=== PATIENT | female | born 1940 | race Caucasian/White ===

== ENCOUNTER 2016-10-14 08:08 | Emergency (ER) | payer MEDICARE, BC ==
--- NOTE | 2016-10-14 08:43 | ED ---
General Adult HPI - General Chief complaint: Urogenital Stated complaint: Fever, poss UTI Time Seen by Provider: 10/14/16 08:23 Source: patient, RN notes reviewed Mode of arrival: EMS Limitations: no limitations - History of Present Illness Initial comments: Patient 76-year-old female who presents emergency room today with a chief complaint of cough congestion and fever 4 days. Patient does admit that over the past 4 days she's had increased cough. Does admit to sputum production unsure of the color she states she just swallows it. States she has taken Mucinex which does help the symptoms. She states she noticed fever over the last 2 days. States fever came back this morning was concerned. Also admits that she was treated for urinary tract infection approximate 2-3 weeks ago. States was not rechecked after the time. She states she was asymptomatic. States still asymptomatic at this time for any signs of urinary tract infection. Denies any other complaints or symptoms. Does admit that she took Tylenol at home prior to arrival. Patient denies any recent shortness of breath , chest pain, back pain, abdominal pain, nausea or vomiting, numbness or tingling, dysuria or hematuria, constipation or diarrhea, headaches or visual changes, or any other complaints. - Related Data Home Medications Medication Instructions Recorded Confirmed Allopurinol [Zyloprim] 100 mg PO DAILY 01/11/15 10/14/16 Aspirin 81 mg PO DAILY 01/11/15 10/14/16 Cholecalciferol [Vitamin D3] 1,000 unit PO DAILY 01/11/15 10/14/16 Cyanocobalamin [Vitamin B-12] 500 mcg PO DAILY@0900 01/11/15 10/14/16 Insulin Detemir [Levemir Flextouch] 80 units SQ HS 01/11/15 10/14/16 Levothyroxine Sodium [Levoxyl] 150 mcg PO DAILY 01/11/15 10/14/16 Lovastatin [Mevacor] 10 mg PO HS 01/11/15 10/14/16 Metoprolol Tartrate [Lopressor] 12.5 mg PO BID 01/11/15 10/14/16 Multivitamins, Thera [Multivitamin 1 tab PO DAILY 01/11/15 10/14/16 (formulary)] Repaglinide [Prandin] 1 mg PO TID-W/MEALS 01/11/15 10/14/16 Venlafaxine HCl [Effexor XR] 75 mg PO DAILY 01/11/15 10/14/16 Insulin Aspart [NovoLOG] See Protocol SQ ACHS 01/12/15 10/14/16 Liraglutide [Victoza 2-Parker] 1.8 mg SQ DAILY 01/12/15 10/14/16 Insulin Degludec [Tresiba 85 unit SQ HS 10/14/16 10/14/16 Flextouch U-100] Lisinopril [Prinivil] 5 mg PO DAILY 10/14/16 10/14/16 Pregabalin [Lyrica] 150 mg PO BID 10/14/16 10/14/16 hydrALAZINE HCL [Apresoline] 75 mg PO DAILY 10/14/16 10/14/16 oxyCODONE-APAP 7.5-325MG [Percocet 1 tab PO DAILY PRN 10/14/16 10/14/16 7.5-325 mg] Previous Rx's Medication Instructions Recorded traMADol HCl [Ultram] 50 mg PO TID #90 tab 01/17/15 Allergies Allergy/AdvReac Type Severity Reaction Status Date / Time erythromycin base Allergy Unknown Verified 10/14/16 09:16 meropenem [From Merrem] Allergy Rash/Hives Verified 10/14/16 09:16 Penicillins Allergy Unknown Verified 10/14/16 09:16 Review of Systems ROS Statement: Those systems with pertinent positive or pertinent negative responses have been documented in the HPI. ROS Other: All systems not noted in ROS Statement are negative. Past Medical History Past Medical History: Coronary Artery Disease (CAD), COPD, Diabetes Mellitus, Hypertension, Neurologic Disorder, Pneumonia, Renal Disease, Sleep Apnea/CPAP/ BIPAP, Thyroid Disorder Additional Past Medical History / Comment(s): septic pneumonia, uti, diabetic neuropathy, diabetic retinopathy, osteoporosis, chronic pain, gout, septic uti, kidney disease, diverticulosis History of Any Multi-Drug Resistant Organisms: MRSA Date of last positivie culture/infection: 2014 MDRO Source:: unknown Past Surgical History: Adenoidectomy, Section, Heart Catheterization With Stent, Orthopedic Surgery, Tonsillectomy Additional Past Surgical History / Comment(s): panniculectomy, ORIF right ankle with cellulitis and septic arthropathy requiring PICC line treatments over 5 years ago. Lumbar puncture [facility] November 2014 bilateral cataracts tonsillectomy and adenoidectomy pilonidal cyst DNC colonoscopy. 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 Fortunately with hyperbaric oxygen therapy and antibiotics the limb was salvaged. LapBand was placed many years ago. Past Anesthesia/Blood Transfusion Reactions: No Reported Reaction Date of Last Stent Placement:: 2000 Past Psychological History: Anxiety Additional Psychological History / Comment(s): . Lives in the family home with her without pets at this time. No tobacco or alcohol use. No experience. No recent travels. Daughter is a transplant surgeon and [place] Smoking Status: Former smoker Past Alcohol Use History: None Reported Past Drug Use History: None Reported - Past Family History Father Additional Family Medical History / Comment(s): per patient's , patient' s father had "growth in throat that was non-malignant. from malnutrition" Mother Family Medical History: Cancer Additional Family Medical History / Comment(s): from bladdar cancer General Exam - General Exam Comments Initial Comments: General: The patient is awake and alert, in no distress, and does not appear acutely ill. Eye: Pupils are equal, round and reactive to light, extra-ocular movements are intact. No nystagmus. There is normal conjunctiva bilaterally. No signs of icterus. Ears, nose, mouth and throat: There are moist mucous membranes and no oral lesions. Neck: The neck is supple, there is no tenderness or JVD. Cardiovascular: There is a regular rate and rhythm. No murmur, rub or gallop is appreciated. Respiratory: Lungs are clear to auscultation, respirations are non-labored, breath sounds are equal. No wheezes, stridor, rales, or rhonchi. Gastrointestinal: Soft, non-distended, non-tender abdomen without masses or organomegaly noted. There is no rebound or guarding present. No CVA tenderness. Bowel sounds are unremarkable. Musculoskeletal: Normal ROM, no tenderness. Strength 5/5. Sensation intact. Pulses equal bilaterally 2+. Neurological: A&O x 3. CN II-XII intact, There are no obvious motor or sensory deficits. Coordination appears grossly intact. Speech is normal. Skin: Skin is warm and dry and no rashes or lesions are noted. Psychiatric: Cooperative, appropriate mood & affect, normal judgment. Limitations: no limitations Course Vital Signs 10/14/16 08:10 Temperature 100.7 F H Pulse Rate 76 Respiratory 18 Rate Blood Pressure 153/70 O2 Sat by Pulse 95 Oximetry Medical Decision Making - Medical Decision Making Patient reexamined at this time shows no signs of distress. Chest x-ray is negative. She does not she's had cough congestion for the last 4 days. Patient 's been taking Mucinex at home with some relief. Will be continued on Mucinex. Urinalysis reviewed shows no obvious infection culture pending. At this time patient resting comfortably and feels comfortable being discharged. Patient does have an appointment with her family doctor in 3 days. Advised to continue with this appointment. Advised to return to emergency room if any symptoms increase or worsen or for any other concerns. She states understanding and is in agreement. - Lab Data Lab Results 10/14/16 Range/Units 09:00 Urine Color Yellow Urine Appearance Clear (Clear) Urine pH 6.0 (5.0-8.0) Ur Specific [place] 1.027 (1.001-1.035) Urine Protein 4+ H (Negative) Urine Glucose (UA) Negative (Negative) Urine Ketones 1+ H (Negative) Urine Blood Trace H (Negative) Urine Nitrite Negative (Negative) Urine Bilirubin Negative (Negative) Urine Urobilinogen <2.0 (<2.0) mg/dL Ur Leukocyte Esterase Negative (Negative) Urine RBC 2 (0-5) /hpf Urine WBC 2 (0-5) /hpf Ur Squamous Epith Cells <1 (0-4) /hpf Urine Bacteria Rare H (None) /hpf Hyaline Casts 5 H (0-2) /lpf Urine Mucus Rare H (None) /hpf Disposition Clinical Impression: Upper respiratory infection Disposition: HOME SELF-CARE Condition: Good Instructions: Upper Respiratory Infection (ED) Additional Instructions: Please use medication as discussed. Please follow-up with family doctor in the next 2 days of symptoms have not improved. Please return to emergency room if the symptoms increase or worsen or for any other concerns. Referrals: Kira Tenorio MD [Primary Care Provider] - 1-2 days Time of Disposition: 09:50
--- NOTE | 2016-10-14 09:00 | XR ---
EXAMINATION TYPE: XR chest 2V DATE OF EXAM: 10/14/2016 8:53 AM COMPARISON: 01/13/2015 INDICATION: Cough fever TECHNIQUE: Single frontal view of the chest is obtained. FINDINGS: The heart size is normal. The pulmonary vasculature is normal. The lungs are clear. IMPRESSION: 1. No acute pulmonary process.
[2016-10-14 09:43] LABS: Appearance,Urine Clear (Clear); Bacteria,Urine Rare /hpf; Bilirubin,Urine Negative (Negative); Glucose,Urine (UA) Negative (Negative); Ketones,Urine 1+ (Negative); Leukocyte Esterase,Urine Negative (Negative); Mucus,Urine Rare /hpf; Nitrite,Urine Negative (Negative); Particle Count 17499; Protein,Urine 4+ (Negative); RBC,Urine 2 /hpf (0-5); Specific Gravity,Urine 1.027 (1.001-1.035); Squamous Epithelial Cell,Urine <1 /hpf (0-4); UA Billing (MACRO vs. MICRO) MICRO; Urobilinogen,Urine <2.0 mg/dL (<2.0); WBC,Urine 2 /hpf (0-5)
[2016-10-14 10:13] VITALS: BP 142/70; PULSE 78; RESP 16; TEMP 99.8
== END 2016-10-14 10:12 | disposition home or self-care (01) ==
LOC: EC 08:08
DX: J06.9 Acute upper respiratory infection, unspecified (principal); R05 Cough; E07.9 Disorder of thyroid, unspecified; E11.9 Type 2 diabetes mellitus without complications; I10 Essential (primary) hypertension; F41.9 Anxiety disorder, unspecified; M10.9 Gout, unspecified; Z86.14 Personal history of Methicillin resistant Staphylococcus aureus infection; Z87.891 Personal history of nicotine dependence; I25.10 Atherosclerotic heart disease of native coronary artery without angina pectoris; Z79.4 Long term (current) use of insulin; Z79.82 Long term (current) use of aspirin; Z79.899 Other long term (current) drug therapy; Z88.0 Allergy status to penicillin; Z88.1 Allergy status to other antibiotic agents
CPT/HCPCS: 71020; 81001; 87086; 99284

== ENCOUNTER 2016-12-10 23:12 | Emergency (ER) | payer MEDICARE, BC ==
[2016-12-10] MEDS ORDERED: SODIUM CHLORIDE 0.9% 1,000 ML IV ONE (23:51)
--- NOTE | 2016-12-10 23:58 | ED ---
General Adult HPI <Justin Hernandez - Last Filed: 12/11/16 00:43> - General Source: patient, family, RN notes reviewed, old records reviewed Mode of arrival: wheelchair Limitations: no limitations <Mukund Ceron - Last Filed: 12/11/16 00:44> <David Morales - Last Filed: 12/11/16 03:02> - General Chief complaint: Urogenital Stated complaint: Urethra bleeding Time Seen by Provider: 12/10/16 23:23 - History of Present Illness Initial comments: Chief complaint history of present illness 76-year-old female here with her . The patient reports today that she has been noticing slight pink color to her pads but today it was fresh blood with several small clots. Patient has not noticed any blood in the toilet after urinating. Patient has had frequent urinary tract infections it which she does she does not have dysuria. She also describes having had mild discomfort to the mid right abdomen today but not like what she had had in the past with a kidney stone. Otherwise no chills sweats no nausea no vomiting. No change in appetite. (Mukund Ceron) - Related Data Home Medications Medication Instructions Recorded Confirmed Allopurinol [Zyloprim] 100 mg PO DAILY 01/11/15 12/10/16 Aspirin 81 mg PO DAILY 01/11/15 12/10/16 Cholecalciferol [Vitamin D3] 1,000 unit PO DAILY 01/11/15 12/10/16 Cyanocobalamin [Vitamin B-12] 500 mcg PO DAILY@0900 01/11/15 12/10/16 Levothyroxine Sodium [Levoxyl] 150 mcg PO DAILY 01/11/15 12/10/16 Lovastatin [Mevacor] 10 mg PO HS 01/11/15 12/10/16 Metoprolol Tartrate [Lopressor] 12.5 mg PO BID 01/11/15 12/10/16 Multivitamins, Thera [Multivitamin 1 tab PO DAILY 01/11/15 12/10/16 (formulary)] Repaglinide [Prandin] 1 mg PO TID-W/MEALS 01/11/15 12/10/16 Venlafaxine HCl [Effexor XR] 75 mg PO DAILY 01/11/15 12/10/16 Insulin Aspart [NovoLOG] See Protocol SQ ACHS 08/14/15 07/12/17 Liraglutide [Victoza 2-Parker] 1.8 mg SQ DAILY 01/12/15 12/10/16 Lisinopril [Prinivil] 5 mg PO DAILY 10/14/16 12/10/16 Pregabalin [Lyrica] 75 mg PO BID 10/14/16 12/10/16 hydrALAZINE HCL [Apresoline] 25 mg PO TID 10/14/16 12/10/16 Insulin Degludec [Tresiba 78 unit SQ HS 12/10/16 12/10/16 Flextouch U-100] Liraglutide [Victoza 3-Parker] 1.8 mg SQ [id number] 12/10/16 12/10/16 Previous Rx's Medication Instructions Recorded traMADol HCl [Ultram] 50 mg PO TID #90 tab 01/17/15 Ciprofloxacin HCl [Cipro] 500 mg PO Q12HR #14 tablet 12/11/16 Allergies Allergy/AdvReac Type Severity Reaction Status Date / Time erythromycin base Allergy Unknown Verified 12/10/16 23:20 meropenem [From Merrem] Allergy Rash/Hives Verified 12/10/16 23:20 Penicillins Allergy Unknown Verified 12/10/16 23:20 Review of Systems ROS Other: All systems not noted in ROS Statement are negative. <Justin Hernandez - Last Filed: 12/11/16 00:43> ROS Other: All systems not noted in ROS Statement are negative. <Mukund Ceron - Last Filed: 12/11/16 00:44> ROS Other: All systems not noted in ROS Statement are negative. <David Morales - Last Filed: 12/11/16 03:02> ROS Statement: Those systems with pertinent positive or pertinent negative responses have been documented in the HPI. review of systems no headache or visual acuity changes no chest pain or shortness of breath she had mild discomfort to the right mid abdomen not significantly painful with no radiation. No chills no nausea no vomiting. All systems are reviewedPast medical problems coronary artery disease, COPD, insulin-dependent diabetes mellitus, hypertension, peripheral neuropathy, pneumonia, renal insufficiency, sleep apnea, hypothyroidism septic pneumonia. Surgeries include tonsils, adenoids, 2 C-sections, heart catheterization with 2 stents placed. Total left ankle replacement. Tonsillectomy and panniculectomy. She is also had a lap band surgery and panniculectomy. Several laser surgeries became secondarily infected. No infections at this time (Mukund Ceron) Past Medical History Past Medical History: Coronary Artery Disease (CAD), COPD, Diabetes Mellitus, Hypertension, Neurologic Disorder, Pneumonia, Renal Disease, Sleep Apnea/CPAP/ BIPAP, Thyroid Disorder Additional Past Medical History / Comment(s): septic pneumonia, uti, diabetic neuropathy, diabetic retinopathy, osteoporosis, chronic pain, gout, septic uti, kidney disease, diverticulosis History of Any Multi-Drug Resistant Organisms: MRSA Date of last positivie culture/infection: 2014 MDRO Source:: unknown Past Surgical History: Adenoidectomy, Section, Heart Catheterization With Stent, Orthopedic Surgery, Tonsillectomy Additional Past Surgical History / Comment(s): panniculectomy, ORIF right ankle with cellulitis and septic arthropathy requiring PICC line treatments over 5 years ago. Lumbar puncture [facility] November 2014 bilateral cataracts tonsillectomy and adenoidectomy pilonidal cyst DNC colonoscopy. 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 Fortunately with hyperbaric oxygen therapy and antibiotics the limb was salvaged. LapBand was placed many years ago. Past Anesthesia/Blood Transfusion Reactions: No Reported Reaction Date of Last Stent Placement:: 2000 Past Psychological History: Anxiety Smoking Status: Former smoker Past Alcohol Use History: None Reported Past Drug Use History: None Reported - Past Family History Father Additional Family Medical History / Comment(s): per patient's , patient' s father had "growth in throat that was non-malignant. from malnutrition" Mother Family Medical History: Cancer Additional Family Medical History / Comment(s): from bladdar cancer <Mukund Ceron - Last Filed: 12/11/16 00:44> General Exam External exam: Present: normal external exam Speculum exam: Present: normal speculum exam, cervical discharge (tissue consistence), vaginal bleeding By manual exam: Present: normal by manual exam <Justin Hernandez - Last Filed: 12/11/16 00:43> Limitations: no limitations <Mukund Ceron - Last Filed: 12/11/16 00:44> <David Morales - Last Filed: 12/11/16 03:02> - General Exam Comments Initial Comments: General: The patient is awake and alert, here because she noticed blood on her feminine pad. No frequency urgency or dysuria. She does not know if it came from the vagina or from the urine, bladder. Vital signs temperature 98.0 pulse 82 respiratory rate 18 pulse ox 98% room air blood pressure 177/110. The patient did not take her medications today.. Eye: Pupils are equal, round and reactive to light, extra-ocular movements are intact ; there is normal conjunctiva bilaterally. No signs of icterus. Ears, nose, mouth and throat: There are moist mucous membranes and no oral lesions. false teeth Neck: The neck is supple, there is no tenderness . Cardiovascular: There is a regular rate and rhythm. No murmur, rub or gallop is appreciated. Respiratory: Lungs are clear to auscultation, respirations are non-labored, breath sounds are equal. No wheezes, stridor, rales, or rhonchi. Gastrointestinal: Mild firmness with examination of the abdomen. No hernias appreciated. Patient has had a panniculectomy with scar tissue. Active bowel sounds. Vaginal examination be performed by the physician's billing and accounting staff assistant, JUSTIN Back: There is no tenderness to palpation in the midline. There is no obvious deformity. No rashes noted. Musculoskeletal: Normal ROM, no tenderness, There is no pedal edema. There is no calf tenderness or swelling. Sensation intact. Neurological: CURRENTLY NO FOCAL OR LATERALIZING FINDINGS. bUT SHE DOES HAVE PERIPHERAL NEUROPATHY, CHRONIC IN NATURE. Skin: Skin is warm and dry and no rashes or lesions are noted. (Mukund Ceron) Medical Decision Making - Lab Data Result diagrams: 12/11/16 00:15 <Justin Hernandez - Last Filed: 12/11/16 00:43> - Lab Data Result diagrams: 12/11/16 00:15 <Mukudn eCron - Last Filed: 12/11/16 00:44> - Lab Data Result diagrams: 12/11/16 00:15 12/11/16 00:15 <David Morales - Last Filed: 12/11/16 03:02> - Medical Decision Making Patient forgot to take any of her medications today. Her blood pressure is elevated upon arrival to emergency room 167/110. She will be given her evening dose of hydralazine 25 and Lopressor 12.5 by mouth. Vaginal examination was done by physician's billing and accounting staff assistant Justin. See her note. It was noted that the bleeding is from the vagina. There appeared to be some loose material in the cervical opening. The patient will have an ultrasound. labs show white count 11.5 hemoglobin 13.8 hematocrit of 40.1. Glucose per lab for 02. The patient received 6 units of regular insulin per scale. The patient had forgotten to take any further blood pressure pills for diabetic medication today. potassium 4.5, BUN 29 creatinine 1.4 GFR 37. Patient is waiting to have an ultrasound done. Depending upon the results patient will either be admitted or discharged to follow up with her family physician and double end sewer for vaginal bleeding. Patient states she has not had a Pap smear for many years. Final disposition will be determined by Dr. Hong ([facility]) - Lab Data Lab Results 12/11/16 12/11/16 12/11/16 Range/Units 00:15 00:15 00:24 WBC 11.5 H (3.8-10.6) k/uL RBC 4.54 (3.80-5.40) m/uL Hgb 13.8 (11.4-16.0) gm/dL Hct 40.1 (34.0-46.0) % MCV 88.4 (80.0-100.0) fL MCH 30.4 (25.0-35.0) pg MCHC 34.4 (31.0-37.0) g/dL RDW 14.1 (11.5-15.5) % Plt Count 257 (150-450) k/uL Neutrophils % 74 % Lymphocytes % 18 % Monocytes % 4 % Eosinophils % 1 % Basophils % 0 % Neutrophils # 8.5 H (1.3-7.7) k/uL Lymphocytes # 2.1 (1.0-4.8) k/uL Monocytes # 0.5 (0-1.0) k/uL Eosinophils # 0.2 (0-0.7) k/uL Basophils # 0.1 (0-0.2) k/uL PT (9.0-12.0) sec INR (<1.1) Sodium 140 (137-145) mmol/L Potassium 4.5 (3.5-5.1) mmol/L Chloride 101 (98-107) mmol/L Carbon Dioxide 24 (22-30) mmol/L Anion Gap 15 mmol/L BUN 29 H (7-17) mg/dL Creatinine 1.40 H (0.52-1.04) mg/dL Est GFR (MDRD) Af Amer 44 (>60 ml/min/1.73 sqM) Est GFR (MDRD) Non-Af 37 (>60 ml/min/1.73 sqM) Glucose 402 H (74-99) mg/dL POC Glucose (mg/dL) 363 H (75-99) mg/dL POC Glu Claims Adjuster ID Shayy Nick Calcium 9.5 (8.4-10.2) mg/dL Total Bilirubin 0.3 (0.2-1.3) mg/dL AST 37 H (14-36) U/L ALT 43 (9-52) U/L Alkaline Phosphatase 164 H (38-126) U/L Total Protein 7.2 (6.3-8.2) g/dL Albumin 4.4 (3.5-5.0) g/dL Urine Color Urine Appearance (Clear) Urine pH (5.0-8.0) Ur Specific [place] (1.001-1.035) Urine Protein (Negative) Urine Glucose (UA) (Negative) Urine Ketones (Negative) Urine Blood (Negative) Urine Nitrite (Negative) Urine Bilirubin (Negative) Urine Urobilinogen (<2.0) mg/dL Ur Leukocyte Esterase (Negative) Urine RBC (0-5) /hpf Urine WBC (0-5) /hpf Ur Squamous Epith Cells (0-4) /hpf 12/11/16 12/11/16 12/11/16 Range/Units 00:33 02:02 02:06 WBC (3.8-10.6) k/uL RBC (3.80-5.40) m/uL Hgb (11.4-16.0) gm/dL Hct (34.0-46.0) % MCV (80.0-100.0) fL MCH (25.0-35.0) pg MCHC (31.0-37.0) g/dL RDW (11.5-15.5) % Plt Count (150-450) k/uL Neutrophils % % Lymphocytes % % Monocytes % % Eosinophils % % Basophils % % Neutrophils # (1.3-7.7) k/uL Lymphocytes # (1.0-4.8) k/uL Monocytes # (0-1.0) k/uL Eosinophils # (0-0.7) k/uL Basophils # (0-0.2) k/uL PT 9.9 (9.0-12.0) sec INR 1.0 (<1.1) Sodium (137-145) mmol/L Potassium (3.5-5.1) mmol/L Chloride (98-107) mmol/L Carbon Dioxide (22-30) mmol/L Anion Gap mmol/L BUN (7-17) mg/dL Creatinine (0.52-1.04) mg/dL Est GFR (MDRD) Af Amer (>60 ml/min/1.73 sqM) Est GFR (MDRD) Non-Af (>60 ml/min/1.73 sqM) Glucose (74-99) mg/dL POC Glucose (mg/dL) 369 H (75-99) mg/dL POC Glu Claims Adjuster ID Shayla Zhu Calcium (8.4-10.2) mg/dL Total Bilirubin (0.2-1.3) mg/dL AST (14-36) U/L ALT (9-52) U/L Alkaline Phosphatase (38-126) U/L Total Protein (6.3-8.2) g/dL Albumin (3.5-5.0) g/dL Urine Color Yellow Urine Appearance Clear (Clear) Urine pH 7.5 (5.0-8.0) Ur Specific [place] 1.010 (1.001-1.035) Urine Protein 2+ H (Negative) Urine Glucose (UA) 4+ H (Negative) Urine Ketones Negative (Negative) Urine Blood Moderate H (Negative) Urine Nitrite Negative (Negative) Urine Bilirubin Negative (Negative) Urine Urobilinogen <2.0 (<2.0) mg/dL Ur Leukocyte Esterase Small H (Negative) Urine RBC >182 H (0-5) /hpf Urine WBC 66 H (0-5) /hpf Ur Squamous Epith Cells <1 (0-4) /hpf Disposition <Justin Hernandez - Last Filed: 12/11/16 00:43> <Mukund Ceron - Last Filed: 12/11/16 00:44> <David Morales - Last Filed: 12/11/16 03:02> Clinical Impression: Postmenopausal vaginal bleeding, Urinary tract infection, Hypertension, Hyperglycemia Disposition: HOME SELF-CARE Condition: Fair Instructions: Urinary Tract Infection in Women (ED) Prescriptions: Ciprofloxacin HCl [Cipro] 500 mg PO Q12HR #14 tablet Referrals: Kira Tenorio MD [Primary Care Provider] - 1-2 days Sherin Hackett MD [STAFF PHYSICIAN] - 1-2 days
[2016-12-11 00:25] LABS: Glucose,Whole Blood 363 mg/dL (75-99)
[2016-12-11] MEDS ORDERED: METOPROLOL TARTRATE 12.5 MG TAB PO STA (00:25)
[2016-12-11] MEDS ORDERED: hydrALAZINE HCL 25 MG TAB PO STA (00:25)
[2016-12-11 00:32] LABS: Basophils # (A) 0.1 k/uL (0-0.2); Basophils % (A) 0 %; CH 29.4; CHCM 33.3; Eosinophils # (A) 0.2 k/uL (0-0.7); Eosinophils % (A) 1 %; HCT 40.1 % (34.0-46.0); HDW 2.96; HGB 13.8 gm/dL (11.4-16.0); Luc # (Auto) 0.18; Luc % (Auto) 2; Lymphocytes # (A) 2.1 k/uL (1.0-4.8); Lymphocytes % (A) 18 %; MCH 30.4 pg (25.0-35.0); MCHC 34.4 g/dL (31.0-37.0); MCV 88.4 fL (80.0-100.0); Mean Platelet Volume 6.8; Monocytes # (A) 0.5 k/uL (0-1.0); Monocytes % (A) 4 %; Neutrophils # (A) 8.5 k/uL (1.3-7.7); Neutrophils % (A) 74 %; RBC 4.54 m/uL (3.80-5.40); RDW 14.1 % (11.5-15.5); WBC 11.5 k/uL (3.8-10.6); WBC (Perox) 11.11
[2016-12-11] MEDS ORDERED: INSULIN LISPRO (humaLOG) 300 UNIT/3 ML VIAL SQ ONE ×2 (00:33→02:22)
[2016-12-11 00:44] LABS: Calcium 9.5 mg/dL (8.4-10.2); Potassium 4.5 mmol/L (3.5-5.1); Total Bilirubin 0.3 mg/dL (0.2-1.3); Total Protein 7.2 g/dL (6.3-8.2)
[2016-12-11 00:47] VITALS: RESP 16
[2016-12-11 00:51] LABS: Prothrombin Time 9.9 sec (9.0-12.0)
[2016-12-11 02:07] LABS: Glucose,Whole Blood 369 mg/dL (75-99)
[2016-12-11] MEDS ORDERED: cloNIDine HCL 0.2 MG TAB PO STA (02:15)
--- NOTE | 2016-12-11 02:22 | US ---
EXAM: US Pelvis Complete, Transabdominal CLINICAL HISTORY: Reason: vaginal bleeding TECHNIQUE: Real-time transabdominal pelvic ultrasound (complete) with image documentation. COMPARISON: None. FINDINGS: Uterus/cervix: The uterus is anteverted and measures 7.4 x 3.3 x 3.3 cm. Endometrial stripe thickness measures approximately 1 cm, which is abnormal in a postmenopausal female. Patient was unable to successfully empty her bladder making transvaginal imaging limited. Right ovary: Measures 2.5 x 1 x 1.8 cm. No mass. Normal blood flow. Left ovary: Measures 1.9 x 1.4 x 1.6 cm. No mass. Normal blood flow. Free fluid: No free fluid. Bladder: Unremarkable as visualized. Post void residual volume 182 cc IMPRESSION: 1. Thickened endometrial stripe, measuring up to 1 cm, which is abnormal in a postmenopausal female. Given the patient's history, this concerning for neoplasm. Tissue sampling is recommended. 2. Postvoid residual volume of 182 cc, which is abnormal.
[2016-12-11 02:24] LABS: Appearance,Urine Clear (Clear); Bilirubin,Urine Negative (Negative); Glucose,Urine (UA) 4+ (Negative); Ketones,Urine Negative (Negative); Leukocyte Esterase,Urine Small (Negative); Nitrite,Urine Negative (Negative); PH, Urine 7.5 (5.0-8.0); Particle Count 1327; Protein,Urine 2+ (Negative); RBC,Urine >182 /hpf (0-5); Squamous Epithelial Cell,Urine <1 /hpf (0-4); UA Billing (MACRO vs. MICRO) MICRO; Urobilinogen,Urine <2.0 mg/dL (<2.0); WBC,Urine 66 /hpf (0-5)
[2016-12-11 03:34] VITALS: BP 188/79; PULSE 59; TEMP 98.6
== END 2016-12-11 03:53 | disposition home or self-care (01) ==
LOC: EC 23:12
DX: N95.0 Postmenopausal bleeding (principal); N39.0 Urinary tract infection, site not specified; E11.65 Type 2 diabetes mellitus with hyperglycemia; I10 Essential (primary) hypertension; I25.10 Atherosclerotic heart disease of native coronary artery without angina pectoris; E07.9 Disorder of thyroid, unspecified; M10.9 Gout, unspecified; F41.9 Anxiety disorder, unspecified; Z87.891 Personal history of nicotine dependence; Z88.0 Allergy status to penicillin; Z88.1 Allergy status to other antibiotic agents; Z88.8 Allergy status to other drugs, medicaments and biological substances; Z79.82 Long term (current) use of aspirin; Z79.4 Long term (current) use of insulin; Z79.84 Long term (current) use of oral hypoglycemic drugs; Z79.899 Other long term (current) drug therapy
CPT/HCPCS: 36415; 76856; 80053; 81001; 85025; 85610; 87086; 96360; 96361; 99284

== ENCOUNTER → 2017-01-22 | Outpatient (CLI) | payer MEDICARE, BC ==
[2017-01-22 17:43] LABS: CH 30.2; CHCM 33.1; HDW 2.68; HGB 12.9 gm/dL (11.4-16.0); MCH 29.6 pg (25.0-35.0); MCHC 32.2 g/dL (31.0-37.0); MCV 91.8 fL (80.0-100.0); Mean Platelet Volume 7.3; RBC 4.35 m/uL (3.80-5.40); RDW 15.1 % (11.5-15.5); WBC 9.6 k/uL (3.8-10.6)
[2017-01-22 17:50] LABS: Potassium 5.1 mmol/L (3.5-5.1)
== END | disposition home or self-care (01) ==
LOC: LABWHC1 17:19
PROVIDERS: ATTEND Internal Medicine Cardiovascular Disease
DX: Z01.812 Encounter for preprocedural laboratory examination (principal); I25.10 Atherosclerotic heart disease of native coronary artery without angina pectoris
CPT/HCPCS: 36415; 80051; 82565; 84520; 85027

== ENCOUNTER 2017-01-28 09:38 | Day surgery (SDC) | payer MEDICARE, BC ==
[2017-01-26 09:52] VITALS: BMI 33.3
[~2017-01-28 09:38] MED LIST: ALPRAZolam 0.25 MG TAB PO PRN; ALPRAZolam 0.5 MG TAB PO PRN; ASPIRIN 325 MG TAB PO STA; ATORVASTATIN 80 MG TAB PO STA; NITROGLYCERIN SL TABS 0.4 MG TAB SUBLINGUAL PRN; SODIUM CHLORIDE 0.9% 1,000 ML in EMPTY BAG 1 BAG IV ONE
[2017-01-28] MEDS: INSULIN LISPRO (humaLOG) 300 UNIT/3 ML VIAL SQ SCH ×3 (10:04→21:01)
[2017-01-28] MEDS ORDERED: fentaNYL (PF) 50 MCG/ML 2 ML AMP ONE (11:29)
[2017-01-28] MEDS ORDERED: fentaNYL (PF) 50 MCG/ML 2 ML AMP IVP ONE (11:30)
[2017-01-28] MEDS ORDERED: LIDOCAINE 2% INJ 20 MG/ML SQ ONE ×2 (11:33→11:46)
[2017-01-28] MEDS ORDERED: VERAPAMIL 2.5 MG/ML 2 ML AMP ONE (11:42)
[2017-01-28] MEDS ORDERED: VERAPAMIL SYRINGE (5 MG/10 ML) INTRAARTER ONE (11:52)
[2017-01-28] MEDS ORDERED: HEPARIN SODIUM 1,000 UN/ML (10ML VL) IV ONE (11:53)
[2017-01-28] MEDS ORDERED: RX INFO: IV CONTRAST WAS GIVEN 1 EACH MISC MISCELLANE PRN (12:39)
[2017-01-28] MEDS ORDERED: IODIXANOL 320 MG/ML 100 ML INTRAARTER ONE (12:40)
[2017-01-28] MEDS ORDERED: ACETAMINOPHEN TAB 325 MG TAB PO PRN (13:00)
[2017-01-28] MEDS: SODIUM CHLORIDE 0.9% 1,000 ML IV SCH (13:32)
[2017-01-28 14:06] LABS: Glucose,Whole Blood 238 mg/dL (75-99)
[2017-01-28 14:08] LABS: Glucose,Whole Blood 173 mg/dL (75-99)
[2017-01-28] MEDS ORDERED: hydrALAZINE HCL 20 MG/ML 1 ML VIAL IVP PRN (14:54)
--- NOTE | 2017-01-28 15:11 | P.CONS ---
History of Present Illness - Reason for Consult Consult date: 01/28/17 Diabetes management - Chief Complaint Chest tightness - History of Present Illness This is a 76-year-old female patient of Dr. Tenorio and Dr. Adkins. She has a past medical history significant for coronary artery disease status post stent 2, hypertension, COPD, diabetes mellitus type 2, diabetic neuropathy, diabetic retinopathy, osteoporosis, chronic kidney disease stage III, sleep apnea unable to tolerate CPAP, hypothyroidism, chronic pain, gout, frequent urinary tract infections, diverticulosis, septic arthropathy of the right ankle in the past. Patient states that she saw Dr. Tenorio yesterday and is currently in the donut hole and unable to afford her current diabetic medications. They are currently in the process of changing over to less expensive medications. Her last hemoglobin A1c was 7.8 which is an improvement from the previous. She also saw Dr. Adkins on a regular scheduled appointment and due to tightness in her chest which is intermittent and she was scheduled for heart catheterization that did show blockages that requires stent placement. Due to her chronic kidney disease, PCI was postponed until next week. Patient has been hydrated overnight and plan for discharge home tomorrow. On January 22, BUN was 28 and creatinine 1.4. Blood pressure is also quite elevated and IV hydralazine added. Patient also states that she has been tired on a regular basis every day. She is sleeping 13-14 hours per day.. Review of Systems All systems: negative Constitutional: Reports chronic pain, Reports daytime sleepiness, Reports fatigue, Reports lethargy, Denies anorexia, Denies chills, Denies fever, Denies night sweats, Denies poor appetite, Denies weakness Eyes: denies blurred vision, denies pain Ears, nose, mouth and throat: Denies dental pain, Denies dysphagia, Denies headache, Denies mouth pain, Denies nasal congestion, Denies nasal discharge, Denies sore throat, Denies vertigo Cardiovascular: Reports chest pain, Denies edema, Denies irregular heart beat, Denies leg edema, Denies lightheadedness, Denies orthopnea, Denies palpitations , Denies paroxysmal nocturnal dyspnea, Denies shortness of breath Respiratory: Denies cough, Denies cough with sputum, Denies dyspnea, Denies excessive sputum, Denies hemoptysis, Denies home oxygen, Denies wheezing Gastrointestinal: Denies abdominal pain, Denies belching, Denies bloating, Denies coffee ground emesis, Denies diarrhea, Denies hematemesis, Denies hematochezia, Denies loss of appetite, Denies melena, Denies nausea, Denies vomiting Genitourinary: Denies dysuria, Denies hematuria, Denies urgency, Denies urinary frequency Musculoskeletal: Denies myalgias Integumentary: Denies pruritus, Denies rash Neurological: Denies numbness, Denies weakness Psychiatric: Denies anxiety, Denies depression Endocrine: Denies fatigue, Denies weight change Past Medical History Past Medical History: Coronary Artery Disease (CAD), COPD, Diabetes Mellitus, Hypertension, Renal Disease, Sleep Apnea/CPAP/BIPAP, Thyroid Disorder Additional Past Medical History / Comment(s): see Dr Adkins H&P, unable to tolerate CPAP, frequent urinary tract infections, diabetic neuropathy, diabetic retinopathy, "nervous bladder", chronic kidney disease stage III, hypothyroidism , osteoporosis, chronic pain, gout, diverticulosis History of Any Multi-Drug Resistant Organisms: None Reported Year Discovered:: None MDRO Source:: None Past Surgical History: Adenoidectomy, Section, Heart Catheterization With Stent, Orthopedic Surgery, Tonsillectomy Additional Past Surgical History / Comment(s): panniculectomy(post op infection) , ORIF right ankle with cellulitis and septic arthropathy requiring IV antibiotics in the care of Dr. Celestin, right ankle arthroplasty, polyp removed from uterus, 2 cardiac stents, bilateral cataract extraction and intraocular lens implants, pilonidal cyst, D&C, colonoscopy, lumbar puncture done at [facility] November 2014 Past Anesthesia/Blood Transfusion Reactions: No Reported Reaction Date of Last Stent Placement:: 2012 Past Psychological History: No Psychological Hx Reported Additional Psychological History / Comment(s): . Smoking Status: Former smoker Past Alcohol Use History: Rare Additional Past Alcohol Use History / Comment(s): quit smoking 25 yrs ago, smoked for 20 yrs 1 ppd Past Drug Use History: None Reported - Past Family History Father Additional Family Medical History / Comment(s): Father at age 65 with history of nasal cancer and throat masses that led to malnutrition and his . On autopsy throat masses were benign. Mother Family Medical History: Cancer Additional Family Medical History / Comment(s): Mother at age 67 from bladder cancer. Daughter(s) Additional Family Medical History / Comment(s): Patient has 2 daughters with no major medical problems. Patient does not have any siblings. Medications and Allergies Home Medications Medication Instructions Recorded Confirmed Type Allopurinol [Zyloprim] 100 mg PO DAILY 01/11/15 01/28/17 History Aspirin 81 mg PO DAILY 01/11/15 01/28/17 History Cholecalciferol [Vitamin D3] 1,000 unit PO DAILY 01/11/15 01/28/17 History Cyanocobalamin [Vitamin B-12] 500 mcg PO DAILY 01/11/15 01/28/17 History Levothyroxine Sodium [Levoxyl] 150 mcg PO DAILY 01/11/15 01/28/17 History Lovastatin [Mevacor] 10 mg PO HS 01/11/15 01/28/17 History Metoprolol Tartrate [Lopressor] 12.5 mg PO BID 01/11/15 01/28/17 History Multivitamins, Thera [Multivitamin 1 tab PO DAILY 01/11/15 01/28/17 History (formulary)] Repaglinide [Prandin] 1 mg PO TID-W/MEALS 01/11/15 01/28/17 History Venlafaxine HCl [Effexor XR] 75 mg PO DAILY 01/11/15 01/28/17 History Insulin Aspart [NovoLOG] See Protocol SQ ACHS 01/12/15 01/28/17 History Lisinopril [Prinivil] 5 mg PO DAILY 10/14/16 01/28/17 History Pregabalin [Lyrica] 75 mg PO BID 10/14/16 01/28/17 History hydrALAZINE HCL [Apresoline] 25 mg PO TID 10/14/16 01/28/17 History Insulin Degludec [Tresiba 78 unit SQ HS 12/10/16 01/28/17 History Flextouch U-100] Liraglutide [Victoza 3-Parker] 1.8 mg SQ AC-BRKFST 12/10/16 01/28/17 History Acetaminophen [Tylenol Arthritis] 650 mg PO QID 01/26/17 01/28/17 History Progesterone, Micronized 200 mg PO DAILY 01/26/17 01/28/17 History [Progesterone] Allergies Allergy/AdvReac Type Severity Reaction Status Date / Time erythromycin base Allergy Unknown Verified 01/28/17 09:59 meropenem [From Merrem] Allergy Rash/Hives Verified 01/28/17 09:59 Penicillins Allergy Unknown Verified 01/28/17 09:59 Physical Exam Vitals: Vital Signs Temp Pulse Pulse Resp BP BP Pulse Ox 01/28/17 13:19 97.9 F 53 L 18 154/66 94 L 01/28/17 10:21 97.6 F 56 L 18 167/74 170/74 95 Intake and Output 01/27/17 01/28/17 01/28/17 22:59 06:59 14:59 Intake Total 75 Balance 75 Intake: IV 75 Gen: This is a obese 76-year-old female. She is resting in bed appears to be comfortable and in no acute distress. HEENT: Head is atraumatic, normocephalic. Pupils equal, round. Sclerae is anicteric. Conjunctiva pink. Mucous membranes of the mouth are dry. NECK: Supple. No JVD. No lymphadenopathy. No thyromegaly. LUNGS: Clear to auscultation. No wheezes or rhonchi. No intercostal retractions. HEART: Regular rate and rhythm. No murmur. ABDOMEN: Soft. Bowel sounds are present. No masses. No tenderness. EXTREMITIES: No pedal edema. No calf tenderness. Dorsalis pedis +2 bilaterally. TR-band to right wrist. NEUROLOGICAL: Patient is awake, alert and oriented x3. Cranial nerves 2 through 12 are grossly intact. Results Labs: Abnormal Lab Results - Last 24 Hours (Table) 01/28/17 01/28/17 Range/Units 09:57 13:12 POC Glucose (mg/dL) 238 H 173 H (75-99) mg/dL Assessment and Plan Plan: 1. Coronary artery disease status post heart catheterization will plan to return next week for stent placement. Continue aspirin 81 mg daily, Lipitor 10 mg at bedtime for lovastatin, metoprolol 12.5 mg twice daily. 2. Diabetes mellitus type 2 with hemoglobin A1c of 7.8. The patient will be continued on Tarceva 78 units at bedtime, Prandin 1 mg 3 times daily, Victoza 1.8 mg before breakfast. Patient shouldn't is making arrangements with Dr. quintal to use less expensive medications for blood sugar control. 3. Hypertension with urgent hypertension continue lisinopril 5 mg daily, metoprolol 12.5 mg twice daily, hydralazine 25 mg 3 times daily, hydralazine 20 mg IV push every 6 hours for systolic blood pressure greater than 160. 4. Chronic kidney disease stage III. Repeat blood work in the morning. Continue IV fluids. 5. Generalized anxiety disorder and recurrent depression. Continue Effexor XR 75 mg daily and Xanax as needed has been added. 6. Hypothyroidism. Continue levothyroxine 150 g daily. 7. Diabetic neuropathy. Continue Lyrica 75 mg twice daily. Patient may switch to gabapentin 300 mg at bedtime due to cost issue. 8. Chronic pain. Continue Ultram 50 mg 3 times daily as needed. 9. Gout, stable. Continue allopurinol. Patient on the observation unit. Discharge plan: Home tomorrow Impression and plan of care have been directed as dictated by the signing physician. Myesha Wynne nurse practitioner acting as scribe for signing physician.
[2017-01-28] MEDS: hydrALAZINE HCL 25 MG TAB PO SCH ×2 (16:30→19:43)
[2017-01-28] MEDS: REPAGLINIDE 1 MG TAB PO SCH (16:32)
[2017-01-28] MEDS: traMADol 50 MG TAB PO SCH ×2 (16:32→19:43)
[2017-01-28 17:28] LABS: Glucose,Whole Blood 158 mg/dL (75-99)
[2017-01-28] MEDS: PREGABALIN 75 MG CAP PO SCH (19:43)
[2017-01-28] MEDS: METOPROLOL TARTRATE 12.5 MG TAB PO SCH (19:43)
[2017-01-28 20:55] LABS: Glucose,Whole Blood 261 mg/dL (75-99)
[2017-01-28] MEDS ORDERED: INSULIN DETEMIR 100 UNIT/ML 10 ML VIAL SQ SCH (21:00)
[2017-01-28] MEDS ORDERED: ATORVASTATIN 10 MG TAB PO SCH (21:00)
[2017-01-29 04:13] VITALS: RESP 18
[2017-01-29] MEDS: SODIUM CHLORIDE 0.9% 1,000 ML IV SCH ×2 (04:43→09:16)
[2017-01-29 05:41] LABS: Calcium 9.1 mg/dL (8.4-10.2); Potassium 4.2 mmol/L (3.5-5.1)
[2017-01-29] MEDS ORDERED: LEVOTHYROXINE 75 MCG TAB PO SCH (06:30)
[2017-01-29 07:07] LABS: Glucose,Whole Blood 79 mg/dL (75-99)
[2017-01-29 07:23] VITALS: BP 136/56; TEMP 98.3
[2017-01-29] MEDS ORDERED: NON-FORMULARY DRUG (Liraglutide [Victoza 3-Pak] 1.8 MG) SQ SCH (07:30)
[2017-01-29] MEDS: INSULIN LISPRO (humaLOG) 300 UNIT/3 ML VIAL SQ SCH (08:55)
[2017-01-29] MEDS ORDERED: ASPIRIN 81 MG CHEW PO SCH (09:00)
[2017-01-29] MEDS ORDERED: PROGESTERONE MICRONIZED 200 MG PO SCH (09:00)
[2017-01-29] MEDS ORDERED: ALLOPURINOL 100 MG TAB PO SCH (09:00)
[2017-01-29] MEDS ORDERED: LISINOPRIL 5 MG TAB PO SCH (09:00)
[2017-01-29] MEDS ORDERED: VENLAFAXINE HCL ER 37.5 MG CAP PO SCH (09:00)
[2017-01-29] MEDS: PREGABALIN 75 MG CAP PO SCH (09:16)
[2017-01-29] MEDS: REPAGLINIDE 1 MG TAB PO SCH (09:16)
[2017-01-29] MEDS: METOPROLOL TARTRATE 12.5 MG TAB PO SCH (09:16)
[2017-01-29] MEDS: hydrALAZINE HCL 25 MG TAB PO SCH (09:16)
[2017-01-29] MEDS: traMADol 50 MG TAB PO SCH (09:38)
[2017-01-29 09:47] VITALS: PULSE 65
--- NOTE | 2017-01-29 11:12 | P.DS ---
Providers Date of admission: 01/28/2017 Expected date of discharge: 01/29/17 Attending physician: Capri Adkins Consults: 01/28/17 12:44 Consult Physician Routine Consulting Provider: Kira Tenorio Consult Reason/Comments: diabetic management Do you want consulting provider notified?: Yes Primary care physician: Kira Tenorio [facility] Hospital Course: This is a 76-year-old female who presented on 01/28/2017 for an elective cardiac catheterization. She underwent a left heart via the right radial artery. The procedure showed triple vessel disease. She tolerated the procedure well without incident. She stayed overnight in observation. She is scheduled to follow up with Dr. Adkins in the office 02/03/2017 for follow up and scheduling of interventional procedure. Her incision site shows no sign of hematoma, pain, swelling or redness. Discharge instructions were given to patient with verbalized understanding. Procedures: Left heart catheterization Plan - Discharge Summary New Discharge Prescriptions: Continue Repaglinide [Prandin] 1 mg PO TID-W/MEALS Metoprolol Tartrate [Lopressor] 12.5 mg PO BID Cyanocobalamin [Vitamin B-12] 500 mcg PO DAILY Cholecalciferol [Vitamin D3] 1,000 unit PO DAILY Venlafaxine HCl [Effexor XR] 75 mg PO DAILY Multivitamins, Thera [Multivitamin (formulary)] 1 tab PO DAILY Lovastatin [Mevacor] 10 mg PO HS Levothyroxine Sodium [Levoxyl] 150 mcg PO DAILY Aspirin 81 mg PO DAILY Allopurinol [Zyloprim] 100 mg PO DAILY Insulin Aspart [NovoLOG] See Protocol SQ ACHS traMADol HCl [Ultram] 50 mg PO TID #90 tab hydrALAZINE HCL [Apresoline] 25 mg PO TID Lisinopril [Prinivil] 5 mg PO DAILY Pregabalin [Lyrica] 75 mg PO BID Insulin Degludec [Tresiba Flextouch U-100] 78 unit SQ HS Liraglutide [Victoza 3-Parker] 1.8 mg SQ AC-BRKFST Progesterone, Micronized [Progesterone] 200 mg PO DAILY Acetaminophen [Tylenol Arthritis] 650 mg PO QID Discharge Medication List Allopurinol [Zyloprim] 100 mg PO DAILY 01/11/15 [History] Aspirin 81 mg PO DAILY 01/11/15 [History] Cholecalciferol [Vitamin D3] 1,000 unit PO DAILY 01/11/15 [History] Cyanocobalamin [Vitamin B-12] 500 mcg PO DAILY 01/11/15 [History] Levothyroxine Sodium [Levoxyl] 150 mcg PO DAILY 01/11/15 [History] Lovastatin [Mevacor] 10 mg PO HS 01/11/15 [History] Metoprolol Tartrate [Lopressor] 12.5 mg PO BID 01/11/15 [History] Multivitamins, Thera [Multivitamin (formulary)] 1 tab PO DAILY 01/11/15 [History ] Repaglinide [Prandin] 1 mg PO TID-W/MEALS 01/11/15 [History] Venlafaxine HCl [Effexor XR] 75 mg PO DAILY 01/11/15 [History] Insulin Aspart [NovoLOG] See Protocol SQ ACHS 01/12/15 [History] traMADol HCl [Ultram] 50 mg PO TID #90 tab 01/17/15 [Rx] Lisinopril [Prinivil] 5 mg PO DAILY 10/14/16 [History] Pregabalin [Lyrica] 75 mg PO BID 10/14/16 [History] hydrALAZINE HCL [Apresoline] 25 mg PO TID 10/14/16 [History] Insulin Degludec [Tresiba Flextouch U-100] 78 unit SQ HS 12/10/16 [History] Liraglutide [Victoza 3-Parker] 1.8 mg SQ AC-BRKFST 12/10/16 [History] Acetaminophen [Tylenol Arthritis] 650 mg PO QID 01/26/17 [History] Progesterone, Micronized [Progesterone] 200 mg PO DAILY 01/26/17 [History] Follow up Appointment(s)/Referral(s): Capri Adkins MD [STAFF PHYSICIAN] - 02/03/17 (Appt at 1:00 pm February 03 ) Patient Instructions/Handouts: After Radial Heart Catheterization (GEN) Activity/Diet/Wound Care/Special Instructions: low fat, low sat diet. activity as tolerated. follow up appt with Dr. Adkins. No lifting more then 5 lbs and no excessive bending of the right wrist. if bleeding occurs, hold firm pressure on the site for 10 minutes. if you cannot get the bleeding to stop come to ER. Discharge Disposition: HOME SELF-CARE
--- NOTE | 2017-01-29 11:28 | P.PCN ---
Date of Procedure: 01/29/17 Preoperative Diagnosis: Chest pain and positive stress test Postoperative Diagnosis: Triple-vessel disease Procedure(s) Performed: Implants: Indications for Procedure: Operative Findings: Description of Procedure: HISTORY: This is a 76-year-old female with history of hypertension, hypercholesterolemia and also insulin-dependent diabetes mellitus with history of previous myocardial infarctions and stent placement of the LAD and also distal RCA. Patient has been having some chest pains and a stress test showed evidence of possible ischemia in the anterior wall. Patient is advised to have cardiac catheterization for definitive diagnosis. CONSENT:I have discussed the risks, benefits and alternative therapies for the above-mentioned procedure and for both sedation/analgesia as well as necessary blood product administration, if indicated, as they pertain to this patient. The patient has indicated understanding and acceptance of the risks and procedures discussed. PROCEDURE: Patient was brought to the lab in a fasting state. Patient was given conscious IV sedation. The right wrist area is infiltrated with lidocaine and right radial artery was entered using Seldinger technique. A 6- Azeri catheter was left in place and selective coronary arteriography was performed. Patient tolerated the procedure well. She is found to have triple- vessel disease . Patient was considered for stent placement of the RCA followed by circumflex and also LAD. However because of of her kidney function with creatinine of 1.4, it was felt that patient is a high risk for dye overload further intervention at this time. Patient is going be brought back further intervention. No immediate complications were noted and patient was transferred to [facility] in a stable condition Conscious Sedation: Versed : 1 mg Fentanyl : 50 g Duration 25 minutes minutes HEMODYNAMICS: . The aortic pressure was 140/80. Left ankle end-diastolic pressure was about 12. There was no gradient across the aortic valve SELECTIVE CORONARY ARTERIOGRAPHY: LEFT MAIN: Short and patent. THE LEFT ANTERIOR DESCENDING CORONARY ARTERY: This is a good caliber vessel with patent stented area in the proximal to mid area. There is about 70-80% stenosis of the distal LAD. The lesion appears to be eccentric THE LEFT CIRCUMFLEX AND IS CORONARY ARTERY: This is a fairly caliber vessel giving rise to good-sized OM branch. There is diffuse plaque throughout the left coronary system and also circumflex and there is about 80% stenosis of the OM branch. There is also about 50-60% stenosis of distal circumflex THE RIGHT CORONARY ARTERY: This is a total occluded distally beyond the stented area previously. There is diffuse plaque throughout the right coronary artery. There are collaterals from the left to the distal right LEFT VENTRICULOGRAPHY: Not performed FINAL IMPRESSION: triple-vessel disease involving the distal LAD OM branch and also distal right. The proximal and mid stented area in the LAD is patent. PLAN: Maximum medical therapy. Staged stenting of the RCA, OM and distal LAD to be considered PROGNOSIS: Fair
[2017-01-29] MEDS ORDERED: MULTIVITAMINS, THERA 1 EACH TAB PO SCH (12:00)
[2017-01-29] MEDS ORDERED: CHOLECALCIFEROL 1,000 UNIT TAB PO SCH (12:00)
[2017-01-29] MEDS ORDERED: CYANOCOBALAMIN 500 MCG TAB PO SCH (12:00)
== END 2017-01-29 10:50 | disposition home or self-care (01) ==
LOC: CATHCVL 09:38 → 3OBS 12:30 → CATHCVL 01-29 10:50
PROVIDERS: ATTEND Internal Medicine Cardiovascular Disease
DX: I25.10 Atherosclerotic heart disease of native coronary artery without angina pectoris (principal); I25.82 Chronic total occlusion of coronary artery; E78.5 Hyperlipidemia, unspecified; Z95.5 Presence of coronary angioplasty implant and graft; I12.9 Hypertensive chronic kidney disease with stage 1 through stage 4 chronic kidney disease, or unspecified chronic kidney disease; N18.3 Chronic kidney disease, stage 3 (moderate); F32.9 Major depressive disorder, single episode, unspecified; E03.9 Hypothyroidism, unspecified; F41.1 Generalized anxiety disorder; E11.40 Type 2 diabetes mellitus with diabetic neuropathy, unspecified; M10.9 Gout, unspecified; E66.9 Obesity, unspecified; Z68.33 Body mass index [BMI] 33.0-33.9, adult; K57.90 Diverticulosis of intestine, part unspecified, without perforation or abscess without bleeding; G89.29 Other chronic pain; M81.0 Age-related osteoporosis without current pathological fracture; E11.319 Type 2 diabetes mellitus with unspecified diabetic retinopathy without macular edema; G47.30 Sleep apnea, unspecified; Z87.440 Personal history of urinary (tract) infections; I25.2 Old myocardial infarction; Z79.899 Other long term (current) drug therapy; Z79.82 Long term (current) use of aspirin; Z79.4 Long term (current) use of insulin; Z88.1 Allergy status to other antibiotic agents; Z88.0 Allergy status to penicillin; Z87.891 Personal history of nicotine dependence
CPT/HCPCS: 93458; 80048; C1894 ×2; C1887; C1769; J2001; J0360; Q9967; J3010; J1644

== ENCOUNTER 2017-02-11 07:38 | Day surgery (SDC) | payer MEDICARE, BC ==
[2017-02-05 14:58] VITALS: BMI 33.3
[2017-02-11 08:10] LABS: Glucose,Whole Blood 79 mg/dL (75-99)
[2017-02-11 09:32] LABS: Calcium 9.3 mg/dL (8.4-10.2)
[2017-02-11] MEDS ORDERED: IV FLUID CONTINUATION 1,000 ML IV ONE (12:35)
[2017-02-11] MEDS ORDERED: VERAPAMIL 2.5 MG/ML 2 ML AMP ONE (12:37)
[2017-02-11] MEDS ORDERED: LIDOCAINE 2% INJ 20 MG/ML (20 ML MDV) ONE (12:37)
[2017-02-11] MEDS ORDERED: fentaNYL (PF) 50 MCG/ML 2 ML AMP ONE (12:37)
[2017-02-11] MEDS ORDERED: fentaNYL (PF) 50 MCG/ML 2 ML AMP IV ONE (12:50)
[2017-02-11] MEDS ORDERED: LIDOCAINE 2% INJ 20 MG/ML SQ ONE (12:54)
[2017-02-11] MEDS ORDERED: VERAPAMIL SYRINGE (5 MG/10 ML) INTRAARTER ONE (12:55)
[2017-02-11] MEDS ORDERED: BIVALIRUDIN BOLUS 250 MG/50 ML IV ONE (12:56)
[2017-02-11] MEDS ORDERED: BIVALIRUDIN 250 MG in SODIUM CHLORIDE 0.9% 50 ML IV ONE (12:57)
[2017-02-11] MEDS ORDERED: CLOPIDOGREL 75 MG TAB ONE (12:59)
[2017-02-11] MEDS ORDERED: CLOPIDOGREL 75 MG TAB PO ONE (13:05)
[2017-02-11] MEDS ORDERED: NITROGLYCERIN 1000MCG/10ML SYRINGE INTRACORON ONE (13:09)
[2017-02-11] MEDS ORDERED: IODIXANOL 320 MG/ML 100 ML INTRAARTER ONE (13:45)
[2017-02-11] MEDS ORDERED: ZOLPIDEM 5 MG TAB PO PRN (14:01)
[2017-02-11] MEDS ORDERED: MAG HYDROX/AL HYDROX/SIMETH 30 ML CUP PO PRN (14:01)
[2017-02-11] MEDS ORDERED: ATROPINE SULFATE 0.1 MG/ML 10ML SYRINGE IV PRN (14:01)
[2017-02-11] MEDS ORDERED: RX INFO: IV CONTRAST WAS GIVEN 1 EACH MISC MISCELLANE PRN (14:01)
[2017-02-11] MEDS ORDERED: NITROGLYCERIN SL TABS 0.4 MG TAB SUBLINGUAL PRN (14:01)
[2017-02-11] MEDS ORDERED: PROGESTERONE MICRONIZED 200 MG PO SCH (14:15)
[2017-02-11] MEDS ORDERED: SODIUM CHLORIDE 0.9% 1,000 ML IV SCH (14:15)
[2017-02-11] MEDS: hydrALAZINE HCL 25 MG TAB PO SCH ×2 (15:50→21:50)
[2017-02-11] MEDS: traMADol 50 MG TAB PO SCH ×2 (15:50→21:48)
[2017-02-11] MEDS: REPAGLINIDE 1 MG TAB PO SCH (17:29)
[2017-02-11] MEDS: PREGABALIN 75 MG CAP PO SCH (20:18)
[2017-02-11] MEDS: ACETAMINOPHEN TAB 325 MG TAB PO SCH ×2 (20:19→21:45)
[2017-02-11] MEDS: METOPROLOL TARTRATE 12.5 MG TAB PO SCH (20:19)
--- NOTE | 2017-02-11 20:25 | PTCA ---
PERCUTANEOUSTRANS CORORONARY ANGIOGRAPHY Mrs. Allen is a 76-year-old female with known history of coronary artery disease, hypertension, hyperlipidemia and diabetes mellitus who underwent percutaneous revascularization in 2009. She presented with symptoms of dyspnea and progressive fatigue and underwent cardiac catheterization by Dr. Adkins and was found to have a totally occluded distal right coronary artery. The patient has baseline renal insufficiency. Recommendation for a staged procedure was discussed with the patient as well as risks and complications. She was in full understanding and agreement. PROCEDURE: The patient was brought to the forestry farm laborer in a fasting, semi-sedated state after receiving fentanyl and Benadryl and achieving moderate conscious sedation. Using Xylocaine anesthesia and Seldinger technique, a 6 Kyrgyz sheath was introduced in the right radial artery. Coronary angiography of the right coronary artery was performed using an FR4 guiding catheter. After obtaining images of the right coronary artery, using a Corsair catheter, a .014 BMW wire was used to cross the total occlusion and positioned distally. Following that, a 2.25 x 12 mm Trek balloon was advanced and multiple inflations were done to a maximum of 10 atmospheres. Following that, the balloon was removed and a 2.25 x 18 mm Xience Alpine stent was deployed distally and post dilated at 16 atmospheres. Following that, the balloon was removed and a 2.5 x 28 mm Xience Alpine stent was deployed proximal to the first one and post dilated to 16 atmospheres. Following that, the balloon was removed and another 2.5 x 15 mm Xience Alpine stent was deployed proximal to the second stent and post dilated at 16 atmosphere. Following that, a 2.75 x 15 mm NC Trek balloon was advanced and inflation in the second and third stents was done at a maximum of 14 atmospheres. After the last inflation, after appropriate wait, the balloon and the guidewire were withdrawn back into the guiding catheter. Images were obtained and repeated. Those images revealed stable successful stenting. At that point, the guiding catheter, the balloon and the guidewire were removed. The sheath was removed. Hemostasis was obtained with deployment of a TR band. There was no immediate complication. Patient was returned to her room in stable condition. Of note, patient had no chest discomfort or EKG changes with the inflations. She received Angiomax per protocol as was oral loading dose of clopidogrel. RESULTS: Successful stenting of the distal right coronary artery with reduction of stenosis from 100% to less than 5%. RECOMMENDATIONS: Patient will be continued on aspirin, Plavix, beta sylvia and statin. The importance of dual antiplatelet treatment were discussed with the patient and her family, and she is in full understanding and agreement. Duration of the procedure was 49 minutes. CARLOS / DOMINGO: [id number] / MTDD
--- NOTE | 2017-02-11 20:31 | LTR ---
Date: Dear Dr. Tenorio, I had the pleasure of performing coronary angioplasty and stenting on Mrs. Allen at [facility] on February 11. A full copy of the procedure note will be forwarded to you. In brief, she underwent successful stenting of a long segment of her distal right coronary artery using a drug-eluting stent. I am hopeful that this procedure will stabilize her status. Thank you again for allowing me to participate in her care. Please feel free to call with any questions. Sincerely yours, Lisseth Garcia M.D. CARLOS / DOMINGO: [id number] /
[2017-02-11] MEDS ORDERED: INSULIN DETEMIR 100 UNIT/ML 10 ML VIAL SQ SCH (21:00)
[2017-02-11 22:07] LABS: Glucose,Whole Blood 73 mg/dL (75-99)
[2017-02-11 22:07] LABS: Glucose,Whole Blood 176 mg/dL (75-99)
[2017-02-12 06:18] LABS: Calcium 9.3 mg/dL (8.4-10.2); Potassium 4.9 mmol/L (3.5-5.1)
[2017-02-12 06:21] LABS: Glucose,Whole Blood 81 mg/dL (75-99)
[2017-02-12] MEDS ORDERED: LEVOTHYROXINE 75 MCG TAB PO SCH (06:30)
[2017-02-12] MEDS: REPAGLINIDE 1 MG TAB PO SCH (06:51)
[2017-02-12] MEDS ORDERED: NON-FORMULARY DRUG (Liraglutide [Victoza 3-Pak] 1.8 MG) SQ SCH (07:30)
--- NOTE | 2017-02-12 07:53 | PN ---
PROGRESS NOTE Ms. Allen is a 76-year-old female who presented with symptoms of progressive fatigue and dyspnea, underwent cardiac catheterization by Dr. Adkins, was found to have totally occluded distal right coronary artery. Recommendation made regarding angioplasty and stenting. She underwent stenting yesterday with revascularization of right coronary artery. She is doing well this morning. Ambulating without difficulty, denying any chest pain. No dizziness. No palpitations. She continues to be on aspirin once a day, Lipitor 40 mg daily, Plavix 75 mg daily, hydralazine 25 mg 3 times a day, insulin, levothyroxine, Victoza, metoprolol tartrate 12.5 mg twice a day, Lyrica, Prandin, tramadol 50 mg 3 times a day, Venlafaxine 75 mg daily, and zolpidem. PHYSICAL EXAMINATION: Blood pressure 140/60 with a heart rate in the 60s. LUNGS: Clear. HEART: Regular rate and rhythm, S1, S2. No rub. ABDOMEN: Soft, nontender. EXTREMITIES: No edema. Right radial pulse intact. LAB DATA: Revealed BUN and creatinine 29 and 1.54, improved compared with yesterday. Potassium 4.9. IMPRESSION: 1. Status post stenting of the right coronary artery. 2. History of multivessel disease. 3. History of hypertension. 4. Hyperlipidemia. 5. Diabetes mellitus. RECOMMENDATION: Patient will be discharged home today. She will continue to be off her DANIELLE inhibitor until her renal function stabilizes. She will be followed by Dr. Adkins in a week and depending on her progress, further recommendation will be made. MMODL / IJN: [id number] /
[2017-02-12] MEDS: METOPROLOL TARTRATE 12.5 MG TAB PO SCH (08:51)
[2017-02-12] MEDS: ACETAMINOPHEN TAB 325 MG TAB PO SCH (08:52)
[2017-02-12] MEDS: hydrALAZINE HCL 25 MG TAB PO SCH (08:52)
[2017-02-12] MEDS: traMADol 50 MG TAB PO SCH (08:56)
[2017-02-12] MEDS: PREGABALIN 75 MG CAP PO SCH (08:56)
[2017-02-12] MEDS ORDERED: ATORVASTATIN 40 MG TAB PO SCH (09:00)
[2017-02-12] MEDS ORDERED: ASPIRIN 81 MG PO SCH (09:00)
[2017-02-12] MEDS ORDERED: ALLOPURINOL 100 MG TAB PO SCH (09:00)
[2017-02-12] MEDS ORDERED: CHOLECALCIFEROL 1,000 UNIT TAB PO SCH (09:00)
[2017-02-12] MEDS ORDERED: CYANOCOBALAMIN 500 MCG TAB PO SCH (09:00)
[2017-02-12] MEDS ORDERED: CLOPIDOGREL 75 MG TAB PO SCH (09:00)
[2017-02-12] MEDS ORDERED: VENLAFAXINE HCL ER 75 MG CAP PO SCH (09:00)
[2017-02-12 09:11] VITALS: BP 203/81; PULSE 77; RESP 20; TEMP 98.5
[2017-02-12 12:12] LABS: Glucose,Whole Blood 131 mg/dL (75-99)
== END 2017-02-12 13:23 | disposition home or self-care (01) ==
LOC: CATHCVL 07:38 → 6SEL 13:43 → CATHCVL 02-12 13:23
PROVIDERS: ATTEND Internal Medicine Interventional Cardiology
DX: I25.10 Atherosclerotic heart disease of native coronary artery without angina pectoris (principal); I25.82 Chronic total occlusion of coronary artery; I10 Essential (primary) hypertension; E11.9 Type 2 diabetes mellitus without complications; E78.2 Mixed hyperlipidemia; I25.2 Old myocardial infarction; Z95.5 Presence of coronary angioplasty implant and graft; E66.9 Obesity, unspecified; Z68.33 Body mass index [BMI] 33.0-33.9, adult; E78.00 Pure hypercholesterolemia, unspecified; Z79.84 Long term (current) use of oral hypoglycemic drugs; Z79.82 Long term (current) use of aspirin; Z79.4 Long term (current) use of insulin; Z79.891 Long term (current) use of opiate analgesic; Z79.899 Other long term (current) drug therapy; Z88.1 Allergy status to other antibiotic agents; Z88.0 Allergy status to penicillin; Z87.891 Personal history of nicotine dependence
CPT/HCPCS: 85347; 80048 ×2; 99152; 99153; C9600; C1769 ×2; C1887 ×2; C1894; C1725 ×2; C1874; J2001; Q9967; J3010; J0583

== ENCOUNTER → 2017-02-19 | Outpatient (CLI) | payer MEDICARE, BC ==
[2017-02-19 14:49] LABS: Calcium 9.2 mg/dL (8.4-10.2); Potassium 4.9 mmol/L (3.5-5.1)
== END | disposition home or self-care (01) ==
LOC: LABWHC1 14:05
PROVIDERS: ATTEND Internal Medicine Interventional Cardiology
DX: I25.10 Atherosclerotic heart disease of native coronary artery without angina pectoris (principal)
CPT/HCPCS: 36415; 80048

== ENCOUNTER → 2017-02-27 | Outpatient (CLI) | payer MEDICARE, BC ==
--- NOTE | 2017-02-27 17:11 | US ---
EXAMINATION TYPE: US kidneys/renal and bladder DATE OF EXAM: 02/27/2017 COMPARISON: NONE CLINICAL HISTORY: Chronic Kidney Disease Stage 3 N18.3. EXAM MEASUREMENTS: Right Kidney: 10.5 X 4.5 X 5.7 cm Left Kidney: 11.5 X 4.9 X 4.7 cm Right Kidney: No hydronephrosis or masses seen Left Kidney: No hydronephrosis or masses seen Bladder: not well distended There is no evidence for hydronephrosis at this point in time. No nephrolithiasis is seen. No gilmer s are identified. The urinary bladder is anechoic. Bilateral ureteral jets are seen. IMPRESSION: No evidence of renal mass or obstruction.
== END | disposition home or self-care (01) ==
LOC: RADUSWWP 16:21
PROVIDERS: ATTEND Family Medicine
DX: N18.3 Chronic kidney disease, stage 3 (moderate) (principal)
CPT/HCPCS: 76770

== ENCOUNTER 2017-03-18 07:18 | Day surgery (SDC) | payer MEDICARE, BC ==
[2017-03-13 14:17] VITALS: BMI 32.3
[~2017-03-18 07:18] MED LIST changes: -ALPRAZolam 0.25 MG TAB PO PRN
[2017-03-18 07:58] LABS: Glucose,Whole Blood 272 mg/dL (75-99)
[2017-03-18] MEDS: SODIUM CHLORIDE 0.9% 1,000 ML IV SCH ×3 (08:06→23:20)
[2017-03-18] MEDS: ALPRAZolam 0.25 MG TAB PO PRN (08:06)
[2017-03-18 08:18] LABS: Calcium 9.2 mg/dL (8.4-10.2)
[2017-03-18 08:22] LABS: Potassium 4.9 mmol/L (3.5-5.1)
[2017-03-18 08:32] LABS: Basophils % (A) 1 %; CH 29.7; CHCM 33.1; Eosinophils # (A) 0.3 k/uL (0-0.7); Eosinophils % (A) 3 %; HCT 38.5 % (34.0-46.0); HDW 2.88; HGB 12.3 gm/dL (11.4-16.0); Luc # (Auto) 0.25; Luc % (Auto) 3; Lymphocytes # (A) 2.1 k/uL (1.0-4.8); Lymphocytes % (A) 23 %; MCH 28.9 pg (25.0-35.0); MCV 90.3 fL (80.0-100.0); Mean Platelet Volume 6.5; Monocytes # (A) 0.5 k/uL (0-1.0); Monocytes % (A) 6 %; Neutrophils # (A) 5.9 k/uL (1.3-7.7); Neutrophils % (A) 65 %; RBC 4.26 m/uL (3.80-5.40); RDW 14.5 % (11.5-15.5); WBC (Perox) 8.59
[2017-03-18] MEDS ORDERED: hydrALAZINE HCL 25 MG TAB PO STA (10:12)
[2017-03-18] MEDS ORDERED: INSULIN LISPRO (humaLOG) 300 UNIT/3 ML VIAL SQ SCH (12:30)
[2017-03-18] MEDS ORDERED: VERAPAMIL 2.5 MG/ML 2 ML AMP ONE (12:37)
[2017-03-18] MEDS ORDERED: fentaNYL (PF) 50 MCG/ML 2 ML AMP ONE (12:37)
[2017-03-18] MEDS ORDERED: LIDOCAINE 2% INJ 20 MG/ML (20 ML MDV) ONE (12:37)
[2017-03-18] MEDS ORDERED: HEPARIN SODIUM 1,000 UN/ML (10ML VL) ONE (12:37)
[2017-03-18] MEDS ORDERED: fentaNYL (PF) 50 MCG/ML 2 ML AMP IV ONE (12:58)
[2017-03-18] MEDS ORDERED: LIDOCAINE 2% INJ 20 MG/ML SQ ONE (13:00)
[2017-03-18] MEDS ORDERED: VERAPAMIL SYRINGE (5 MG/10 ML) INTRAARTER ONE ×2 (13:04→13:36)
[2017-03-18] MEDS ORDERED: BIVALIRUDIN BOLUS 250 MG/50 ML IV ONE (13:08)
[2017-03-18] MEDS ORDERED: BIVALIRUDIN 250 MG in SODIUM CHLORIDE 0.9% 50 ML IV ONE (13:09)
[2017-03-18] MEDS ORDERED: NITROGLYCERIN 1000MCG/10ML SYRINGE INTRACORON ONE (13:13)
[2017-03-18] MEDS ORDERED: CLOPIDOGREL 75 MG TAB ONE (13:34)
[2017-03-18] MEDS ORDERED: IODIXANOL 320 MG/ML 100 ML INTRAARTER ONE (13:37)
[2017-03-18] MEDS ORDERED: CLOPIDOGREL 75 MG TAB PO ONE (13:37)
[2017-03-18] MEDS ORDERED: RX INFO: IV CONTRAST WAS GIVEN 1 EACH MISC MISCELLANE PRN (13:48)
[2017-03-18] MEDS ORDERED: ZOLPIDEM 5 MG TAB PO PRN (13:48)
[2017-03-18] MEDS ORDERED: ATROPINE SULFATE 0.1 MG/ML 10ML SYRINGE IV PRN (13:48)
[2017-03-18] MEDS ORDERED: NITROGLYCERIN SL TABS 0.4 MG TAB SUBLINGUAL PRN ×2 (13:48→13:50)
[2017-03-18] MEDS ORDERED: MAG HYDROX/AL HYDROX/SIMETH 30 ML CUP PO PRN (13:48)
[2017-03-18] MEDS ORDERED: SODIUM CHLORIDE 0.9% 1,000 ML IV SCH (14:00)
[2017-03-18 14:24] LABS: Glucose,Whole Blood 168 mg/dL (75-99)
[2017-03-18] MEDS: INSULIN LISPRO (humaLOG) 300 UNIT/3 ML VIAL SQ SCH ×3 (15:09→21:15)
[2017-03-18] MEDS: traMADol 50 MG TAB PO SCH ×2 (15:27→21:13)
[2017-03-18] MEDS: hydrALAZINE HCL 50 MG TAB PO SCH ×2 (15:27→21:14)
[2017-03-18 16:54] LABS: Glucose,Whole Blood 186 mg/dL (75-99)
[2017-03-18] MEDS: ACETAMINOPHEN TAB 325 MG TAB PO SCH ×2 (17:20→21:13)
[2017-03-18] MEDS: REPAGLINIDE 1 MG TAB PO SCH (17:25)
[2017-03-18] MEDS ORDERED: GABAPENTIN 300 MG CAP PO SCH (21:00)
[2017-03-18] MEDS ORDERED: INSULIN GLARGINE 100 UNIT/ML 10 ML VIAL SQ SCH (21:00)
[2017-03-18] MEDS ORDERED: PROGESTERONE MICRONIZED 200 MG PO SCH (21:00)
[2017-03-18] MEDS: METOPROLOL TARTRATE 12.5 MG TAB PO SCH (21:14)
[2017-03-18 21:21] LABS: Glucose,Whole Blood 239 mg/dL (75-99)
[2017-03-19] MEDS: ALPRAZolam 0.25 MG TAB PO PRN (04:56)
[2017-03-19 06:19] LABS: Glucose,Whole Blood 126 mg/dL (75-99)
[2017-03-19] MEDS: INSULIN LISPRO (humaLOG) 300 UNIT/3 ML VIAL SQ SCH (06:29)
[2017-03-19] MEDS ORDERED: LEVOTHYROXINE 75 MCG TAB PO SCH (06:30)
[2017-03-19] MEDS: REPAGLINIDE 1 MG TAB PO SCH (06:30)
[2017-03-19 06:53] LABS: Calcium 9.5 mg/dL (8.4-10.2); Potassium 4.3 mmol/L (3.5-5.1)
[2017-03-19] MEDS ORDERED: NON-FORMULARY DRUG (Liraglutide [Victoza 3-Pak] 1.8 MG) SQ SCH (07:30)
[2017-03-19 08:10] VITALS: BP 129/60; PULSE 73; RESP 16; TEMP 97.7
[2017-03-19] MEDS: hydrALAZINE HCL 50 MG TAB PO SCH (08:11)
[2017-03-19] MEDS: METOPROLOL TARTRATE 12.5 MG TAB PO SCH (08:11)
[2017-03-19] MEDS: traMADol 50 MG TAB PO SCH (08:12)
[2017-03-19] MEDS: ACETAMINOPHEN TAB 325 MG TAB PO SCH (08:12)
[2017-03-19] MEDS ORDERED: CLOPIDOGREL 75 MG TAB PO SCH (09:00)
[2017-03-19] MEDS ORDERED: VENLAFAXINE HCL ER 75 MG CAP PO SCH (09:00)
[2017-03-19] MEDS ORDERED: GABAPENTIN 300 MG CAP PO SCH (09:00)
[2017-03-19] MEDS ORDERED: ASPIRIN 81 MG PO SCH (09:00)
[2017-03-19] MEDS ORDERED: ALLOPURINOL 100 MG TAB PO SCH (09:00)
--- NOTE | 2017-03-19 09:29 | PN ---
PROGRESS NOTE Mrs. Allen is a 76-year-old female who was admitted to undergo angioplasty and stenting of the LAD that was done yesterday. She is doing well this morning. Her breathing is stable. She is denying any dizziness. No palpitation. She denies any nausea. She continues to be on aspirin once a day, Plavix 75 mg daily, Lipitor 40 mg daily, gabapentin 900 mg daily, hydralazine 50 mg 3 times a day, insulin, levothyroxine, Victoza, metoprolol tartrate 12.5 mg twice a day, Prandin 1 mg 3 times and venlafaxine. PHYSICAL EXAMINATION: Blood pressure 129/60 with the heart rate in the 70s. LUNGS: Clear. HEART: Regular rate and rhythm. S1, S2. No S3. No rub. ABDOMEN: Soft, nontender. EXTREMITIES: No edema. Right radial pulse is intact. LAB DATA: Lab data revealed BUN and creatinine 24 and 1.2. Potassium 4.3. EKG shows no acute changes. IMPRESSION: 1. Status post stenting of the left anterior descending artery. 2. History of hypertension. 3. Chronic kidney disease, stable. 4. Hyperlipidemia. 5. Diabetes mellitus. RECOMMENDATION: Patient will be discharged home today and followed as an outpatient in 1 week. MMODL / IJN: [id number] /
[2017-03-19] MEDS ORDERED: CHOLECALCIFEROL 1,000 UNIT TAB PO SCH (12:00)
[2017-03-19] MEDS ORDERED: CYANOCOBALAMIN 500 MCG TAB PO SCH (12:00)
[2017-03-19] MEDS ORDERED: MULTIVITAMINS, THERA 1 EACH TAB PO SCH (12:00)
[2017-03-19] MEDS ORDERED: ATORVASTATIN 40 MG TAB PO SCH (21:00)
--- NOTE | 2017-03-24 16:07 | PTCA ---
PERCUTANEOUSTRANS CORORONARY ANGIOGRAPHY PROCEDURE PERFORMED: Coronary angioplasty. HISTORY: Mrs. Allen is a 76-year-old female with a known history of coronary artery disease, history of diabetes, hypertension, hyperlipidemia, as well as percutaneous revascularization of her LAD and her right coronary artery. She has underwent cardiac catheterization, and was found to have significant disease in the mid LAD. The patient has a history of chronic kidney disease. She was admitted electively to undergo stenting of the LAD. The procedure as well as risks and complications were discussed with the patient who is in full understanding and agreement. PROCEDURE: Patient was brought to tutorial laboratory supervisor in a fasting semi-sedated state, after receiving fentanyl and Benadryl and achieving moderate conscious sedated state using Xylocaine anesthesia and Seldinger technique, a 6-Nigerian sheath was introduced in the right radial artery. Left heart catheterization performed using a 6-Nigerian 3 and half FL4 guiding catheter and after cannulating the left main. A 0.014 balanced medium weight J- wire was advanced across the lesion and positioned distally and subsequently a 0.014 Whisper J-wire was advanced in a gabriela fashion. Following that, a 2.5 x 12 mm Xience Alpine stent was advanced and deployed and was dilated at 16 atmospheres. Following that, a 2.75 x 8 mm NC Trek balloon was advanced and one inflation at 16 atmospheres was done. After the last inflation, after appropriate wait, the balloon and the guidewire were withdrawn back in the guiding catheter. Images were obtained and repeated. Those images revealed stable successful stenting. At that point, the guiding catheter, the balloon and the guidewire were removed. The sheath was removed. Hemostasis was obtained with deployment of a TR band. There was no immediate complication. Patient was returned to her room in stable condition. Of note, the patient received Angiomax per protocol. She has no chest discomfort or EKG changes with the inflations. RESULTS: Successful stenting of the mid LAD with reduction of stenosis from 70% to less than 5%. RECOMMENDATION: Patient will be continued on aspirin, Plavix, beta sylvia, and statin. The importance of dual antiplatelet treatment were discussed with the patient her family and they are in full understanding and agreement. Duration of Procedure: 33 minutes. MMODL / IJN: [id number] /
== END 2017-03-19 13:26 | disposition home or self-care (01) ==
LOC: CATHCVL 07:18 → 6SEL 13:28 → CATHCVL 03-19 13:26
PROVIDERS: ATTEND Internal Medicine Interventional Cardiology
DX: I25.10 Atherosclerotic heart disease of native coronary artery without angina pectoris (principal); I13.10 Hypertensive heart and chronic kidney disease without heart failure, with stage 1 through stage 4 chronic kidney disease, or unspecified chronic kidney disease; N18.9 Chronic kidney disease, unspecified; E11.22 Type 2 diabetes mellitus with diabetic chronic kidney disease; E78.00 Pure hypercholesterolemia, unspecified; Z95.5 Presence of coronary angioplasty implant and graft; Z68.32 Body mass index [BMI] 32.0-32.9, adult; E66.9 Obesity, unspecified; I25.2 Old myocardial infarction; Z79.899 Other long term (current) drug therapy; Z79.4 Long term (current) use of insulin; Z79.82 Long term (current) use of aspirin; Z79.02 Long term (current) use of antithrombotics/antiplatelets; Z79.84 Long term (current) use of oral hypoglycemic drugs; Z88.1 Allergy status to other antibiotic agents; Z88.0 Allergy status to penicillin; Z87.891 Personal history of nicotine dependence
CPT/HCPCS: 94760; 85347; 80048 ×2; 85025; 99152; 99153; C9600; C1769 ×3; C1887; C1894; C1725; C1874; J2001; Q9967; J3010; J0583

== ENCOUNTER → 2017-06-19 | Outpatient (CLI) | payer MEDICARE, BC ==
[2017-06-19 15:06] LABS: Basophils % (A) 0 %; Eosinophils # (A) 0.1 k/uL (0-0.7); Eosinophils % (A) 1 %; HCT 36.5 % (34.0-46.0); HGB 11.4 gm/dL (11.4-16.0); Lymphocytes # (A) 2.1 k/uL (1.0-4.8); Lymphocytes % (A) 23 %; MCH 28.7 pg (25.0-35.0); MCHC 31.3 g/dL (31.0-37.0); MCV 91.6 fL (80.0-100.0); Mean Platelet Volume 6.9; Monocytes # (A) 0.4 k/uL (0-1.0); Monocytes % (A) 4 %; Neutrophils # (A) 6.3 k/uL (1.3-7.7); Neutrophils % (A) 69 %; Platelet Count 263 k/uL (150-450); RBC 3.99 m/uL (3.80-5.40); RDW 14.5 % (11.5-15.5); WBC 9.1 k/uL (3.8-10.6)
[2017-06-19 15:12] LABS: Albumin 3.5 g/dL (3.5-5.0); Calcium 9.6 mg/dL (8.4-10.2); Magnesium 1.8 mg/dL (1.6-2.3); Phosphorous 4.4 mg/dL (2.5-4.5); Potassium 4.6 mmol/L (3.5-5.1); Total Bilirubin 0.1 mg/dL (0.2-1.3); Total Protein 6.2 g/dL (6.3-8.2); Uric Acid 4.9 mg/dL (3.7-7.4)
[2017-06-19 19:00] LABS: Iron Saturation 11.95 (12.00-45.00)
[2017-06-19 19:01] LABS: Protein, Total 6.1 g/dL (6.2-8.2)
[2017-06-19 19:29] LABS: Hepatitis A Antibody IgM Non-Reactive (Non-Reactive); Hepatitis B Core IgM Non-Reactive (Non-Reactive)
[2017-06-19 20:31] LABS: Parathyroid Hormone Intact 30.3 pg/mL (14.0-72.0)
[2017-06-19 20:40] LABS: DNA Double-Stranded POSITIVE (NEGATIVE)
[2017-06-20 11:46] LABS: ANA Pattern Speckled
[2017-06-22 10:34] LABS: Albumin 3.45 g/dL (3.80-4.90); Gamma Globulin 0.68 g/dL (0.70-1.50)
[2017-06-22 14:41] LABS: C-ANCA <1:20 Titer (<1:20); P-ANCA <1:20 Titer (<1:20)
== END | disposition home or self-care (01) ==
LOC: LABWHC1 14:24
PROVIDERS: ATTEND Internal Medicine
DX: N39.0 Urinary tract infection, site not specified (principal); N18.3 Chronic kidney disease, stage 3 (moderate); D63.1 Anemia in chronic kidney disease; R80.9 Proteinuria, unspecified; E21.3 Hyperparathyroidism, unspecified; E55.9 Vitamin D deficiency, unspecified; M10.9 Gout, unspecified; R53.83 Other fatigue
CPT/HCPCS: 36415; 80053; 80074; 82306; 82728; 83516; 83540; 83550; 83735; 83883; 83970; 84100; 84165; 84550; 85025; 85027; 86038; 86039; 86160; 86162; 86225; 86255

== ENCOUNTER → 2017-06-20 | Outpatient (CLI) | payer MEDICARE, BC ==
[2017-06-20 11:46] LABS: Collection Time,Urine 24 hrs; Total Volume 24 Hour,Urine 1400 mls (250-2400)
[2017-06-20 12:09] LABS: Appearance,Urine Clear (Clear); Bilirubin,Urine Negative (Negative); Blood,Urine Negative (Negative); Color,Urine Light Yellow; Glucose,Urine (UA) Negative (Negative); Ketones,Urine Negative (Negative); Leukocyte Esterase,Urine Negative (Negative); Mucus,Urine Rare /hpf; Nitrite,Urine Negative (Negative); Protein,Urine 1+ (Negative); Specific Gravity,Urine 1.006 (1.001-1.035); Squamous Epithelial Cell,Urine <1 /hpf (0-4); Urobilinogen,Urine <2.0 mg/dL (<2.0); WBC,Urine 6 /hpf (0-5)
[2017-06-20 12:20] LABS: Total Protein 24 Hour,Urine 1610 mg/24hr (42.0-225.0)
== END | disposition home or self-care (01) ==
LOC: LABWHC1 11:16
PROVIDERS: ATTEND Internal Medicine
DX: E55.9 Vitamin D deficiency, unspecified (principal); M10.9 Gout, unspecified; R80.9 Proteinuria, unspecified; E21.3 Hyperparathyroidism, unspecified; N39.0 Urinary tract infection, site not specified; N18.3 Chronic kidney disease, stage 3 (moderate); D63.1 Anemia in chronic kidney disease
CPT/HCPCS: 81001; 81050; 82043; 82570; 84156

== ENCOUNTER → 2017-07-24 | Outpatient (CLI) | payer MEDICARE, BC ==
--- NOTE | 2017-07-24 14:21 | CT ---
EXAMINATION TYPE: CT abdomen pelvis wo con DATE OF EXAM: 07/24/2017 COMPARISON: NONE HISTORY: constipation CT DLP: 986 mGycm Automated exposure control for dose reduction was used. TECHNIQUE: Helical acquisition of images from the lung bases through the pelvis. FINDINGS: Lack of contrast may compromise sensitivity of the exam LUNG BASES: Subpleural soft tissue density and axial image 4 in the right lower lobe anterolaterally is thought likely to BE postinflammatory, follow-up to assess for stability, there is some minimal de pendent atelectatic change or scarring at the left lung base. Coronary artery calcifications are pres ent. Thickening of the distal esophagus may be secondary to the patient's lap band. AORTA: Atheromatous changes are present, there is no evident aneurysm. LIVER/GB: There is a wedge-shaped area peripherally in the inferior aspect of the right lobe of the l iver measuring approximately 6.8 x 3.5 x 4.1 cm which extends to the peripheral margin. Gallbladder i s unremarkable. PANCREAS: No significant abnormality is seen. SPLEEN: No significant abnormality is seen. ADRENALS: No significant abnormality is seen. KIDNEYS: Extensive vascular calcifications extending to the renal hilum bilaterally, no evident hydro nephrosis or ureteral calculus REPRODUCTIVE ORGANS: No significant abnormality is seen. URINARY BLADDER: No significant abnormality is seen. BOWEL: Retained fecal debris present throughout the distribution of the colon. No evident bowel obst ruction. The appendix fills with contrast and is normal. FREE AIR: No Free Air is visible. ASCITES: None visible. PELVIC ADENOPATHY: None visualized. RETROPERITONEAL ADENOPATHY: No Retroperitoneal Adenopathy visible. OSSEOUS STRUCTURES: Degenerative disc changes in the visualized spine. Mild anterior wedging of L1, T11 may be due to osteoporotic compression fractures of indeterminate age. IMPRESSION: NONCONTRAST EXAM. EXTENSIVE VASCULAR CALCIFICATIONS PRESENT WITHIN THE AORTA, MESENTERIC AND RENAL VA SCULATURE. WEDGE-SHAPED LOW-ATTENUATION FOCUS IN THE INFERIOR RIGHT LOBE OF THE LIVER DOES NOT SHOW T YPICAL APPEARANCE OF THE MASS AND MAY REPRESENT PRIOR INFARCT OR TRAUMA. POSTOP CHANGES. FINDINGS COM PATIBLE WITH PATIENT'S HISTORY OF CONSTIPATION.
== END | disposition home or self-care (01) ==
LOC: RADCTMAIN 13:23
PROVIDERS: ATTEND Family Medicine
DX: I70.0 Atherosclerosis of aorta (principal); Z98.890 Other specified postprocedural states
CPT/HCPCS: 74176

== ENCOUNTER → 2017-09-14 | Outpatient (CLI) | payer MEDICARE, BC ==
[2017-09-14 13:51] LABS: HCT 39.1 % (34.0-46.0); HGB 12.7 gm/dL (11.4-16.0); MCH 29.2 pg (25.0-35.0); MCHC 32.5 g/dL (31.0-37.0); MCV 89.7 fL (80.0-100.0); Mean Platelet Volume 6.8; Platelet Count 305 k/uL (150-450); RBC 4.36 m/uL (3.80-5.40); RDW 14.3 % (11.5-15.5); WBC 9.7 k/uL (3.8-10.6)
[2017-09-14 14:05] LABS: Albumin 3.7 g/dL (3.5-5.0); Calcium 9.6 mg/dL (8.4-10.2); Magnesium 1.9 mg/dL (1.6-2.3); Phosphorus 4.9 mg/dL (2.5-4.5); Total Bilirubin 0.2 mg/dL (0.2-1.3); Total Protein 6.4 g/dL (6.3-8.2); Uric Acid 4.9 mg/dL (3.7-7.4)
[2017-09-14 18:32] LABS: Iron Saturation 16.28 (12.00-45.00)
[2017-09-14 18:40] LABS: Vitamin D 25 Hydroxy 33.7 ng/mL (30.0-100.0)
[2017-09-14 19:31] LABS: Parathyroid Hormone Intact 55.6 pg/mL (14.0-72.0)
[2017-09-14 20:44] LABS: DNA Double-Stranded POSITIVE (NEGATIVE)
[2017-09-15 11:36] LABS: ANA Pattern Homogeneous
== END | disposition home or self-care (01) ==
LOC: LABWHC1 12:59
PROVIDERS: ATTEND Internal Medicine
DX: N18.3 Chronic kidney disease, stage 3 (moderate) (principal); D50.9 Iron deficiency anemia, unspecified; N39.0 Urinary tract infection, site not specified; N25.81 Secondary hyperparathyroidism of renal origin; E55.9 Vitamin D deficiency, unspecified; M10.9 Gout, unspecified
CPT/HCPCS: 36415; 80053; 82306; 82728; 83540; 83550; 83735; 83970; 84100; 84550; 85027; 86038; 86039; 86225

== ENCOUNTER 2017-10-12 13:34 | Emergency (ER) | payer MEDICARE, BC ==
[2017-10-12 13:46] VITALS: RESP 18
[2017-10-12] MEDS ORDERED: ACETAMINOPHEN TAB 500 MG TAB PO STA (14:02)
--- NOTE | 2017-10-12 14:14 | ED ---
Fall HPI - General Chief Complaint: Fall Stated Complaint: fall rt wrist, side and shoulder injury Time Seen by Provider: 10/12/17 13:49 Source: patient Mode of arrival: wheelchair - History of Present Illness Initial Comments: This is a 77-year-old female currently on aspirin and Plavix who presents emergency Department after a fall. She states that this morning around 4 AM she missed the light switch and then fell. She fell into the cabinet with her right shoulder and arm. She then fell to the ground. She states that she did hit her head however did not lose consciousness. Her assisted her and getting her up. She was supposed to babyt this morning so she went down to [place] to [facility]. She then went back to [place] and had increasing amount of pain in her right shoulder and wrist so she decided come emergency department. She also complains of little bit of left chest wall discomfort however states it is not worse with deep breathing. It just seems to be worse with twisting and moving. Eyes any shortness of breath or chest pain. No headaches, nausea, or vomiting. No neck pain. No lower back pain. No difficult with ambulation. No other acute complaints. - Related Data Home Medications Medication Instructions Recorded Confirmed Allopurinol [Zyloprim] 100 mg PO DAILY 01/11/15 10/12/17 Aspirin 81 mg PO HS 01/11/15 10/12/17 Cholecalciferol [Vitamin D3] 1,000 unit PO DAILY 01/11/15 10/12/17 Cyanocobalamin [Vitamin B-12] 500 mcg PO DAILY 01/11/15 10/12/17 Levothyroxine Sodium [Levoxyl] 150 mcg PO DAILY 01/11/15 10/12/17 Metoprolol Tartrate [Lopressor] 12.5 mg PO BID 01/11/15 10/12/17 Multivitamins, Thera [Multivitamin 1 tab PO DAILY 01/11/15 10/12/17 (formulary)] Venlafaxine HCl [Effexor XR] 75 mg PO HS 01/11/15 10/12/17 Insulin Aspart [NovoLOG] See Protocol SQ ACHS 01/12/15 10/12/17 Liraglutide [Victoza 3-Parker] 1.8 mg SQ AC-[id number] 12/10/16 10/12/17 Acetaminophen [Tylenol Arthritis] 1,300 mg PO BID 01/26/17 10/12/17 Insulin Glargine [Lantus] 65 unit SQ HS 03/13/17 10/12/17 Atorvastatin [Lipitor] 40 mg PO DAILY 03/18/17 10/12/17 Gabapentin [Neurontin] 600 mg PO BID 03/18/17 10/12/17 Ferrous Gluconate 324 mg PO BID 10/12/17 10/12/17 Lisinopril [Zestril] 10 mg PO DAILY 10/12/17 10/12/17 Magnesium Oxide 400 mg PO HS 10/12/17 10/12/17 Megestrol Acetate 20 mg PO HS 10/12/17 10/12/17 Repaglinide [Prandin] 2 mg PO TID-W/MEALS 10/12/17 10/12/17 Previous Rx's Medication Instructions Recorded traMADol HCl [Ultram] 50 mg PO TID #90 tab 01/17/15 Clopidogrel [Plavix] 75 mg PO DAILY #90 tab 02/12/17 Allergies Allergy/AdvReac Type Severity Reaction Status Date / Time erythromycin base Allergy thrush Verified 10/12/17 14:32 meropenem [From Merrem] Allergy Rash/Hives Verified 10/12/17 14:32 Penicillins Allergy Unknown Verified 10/12/17 14:32 Review of Systems ROS Statement: Those systems with pertinent positive or pertinent negative responses have been documented in the HPI. ROS Other: All systems not noted in ROS Statement are negative. Past Medical History Past Medical History: Coronary Artery Disease (CAD), Diabetes Mellitus, Hypertension, Renal Disease, Sleep Apnea/CPAP/BIPAP, Thyroid Disorder Additional Past Medical History / Comment(s): unable to tolerate CPAP, frequent urinary tract infections, diabetic neuropathy, diabetic retinopathy, "nervous bladder", chronic kidney disease stage III, hypothyroidism, osteoporosis, chronic pain, gout, History of Any Multi-Drug Resistant Organisms: None Reported Date of last positivie culture/infection: None MDRO Source:: None Past Surgical History: Adenoidectomy, Section, Heart Catheterization With Stent, Orthopedic Surgery, Tonsillectomy Additional Past Surgical History / Comment(s): panniculectomy, ORIF right ankle , right ankle arthroplasty, polyp removed from uterus, 2 cardiac stents, bilateral cataract extraction and intraocular lens implants, pilonidal cyst, D& C. STENT TO LAD 03/18/17 Past Anesthesia/Blood Transfusion Reactions: No Reported Reaction Date of Last Stent Placement:: 2016 Past Psychological History: Depression Smoking Status: Former smoker Past Alcohol Use History: Rare Past Drug Use History: None Reported - Past Family History Daughter(s) Additional Family Medical History / Comment(s): Patient has 2 daughters with no major medical problems. Patient does not have any siblings. Father Additional Family Medical History / Comment(s): Father at age 65 with history of nasal cancer and throat masses that led to malnutrition and his . On autopsy throat masses were benign. Mother Family Medical History: Cancer Additional Family Medical History / Comment(s): Mother at age 67 from bladder cancer. General Exam - General Exam Comments Initial Comments: Constitutional: Awake alert Appears comfortable Head: Normocephalic atraumatic Eyes: no conjunctival injection No scleral icterus EOMI, pupils are 4 mm reactive bilaterally Neck: No JVD Supple, no midline tenderness, full range of motion without pain, no radicular symptoms Heart: Regular rate rhythm normal S1-S2 no murmurs Lungs: Clear to auscultation bilaterally No wheezing No rales, mild tenderness palpation along the entire left chest wall. No contusion Abdomen: Soft nondistended nontender Extremities: Non edematous DP pulses intact Radial pulses intact, there is tenderness to palpation along the dorsum of the right wrist both over the radius and ulna, no tenderness in the right elbow, there is tenderness over the right proximal humerus and shoulder joint, there is full range of motion in the wrist and elbow, decreased range of motion due to pain in the right shoulder, neurovascularly intact distally Neuro: A&Ox3 No focal neurologic deficits Psych: Appropriate mood and affect Limitations: no limitations Course Vital Signs 10/12/17 13:41 Temperature 99.2 F Pulse Rate 71 Respiratory 18 Rate Blood Pressure 138/112 O2 Sat by Pulse 96 Oximetry Procedures - Orthopedic Splinting/Casting Injury #1 Side: right Upper Extremity Injury Location: wrist Upper Extremity Immobilizer: sugar tong splint Medical Decision Making - Medical Decision Making This is a 77-year-old female who came in for right arm pain and head trauma. Computed tomography scan showed a 2.3 cm mass in the left parietal lobe with surrounding vasogenic edema. There is also a right-sided vasogenic edema suspicious for another mass on the right however this was not visualized. The patient has no focal neurologic deficits at this time. No headache. She was also found to have a right distal radius fracture was placed in a sugar tong splint. Due to the findings on computed tomography scan she is going to require a neurosurgeon. She is going to be transferred to [facility] in [place]. except see admission. The patient was updated and agrees. She will be given 1 dose of Decadron before transfer. All questions answered. Disposition Clinical Impression: Brain mass, Distal radius fracture, right Disposition: OTHER INSTITUTION NOT DEFINED Condition: Serious - Out of Hospital Transfer - Req. Specs Out of Hospital Transfer - Requested Specifics: Other Emergency Center ([facility])
--- NOTE | 2017-10-12 14:54 | CT ---
EXAMINATION TYPE: CT brain wo con DATE OF EXAM: 10/12/2017 COMPARISON: NONE HISTORY: fall today and trauma and pain CT DLP: 1121 mGycm Automated exposure control for dose reduction was used. Helical acquisition through the brain. FINDINGS: Abnormal low attenuation present in the left parietal lobe accompanies a spherical mass measuring 2.3 cm towards the convexity, there is some mass effect on the posterior horn of the left lateral ventri sd.. Abnormal low attenuation also present along the right temporal lobe, suggestion of mass also pr esent at the vanessa-white junction bilaterally. No evident hemorrhage. Underlying periventricular white matter low-attenuation is noted. IMPRESSION: FINDINGS SUGGEST METASTATIC DISEASE. MRI OR CT WITH AND WITHOUT CONTRAST SUGGESTED FOR INCREASED SENS ITIVITY, SPECIFICITY.
--- NOTE | 2017-10-12 15:06 | XR ---
EXAMINATION TYPE: XR shoulder complete RT DATE OF EXAM: 10/12/2017 COMPARISON: NONE HISTORY: Pain TECHNIQUE: Three views are submitted. FINDINGS: The osseous structures are intact. There is no acute fracture or dislocation. The AC joint is narro wed with a large spur extending off the acromium. IMPRESSION: 1. AC joint arthropathy correlate for rotator cuff disease.
--- NOTE | 2017-10-12 15:15 | XR ---
Right wrist HISTORY: Trauma and pain 4 views of the right wrist There is a small nondisplaced ulnar styloid fracture present. Linear lucency present along the distal metaphyseal right radius extends into the radiocarpal joint. No evident dislocation. There is soft t issue swelling. Vascular calcifications are noted. IMPRESSION: Intra-articular distal right radius fracture, small ulnar styloid fracture.
--- NOTE | 2017-10-12 15:16 | XR ---
EXAMINATION TYPE: XR chest 2V DATE OF EXAM: 10/12/2017 COMPARISON: 10/14/2016 TECHNIQUE: PA and lateral views submitted. HISTORY: Pain FINDINGS: There is a nodule along the peripheral margin the right lower lobe not clearly seen on the previous e xam measuring 5 mm. Arthropathy of the shoulders. Atherosclerotic change aorta. Heart size stable. No focal pneumonia or pleural effusion. Degenerative change of the spine. There is a compression deform ity of the lower thoracic spine of indeterminate age. IMPRESSION: 1. 5 mm right lower lobe pulmonary nodule recommend short-term follow-up CT chest. 2. Age-indeterminate compression deformity thoracolumbar junction appears chronic in noted on CT scan of 07/24/2017.
[2017-10-12] MEDS ORDERED: DEXAMETHASONE SOD PHOSPHATE 4 MG/ML 1 ML VIAL IV STA (15:43)
[2017-10-12 15:52] VITALS: BP 172/79; PULSE 73; TEMP 98.6
[2017-10-12 16:29] LABS: Albumin 3.9 g/dL (3.5-5.0); Potassium 4.9 mmol/L (3.5-5.1); Total Bilirubin 0.2 mg/dL (0.2-1.3); Total Protein 6.4 g/dL (6.3-8.2)
[2017-10-12 16:31] LABS: Partial Thromboplastin Time 22.1 sec (22.0-30.0); Prothrombin Time 9.7 sec (9.0-12.0)
[2017-10-12 16:39] LABS: Basophils % (A) 0 %; Eosinophils # (A) 0.2 k/uL (0-0.7); Eosinophils % (A) 2 %; HCT 36.6 % (34.0-46.0); HGB 12.4 gm/dL (11.4-16.0); Lymphocytes # (A) 2.3 k/uL (1.0-4.8); Lymphocytes % (A) 20 %; MCH 29.7 pg (25.0-35.0); MCHC 33.8 g/dL (31.0-37.0); MCV 87.9 fL (80.0-100.0); Mean Platelet Volume 7.1; Monocytes # (A) 0.5 k/uL (0-1.0); Monocytes % (A) 4 %; Neutrophils # (A) 8.1 k/uL (1.3-7.7); Neutrophils % (A) 72 %; Platelet Count 278 k/uL (150-450); RBC 4.16 m/uL (3.80-5.40); RDW 14.8 % (11.5-15.5); WBC 11.2 k/uL (3.8-10.6)
[2017-10-12] MEDS ORDERED: HYDROcodone/APAP 5-325MG 1 EACH TAB PO STA (16:50)
== END 2017-10-12 17:10 | disposition short-term general hospital (02) ==
LOC: EC 13:34
DX: S52.501A Unspecified fracture of the lower end of right radius, initial encounter for closed fracture (principal); G93.89 Other specified disorders of brain; M25.511 Pain in right shoulder; R07.89 Other chest pain; N18.3 Chronic kidney disease, stage 3 (moderate); E11.22 Type 2 diabetes mellitus with diabetic chronic kidney disease; I12.9 Hypertensive chronic kidney disease with stage 1 through stage 4 chronic kidney disease, or unspecified chronic kidney disease; E11.40 Type 2 diabetes mellitus with diabetic neuropathy, unspecified; E11.319 Type 2 diabetes mellitus with unspecified diabetic retinopathy without macular edema; I25.10 Atherosclerotic heart disease of native coronary artery without angina pectoris; E03.9 Hypothyroidism, unspecified; M10.9 Gout, unspecified; G47.30 Sleep apnea, unspecified; F32.9 Major depressive disorder, single episode, unspecified; Z87.891 Personal history of nicotine dependence; Z79.4 Long term (current) use of insulin; Z79.82 Long term (current) use of aspirin; Z79.899 Other long term (current) drug therapy; Z88.0 Allergy status to penicillin; Z88.1 Allergy status to other antibiotic agents; Z95.5 Presence of coronary angioplasty implant and graft; Z98.890 Other specified postprocedural states; Z99.89 Dependence on other enabling machines and devices; W17.89XA Other fall from one level to another, initial encounter; Y92.002 Bathroom of unspecified non-institutional (private) residence as the place of occurrence of the external cause
CPT/HCPCS: 36415; 80053; 85025; 85610; 85730; 73030; 73110; 71046; 70450; 99285; 29125; 96374; J1100

== ENCOUNTER 2017-11-10 12:11 | Inpatient (IN) | payer MEDICARE, BC ==
[2017-11-10] MEDS ORDERED: SODIUM CHLORIDE 0.9% 1,000 ML IV STA (12:33)
[2017-11-10] MEDS ORDERED: RX INFO: IV CONTRAST WAS GIVEN 1 EACH MISC MISCELLANE PRN (12:51)
--- NOTE | 2017-11-10 12:54 | ED ---
General Adult HPI - General Chief complaint: Altered Mental Status Stated complaint: Confusion/low blood pressure Time Seen by Provider: 11/10/17 12:33 Source: patient, RN notes reviewed, old records reviewed Mode of arrival: wheelchair Limitations: no limitations - History of Present Illness Initial comments: This is a 77-year-old female the ER for evaluation of dizziness and altered mental state. Known recent diagnosis of brain tumor, brain cancer with surgery. Patient coming in for altered mental state, blood sugars been elevated on outpatient basis. Patient per is not acting appropriately, no fever no cough no congestion. No abdominal pain no nausea vomiting or diarrhea otherwise noted. No other changes in medication - Related Data Home Medications Medication Instructions Recorded Confirmed Allopurinol [Zyloprim] 100 mg PO DAILY 01/11/15 11/10/17 Cholecalciferol [Vitamin D3] 1,000 unit PO DAILY 01/11/15 11/10/17 Cyanocobalamin [Vitamin B-12] 500 mcg PO DAILY 01/11/15 11/10/17 Acetaminophen [Tylenol Arthritis] 650 mg PO QID PRN 01/26/17 11/10/17 Insulin Glargine [Lantus] 45 unit SQ BID 03/13/17 11/10/17 Gabapentin [Neurontin] 600 mg PO BID 03/18/17 11/10/17 Magnesium Oxide 400 mg PO HS 10/12/17 11/10/17 Albuterol Nebulized [Ventolin 2.5 mg INHALATION RT-Q6H PRN 11/10/17 11/10/17 Nebulized] Bisacodyl 5 mg PO DAILY 11/10/17 11/10/17 Bisacodyl [Dulcolax] 10 mg RECTAL DAILY PRN 11/10/17 11/10/17 Chlorthalidone [Hygroton] 12.5 mg PO DAILY 11/10/17 11/10/17 Clopidogrel [Plavix] 75 mg PO DAILY 11/10/17 11/10/17 Dexamethasone [Decadron] 2 mg PO BID 11/10/17 11/10/17 Dexamethasone [Decadron] 4 mg PO DIRECTED 11/10/17 11/10/17 Famotidine [Pepcid] 20 mg PO DAILY 11/10/17 11/10/17 Ferrous Sulfate [Feosol] 325 mg PO BID 11/10/17 11/10/17 HYDROcodone/APAP 10-325MG [Wells 1 tab PO Q4HR PRN 11/10/17 11/10/17 10-325] INSULIN LISPRO (humaLOG) [humaLOG] 1 - 7 units SQ QID 11/10/17 11/10/17 Levothyroxine Sodium [Synthroid] 137 mcg PO DAILY 11/10/17 11/10/17 Lisinopril [Zestril] 20 mg PO BID 11/10/17 11/10/17 Sennosides [Senna] 8.6 mg PO BID PRN 11/10/17 11/10/17 Sulfamethox-Tmp 400-80Mg [Bactrim 1 tab PO Q12HR 11/10/17 11/10/17 SS 400-80 mg] Venlafaxine HCl ER [Effexor Xr] 75 mg PO DAILY 11/10/17 11/10/17 amLODIPine BESYLATE [Norvasc] 10 mg PO DAILY 11/10/17 11/10/17 hydrALAZINE HCL [Apresoline] 100 mg PO TID 11/10/17 11/10/17 levETIRAcetam [Keppra] 500 mg PO BID 11/10/17 11/10/17 Allergies Allergy/AdvReac Type Severity Reaction Status Date / Time erythromycin base Allergy thrush Verified 11/10/17 13:09 meropenem [From Merrem] Allergy Rash/Hives Verified 11/10/17 13:09 Penicillins Allergy Unknown Verified 11/10/17 13:09 Review of Systems ROS Statement: Those systems with pertinent positive or pertinent negative responses have been documented in the HPI. ROS Other: All systems not noted in ROS Statement are negative. Past Medical History Past Medical History: Coronary Artery Disease (CAD), Diabetes Mellitus, Hypertension, Renal Disease, Sleep Apnea/CPAP/BIPAP, Thyroid Disorder Additional Past Medical History / Comment(s): unable to tolerate CPAP, frequent urinary tract infections, diabetic neuropathy, diabetic retinopathy, "nervous bladder", chronic kidney disease stage III, hypothyroidism, osteoporosis, chronic pain, gout, History of Any Multi-Drug Resistant Organisms: None Reported Date of last positivie culture/infection: None MDRO Source:: None Past Surgical History: Adenoidectomy, Section, Heart Catheterization With Stent, Orthopedic Surgery, Tonsillectomy Additional Past Surgical History / Comment(s): panniculectomy, ORIF right ankle , right ankle arthroplasty, polyp removed from uterus, 2 cardiac stents, bilateral cataract extraction and intraocular lens implants, pilonidal cyst, D& C. STENT TO LAD 03/18/17 Past Anesthesia/Blood Transfusion Reactions: No Reported Reaction Date of Last Stent Placement:: 2016 Past Psychological History: Depression Smoking Status: Former smoker Past Alcohol Use History: Rare Past Drug Use History: None Reported - Past Family History Daughter(s) Additional Family Medical History / Comment(s): Patient has 2 daughters with no major medical problems. Patient does not have any siblings. Father Additional Family Medical History / Comment(s): Father at age 65 with history of nasal cancer and throat masses that led to malnutrition and his . On autopsy throat masses were benign. Mother Family Medical History: Cancer Additional Family Medical History / Comment(s): Mother at age 67 from bladder cancer. General Exam Limitations: no limitations General appearance: alert, in no apparent distress Head exam: Present: atraumatic, normocephalic, normal inspection Eye exam: Present: normal appearance, PERRL, EOMI. Absent: scleral icterus, conjunctival injection, periorbital swelling ENT exam: Present: normal exam, mucous membranes moist Neck exam: Present: normal inspection. Absent: tenderness, meningismus, lymphadenopathy Respiratory exam: Present: normal lung sounds bilaterally. Absent: respiratory distress, wheezes, rales, rhonchi, stridor Cardiovascular Exam: Present: regular rate, normal rhythm, normal heart sounds. Absent: systolic murmur, diastolic murmur, rubs, gallop, clicks GI/Abdominal exam: Present: soft, normal bowel sounds. Absent: distended, tenderness, guarding, rebound, rigid Extremities exam: Present: normal inspection, full ROM, normal capillary refill. Absent: tenderness, pedal edema, joint swelling, calf tenderness Back exam: Present: normal inspection Neurological exam: Present: alert, oriented X3, CN II-XII intact Psychiatric exam: Present: normal affect, normal mood Skin exam: Present: warm, dry, intact, normal color. Absent: rash Course Vital Signs 11/10/17 11/10/17 11/10/17 12:23 12:57 15:18 Temperature 98.3 F Pulse Rate 66 63 72 Respiratory 18 18 18 Rate Blood Pressure 129/78 137/62 196/84 O2 Sat by Pulse 95 97 98 Oximetry - Reevaluation(s) Reevaluation #1: 11/10/17 15:40 Patient has no significant improvement in symptoms here in the ER Reevaluation #2: 11/10/17 15:40 Spoke with patient and family, aware of findings need for transfer EKG Findings - EKG Comments: EKG Findings:: EKG shows normal sinus rhythm rate of 63, WI 152, QRS 86, QTc 413 Medical Decision Making - Medical Decision Making 77 female the ER for altered mental status, return of patient's arm edema secondary to brain mass. Patient is to be transferred to [facility] and patient's primary oncologist - Lab Data Result diagrams: 11/10/17 12:43 11/10/17 12:43 Lab Results 11/10/17 11/10/17 11/10/17 Range/Units 12:43 12:43 12:43 WBC 7.2 (3.8-10.6) k/uL RBC 3.70 L (3.80-5.40) m/uL Hgb 10.9 L (11.4-16.0) gm/dL Hct 34.7 (34.0-46.0) % MCV 93.8 D (80.0-100.0) fL MCH 29.6 (25.0-35.0) pg MCHC 31.6 (31.0-37.0) g/dL RDW 14.4 (11.5-15.5) % Plt Count 256 (150-450) k/uL Neutrophils % 86 % Lymphocytes % 9 % Monocytes % 4 % Eosinophils % 0 % Basophils % 0 % Neutrophils # 6.2 (1.3-7.7) k/uL Lymphocytes # 0.7 L (1.0-4.8) k/uL Monocytes # 0.3 (0-1.0) k/uL Eosinophils # 0.0 (0-0.7) k/uL Basophils # 0.0 (0-0.2) k/uL PT (9.0-12.0) sec INR (<1.2) APTT (22.0-30.0) sec Sodium (137-145) mmol/L Potassium (3.5-5.1) mmol/L Chloride (98-107) mmol/L Carbon Dioxide (22-30) mmol/L Anion Gap mmol/L BUN (7-17) mg/dL Creatinine (0.52-1.04) mg/dL Est GFR (CKD-EPI)AfAm (>60 ml/min/1.73 sqM) Est GFR (CKD-EPI)NonAf (>60 ml/min/1.73 sqM) Glucose (74-99) mg/dL POC Glucose (mg/dL) (75-99) mg/dL POC Glu Loin Trimmer ID Plasma Lactic Acid Mao 1.2 (0.7-2.0) mmol/L Calcium (8.4-10.2) mg/dL Phosphorus (2.5-4.5) mg/dL Magnesium (1.6-2.3) mg/dL Total Bilirubin (0.2-1.3) mg/dL AST (14-36) U/L ALT (9-52) U/L Alkaline Phosphatase (38-126) U/L Ammonia <9 (<30) umol/L Total Creatine Kinase 38 (30-135) U/L CK-MB (CK-2) 0.7 (0.0-2.4) ng/mL CK-MB (CK-2) Rel Index 1.8 Troponin I 0.012 (0.000-0.034) ng/mL Total Protein (6.3-8.2) g/dL Albumin (3.5-5.0) g/dL TSH (0.465-4.680) mIU/L 11/10/17 11/10/17 11/10/17 Range/Units 12:43 12:43 12:47 WBC (3.8-10.6) k/uL RBC (3.80-5.40) m/uL Hgb (11.4-16.0) gm/dL Hct (34.0-46.0) % MCV (80.0-100.0) fL MCH (25.0-35.0) pg MCHC (31.0-37.0) g/dL RDW (11.5-15.5) % Plt Count (150-450) k/uL Neutrophils % % Lymphocytes % % Monocytes % % Eosinophils % % Basophils % % Neutrophils # (1.3-7.7) k/uL Lymphocytes # (1.0-4.8) k/uL Monocytes # (0-1.0) k/uL Eosinophils # (0-0.7) k/uL Basophils # (0-0.2) k/uL PT 9.4 (9.0-12.0) sec INR 0.9 (<1.2) APTT 19.0 L (22.0-30.0) sec Sodium 136 L (137-145) mmol/L Potassium 5.3 H (3.5-5.1) mmol/L Chloride 104 (98-107) mmol/L Carbon Dioxide 21 L (22-30) mmol/L Anion Gap 11 mmol/L BUN 53 H (7-17) mg/dL Creatinine 1.47 H (0.52-1.04) mg/dL Est GFR (CKD-EPI)AfAm 40 (>60 ml/min/1.73 sqM) Est GFR (CKD-EPI)NonAf 34 (>60 ml/min/1.73 sqM) Glucose 270 H (74-99) mg/dL POC Glucose (mg/dL) 270 H (75-99) mg/dL POC Glu Loin Trimmer ID Aye Grijalva Plasma Lactic Acid Mao (0.7-2.0) mmol/L Calcium 8.6 (8.4-10.2) mg/dL Phosphorus 3.8 (2.5-4.5) mg/dL Magnesium 2.9 H (1.6-2.3) mg/dL Total Bilirubin 0.2 (0.2-1.3) mg/dL AST 22 (14-36) U/L ALT 52 (9-52) U/L Alkaline Phosphatase 124 (38-126) U/L Ammonia (<30) umol/L Total Creatine Kinase (30-135) U/L CK-MB (CK-2) (0.0-2.4) ng/mL CK-MB (CK-2) Rel Index Troponin I (0.000-0.034) ng/mL Total Protein 5.5 L (6.3-8.2) g/dL Albumin 3.3 L (3.5-5.0) g/dL TSH <0.015 L (0.465-4.680) mIU/L Disposition Clinical Impression: Brain mass, Altered mental status Disposition: OTHER INSTITUTION NOT DEFINED Condition: Fair Is patient prescribed a controlled substance at d/c from ED?: No Referrals: Kira Tenorio MD [Primary Care Provider] - 1-2 days - Out of Hospital Transfer - Req. Specs Out of Hospital Transfer - Requested Specifics: Other Emergency Center ([facility])
[2017-11-10 12:58] LABS: Basophils % (A) 0 %; Eosinophils % (A) 0 %; HCT 34.7 % (34.0-46.0); HGB 10.9 gm/dL (11.4-16.0); Lymphocytes # (A) 0.7 k/uL (1.0-4.8); Lymphocytes % (A) 9 %; MCH 29.6 pg (25.0-35.0); MCHC 31.6 g/dL (31.0-37.0); Mean Platelet Volume 6.6; Monocytes # (A) 0.3 k/uL (0-1.0); Monocytes % (A) 4 %; Neutrophils # (A) 6.2 k/uL (1.3-7.7); Neutrophils % (A) 86 %; Platelet Count 256 k/uL (150-450); RDW 14.4 % (11.5-15.5); WBC 7.2 k/uL (3.8-10.6)
[2017-11-10 13:05] LABS: MCV 93.8 fL (80.0-100.0)
[2017-11-10 13:07] LABS: ALT 52 U/L (9-52); AST 22 U/L (14-36); Albumin 3.3 g/dL (3.5-5.0); Alkaline Phosphatase 124 U/L (38-126); Anion Gap 11 mmol/L; Blood Urea Nitrogen 53 mg/dL (7-17); Calcium 8.6 mg/dL (8.4-10.2); Carbon Dioxide 21 mmol/L (22-30); Chloride 104 mmol/L (98-107); Glucose 270 mg/dL (74-99); Magnesium 2.9 mg/dL (1.6-2.3); Phosphorus 3.8 mg/dL (2.5-4.5); Potassium 5.3 mmol/L (3.5-5.1); Sodium 136 mmol/L (137-145); Total Bilirubin 0.2 mg/dL (0.2-1.3); Total Protein 5.5 g/dL (6.3-8.2)
[2017-11-10 13:07] LABS: Glucose,Whole Blood 270 mg/dL (75-99)
[2017-11-10 13:17] LABS: INR 0.9 (<1.2); Prothrombin Time 9.4 sec (9.0-12.0)
[2017-11-10 13:24] LABS: Ammonia <9 umol/L (<30); Lactic Acid, Venous 1.2 mmol/L (0.7-2.0)
[2017-11-10 13:31] LABS: Creatine Kinase MB 0.7 ng/mL (0.0-2.4); Troponin I 0.012 ng/mL (0.000-0.034)
--- NOTE | 2017-11-10 14:36 | CT ---
EXAMINATION TYPE: CT brain wo con DATE OF EXAM: 11/10/2017 COMPARISON: 10/12/2017 HISTORY: Confusion, recent craniotomy for cancerous brain tumor CT DLP: 1165 mGycm Automated exposure control for dose reduction was used. FINDINGS: There is been interval surgical excision of the previously noted left posterior parietal lobe 2.3 cm mass with surrounding vasogenic edema. Craniotomy defect is seen of the left parietal bone with inter nal focus of pneumocephalus. Subdural fluid towards the apex such as on series 3 image 40 is likely r epresentative of a small seroma measuring 6 mm in greatest thickness on image 39. There is also likel y represents a dural flap. Within the temporal lobe there is additional vasogenic edema without well- defined mass although given the known intracranial neoplasm MRI is recommended to exclude right tempo ral mass. Confluent hypoattenuation is seen within the periventricular and subcortical white matter a dditionally post commonly related to sequela microangiopathy. Small lacunar injuries seen within the right inferior lentiform nucleus, old. No hydrocephalus is seen. Age-related cerebral volume loss is noted. There is no midline shift seen. Paranasal sinuses are well aerated. IMPRESSION: 1. POSTSURGICAL CHANGES OF A LEFT PARIETAL CRANIOTOMY REGARDING REMOVAL OF AN INTRACRANIAL NEOPLASM W ITHIN THE LEFT PARIETAL LOBE WITH 6 MM VERTEX DURAL FLAP IN POSTOPERATIVE SEROMA CONTAINING PUNCTATE FOCI OF AIR. PUNCTATE FOCUS OF PNEUMOCEPHALUS IS ALSO SEEN WITHIN THE PARIETAL LOBE IN THE RESECTION CAVITY. NO MIDLINE SHIFT. 2. SUSPICION FOR SECOND RIGHT TEMPORAL LESION IS THERE IS VASOGENIC EDEMA WITHOUT WELL-DEFINED MASS. ENHANCED MRI IS RECOMMENDED TO EVALUATE FOR UNDERLYING MASS.
[2017-11-10] MEDS ORDERED: DEXAMETHASONE SOD PHOSPHATE 10 MG/ML 1 ML VIAL IV STA (15:29)
[2017-11-10] MEDS ORDERED: SODIUM CHLORIDE 0.9% 1,000 ML IV SCH (15:30)
--- NOTE | 2017-11-10 16:02 | ED ---
Medical Decision Making - Medical Decision Making 77 female the ER for evaluation, did speak with Dr. Smith patient's oncologist to states patient will be admitted at this patient at this hospital at this time. Patient family happy results - Lab Data Result diagrams: 11/10/17 12:43 11/10/17 12:43 Lab Results 11/10/17 11/10/17 11/10/17 Range/Units 12:43 12:43 12:43 WBC 7.2 (3.8-10.6) k/uL RBC 3.70 L (3.80-5.40) m/uL Hgb 10.9 L (11.4-16.0) gm/dL Hct 34.7 (34.0-46.0) % MCV 93.8 D (80.0-100.0) fL MCH 29.6 (25.0-35.0) pg MCHC 31.6 (31.0-37.0) g/dL RDW 14.4 (11.5-15.5) % Plt Count 256 (150-450) k/uL Neutrophils % 86 % Lymphocytes % 9 % Monocytes % 4 % Eosinophils % 0 % Basophils % 0 % Neutrophils # 6.2 (1.3-7.7) k/uL Lymphocytes # 0.7 L (1.0-4.8) k/uL Monocytes # 0.3 (0-1.0) k/uL Eosinophils # 0.0 (0-0.7) k/uL Basophils # 0.0 (0-0.2) k/uL PT (9.0-12.0) sec INR (<1.2) APTT (22.0-30.0) sec Sodium (137-145) mmol/L Potassium (3.5-5.1) mmol/L Chloride (98-107) mmol/L Carbon Dioxide (22-30) mmol/L Anion Gap mmol/L BUN (7-17) mg/dL Creatinine (0.52-1.04) mg/dL Est GFR (CKD-EPI)AfAm (>60 ml/min/1.73 sqM) Est GFR (CKD-EPI)NonAf (>60 ml/min/1.73 sqM) Glucose (74-99) mg/dL POC Glucose (mg/dL) (75-99) mg/dL POC Glu Furniture Upholsterer ID Plasma Lactic Acid Mao 1.2 (0.7-2.0) mmol/L Calcium (8.4-10.2) mg/dL Phosphorus (2.5-4.5) mg/dL Magnesium (1.6-2.3) mg/dL Total Bilirubin (0.2-1.3) mg/dL AST (14-36) U/L ALT (9-52) U/L Alkaline Phosphatase (38-126) U/L Ammonia <9 (<30) umol/L Total Creatine Kinase 38 (30-135) U/L CK-MB (CK-2) 0.7 (0.0-2.4) ng/mL CK-MB (CK-2) Rel Index 1.8 Troponin I 0.012 (0.000-0.034) ng/mL Total Protein (6.3-8.2) g/dL Albumin (3.5-5.0) g/dL TSH (0.465-4.680) mIU/L 11/10/17 11/10/17 11/10/17 Range/Units 12:43 12:43 12:47 WBC (3.8-10.6) k/uL RBC (3.80-5.40) m/uL Hgb (11.4-16.0) gm/dL Hct (34.0-46.0) % MCV (80.0-100.0) fL MCH (25.0-35.0) pg MCHC (31.0-37.0) g/dL RDW (11.5-15.5) % Plt Count (150-450) k/uL Neutrophils % % Lymphocytes % % Monocytes % % Eosinophils % % Basophils % % Neutrophils # (1.3-7.7) k/uL Lymphocytes # (1.0-4.8) k/uL Monocytes # (0-1.0) k/uL Eosinophils # (0-0.7) k/uL Basophils # (0-0.2) k/uL PT 9.4 (9.0-12.0) sec INR 0.9 (<1.2) APTT 19.0 L (22.0-30.0) sec Sodium 136 L (137-145) mmol/L Potassium 5.3 H (3.5-5.1) mmol/L Chloride 104 (98-107) mmol/L Carbon Dioxide 21 L (22-30) mmol/L Anion Gap 11 mmol/L BUN 53 H (7-17) mg/dL Creatinine 1.47 H (0.52-1.04) mg/dL Est GFR (CKD-EPI)AfAm 40 (>60 ml/min/1.73 sqM) Est GFR (CKD-EPI)NonAf 34 (>60 ml/min/1.73 sqM) Glucose 270 H (74-99) mg/dL POC Glucose (mg/dL) 270 H (75-99) mg/dL POC Glu Furniture Upholsterer ID Aye Grijalva Plasma Lactic Acid Mao (0.7-2.0) mmol/L Calcium 8.6 (8.4-10.2) mg/dL Phosphorus 3.8 (2.5-4.5) mg/dL Magnesium 2.9 H (1.6-2.3) mg/dL Total Bilirubin 0.2 (0.2-1.3) mg/dL AST 22 (14-36) U/L ALT 52 (9-52) U/L Alkaline Phosphatase 124 (38-126) U/L Ammonia (<30) umol/L Total Creatine Kinase (30-135) U/L CK-MB (CK-2) (0.0-2.4) ng/mL CK-MB (CK-2) Rel Index Troponin I (0.000-0.034) ng/mL Total Protein 5.5 L (6.3-8.2) g/dL Albumin 3.3 L (3.5-5.0) g/dL TSH <0.015 L (0.465-4.680) mIU/L Disposition Clinical Impression: Brain mass, Altered mental status Disposition: ADMITTED IP TO THIS HOSP Condition: Fair Is patient prescribed a controlled substance at d/c from ED?: No Referrals: Kira Tenorio MD [Primary Care Provider] - 1-2 days
[2017-11-10] MEDS ORDERED: SODIUM CHLORIDE 0.9% 1,000 ML IV ONE (16:03)
[2017-11-10] MEDS ORDERED: SENNOSIDES 8.6 MG TAB PO PRN (17:40)
[2017-11-10] MEDS ORDERED: BISACODYL 10 MG SUPP RECTAL PRN (17:40)
[2017-11-10] MEDS ORDERED: ALBUTEROL NEBULIZED 2.5 MG/3 ML INHALATION PRN (17:40)
[2017-11-10] MEDS ORDERED: ACETAMINOPHEN TAB 325 MG TAB PO PRN (17:40)
[2017-11-10] MEDS: INSULIN ASPART 100 UNIT/ML 1 ML 10 ML VIAL SQ SCH (18:17)
[2017-11-10] MEDS ORDERED: INSULIN DETEMIR 100 UNIT/ML 10 ML VIAL SQ SCH (21:00)
[2017-11-10] MEDS ORDERED: NON-FORMULARY DRUG (Ferrous Gluconate [Ferrous Gluconate] 324 MG) PO SCH (21:00)
[2017-11-10] MEDS ORDERED: LISINOPRIL 20 MG TAB PO SCH (21:00)
[2017-11-10] MEDS: CHOLECALCIFEROL 1,000 UNIT TAB PO SCH (21:36)
[2017-11-10] MEDS: VENLAFAXINE HCL 75 MG TAB PO SCH (21:36)
[2017-11-10] MEDS: ASPIRIN 81 MG PO SCH (21:36)
[2017-11-10] MEDS: MEGESTROL 40 MG TAB PO SCH (21:37)
[2017-11-10] MEDS: METOPROLOL TARTRATE 12.5 MG TAB PO SCH (21:37)
[2017-11-10] MEDS: GABAPENTIN 300 MG CAP PO SCH (21:38)
[2017-11-10] MEDS: FERROUS SULFATE 325 MG TAB PO SCH (21:39)
[2017-11-10] MEDS: DEXAMETHASONE 2 MG TAB PO SCH (21:39)
[2017-11-10] MEDS: SULFAMETHOX-TMP 400-80MG 1 EACH TAB PO SCH (21:39)
[2017-11-10] MEDS: levETIRAcetam 500 MG TAB PO SCH (21:39)
[2017-11-10] MEDS: hydrALAZINE HCL 50 MG TAB PO SCH (21:40)
[2017-11-10] MEDS: MAGNESIUM OXIDE 400 MG TAB PO SCH (21:40)
[2017-11-10 22:54] LABS: Glucose,Whole Blood 409 mg/dL (75-99)
[2017-11-10] MEDS ORDERED: INSULIN ASPART 100 UNIT/ML 1 ML 10 ML VIAL SQ ONE (23:05)
[2017-11-11] MEDS ORDERED: LEVOTHYROXINE 137 MCG TAB PO SCH (06:30)
[2017-11-11] MEDS ORDERED: LEVOTHYROXINE 75 MCG TAB PO SCH (06:30)
[2017-11-11 06:59] LABS: Glucose,Whole Blood 298 mg/dL (75-99)
[2017-11-11] MEDS: INSULIN ASPART 100 UNIT/ML 1 ML 10 ML VIAL SQ SCH ×6 (08:39→22:06)
[2017-11-11] MEDS: REPAGLINIDE 1 MG TAB PO SCH ×3 (08:40→17:03)
[2017-11-11] MEDS: CHLORTHALIDONE 25 MG TAB PO SCH (08:40)
[2017-11-11] MEDS: MULTIVITAMINS, THERA 1 EACH TAB PO SCH (08:41)
[2017-11-11] MEDS: CYANOCOBALAMIN 500 MCG TAB PO SCH (08:41)
[2017-11-11] MEDS: GABAPENTIN 300 MG CAP PO SCH ×2 (08:41→22:04)
[2017-11-11] MEDS: METOPROLOL TARTRATE 12.5 MG TAB PO SCH ×2 (08:41→22:05)
[2017-11-11] MEDS: hydrALAZINE HCL 50 MG TAB PO SCH ×3 (08:41→22:04)
[2017-11-11] MEDS: SULFAMETHOX-TMP 400-80MG 1 EACH TAB PO SCH ×2 (08:42→22:04)
[2017-11-11] MEDS: FERROUS SULFATE 325 MG TAB PO SCH ×2 (08:42→22:06)
[2017-11-11] MEDS: ATORVASTATIN 40 MG TAB PO SCH (08:42)
[2017-11-11] MEDS: FAMOTIDINE 20 MG TAB PO SCH (08:42)
[2017-11-11] MEDS: LISINOPRIL 10 MG TAB PO SCH (08:42)
[2017-11-11] MEDS: amLODIPine 10 MG TAB PO SCH (08:43)
[2017-11-11] MEDS: DEXAMETHASONE 2 MG TAB PO SCH ×3 (08:43→22:05)
[2017-11-11] MEDS: levETIRAcetam 500 MG TAB PO SCH ×2 (08:43→22:05)
[2017-11-11] MEDS: CLOPIDOGREL 75 MG TAB PO SCH (08:43)
[2017-11-11] MEDS: ALLOPURINOL 100 MG TAB PO SCH (08:44)
[2017-11-11] MEDS: BISACODYL 5 MG TABLET.DR PO SCH (08:56)
[2017-11-11] MEDS: ENOXAPARIN 40 MG/0.4 ML SYRINGE SQ SCH (08:57)
[2017-11-11] MEDS ORDERED: CHOLECALCIFEROL 1,000 UNIT TAB PO SCH (09:00)
[2017-11-11] MEDS ORDERED: NON-FORMULARY DRUG (Liraglutide [Victoza 2-Pak] 1.2 MG) SQ SCH (09:00)
[2017-11-11] MEDS ORDERED: VENLAFAXINE HCL ER 75 MG CAP PO SCH (09:00)
[2017-11-11] MEDS: INSULIN DETEMIR 100 UNIT/ML 10 ML VIAL SQ SCH ×2 (10:03→22:06)
[2017-11-11 11:15] LABS: Glucose,Whole Blood 324 mg/dL (75-99)
--- NOTE | 2017-11-11 15:06 | P.HPIM ---
History of Present Illness H&P Date: 11/11/17 Chief Complaint: Mental status changes This is a 77-year-old female patient of Dr. Tenorio with past medical history of coronary artery disease status post stent placement, diabetes mellitus type 2 with diabetic retinopathy and diabetic neuropathy, gastroesophageal reflux disease, hypertension, chronic kidney disease stage III , obstructive sleep apnea unable to tolerate CPAP, osteoporosis, hypothyroidism , recent diagnosis of probable lung cancer with metastatic disease to the brain. Patient recently had a fall for which she sustained a fracture to the right wrist and she was treated at [facility]. The ER physician ordered a CAT scan of the brain that didn't find to tumors. Patient was transferred to the [facility] where she had the largest mass resected. Patient was also worked up and found to have a nodule in her lungs but she has no symptoms according to her . She denies any cough. There is also a liver mass as well. Once patient completed treatment at the [facility], she was transferred to [facility] for rehab. She was discharged from there last Thursday, November 04. Her states that the day before she was discharged she was feeling sluggish. By the next day she had no energy and she was sleeping 21 hours a day. She had home care come in on or Thursday and also physical therapy started on Thursday. She was only able to walk a few steps for physical therapy which she is normally able to do much more. Patient started radiation therapy on Thursday under the care of Dr. Smith. She was scheduled for 5 treatments that would occur daily. Patient's blood pressure was low at the time and Dr. Smith apparently took her off one of her blood pressure medicines possibly hydrochlorothiazide. He also increased her steroid dosing. She started the higher dose and Thursday evening. By Thursday of 4 AM she was getting up to the bathroom and was significantly confused and her checked her blood sugar which was greater than 400. He gave her 14 units of NovoLog. She does not usually require NovoLog. When she woke up around 9:30 or 10 her blood sugar was then 300 and he gave her another 10 units of NovoLog as well as Victoza. She had her normal breakfast and had her morning medications. She then went in for her second radiation treatment but was seen by Dr. Smith he recommended doing a CAT scan of the brain and lab work in the emergency center. CAT scan of the brain without contrast revealed postsurgical changes of left parietal craniotomy regarding removal of an intracranial neoplasm within the left parietal lobe with 6 mm vertex dural flap in postoperative seroma containing punctate foci of air punctate focus of pneumocephalus is also seen within the parietal lobe in the resection cavity. No midline shift. Suspicious for second right temporal lesion has vasogenic edema without well-defined mass. Enhanced MRI is recommended. Her white count was normal, hemoglobin 10.9, potassium 5.3, creatinine 53 and creatinine 1.47. Initial blood sugar 270. TSH was less than 0.015. Patient's also relates that she was recently treated for urinary tract infection. Repeat urine culture will be ordered Review of Systems All systems: negative Constitutional: Reports fatigue, Reports lethargy, Reports malaise, Reports poor appetite, Reports weakness, Denies chills, Denies fever Eyes: denies blurred vision, denies pain Ears, nose, mouth and throat: Denies dental pain, Denies headache, Denies mouth pain, Denies sore throat Cardiovascular: Denies chest pain, Denies decreased exercise tolerance, Denies dyspnea on exertion, Denies edema, Denies leg edema, Denies lightheadedness, Denies shortness of breath, Denies syncope Respiratory: Denies cough, Denies cough with sputum, Denies dyspnea, Denies excessive sputum, Denies hemoptysis, Denies home oxygen, Denies wheezing Gastrointestinal: Denies abdominal pain, Denies diarrhea, Denies nausea, Denies vomiting Genitourinary: Denies dysuria, Denies hematuria, Denies urgency, Denies urinary frequency Musculoskeletal: Reports gait dysfunction, Denies frequent falls, Denies myalgias Integumentary: Denies pruritus, Denies rash, Denies wounds Neurological: Reports change in mentation, Reports confusion, Denies aphasia, Denies head injury, Denies numbness, Denies weakness Psychiatric: Denies anxiety, Denies depression Endocrine: Denies fatigue, Denies weight change Past Medical History Past Medical History: Coronary Artery Disease (CAD), Diabetes Mellitus, GERD/ Reflux, Hypertension, Pneumonia, Renal Disease, Sleep Apnea/CPAP/BIPAP, Thyroid Disorder Additional Past Medical History / Comment(s): unable to tolerate CPAP, frequent urinary tract infections, diabetic neuropathy, diabetic retinopathy, "nervous bladder", chronic kidney disease stage III, hypothyroidism, osteoporosis, chronic pain, gout, BROKEN RT ARM-CURRENTLY CASTED. RECENT CANCEROUS BRAIN TUMOR REMOVED AT [facility] HAS RECIEVED FIRST RADIATION TX 11-09-17(NO CHEMO ),PT HAD PNE VACCINE FEW YEARS AGO /NOT SURE OF DATE.BRAZER FURNACE UNABLE TO VERIFY AT TIME OF THIS AMDIT. History of Any Multi-Drug Resistant Organisms: None Reported Date of last positivie culture/infection: None MDRO Source:: None Past Surgical History: Adenoidectomy, Section, Heart Catheterization With Stent, Orthopedic Surgery, Tonsillectomy Additional Past Surgical History / Comment(s): panniculectomy, ORIF right ankle , right ankle arthroplasty, polyp removed from uterus, 2 cardiac stents, bilateral cataract extraction and intraocular lens implants, pilonidal cyst, D& C. STENT TO LAD 03/18/17, CANCEROUS BRAIN TUMOR REMOVED Past Anesthesia/Blood Transfusion Reactions: No Reported Reaction Date of Last Stent Placement:: 2016 Smoking Status: Former smoker Additional Past Alcohol Use History / Comment(s): Patient was a smoker of 2 packs per day for 20 years and quit 30 years ago - Past Family History Daughter(s) Additional Family Medical History / Comment(s): Patient has 2 daughters with no major medical problems. Patient does not have any siblings. Father Additional Family Medical History / Comment(s): Father at age 65 with history of nasal cancer and throat masses that led to malnutrition and his . On autopsy throat masses were benign. Mother Family Medical History: Cancer Additional Family Medical History / Comment(s): Mother at age 67 from bladder cancer. Medications and Allergies Home Medications Medication Instructions Recorded Confirmed Type Allopurinol [Zyloprim] 100 mg PO DAILY 01/11/15 11/10/17 History Cyanocobalamin [Vitamin B-12] 500 mcg PO DAILY 01/11/15 11/10/17 History Acetaminophen [Tylenol Arthritis] 1,300 mg PO BID 01/26/17 11/10/17 History Insulin Glargine [Lantus] 65 unit SQ HS 03/13/17 11/10/17 History Gabapentin [Neurontin] 600 mg PO BID 03/18/17 11/10/17 History Magnesium Oxide 400 mg PO HS 10/12/17 11/10/17 History Albuterol Nebulized [Ventolin 2.5 mg INHALATION RT-Q6H PRN 11/10/17 11/10/17 History Nebulized] Aspirin EC [Ecotrin Low Dose] 81 mg PO HS 11/10/17 11/10/17 History Atorvastatin [Lipitor] 40 mg PO DAILY 11/10/17 11/10/17 History Bisacodyl 5 mg PO DAILY 11/10/17 11/10/17 History Bisacodyl [Dulcolax] 10 mg RECTAL DAILY PRN 11/10/17 11/10/17 History Cholecalciferol [Vitamin D3] 1,000 unit PO HS 11/10/17 11/10/17 History Clopidogrel [Plavix] 75 mg PO DAILY 11/10/17 11/10/17 History Dexamethasone [Decadron] See Taper PO DIRECTED 11/10/17 11/10/17 History Famotidine [Pepcid] 20 mg PO BID 11/10/17 11/10/17 History Ferrous Gluconate 324 mg PO BID 11/10/17 11/10/17 History INSULIN LISPRO (humaLOG) [humaLOG] See Protocol SQ ACHS 11/10/17 11/10/17 History Levothyroxine Sodium [Synthroid] 150 mcg PO DAILY 11/10/17 11/10/17 History Liraglutide [Victoza 2-Parker] 1.2 mg SQ DAILY 11/10/17 11/10/17 History Lisinopril [Zestril] 10 mg PO DAILY 11/10/17 11/10/17 History Megestrol Acetate 20 mg PO HS 11/10/17 11/10/17 History Metoprolol Tartrate [Lopressor] 12.5 mg PO BID 11/10/17 11/10/17 History Multivitamins, Thera [Multivitamin 1 tab PO DAILY 11/10/17 11/10/17 History (formulary)] Repaglinide [Prandin] 2 mg PO AC-TID 11/10/17 11/10/17 History Sennosides [Senna] 8.6 mg PO BID PRN 11/10/17 11/10/17 History Venlafaxine HCl 75 mg PO HS 11/10/17 11/10/17 History hydrALAZINE HCL [Apresoline] 100 mg PO TID 11/10/17 11/10/17 History levETIRAcetam [Keppra] 500 mg PO BID 11/10/17 11/10/17 History traMADol HCL [Ultram] 50 mg PO TID 11/10/17 11/10/17 History Allergies Allergy/AdvReac Type Severity Reaction Status Date / Time erythromycin base Allergy thrush Verified 11/10/17 13:09 meropenem [From Merrem] Allergy Rash/Hives Verified 11/10/17 13:09 Penicillins Allergy Unknown Verified 11/10/17 13:09 Physical Exam Vitals: Vital Signs Temp Pulse Pulse Resp BP BP Pulse Ox 11/11/17 06:11 99.1 F 71 13 166/71 96 11/11/17 06:10 99.1 F 166 H 13 166/71 96 11/10/17 21:43 98.3 F 76 16 163/75 98 11/10/17 17:25 73 18 183/84 98 11/10/17 15:18 72 18 196/84 98 11/10/17 12:57 63 18 137/62 97 11/10/17 12:23 98.3 F 66 18 129/78 95 Intake and Output 11/10/17 11/11/17 11/11/17 22:59 06:59 14:59 Intake Total 350 Balance 350 Intake: Intake, IV Titration 350 Amount Sodium Chloride 0.9% 1, 350 000 ml @ 100 mls/hr IV . Q10H ONE Rx#:[id number] Other: Voiding Method Bedside Commode Bedpan # Voids 1 Weight 80.739 kg Gen: This is a 77-year-old female. She is sitting up in a chair at the bedside and eating breakfast. She appears to be in no acute distress. HEENT: Head is atraumatic, normocephalic. Pupils equal, round. Sclerae is anicteric. Oral mucous membranes are moist. NECK: Supple. No JVD. No lymphadenopathy. No thyromegaly. LUNGS: Clear to auscultation. No wheezes or rhonchi. No intercostal retractions. HEART: Regular rate and rhythm. No murmur. ABDOMEN: Soft. Bowel sounds are present. No masses. No tenderness. EXTREMITIES: No pedal edema. No calf tenderness. NEUROLOGICAL: Patient is awake, alert and oriented x3. Cranial nerves 2 through 12 are grossly intact. Results CBC & Chem 7: 11/10/17 12:43 11/10/17 12:43 Labs: Abnormal Lab Results - Last 24 Hours (Table) 11/10/17 11/10/17 11/10/17 Range/Units 12:43 12:43 12:43 RBC 3.70 L (3.80-5.40) m/uL Hgb 10.9 L (11.4-16.0) gm/dL Lymphocytes # 0.7 L (1.0-4.8) k/uL APTT 19.0 L (22.0-30.0) sec Sodium 136 L (137-145) mmol/L Potassium 5.3 H (3.5-5.1) mmol/L Carbon Dioxide 21 L (22-30) mmol/L BUN 53 H (7-17) mg/dL Creatinine 1.47 H (0.52-1.04) mg/dL Glucose 270 H (74-99) mg/dL POC Glucose (mg/dL) (75-99) mg/dL Magnesium 2.9 H (1.6-2.3) mg/dL Total Protein 5.5 L (6.3-8.2) g/dL Albumin 3.3 L (3.5-5.0) g/dL TSH <0.015 L (0.465-4.680) mIU/L 11/10/17 11/10/17 11/11/17 Range/Units 12:47 22:52 06:57 RBC (3.80-5.40) m/uL Hgb (11.4-16.0) gm/dL Lymphocytes # (1.0-4.8) k/uL APTT (22.0-30.0) sec Sodium (137-145) mmol/L Potassium (3.5-5.1) mmol/L Carbon Dioxide (22-30) mmol/L BUN (7-17) mg/dL Creatinine (0.52-1.04) mg/dL Glucose (74-99) mg/dL POC Glucose (mg/dL) 270 H 409 H 298 H (75-99) mg/dL Magnesium (1.6-2.3) mg/dL Total Protein (6.3-8.2) g/dL Albumin (3.5-5.0) g/dL TSH (0.465-4.680) mIU/L Thrombosis Risk Factor Assmnt - DVT/VTE Prophylaxis DVT/VTE Prophylaxis: Pharmacologic Prophylaxis ordered - Choose All That Apply Any of the Below Risk Factors Present?: Yes Each Factor Represents 1 point: Obesity (BMI >25) Other Risk Factors: Yes Each Risk Factor Represents 2 Points: Age 61-74 years, Malignancy Other congenital or acquired thrombophilia - If yes, enter type in comment: No Thrombosis Risk Factor Assessment Total Risk Factor Score: 5 Thrombosis Risk Factor Assessment Level: High Risk Assessment and Plan Plan: 1. Metabolic encephalopathy possibly related to increased dose of steroids and hyperglycemia. Patient is almost back to baseline. Dexamethasone currently at 2 mg 3 times daily. Oncology consult appreciated. 2. Recent treatment for UTI, recheck urinalysis and urine culture. Patient is currently on Bactrim. 3. Brain metastases with possible primary as lung status post recent tumor resection. Patient started radiation therapy on Thursday. She is scheduled for repeat radiation today. She is followed by Dr. Smith and Dr. Pratt. Her primary oncologist is Dr. Sánchez. Continue dexamethasone, Keppra. 4. Diabetes mellitus type 2, uncontrolled most likely secondary to steroids. Patient will be continued on Levemir which dose was increased to 45 units twice daily NovoLog 5 units 3 times daily with meals and NovoLog scale, Prandin 2 mg 3 times daily. Patient is normally on Victoza at home which is not available here. 5. History of CAD with prior PCI. Continue aspirin 81 mg daily, Lipitor 40 mg daily, Lopressor 12.5 mg twice daily, Plavix 75 mg daily. 6. Hypertension. Continue amlodipine 10 mg daily, chlorthalidone 12.5 mg daily , hydralazine 100 mg 3 times daily, lisinopril 10 mg daily, metoprolol tartrate 12.5 mg twice daily. 7. Hypothyroidism on levothyroxine with low TSH. Patient is normally on levothyroxine 150 g daily which will be decreased to 137 g daily. 8. Encephalopathy with significant change mental status: Secondary to her acute infection and sepsis, with try to treat underlying disease and reevaluate patient in mental status. 9. Acute kidney injury with chronic kidney disease stage III. Baseline creatinine is about 1.2. 10. Gastrointestinal prophylaxis. Pepcid. 11. DVT prophylaxis. Lovenox daily. 12. Recurrent depression. Continue Effexor 75 mg at bedtime. Patient will be admitted to the hospital for a minimum of 2 night stay. Discharge plan: Return home Impression and plan of care have been directed as dictated by the signing physician. Myesha Wynne nurse practitioner acting as scribe for signing physician.
[2017-11-11 17:11] LABS: Glucose,Whole Blood 350 mg/dL (75-99)
[2017-11-11 17:27] LABS: Hemoglobin A1C 9.4 % (4.0-6.0)
--- NOTE | 2017-11-11 18:53 | EEG ---
ELECTROENCEPHALOGRAM REPORT DATE OF SERVICE: 11/11/2017 REASON FOR TESTING: Altered mental status. DESCRIPTION OF THE PROCEDURE: This EEG was performed using a 21-channel digital electroencephalograph, following international 10-20 system. DESCRIPTION OF THE RECORDING: From the beginning of the tracing, and with the patient's eyes closed, the background rhythm was mostly consisting of 7 Hz theta frequency in the posterior occipital leads. No obvious asymmetry is seen. Photic stimulation was performed with a minimal driving response seen. No pathological waves were elicited. Hyperventilation was not performed. The patient does become drowsy, but does not reach stage II of sleep during the tracing. No epileptiform discharges were seen. Her EKG lead showed a regular rate and rhythm. INTERPRETATION: This awake EEG is abnormal due to the presence of generalized slowing of the background rhythm, mostly in the theta range. This is consistent with mild encephalopathy. No epileptiform discharges were seen. The absence of epileptiform discharges does not rule out the diagnosis of epilepsy; therefore clinical correlation is recommended. MMJORDY / COBYN: [id number] /
[2017-11-11 19:42] LABS: Amorphous Sediment,Urine Occasional /hpf; Appearance,Urine Cloudy (Clear); Bacteria,Urine Many /hpf; Bilirubin,Urine Negative (Negative); Blood,Urine Negative (Negative); Color,Urine Yellow; Glucose,Urine (UA) 4+ (Negative); Hyaline Casts,Urine 3 /lpf (0-2); Ketones,Urine Negative (Negative); Leukocyte Esterase,Urine Large (Negative); Nitrite,Urine Negative (Negative); PH, Urine 5.5 (5.0-8.0); Protein,Urine 1+ (Negative); RBC,Urine 11 /hpf (0-5); Specific Gravity,Urine 1.013 (1.001-1.035); Urobilinogen,Urine <2.0 mg/dL (<2.0); WBC,Urine >182 /hpf (0-5)
[2017-11-11 20:16] LABS: Glucose,Whole Blood 330 mg/dL (75-99)
--- NOTE | 2017-11-11 21:22 | P.CONS ---
History of Present Illness - Reason for Consult Consult date: 11/11/17 Lung Cancer with Brain Mets Requesting physician: Heather Pedersen - Chief Complaint Mental Status Changes - History of Present Illness Mrs. Allen is a 77 year old female who originally presented to the hospital on October 12 after falling at home and hitting her head. DUring her work-up for a fall she was found to have a 2.3cm left parietal mass with surrounding edema. During further work-up she was also found to have left upper lobe 2cm spiculated lung mass. The picture was consistent with a metastatic lung cancer with mets to the brain. Therefore, she was transferred to [facility] and referred to Dr. Desai for neurosurgery options. On October 15, 2017 she underwent a left craniotomy for resection of the newly found intercerebral metastatic lesion. Pathology revealed consistent with adenocarcinoma, primary lesion lung. She has been recovering from surgery and steroids have been started to weaned down. She presented to Radiation Oncology to begin Stereotactic radiation to craniotomy site. She is occapanied by her supportive who stated she has been having increasing confusion and her blood sugars have been very labile, low and high. She was advised by Dr. Smith to seek further evaluation at [facility]. She was admitted and her glucose levels have been stabiled. During this mornings evaluation she appears to be better, at bedside. No acute complaints Review of Systems A 14 point review of systems assessed and completed and all negative except HPI Past Medical History Past Medical History: Coronary Artery Disease (CAD), Diabetes Mellitus, GERD/ Reflux, Hypertension, Pneumonia, Renal Disease, Sleep Apnea/CPAP/BIPAP, Thyroid Disorder Additional Past Medical History / Comment(s): unable to tolerate CPAP, frequent urinary tract infections, diabetic neuropathy, diabetic retinopathy, "nervous bladder", chronic kidney disease stage III, hypothyroidism, osteoporosis, chronic pain, gout, BROKEN RT ARM-CURRENTLY CASTED. RECENT CANCEROUS BRAIN TUMOR REMOVED AT [facility] HAS RECIEVED FIRST RADIATION TX 11-09-17(NO CHEMO ),PT HAD PNE VACCINE FEW YEARS AGO /NOT SURE OF DATE.HUMAN SERVICES PROGRAM SPECIALIST UNABLE TO VERIFY AT TIME OF THIS AMDIT. History of Any Multi-Drug Resistant Organisms: None Reported Year Discovered:: None MDRO Source:: None Past Surgical History: Adenoidectomy, Section, Heart Catheterization With Stent, Orthopedic Surgery, Tonsillectomy Additional Past Surgical History / Comment(s): panniculectomy, ORIF right ankle , right ankle arthroplasty, polyp removed from uterus, 2 cardiac stents, bilateral cataract extraction and intraocular lens implants, pilonidal cyst, D& C. STENT TO LAD 03/18/17, CANCEROUS BRAIN TUMOR REMOVED Past Anesthesia/Blood Transfusion Reactions: No Reported Reaction Date of Last Stent Placement:: 2016 Smoking Status: Former smoker Additional Past Alcohol Use History / Comment(s): Patient was a smoker of 2 packs per day for 20 years and quit 30 years ago - Past Family History Daughter(s) Additional Family Medical History / Comment(s): Patient has 2 daughters with no major medical problems. Patient does not have any siblings. Father Additional Family Medical History / Comment(s): Father at age 65 with history of nasal cancer and throat masses that led to malnutrition and his . On autopsy throat masses were benign. Mother Family Medical History: Cancer Additional Family Medical History / Comment(s): Mother at age 67 from bladder cancer. Medications and Allergies Home Medications Medication Instructions Recorded Confirmed Type Allopurinol [Zyloprim] 100 mg PO DAILY 01/11/15 11/10/17 History Cyanocobalamin [Vitamin B-12] 500 mcg PO DAILY 01/11/15 11/10/17 History Acetaminophen [Tylenol Arthritis] 1,300 mg PO BID 01/26/17 11/10/17 History Insulin Glargine [Lantus] 65 unit SQ HS 03/13/17 11/10/17 History Gabapentin [Neurontin] 600 mg PO BID 03/18/17 11/10/17 History Magnesium Oxide 400 mg PO HS 10/12/17 11/10/17 History Albuterol Nebulized [Ventolin 2.5 mg INHALATION RT-Q6H PRN 11/10/17 11/10/17 History Nebulized] Aspirin EC [Ecotrin Low Dose] 81 mg PO HS 11/10/17 11/10/17 History Atorvastatin [Lipitor] 40 mg PO DAILY 11/10/17 11/10/17 History Bisacodyl 5 mg PO DAILY 11/10/17 11/10/17 History Bisacodyl [Dulcolax] 10 mg RECTAL DAILY PRN 11/10/17 11/10/17 History Cholecalciferol [Vitamin D3] 1,000 unit PO HS 11/10/17 11/10/17 History Clopidogrel [Plavix] 75 mg PO DAILY 11/10/17 11/10/17 History Dexamethasone [Decadron] See Taper PO DIRECTED 11/10/17 11/10/17 History Famotidine [Pepcid] 20 mg PO BID 11/10/17 11/10/17 History Ferrous Gluconate 324 mg PO BID 11/10/17 11/10/17 History INSULIN LISPRO (humaLOG) [humaLOG] See Protocol SQ ACHS 11/10/17 11/10/17 History Levothyroxine Sodium [Synthroid] 150 mcg PO DAILY 11/10/17 11/10/17 History Liraglutide [Victoza 2-Parker] 1.2 mg SQ DAILY 11/10/17 11/10/17 History Lisinopril [Zestril] 10 mg PO DAILY 11/10/17 11/10/17 History Megestrol Acetate 20 mg PO HS 11/10/17 11/10/17 History Metoprolol Tartrate [Lopressor] 12.5 mg PO BID 11/10/17 11/10/17 History Multivitamins, Thera [Multivitamin 1 tab PO DAILY 11/10/17 11/10/17 History (formulary)] Repaglinide [Prandin] 2 mg PO AC-TID 11/10/17 11/10/17 History Sennosides [Senna] 8.6 mg PO BID PRN 11/10/17 11/10/17 History Venlafaxine HCl 75 mg PO HS 11/10/17 11/10/17 History hydrALAZINE HCL [Apresoline] 100 mg PO TID 11/10/17 11/10/17 History levETIRAcetam [Keppra] 500 mg PO BID 11/10/17 11/10/17 History traMADol HCL [Ultram] 50 mg PO TID 11/10/17 11/10/17 History Allergies Allergy/AdvReac Type Severity Reaction Status Date / Time erythromycin base Allergy thrush Verified 11/10/17 13:09 meropenem [From Merrem] Allergy Rash/Hives Verified 11/10/17 13:09 Penicillins Allergy Unknown Verified 11/10/17 13:09 Physical Exam Vitals: Vital Signs Temp Pulse Pulse Resp BP BP Pulse Ox 11/11/17 14:35 98.1 F 91 14 125/70 99 11/11/17 06:11 99.1 F 71 13 166/71 96 11/11/17 06:10 99.1 F 166 H 13 166/71 96 11/10/17 21:43 98.3 F 76 16 163/75 98 11/10/17 17:25 73 18 183/84 98 Intake and Output 11/11/17 11/11/17 11/11/17 06:59 14:59 22:59 Intake Total 400 Output Total 1600 Balance -1200 Intake: Intake, IV Titration 400 Amount Sodium Chloride 0.9% 1, 400 000 ml @ 100 mls/hr IV . Q10H ONE Rx#:[id number] Output: Urine 1600 Other: Voiding Method Bedside Commode Bedside Commode Bedpan Bedpan # Voids 1 1 Weight 80.739 kg - Constitutional General appearance: cooperative, no acute distress, obese - EENT Eyes: EOMI, PERRLA, dentition normal ENT: NA/AT, normal oropharynx - Neck supple, trachea midline Neck: normal ROM - Respiratory Respiratory: left: diminished (left upper and bibasilar) - Cardiovascular Rhythm: regular Heart sounds: normal: S1, S2 - Gastrointestinal General gastrointestinal: normal bowel sounds, soft - Integumentary Integumentary: normal - Neurologic Neurologic: CNII-XII intact - Musculoskeletal Musculoskeletal: gait normal, generalized weakness, strength equal bilaterally - Psychiatric Psychiatric: A&O x's 3, appropriate affect, intact judgment & insight Results CBC & Chem 7: 11/10/17 12:43 11/10/17 12:43 Labs: Abnormal Lab Results - Last 24 Hours (Table) 11/10/17 11/11/17 11/11/17 Range/Units 22:52 06:57 11:13 POC Glucose (mg/dL) 409 H 298 H 324 H (75-99) mg/dL Assessment and Plan Plan: Assessment and Recommendations: 1. 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 Desai at [facility] on October 15, 2017 - Status POst Stereotactic Radiation x1 to tumor bed - Appointment with Dr. Sánchez in Office tomorrow, we will reschedule this for after discharge from hospital - COntinue on steroids and PPI per Dr. Neeru [facility]hes [facility] - I will ensure tumor pathology has been sent for EGFR, BRAF, ALK, ROS1, PDL1, and RET - Treatment options will be determined when these mutation tests result and per Dr. Sánchez as outpatient, after radiation completed - Patient and understand extent of disease and treatment goals are of incurable and palliative intent 2. Hyperkalemia - Per Medical Management - Recheck in am 3. Acute Renal Insufficiency - Recheck CMP in AM 4. Acute Mental Status Changes - Improved 5. Normocytic Anemia - Recheck CBC in am Physician Attestation: I have completed a full history and physical of this patient and agree with above dictation by Margarita Zee NP. Dictated as a scribe
[2017-11-11] MEDS: CHOLECALCIFEROL 1,000 UNIT TAB PO SCH (22:04)
[2017-11-11] MEDS: VENLAFAXINE HCL 75 MG TAB PO SCH (22:04)
[2017-11-11] MEDS: MEGESTROL 40 MG TAB PO SCH (22:05)
[2017-11-11] MEDS: ASPIRIN 81 MG PO SCH (22:05)
[2017-11-11] MEDS: MAGNESIUM OXIDE 400 MG TAB PO SCH (22:05)
[2017-11-12 00:48] VITALS: RESP 16
[2017-11-12] MEDS ORDERED: LEVOTHYROXINE 137 MCG TAB PO SCH (06:30)
[2017-11-12 07:08] LABS: Glucose,Whole Blood 135 mg/dL (75-99)
[2017-11-12 07:22] LABS: Basophils % (A) 0 %; Eosinophils % (A) 0 %; HCT 34.8 % (34.0-46.0); Lymphocytes # (A) 1.3 k/uL (1.0-4.8); Lymphocytes % (A) 13 %; MCH 29.7 pg (25.0-35.0); MCHC 31.6 g/dL (31.0-37.0); MCV 93.8 fL (80.0-100.0); Mean Platelet Volume 6.2; Monocytes # (A) 0.4 k/uL (0-1.0); Monocytes % (A) 4 %; Neutrophils # (A) 8.1 k/uL (1.3-7.7); Neutrophils % (A) 82 %; Platelet Count 258 k/uL (150-450); RBC 3.71 m/uL (3.80-5.40); RDW 14.8 % (11.5-15.5); WBC 9.9 k/uL (3.8-10.6)
[2017-11-12] MEDS: INSULIN ASPART 100 UNIT/ML 1 ML 10 ML VIAL SQ SCH ×4 (07:35→13:05)
[2017-11-12] MEDS: REPAGLINIDE 1 MG TAB PO SCH ×2 (07:35→13:05)
[2017-11-12 07:36] LABS: Albumin 3.4 g/dL (3.5-5.0); Calcium 8.9 mg/dL (8.4-10.2); Potassium 5.7 mmol/L (3.5-5.1); Total Bilirubin 0.3 mg/dL (0.2-1.3); Total Protein 5.6 g/dL (6.3-8.2)
[2017-11-12 07:45] VITALS: TEMP 98.2
[2017-11-12] MEDS: CYANOCOBALAMIN 500 MCG TAB PO SCH (09:56)
[2017-11-12] MEDS: ATORVASTATIN 40 MG TAB PO SCH (09:56)
[2017-11-12] MEDS: METOPROLOL TARTRATE 12.5 MG TAB PO SCH (09:56)
[2017-11-12] MEDS: CHLORTHALIDONE 25 MG TAB PO SCH (09:56)
[2017-11-12] MEDS: CLOPIDOGREL 75 MG TAB PO SCH (09:56)
[2017-11-12] MEDS: FERROUS SULFATE 325 MG TAB PO SCH (09:56)
[2017-11-12] MEDS: amLODIPine 10 MG TAB PO SCH (09:56)
[2017-11-12] MEDS: LISINOPRIL 10 MG TAB PO SCH (09:56)
[2017-11-12] MEDS: ALLOPURINOL 100 MG TAB PO SCH (09:56)
[2017-11-12] MEDS: DEXAMETHASONE 2 MG TAB PO SCH (09:56)
[2017-11-12] MEDS: SULFAMETHOX-TMP 400-80MG 1 EACH TAB PO SCH (09:56)
[2017-11-12] MEDS: FAMOTIDINE 20 MG TAB PO SCH (09:57)
[2017-11-12] MEDS: ENOXAPARIN 40 MG/0.4 ML SYRINGE SQ SCH (09:57)
[2017-11-12] MEDS: hydrALAZINE HCL 50 MG TAB PO SCH (09:57)
[2017-11-12] MEDS: INSULIN DETEMIR 100 UNIT/ML 10 ML VIAL SQ SCH (09:57)
[2017-11-12] MEDS: levETIRAcetam 500 MG TAB PO SCH (09:57)
[2017-11-12] MEDS: GABAPENTIN 300 MG CAP PO SCH (09:57)
[2017-11-12] MEDS: BISACODYL 5 MG TABLET.DR PO SCH (10:14)
[2017-11-12 10:17] VITALS: BP 151/67; PULSE 71
[2017-11-12 10:26] VITALS: BMI 28.7
--- NOTE | 2017-11-12 10:33 | CONS ---
CONSULTATION DATE OF CONSULTATION: 11/11/2017. CHIEF COMPLAINT: Altered mental status. HISTORY OF PRESENT ILLNESS: Mrs. Allen is a pleasant 77-year-old female, who is being evaluated by the neurology service today on 11/11/2017 per the request of Dr. Tenorio for altered mental status. The patient was recently diagnosed with intracranial tumors. The patient had fallen at home and suffered a right wrist fracture and due to the fall, a CT scan of the brain was done, which identified the tumors. She was transferred to [facility] and underwent a craniotomy with tumor resection for the largest mass and the other tumors were being treated with whole-brain radiation. The patient had been receiving Decadron throughout this time. Yesterday, she started having visual hallucinations and confusion regarding orientation. A neurology consultation was obtained. Her tumor resection was on 10/15/2017. A CT scan of the brain was done today which did show changes consistent with a craniotomy and encephalomalacia at the surgical site. There was also vasogenic edema involving the right temporal lobe. Her comprehensive metabolic profile showed mild hyponatremia at 136, hyperkalemia at 5.3, renal insufficiency with a BUN of 53 and creatinine of 1.47, hyperglycemia at 273, and decreased protein and albumin at 5.5 and 3.3 respectively. Her CBC was normal except for anemia with a hemoglobin of 10.9. At the time of my evaluation, the patient is sitting in her bedside chair and appears to be in no acute distress. Her Decadron has been held since yesterday. According to the , the patient is significantly improved today and appears to be back to her baseline. I did review her EEG which showed evidence of mild encephalopathy with no epileptiform discharges. The patient is on Keppra 500 mg b.i.d. and has been on this since her craniotomy. She has not had any actual seizures. PAST MEDICAL HISTORY: Intracranial masses, probable lung cancer as primary, coronary artery disease, diabetes, gastroesophageal reflux disease, hypertension, chronic renal disease, obstructive sleep apnea, hypothyroidism, diabetic polyneuropathy, diabetic retinopathy, osteoporosis, chronic pain syndrome, gout, history of , coronary artery stent placement, adenoidectomy, tonsillectomy, orthopedic surgeries, cataract surgery. SOCIAL HISTORY: The patient is a former smoker and quit 30 years ago. She denies any alcohol or drug use. FAMILY HISTORY: Positive for cancer. HOME MEDICATIONS: Reviewed in the chart. ALLERGIES: ERYTHROMYCIN, MEROPENEM. REVIEW OF SYSTEMS: CONSTITUTIONAL: Positive for fatigue. EYES: Positive for chronic diminished vision. ENT: Negative. CARDIOVASCULAR: Negative. RESPIRATORY: Negative. NEUROLOGICAL: As mentioned above. GASTROINTESTINAL: Positive for occasional heartburn. GENITOURINARY: Positive for urinary urgency. PSYCHIATRIC: Negative. DERMATOLOGICAL: Negative. ENDOCRINE: Positive for diabetes and hypothyroidism. MUSCULOSKELETAL: As mentioned above. PHYSICAL EXAM: Vital signs show a temperature 98.1, pulse 91, respiration 14, blood pressure 125/70. GENERAL APPEARANCE: The patient is a well-developed obese female, who appears to be in no acute distress. HEENT: Normocephalic, atraumatic. No facial asymmetry is seen. Alopecia is noticed. NECK: Supple with no masses felt. CARDIOVASCULAR: Regular rate and rhythm. ABDOMEN: Obese, nontender, nondistended. Extremities showed edema with no clubbing seen. Cast is present on right forearm. NEUROLOGICAL EXAM: The patient is awake and oriented x3. Speech and language are normal. Strength 4+ out of 5 in bilateral lower extremities and 5 minus out of 5 in bilateral upper extremities. No pronator drift is seen. Sensory exam showed diminished light touch sensation of bilateral distal lower extremities. No tremors or seizure-like activity is seen. No facial asymmetry is noticed on cranial nerve testing. IMPRESSION: 1. Altered mental status. 2. Mild encephalopathy, toxic type. 3. Steroid induced psychosis. 4. Brain tumors, likely metastasis. 5. Chronic renal insufficiency. RECOMMENDATION: The patient's altered mental status and visual hallucinations were likely due to steroid induced psychosis. She had been on high doses of Decadron. Her Decadron has been held at this time. I did review her EEG which showed no epileptiform discharges but it did show evidence of mild encephalopathy. This is likely multifactorial as well given her renal status and current radiation treatments. At the time of my evaluation, she is oriented x3 and she appears to be at her baseline. Oncology is following the patient. From a neurology standpoint, the patient is cleared to resume radiation therapy. Continue neuro checks. I will continue to follow with you. Further recommendations to follow. Thank you for allowing me to participate in the care of your patient. If you have any questions, please feel free to contact me. MMODL / IJN: [id number] / LUAN
[2017-11-12 11:26] LABS: Glucose,Whole Blood 177 mg/dL (75-99)
[2017-11-12] MEDS ORDERED: SODIUM POLYSTYRENE SULFONATE 15 GM/60 ML BOTTLE PO STA (12:18)
[2017-11-12] MEDS: MULTIVITAMINS, THERA 1 EACH TAB PO SCH (13:05)
--- NOTE | 2017-11-12 13:40 | P.DS ---
Providers Date of admission: 11/10/17 15:26 Expected date of discharge: 11/12/17 Attending physician: Kira Tenorio Consults: 11/10/17 16:03 Consult Physician Routine Consulting Provider: Janes Smith Consult Reason/Comments: known Do you want consulting provider notified?: Yes 11/10/17 17:45 Consult Physician Routine Consulting Provider: Herbie Pratt Consult Reason/Comments: brain metastasiss with AMS Do you want consulting provider notified?: Yes 11/11/17 08:58 Consult Physician Routine Consulting Provider: Singh Drake Consult Reason/Comments: altered mental status Do you want consulting provider notified?: Yes Primary care physician: Kira Tenorio Hospital Course: This is a 77-year-old female patient of Dr. Tenorio with past medical history of coronary artery disease status post stent placement, diabetes mellitus type 2 with diabetic retinopathy and diabetic neuropathy, gastroesophageal reflux disease, hypertension, chronic kidney disease stage III , obstructive sleep apnea unable to tolerate CPAP, osteoporosis, hypothyroidism , recent diagnosis of probable lung cancer with metastatic disease to the brain. Patient recently had a fall for which she sustained a fracture to the right wrist and she was treated at [facility]. The ER physician ordered a CAT scan of the brain that didn't find to tumors. Patient was transferred to the [facility] where she had the largest mass resected. Patient was also worked up and found to have a nodule in her lungs but she has no symptoms according to her . She denies any cough. There is also a liver mass as well. Once patient completed treatment at the [facility], she was transferred to [facility] for rehab. She was discharged from there last November 04. Her states that the day before she was discharged she was feeling sluggish. By the next day she had no energy and she was sleeping 21 hours a day. She had home care come in on or Thursday and also physical therapy started on Thursday. She was only able to walk a few steps for physical therapy which she is normally able to do much more. Patient started radiation therapy on Thursday under the care of Dr. Smith. She was scheduled for 5 treatments that would occur daily. Patient's blood pressure was low at the time and Dr. Smith apparently took her off one of her blood pressure medicines possibly hydrochlorothiazide. He also increased her steroid dosing. She started the higher dose and Thursday evening. By Thursday of 4 AM she was getting up to the bathroom and was significantly confused and her checked her blood sugar which was greater than 400. He gave her 14 units of NovoLog. She does not usually require NovoLog. When she woke up around 9:30 or 10 her blood sugar was then 300 and he gave her another 10 units of NovoLog as well as Victoza. She had her normal breakfast and had her morning medications. She then went in for her second radiation treatment but was seen by Dr. Smith he recommended doing a CAT scan of the brain and lab work in the emergency center. CAT scan of the brain without contrast revealed postsurgical changes of left parietal craniotomy regarding removal of an intracranial neoplasm within the left parietal lobe with 6 mm vertex dural flap in postoperative seroma containing punctate foci of air punctate focus of pneumocephalus is also seen within the parietal lobe in the resection cavity. No midline shift. Suspicious for second right temporal lesion has vasogenic edema without well-defined mass. Enhanced MRI is recommended. Her white count was normal, hemoglobin 10.9, potassium 5.3, creatinine 53 and creatinine 1.47. Initial blood sugar 270. TSH was less than 0.015. Patient's also relates that she was recently treated for urinary tract infection. Repeat urine culture will be ordered 11/12: EEG is abnormal due to presence of generalized slowing of the background rhythm mostly in the theta range consistent with mild encephalopathy. No epileptiform discharges seen. Oncology is following the patient. Temperature maximum 100.0. Vital signs otherwise stable. Pulse ox 98% on room air. Urine culture is in progress. Patient's urine culture is positive for UTI and she'll be discharged on Cipro which her states has worked for her in the past. Patient does have a follow-up appointment with Dr. Riddle on Thursday which they will keep. Potassium was elevated at 5.71 dose of Kayexalate will be given prior to discharge. Patient will be discharged home today in stable condition. Discharge diagnoses: 1. Metabolic encephalopathy possibly related to increased dose of steroids and hyperglycemia. 2. UTI. 3. 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 4. Diabetes mellitus type 2, uncontrolled secondary to steroids. 5. History of CAD with prior PCI. 6. Hypertension. 7. Hypothyroidism 8. Acute kidney injury with chronic kidney disease stage III. 10. Recurrent depression. Discharge plan: Return home with [facility] Impression and plan of care have been directed as dictated by the signing physician. Myesha Wynne nurse practitioner acting as scribe for signing physician. Patient Condition at Discharge: Good Plan - Discharge Summary Discharge Rx Participant: No New Discharge Prescriptions: New Chlorthalidone [Hygroton] 12.5 mg PO DAILY tab Dexamethasone [Hexadrol] 2 mg PO BID tab Levothyroxine Sodium 100 mcg PO DAILY #30 tablet Ciprofloxacin HCl [Cipro] 500 mg PO Q12HR #14 tablet amLODIPine [Norvasc] 10 mg PO DAILY #30 tablet Continue Cyanocobalamin [Vitamin B-12] 500 mcg PO DAILY Allopurinol [Zyloprim] 100 mg PO DAILY Acetaminophen [Tylenol Arthritis] 1,300 mg PO BID Gabapentin [Neurontin] 600 mg PO BID Magnesium Oxide 400 mg PO HS Albuterol Nebulized [Ventolin Nebulized] 2.5 mg INHALATION RT-Q6H PRN PRN Reason: Shortness Of Breath Bisacodyl 5 mg PO DAILY Bisacodyl [Dulcolax] 10 mg RECTAL DAILY PRN PRN Reason: Constipation Clopidogrel [Plavix] 75 mg PO DAILY Famotidine [Pepcid] 20 mg PO BID hydrALAZINE HCL [Apresoline] 100 mg PO TID INSULIN LISPRO (humaLOG) [humaLOG] See Protocol SQ ACHS levETIRAcetam [Keppra] 500 mg PO BID Sennosides [Senna] 8.6 mg PO BID PRN PRN Reason: Constipation Liraglutide [Victoza 2-Parker] 1.2 mg SQ DAILY traMADol HCL [Ultram] 50 mg PO TID Ferrous Gluconate 324 mg PO BID Venlafaxine HCl 75 mg PO HS Repaglinide [Prandin] 2 mg PO AC-TID Multivitamins, Thera [Multivitamin (formulary)] 1 tab PO DAILY Metoprolol Tartrate [Lopressor] 12.5 mg PO BID Atorvastatin [Lipitor] 40 mg PO DAILY Cholecalciferol [Vitamin D3] 1,000 unit PO HS Aspirin EC [Ecotrin Low Dose] 81 mg PO HS Lisinopril [Zestril] 10 mg PO DAILY Megestrol Acetate 20 mg PO HS Changed Insulin Glargine [Lantus] 50 unit SQ HS #0 Discontinued Levothyroxine Sodium [Synthroid] 150 mcg PO DAILY Discharge Medication List Allopurinol [Zyloprim] 100 mg PO DAILY 01/11/15 [History] Cyanocobalamin [Vitamin B-12] 500 mcg PO DAILY 01/11/15 [History] Acetaminophen [Tylenol Arthritis] 1,300 mg PO BID 01/26/17 [History] Gabapentin [Neurontin] 600 mg PO BID 03/18/17 [History] Magnesium Oxide 400 mg PO HS 10/12/17 [History] Albuterol Nebulized [Ventolin Nebulized] 2.5 mg INHALATION RT-Q6H PRN 11/10/17 [ History] Aspirin EC [Ecotrin Low Dose] 81 mg PO HS 11/10/17 [History] Atorvastatin [Lipitor] 40 mg PO DAILY 11/10/17 [History] Bisacodyl 5 mg PO DAILY 11/10/17 [History] Bisacodyl [Dulcolax] 10 mg RECTAL DAILY PRN 11/10/17 [History] Cholecalciferol [Vitamin D3] 1,000 unit PO HS 11/10/17 [History] Clopidogrel [Plavix] 75 mg PO DAILY 11/10/17 [History] Famotidine [Pepcid] 20 mg PO BID 11/10/17 [History] Ferrous Gluconate 324 mg PO BID 11/10/17 [History] INSULIN LISPRO (humaLOG) [humaLOG] See Protocol SQ ACHS 11/10/17 [History] Liraglutide [Victoza 2-Parker] 1.2 mg SQ DAILY 11/10/17 [History] Lisinopril [Zestril] 10 mg PO DAILY 11/10/17 [History] Megestrol Acetate 20 mg PO HS 11/10/17 [History] Metoprolol Tartrate [Lopressor] 12.5 mg PO BID 11/10/17 [History] Multivitamins, Thera [Multivitamin (formulary)] 1 tab PO DAILY 11/10/17 [History ] Repaglinide [Prandin] 2 mg PO AC-TID 11/10/17 [History] Sennosides [Senna] 8.6 mg PO BID PRN 11/10/17 [History] Venlafaxine HCl 75 mg PO HS 11/10/17 [History] hydrALAZINE HCL [Apresoline] 100 mg PO TID 11/10/17 [History] levETIRAcetam [Keppra] 500 mg PO BID 11/10/17 [History] traMADol HCL [Ultram] 50 mg PO TID 11/10/17 [History] Chlorthalidone [Hygroton] 12.5 mg PO DAILY tab 11/12/17 [Rx] Ciprofloxacin HCl [Cipro] 500 mg PO Q12HR #14 tablet 11/12/17 [Rx] Dexamethasone [Hexadrol] 2 mg PO BID tab 11/12/17 [Rx] Insulin Glargine [Lantus] 50 unit SQ HS #0 11/12/17 [Rx] Levothyroxine Sodium 100 mcg PO DAILY #30 tablet 11/12/17 [Rx] amLODIPine [Norvasc] 10 mg PO DAILY #30 tablet 11/12/17 [Rx] Follow up Appointment(s)/Referral(s): Kira Tenorio MD [Primary Care Provider] - 1 Week (Has scheduled appointment on Thursday) Singh Drake MD [STAFF PHYSICIAN] - 2 Weeks [facility] Visiting Nurse, [NON-STAFF] - 1 Week Mehran Sánchez MD [STAFF PHYSICIAN] - 1 Week Discharge Disposition: HOME WITH HOME HEALTH SERVICES
--- NOTE | 2017-11-12 17:01 | P.PN ---
Subjective Progress Note Date: 11/12/17 Principal diagnosis: Metastatic Lung cancer Mrs. Allen is a 77 year old female who originally presented to the hospital on October 12 after falling at home and hitting her head. DUring her work-up for a fall she was found to have a 2.3cm left parietal mass with surrounding edema. During further work-up she was also found to have left upper lobe 2cm spiculated lung mass. The picture was consistent with a metastatic lung cancer with mets to the brain. Therefore, she was transferred to [facility] and referred to Dr. Desai for neurosurgery options. On October 15, 2017 she underwent a left craniotomy for resection of the newly found intercerebral metastatic lesion. Pathology revealed consistent with adenocarcinoma, primary lesion lung. She has been recovering from surgery and steroids have been started to weaned down. She presented to Radiation Oncology to begin Stereotactic radiation to craniotomy site. She is occapanied by her supportive who stated she has been having increasing confusion and her blood sugars have been very labile, low and high. She was advised by Dr. Smith to seek further evaluation at [facility]. She was admitted and her glucose levels have been stabiled. During this mornings evaluation she appears to be better, at bedside. No acute complaints 11/12/17 - Patient was seen in follow-up today, she did have a fever this am. She is however feeling better. She was started on antibiotics for UTI. Objective - Vital Signs Vital signs: Vital Signs Temp 98.2 F 11/12/17 07:45 Pulse 71 11/12/17 10:17 Resp 16 11/12/17 05:00 BP 151/67 11/12/17 10:17 Pulse Ox 98 11/12/17 05:00 Intake & Output 11/11/17 11/12/17 11/12/17 18:59 06:59 18:59 Intake Total 400 700 Output Total 1600 Balance -1200 700 Weight 80.739 kg Intake: Intake, IV Titration 400 700 Amount Sodium Chloride 0.9% 1, 400 700 000 ml @ 100 mls/hr IV . Q10H ONE Rx#:[id number] Output: Urine 1600 Other: Voiding Method Bedside Commode Bedside Commode Bedside Commode Bedpan Bedpan # Voids 1 2 1 # Bowel Movements 1 - Constitutional General appearance: Present: cooperative, no acute distress - EENT Eyes: Present: EOMI, PERRLA, dentition normal ENT: Present: hard of hearing, NA/AT, normal oropharynx - Neck Details: supple, trachea midline Neck: Present: normal ROM - Respiratory Respiratory: bilateral: CTA (no increased effort) - Cardiovascular Rhythm: regular Heart sounds: normal: S1, S2 - Gastrointestinal General gastrointestinal: Present: normal bowel sounds, soft, tenderness - Integumentary Integumentary: Present: pale - Neurologic Neurologic: Present: CNII-XII intact - Musculoskeletal Musculoskeletal: Present: gait normal, generalized weakness, strength equal bilaterally - Psychiatric Psychiatric: Present: A&O x's 3, appropriate affect, intact judgment & insight - Labs CBC & Chem 7: 11/12/17 07:06 11/12/17 07:06 Labs: Abnormal Lab Results - Last 24 Hours (Table) 11/10/17 11/11/17 11/11/17 Range/Units 12:43 17:09 19:15 RBC (3.80-5.40) m/uL Hgb (11.4-16.0) gm/dL Neutrophils # (1.3-7.7) k/uL Potassium (3.5-5.1) mmol/L Chloride (98-107) mmol/L Carbon Dioxide (22-30) mmol/L BUN (7-17) mg/dL Creatinine (0.52-1.04) mg/dL Glucose (74-99) mg/dL POC Glucose (mg/dL) 350 H (75-99) mg/dL Hemoglobin A1c 9.4 H (4.0-6.0) % Total Protein (6.3-8.2) g/dL Albumin (3.5-5.0) g/dL Urine Appearance Cloudy H (Clear) Urine Protein 1+ H (Negative) Urine Glucose (UA) 4+ H (Negative) Ur Leukocyte Esterase Large H (Negative) Urine RBC 11 H (0-5) /hpf Urine WBC >182 H (0-5) /hpf Urine WBC Clumps Moderate H (None) /hpf Amorphous Sediment Occasional H (None) /hpf Urine Bacteria Many H (None) /hpf Hyaline Casts 3 H (0-2) /lpf 11/11/17 11/12/17 11/12/17 Range/Units 20:15 07:05 07:06 RBC 3.71 L (3.80-5.40) m/uL Hgb 11.0 L (11.4-16.0) gm/dL Neutrophils # 8.1 H (1.3-7.7) k/uL Potassium (3.5-5.1) mmol/L Chloride (98-107) mmol/L Carbon Dioxide (22-30) mmol/L BUN (7-17) mg/dL Creatinine (0.52-1.04) mg/dL Glucose (74-99) mg/dL POC Glucose (mg/dL) 330 H 135 H (75-99) mg/dL Hemoglobin A1c (4.0-6.0) % Total Protein (6.3-8.2) g/dL Albumin (3.5-5.0) g/dL Urine Appearance (Clear) Urine Protein (Negative) Urine Glucose (UA) (Negative) Ur Leukocyte Esterase (Negative) Urine RBC (0-5) /hpf Urine WBC (0-5) /hpf Urine WBC Clumps (None) /hpf Amorphous Sediment (None) /hpf Urine Bacteria (None) /hpf Hyaline Casts (0-2) /lpf 18 11/12/17 Range/Units 07:06 11:24 RBC (3.80-5.40) m/uL Hgb (11.4-16.0) gm/dL Neutrophils # (1.3-7.7) k/uL Potassium 5.7 H (3.5-5.1) mmol/L Chloride 109 H (98-107) mmol/L Carbon Dioxide 18 L (22-30) mmol/L BUN 44 H (7-17) mg/dL Creatinine 1.24 H (0.52-1.04) mg/dL Glucose 134 H (74-99) mg/dL POC Glucose (mg/dL) 177 H (75-99) mg/dL Hemoglobin A1c (4.0-6.0) % Total Protein 5.6 L (6.3-8.2) g/dL Albumin 3.4 L (3.5-5.0) g/dL Urine Appearance (Clear) Urine Protein (Negative) Urine Glucose (UA) (Negative) Ur Leukocyte Esterase (Negative) Urine RBC (0-5) /hpf Urine WBC (0-5) /hpf Urine WBC Clumps (None) /hpf Amorphous Sediment (None) /hpf Urine Bacteria (None) /hpf Hyaline Casts (0-2) /lpf Microbiology - Last 24 Hours (Table) 11/11/17 19:15 Urine Culture - Preliminary Urine,Voided Assessment and Plan Plan: Assessment and Recommendations: 1. 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 Desai at [facility] on October 15, 2017 - Status POst Stereotactic Radiation x1 to tumor bed - Appointment with Dr. Sánchez in Office tomorrow, we will reschedule this for after discharge from hospital - COntinue on steroids and PPI per Dr. [facility]idd[facility] - I will ensure tumor pathology has been sent for EGFR, BRAF, ALK, ROS1, PDL1, and RET - Treatment options will be determined when these mutation tests result and per Dr. Sánchez as outpatient, after radiation completed - Patient and understand extent of disease and treatment goals are of incurable and palliative intent 2. Hyperkalemia - Per Medical Management - Recheck in am 3. Acute Renal Insufficiency - Recheck CMP in AM 4. Acute Mental Status Changes - Improved 5. Normocytic Anemia - Recheck CBC in am 6. fever - likely secondary to UTI 7. UTI - Active treatment started per MM for UTI Physician Attestation: I have completed a full history and physical of this patient and agree with above dictation by Margarita Zee NP. Dictated as a scribe
[2017-11-12] MEDS ORDERED: DEXAMETHASONE 2 MG TAB PO SCH (21:00)
== END 2017-11-12 15:42 | disposition home health service (06) | DRG 91 ==
LOC: EC 12:11 → 5ONC 15:26 → UNDOADMIN 15:26 → 5ONC 17:23
PROVIDERS: ADMIT Family Medicine; ATTEND Family Medicine
DX: G92 Toxic encephalopathy (principal); A41.9 Sepsis, unspecified organism; G93.6 Cerebral edema; C34.90 Malignant neoplasm of unspecified part of unspecified bronchus or lung; C79.31 Secondary malignant neoplasm of brain; E87.1 Hypo-osmolality and hyponatremia; F33.9 Major depressive disorder, recurrent, unspecified; G97.63 Postprocedural seroma of a nervous system organ or structure following a nervous system procedure; N17.9 Acute kidney failure, unspecified; N39.0 Urinary tract infection, site not specified; T38.0X5A Adverse effect of glucocorticoids and synthetic analogues, initial encounter; D64.9 Anemia, unspecified; E03.9 Hypothyroidism, unspecified; E11.22 Type 2 diabetes mellitus with diabetic chronic kidney disease; E11.319 Type 2 diabetes mellitus with unspecified diabetic retinopathy without macular edema; E11.42 Type 2 diabetes mellitus with diabetic polyneuropathy; E11.65 Type 2 diabetes mellitus with hyperglycemia; E87.5 Hyperkalemia; F29 Unspecified psychosis not due to a substance or known physiological condition; G47.33 Obstructive sleep apnea (adult) (pediatric); G89.4 Chronic pain syndrome; I12.9 Hypertensive chronic kidney disease with stage 1 through stage 4 chronic kidney disease, or unspecified chronic kidney disease; I25.10 Atherosclerotic heart disease of native coronary artery without angina pectoris; K21.9 Gastro-esophageal reflux disease without esophagitis; M81.0 Age-related osteoporosis without current pathological fracture; N18.3 Chronic kidney disease, stage 3 (moderate); Z91.81 History of falling; Z79.02 Long term (current) use of antithrombotics/antiplatelets; Z79.4 Long term (current) use of insulin; Z79.82 Long term (current) use of aspirin; Z79.899 Other long term (current) drug therapy; Z80.52 Family history of malignant neoplasm of bladder; Z87.440 Personal history of urinary (tract) infections; Z87.891 Personal history of nicotine dependence; Z95.5 Presence of coronary angioplasty implant and graft; Z96.1 Presence of intraocular lens; Z98.41 Cataract extraction status, right eye; Z98.42 Cataract extraction status, left eye; Z87.01 Personal history of pneumonia (recurrent); Z88.1 Allergy status to other antibiotic agents; Z88.0 Allergy status to penicillin; Z79.890 Hormone replacement therapy; R44.1 Visual hallucinations; Z80.8 Family history of malignant neoplasm of other organs or systems; M10.9 Gout, unspecified
CPT/HCPCS: 36415; 70450; 77373; 80053; 81001; 82140; 82550; 82553; 83036; 83605; 83735; 84100; 84443; 84484; 85025; 85610; 85730; 87077; 87086; 87186; 93005; 95816; 96361; 96374; 99285

== ENCOUNTER → 2017-11-28 | Outpatient (CLI) | payer MEDICARE, BC ==
--- NOTE | 2017-12-01 11:11 | PE ---
Nuclear medicine PET/CT HISTORY: Lung carcinoma, subsequent Patient received 11.7 mCi F-18 FDG intravenously in delayed scanning was performed from the skull bas e to the mid thighs. Localization and attenuation correction CT scan was performed. Exam correlated t o CT brain 11/10/2017 and to chest x-ray 10/12/2017 Neck: There is no evident cervical adenopathy. No hypermetabolic uptake within the neck. CHEST: There is a left upper lobe lung mass present measuring approximately 2 cm in size extending to the pleural surface in the left upper lobe, there is associated hypermetabolic uptake, SUV is 3.4. T here is no evident mediastinal, axillary, or hilar adenopathy. Coronary artery calcifications are not ed incidentally. There is a hiatal hernia suspected or possibly changes due to patient's lap band Abdomen pelvis: There is no evident adrenal mass. No retroperitoneal adenopathy or liver mass. Focus of hypermetabolic uptake is associated with the right colon which is indeterminate and could be physi ologic. No other suspicious hypermetabolic uptake. Osseous structures are remarkable. Lumbar spine degenerative disc disease. No suspicious hypermetabol ic uptake. IMPRESSION: Findings compatible with patient's history of lung carcinoma. Abnormal uptake right: Is i ndeterminate, bowel surveillance has not been performed then it should be considered. Additional find ings above.
== END | disposition home or self-care (01) ==
LOC: RADPETMAIN 09:52
PROVIDERS: ATTEND Internal Medicine Hematology & Oncology
DX: C34.12 Malignant neoplasm of upper lobe, left bronchus or lung (principal)
CPT/HCPCS: 78815; A9552

== ENCOUNTER 2017-12-09 11:49 | Inpatient (IN) | payer BC, MEDICARE ==
[2017-12-09] MEDS ORDERED: SODIUM CHLORIDE 0.9% 1,000 ML IV ONE (12:40)
--- NOTE | 2017-12-09 12:43 | ED ---
General Adult HPI - General Chief complaint: Altered Mental Status Stated complaint: Confused Time Seen by Provider: 12/09/17 12:25 Source: patient, family, RN notes reviewed Mode of arrival: ambulatory Limitations: no limitations - History of Present Illness Initial comments: Patient is a pleasant 77-year-old female presenting to the emergency Department with for confusion and weakness. provides majority of history. Patient did have a fall a couple months ago and diagnosed with brain tumor. Patient was transferred and had resection. Following this patient did have radiation of the brain that finished around 3 weeks ago. Patient was noticed to have lung tumor on recent PET scan. Patient has been extremely fatigued and drowsy for the past several weeks. Patient has been more generally weak today and confused. Patient does admit to feeling somewhat confused. - Related Data Home Medications Medication Instructions Recorded Confirmed Allopurinol [Zyloprim] 100 mg PO DAILY 01/11/15 12/09/17 Cyanocobalamin [Vitamin B-12] 500 mcg PO DAILY 01/11/15 12/09/17 Gabapentin [Neurontin] 600 mg PO BID 03/18/17 12/09/17 Magnesium Oxide 400 mg PO HS 10/12/17 12/09/17 Albuterol Nebulized [Ventolin 2.5 mg INHALATION RT-Q6H PRN 11/10/17 12/09/17 Nebulized] Bisacodyl 5 mg PO DAILY 11/10/17 12/09/17 Cholecalciferol [Vitamin D3] 1,000 unit PO DAILY 11/10/17 12/09/17 Clopidogrel [Plavix] 75 mg PO HS 11/10/17 12/09/17 Famotidine [Pepcid] 20 mg PO BID 11/10/17 12/09/17 Ferrous Gluconate 324 mg PO BID 11/10/17 12/09/17 INSULIN LISPRO (humaLOG) [humaLOG] See Protocol SQ ACHS 11/10/17 12/09/17 Liraglutide [Victoza 2-Parker] 1.2 mg SQ DAILY 11/10/17 12/09/17 Lisinopril [Zestril] 10 mg PO DAILY 11/10/17 12/09/17 Sennosides [Senna] 8.6 mg PO BID PRN 11/10/17 12/09/17 Venlafaxine HCl 75 mg PO DAILY 11/10/17 12/09/17 levETIRAcetam [Keppra] 500 mg PO BID 11/10/17 12/09/17 Dexamethasone [Hexadrol] 6 mg PO BID 12/09/17 12/09/17 Previous Rx's Medication Instructions Recorded Insulin Glargine [Lantus] 50 unit SQ HS #0 11/12/17 Levothyroxine Sodium 100 mcg PO DAILY #30 tablet 11/12/17 Allergies Allergy/AdvReac Type Severity Reaction Status Date / Time erythromycin base Allergy thrush Verified 12/09/17 12:32 meropenem [From Merrem] Allergy Rash/Hives Verified 12/09/17 12:32 Penicillins Allergy Unknown Verified 12/09/17 12:32 Review of Systems ROS Statement: Those systems with pertinent positive or pertinent negative responses have been documented in the HPI. ROS Other: All systems not noted in ROS Statement are negative. Constitutional: Denies: fever Eyes: Denies: eye pain ENT: Denies: ear pain Respiratory: Denies: dyspnea Cardiovascular: Denies: chest pain Endocrine: Reports: fatigue Gastrointestinal: Denies: abdominal pain Genitourinary: Denies: dysuria Musculoskeletal: Denies: back pain Skin: Denies: rash Neurological: Reports: weakness, confusion. Denies: headache Past Medical History Past Medical History: Coronary Artery Disease (CAD), Diabetes Mellitus, GERD/ Reflux, Hypertension, Pneumonia, Renal Disease, Sleep Apnea/CPAP/BIPAP, Thyroid Disorder Additional Past Medical History / Comment(s): unable to tolerate CPAP, frequent urinary tract infections, diabetic neuropathy, diabetic retinopathy, "nervous bladder", chronic kidney disease stage III, hypothyroidism, osteoporosis, chronic pain, gout, BROKEN RT ARM-CURRENTLY CASTED. RECENT CANCEROUS BRAIN TUMOR REMOVED AT [facility] HAS RECIEVED FIRST RADIATION [place] 11-09-17(NO CHEMO ),PT HAD PNE VACCINE FEW YEARS AGO /NOT SURE OF DATE.LOG GETTER UNABLE TO VERIFY AT TIME OF THIS AMDIT. History of Any Multi-Drug Resistant Organisms: VRE Date of last positivie culture/infection: 11/11/17 MDRO Source:: VRE URINE Past Surgical History: Adenoidectomy, Section, Heart Catheterization With Stent, Orthopedic Surgery, Tonsillectomy Additional Past Surgical History / Comment(s): panniculectomy, ORIF right ankle , right ankle arthroplasty, polyp removed from uterus, 2 cardiac stents, bilateral cataract extraction and intraocular lens implants, pilonidal cyst, D& C. STENT TO LAD 03/18/17, CANCEROUS BRAIN TUMOR REMOVED Past Anesthesia/Blood Transfusion Reactions: No Reported Reaction Date of Last Stent Placement:: 2016 Past Psychological History: Depression Smoking Status: Former smoker - Past Family History Daughter(s) Additional Family Medical History / Comment(s): Patient has 2 daughters with no major medical problems. Patient does not have any siblings. Father Additional Family Medical History / Comment(s): Father at age 65 with history of nasal cancer and throat masses that led to malnutrition and his . On autopsy throat masses were benign. Mother Family Medical History: Cancer Additional Family Medical History / Comment(s): Mother at age 67 from bladder cancer. General Exam Limitations: no limitations General appearance: in no apparent distress, other (Patient is drowsy and drifts off during questioning) Head exam: Present: atraumatic Eye exam: Present: normal appearance, PERRL, EOMI ENT exam: Present: normal oropharynx Neck exam: Present: normal inspection Respiratory exam: Present: normal lung sounds bilaterally Cardiovascular Exam: Present: regular rate, normal rhythm GI/Abdominal exam: Present: soft. Absent: tenderness Extremities exam: Present: normal inspection Neurological exam: Present: altered, CN II-XII intact. Absent: motor sensory deficit Expanded Neurological exam: Present: protecting the airway Patient oriented to: Absent: time Speech: Present: fluid speech Cranial nerves: EOM's Intact: Normal Cerebellar function: Finger to Nose: Normal Motor strength exam: RUE: 5, LUE: 5, RLE: 5, LLE: 5 Eye Response: (3) open to voice Motor Response: (6) obeys commands Verbal Response: (4) confused conversation Psychiatric exam: Present: normal affect, normal mood Skin exam: Present: normal color Course Vital Signs 12/09/17 12/09/17 12/09/17 12:14 13:58 14:50 Temperature 98.0 F Pulse Rate 57 L 54 L 62 Respiratory 18 16 16 Rate Blood Pressure 114/77 108/58 166/74 O2 Sat by Pulse 100 96 96 Oximetry - Reevaluation(s) Reevaluation #1: 12/09/17 16:59 Patient does not meet sepsis criteria at this time EKG Findings - EKG Comments: EKG Findings:: Sinus bradycardia 55. HI 126. QRS 78. QT 458. QTC 438. Left axis. LVH criteria. Inferior Q waves. No acute ST change. Medical Decision Making - Medical Decision Making Patient reevaluated. Patient and family updated. Case discussed in detail with Dr. Lopes, who will admit for Dr. Tenorio. Patient will be provided fluids for dehydration and IV antibiotics for urinary tract infection. - Lab Data Result diagrams: 12/09/17 12:50 12/09/17 12:50 Lab Results 12/09/17 12/09/17 12/09/17 Range/Units 12:50 12:50 12:50 WBC 14.6 H (3.8-10.6) k/uL RBC 4.08 (3.80-5.40) m/uL Hgb 13.3 (11.4-16.0) gm/dL Hct 39.3 (34.0-46.0) % MCV 96.4 (80.0-100.0) fL MCH 32.5 (25.0-35.0) pg MCHC 33.7 (31.0-37.0) g/dL RDW 17.5 H (11.5-15.5) % Plt Count 264 (150-450) k/uL Neutrophils % 85 % Lymphocytes % 9 % Monocytes % 5 % Eosinophils % 1 % Basophils % 0 % Neutrophils # 12.3 H (1.3-7.7) k/uL Lymphocytes # 1.3 (1.0-4.8) k/uL Monocytes # 0.7 (0-1.0) k/uL Eosinophils # 0.1 (0-0.7) k/uL Basophils # 0.0 (0-0.2) k/uL Anisocytosis Slight Macrocytosis Slight PT 9.7 (9.0-12.0) sec INR 1.0 (<1.2) APTT 18.8 L (22.0-30.0) sec Sodium 137 (137-145) mmol/L Potassium 5.0 (3.5-5.1) mmol/L Chloride 103 (98-107) mmol/L Carbon Dioxide 25 (22-30) mmol/L Anion Gap 9 mmol/L BUN 42 H (7-17) mg/dL Creatinine 1.00 (0.52-1.04) mg/dL Est GFR (CKD-EPI)AfAm 64 (>60 ml/min/1.73 sqM) Est GFR (CKD-EPI)NonAf 55 (>60 ml/min/1.73 sqM) Glucose 197 H (74-99) mg/dL Calcium 8.7 (8.4-10.2) mg/dL Total Bilirubin 0.4 (0.2-1.3) mg/dL AST 109 H (14-36) U/L ALT 320 H (9-52) U/L Alkaline Phosphatase 88 (38-126) U/L Total Protein 5.4 L (6.3-8.2) g/dL Albumin 3.1 L (3.5-5.0) g/dL Urine Color Urine Appearance (Clear) Urine pH (5.0-8.0) Ur Specific [place] (1.001-1.035) Urine Protein (Negative) Urine Glucose (UA) (Negative) Urine Ketones (Negative) Urine Blood (Negative) Urine Nitrite (Negative) Urine Bilirubin (Negative) Urine Urobilinogen (<2.0) mg/dL Ur Leukocyte Esterase (Negative) Urine WBC (0-5) /hpf Urine WBC Clumps (None) /hpf Urine Bacteria (None) /hpf Urine Mucus (None) /hpf 12/09/17 Range/Units 14:45 WBC (3.8-10.6) k/uL RBC (3.80-5.40) m/uL Hgb (11.4-16.0) gm/dL Hct (34.0-46.0) % MCV (80.0-100.0) fL MCH (25.0-35.0) pg MCHC (31.0-37.0) g/dL RDW (11.5-15.5) % Plt Count (150-450) k/uL Neutrophils % % Lymphocytes % % Monocytes % % Eosinophils % % Basophils % % Neutrophils # (1.3-7.7) k/uL Lymphocytes # (1.0-4.8) k/uL Monocytes # (0-1.0) k/uL Eosinophils # (0-0.7) k/uL Basophils # (0-0.2) k/uL Anisocytosis Macrocytosis PT (9.0-12.0) sec INR (<1.2) APTT (22.0-30.0) sec Sodium (137-145) mmol/L Potassium (3.5-5.1) mmol/L Chloride (98-107) mmol/L Carbon Dioxide (22-30) mmol/L Anion Gap mmol/L BUN (7-17) mg/dL Creatinine (0.52-1.04) mg/dL Est GFR (CKD-EPI)AfAm (>60 ml/min/1.73 sqM) Est GFR (CKD-EPI)NonAf (>60 ml/min/1.73 sqM) Glucose (74-99) mg/dL Calcium (8.4-10.2) mg/dL Total Bilirubin (0.2-1.3) mg/dL AST (14-36) U/L ALT (9-52) U/L Alkaline Phosphatase (38-126) U/L Total Protein (6.3-8.2) g/dL Albumin (3.5-5.0) g/dL Urine Color Yellow Urine Appearance Cloudy H (Clear) Urine pH 5.5 (5.0-8.0) Ur Specific [place] 1.033 (1.001-1.035) Urine Protein 2+ H (Negative) Urine Glucose (UA) 3+ H (Negative) Urine Ketones Negative (Negative) Urine Blood Trace H (Negative) Urine Nitrite Negative (Negative) Urine Bilirubin Negative (Negative) Urine Urobilinogen <2.0 (<2.0) mg/dL Ur Leukocyte Esterase Large H (Negative) Urine WBC >182 H (0-5) /hpf Urine WBC Clumps Many H (None) /hpf Urine Bacteria Occasional H (None) /hpf Urine Mucus Rare H (None) /hpf - Radiology Data Radiology results: report reviewed (Computed tomography scan of the brain shows postsurgical changes redemonstrated. Atrophy. Right lateral temporal metastatic mass or neoplasm noted.), image reviewed (Chest x-ray shows patchy density. Findings compatible with patient's history of lung carcinoma.) Disposition Clinical Impression: Dehydration, Urinary tract infection Disposition: ADMITTED IP TO THIS HOSP Is patient prescribed a controlled substance at d/c from ED?: No Referrals: Kira Tenorio MD [Primary Care Provider] - 1-2 days Decision Time: 17:00
[2017-12-09 13:07] LABS: Anisocytosis Slight; Basophils % (A) 0 %; Eosinophils # (A) 0.1 k/uL (0-0.7); Eosinophils % (A) 1 %; HCT 39.3 % (34.0-46.0); HGB 13.3 gm/dL (11.4-16.0); Lymphocytes # (A) 1.3 k/uL (1.0-4.8); Lymphocytes % (A) 9 %; MCH 32.5 pg (25.0-35.0); MCHC 33.7 g/dL (31.0-37.0); MCV 96.4 fL (80.0-100.0); Macrocytosis Slight; Mean Platelet Volume 6.4; Monocytes # (A) 0.7 k/uL (0-1.0); Monocytes % (A) 5 %; Neutrophils # (A) 12.3 k/uL (1.3-7.7); Neutrophils % (A) 85 %; Platelet Count 264 k/uL (150-450); RBC 4.08 m/uL (3.80-5.40); RDW 17.5 % (11.5-15.5); WBC 14.6 k/uL (3.8-10.6)
[2017-12-09 13:21] LABS: Prothrombin Time 9.7 sec (9.0-12.0)
[2017-12-09 13:29] LABS: Partial Thromboplastin Time 18.8 sec (22.0-30.0)
[2017-12-09 13:38] LABS: Albumin 3.1 g/dL (3.5-5.0); Calcium 8.7 mg/dL (8.4-10.2); Total Bilirubin 0.4 mg/dL (0.2-1.3); Total Protein 5.4 g/dL (6.3-8.2)
[2017-12-09] MEDS ORDERED: SODIUM CHLORIDE 0.9% 500 ML IV STA (13:58)
--- NOTE | 2017-12-09 14:44 | CT ---
EXAMINATION TYPE: CT brain wo/w con DATE OF EXAM: 12/09/2017 COMPARISON: CT brain November 10, 2017 HISTORY: Altered mental status per order. History of brain cancer with surgery. CT DLP: 1886.1 mGycm Automated exposure control for dose reduction was used. CONTRAST: CT scan of the head is performed without and with IV Contrast, patient injected with 100 mL of Isovue 300. FINDINGS: Noncontrast images show no acute intracranial hemorrhage or midline shift. There is ventricular and s ulcal prominence consistent with diffuse cerebral atrophy. There is low-attenuation periventricular a nd deep white matter redemonstrated. There is persistent high left parietal craniotomy with hypodense area axial image 39 likely reflectin g resection cavity postcontrast images show no suspicious residual enhancement at this level. Interva l resolution of intracranial air is noted. There is better visualization or confirmation of rim-enhancing irregular peripheral right temporal 1. 4 x 1.0 cm lesion axial image 14 with surrounding vasogenic edema seen better on current study due to contrast. IMPRESSION: Postsurgical change redemonstrated. Background moderate diffuse cerebral atrophy and banquet captain garry small vessel ischemic change redemonstrated. Confirmation of right lateral temporal metastatic ma ss or neoplasm noted.
--- NOTE | 2017-12-09 14:45 | XR ---
EXAMINATION TYPE: XR chest 2V DATE OF EXAM: 12/09/2017 COMPARISON: Nuclear medicine PET/CT 11/28/2017 HISTORY: Altered mental status, lung carcinoma TECHNIQUE: Frontal and lateral views of the chest are obtained. FINDINGS: Exam is expiratory and rotated. Patient's left upper lobe lung mass not well seen on the f rontal exam. No pneumothorax or pleural effusion. Patchy basilar density is present. IMPRESSION: Findings compatible with patient's history of lung carcinoma. Expiratory rotated exam.
[2017-12-09 15:03] LABS: Appearance,Urine Cloudy (Clear); Bacteria,Urine Occasional /hpf; Bilirubin,Urine Negative (Negative); Blood,Urine Trace (Negative); Color,Urine Yellow; Glucose,Urine (UA) 3+ (Negative); Ketones,Urine Negative (Negative); Leukocyte Esterase,Urine Large (Negative); Mucus,Urine Rare /hpf; Nitrite,Urine Negative (Negative); PH, Urine 5.5 (5.0-8.0); Protein,Urine 2+ (Negative); Specific Gravity,Urine 1.033 (1.001-1.035); Urobilinogen,Urine <2.0 mg/dL (<2.0); WBC,Urine >182 /hpf (0-5)
[2017-12-09] MEDS ORDERED: cefTRIAXone IN SWFI 1,000 MG/10 ML SYRINGE IVP STA (17:01)
[2017-12-09] MEDS ORDERED: NALOXONE 0.4 MG/ML 1 ML VIAL IV PRN (17:01)
[2017-12-09] MEDS ORDERED: amLODIPine 5 MG TAB PO STA (17:56)
[2017-12-09] MEDS: SODIUM CHLORIDE 0.9% 1,000 ML IV SCH (21:02)
[2017-12-09] MEDS ORDERED: ALBUTEROL NEBULIZED 2.5 MG/3 ML INHALATION PRN (21:28)
[2017-12-09] MEDS ORDERED: SENNOSIDES 8.6 MG TAB PO PRN (21:28)
[2017-12-09 22:39] LABS: Glucose,Whole Blood 146 mg/dL (75-99)
[2017-12-09] MEDS: INSULIN DETEMIR 100 UNIT/ML 10 ML VIAL SQ SCH (23:40)
[2017-12-09] MEDS: GABAPENTIN 300 MG CAP PO SCH (23:40)
[2017-12-09] MEDS: DEXAMETHASONE 2 MG TAB PO SCH (23:40)
[2017-12-09] MEDS: levETIRAcetam 500 MG TAB PO SCH (23:40)
[2017-12-10] MEDS: cefTRIAXone IN SWFI 1,000 MG/10 ML SYRINGE IVP SCH ×2 (05:52→16:40)
[2017-12-10] MEDS: SODIUM CHLORIDE 0.9% 1,000 ML IV SCH ×2 (06:01→14:26)
[2017-12-10] MEDS: hydrALAZINE HCL 20 MG/ML 1 ML VIAL IVP PRN (06:03)
[2017-12-10] MEDS: LEVOTHYROXINE 100 MCG TAB PO SCH (06:03)
[2017-12-10 07:14] LABS: Glucose,Whole Blood 74 mg/dL (75-99)
[2017-12-10] MEDS: INSULIN ASPART 100 UNIT/ML 1 ML 10 ML VIAL SQ SCH ×4 (07:22→22:03)
[2017-12-10] MEDS ORDERED: FAMOTIDINE 20 MG TAB PO SCH (09:00)
[2017-12-10] MEDS: FERROUS SULFATE 325 MG TAB PO SCH ×2 (10:29→20:22)
[2017-12-10] MEDS: CHOLECALCIFEROL 1,000 UNIT TAB PO SCH (10:29)
[2017-12-10] MEDS: DEXAMETHASONE 2 MG TAB PO SCH (10:29)
[2017-12-10] MEDS: METOPROLOL TARTRATE 12.5 MG TAB PO SCH ×2 (10:29→20:22)
[2017-12-10] MEDS: levETIRAcetam 500 MG TAB PO SCH ×2 (10:30→20:22)
[2017-12-10] MEDS: GABAPENTIN 300 MG CAP PO SCH ×2 (10:30→20:22)
[2017-12-10] MEDS: CYANOCOBALAMIN 500 MCG TAB PO SCH (10:30)
[2017-12-10] MEDS: ALLOPURINOL 100 MG TAB PO SCH (10:31)
[2017-12-10] MEDS: VENLAFAXINE HCL 75 MG TAB PO SCH (10:31)
[2017-12-10] MEDS: Liraglutide [Victoza 2-Pak] SQ SCH (10:31)
[2017-12-10] MEDS: BISACODYL 5 MG TABLET.DR PO SCH (10:36)
[2017-12-10 11:00] LABS: Glucose,Whole Blood 121 mg/dL (75-99)
[2017-12-10] MEDS: LISINOPRIL 10 MG TAB PO SCH (14:26)
--- NOTE | 2017-12-10 14:43 | P.HPIM ---
History of Present Illness H&P Date: 12/10/17 Chief Complaint: Lethargy This is a 77-year-old female patient of Dr. Tenorio with past medical history of coronary artery disease status post stent placement, diabetes mellitus type 2 with diabetic retinopathy and diabetic neuropathy, gastroesophageal reflux disease, hypertension, chronic kidney disease stage III , obstructive sleep apnea unable to tolerate CPAP, osteoporosis, hypothyroidism , recent diagnosis of probable lung cancer with metastatic disease to the brain. Patient recently had a fall for which she sustained a fracture to the right wrist and she was treated at [facility]. The ER physician ordered a CAT scan of the brain that didn't find to tumors. Patient was transferred to the [facility] where she had the largest mass resected. Patient was also worked up and found to have a nodule in her lungs but she has no symptoms according to her . She denies any cough. There is also a liver mass as well. Once patient completed treatment at the [facility], she was transferred to [facility] for rehab. She was discharged from there last Thursday, November 04. Patient was then hospitalized November 10 through November 12 [facility] which time she was treated for metabolic encephalopathy thought to be due to steroids and hyperglycemia. She was also treated for urinary tract infection. Patient was discharged home with VNA. Per patient's , she completed her last radiation treatment on her brain on November 16 which was a total of 5. She has followed up with Dr. Sánchez and underwent a PET scan that he states was clean except for the lung mass which is 2 cm and no change. She is due to start radiation on her lung and this will last for 4-5 treatments. She was recently decreased from dexamethasone of 4 mg twice daily to 6 mg once daily. He states that her mental status has been gradually worsening. She has tired and sleeps all the time. He does state that she has had some hallucinations and symptoms have been more so last few days. She has only been drinking about 30 ounces per day but her appetite has been good and eating well. At home she is only able to transfer from bed to wheelchair and a chair. Prior to that she was ambulating with walker and home physical therapy. Patient has a follow-up appointment with Dr. Smith tomorrow. Patient presented to [facility] emergency center for evaluation. White count was 14.6, BUN 42 and creatinine 1.00, blood sugar 197. Urinalysis was positive for urinary tract infection. Chest x-ray is compatible for history of lung cancer. CAT scan of the brain with and without contrast showed postsurgical changes redemonstrated. Background moderate diffuse cerebral atrophy and chronic small vessel ischemic changes redemonstrated. Confirmation of right lateral temporal metastatic mass or neoplasm was noted. Patient was started on IV ceftriaxone, IV fluids and admitted to the [facility] floor consult requested with Dr. Pratt. Patient's has been in contact with [facility] and updated them about her admission. relates that he will not be able to take care of her at home in her current condition. PT and OT are on consult. He is requesting inpatient rehab for which she has been there in the past. Consult placed with Dr. Mayen. Second choice would be [facility]. Review of Systems All systems: negative Constitutional: Reports fatigue, Reports lethargy, Reports malaise, Reports weakness, Reports weight loss, Denies poor appetite Eyes: denies blurred vision, denies pain Ears, nose, mouth and throat: Denies dysphagia, Denies headache, Denies sore throat, Denies vertigo Cardiovascular: Denies chest pain, Denies shortness of breath, Denies syncope Respiratory: Denies cough, Denies cough with sputum, Denies dyspnea, Denies excessive sputum, Denies hemoptysis, Denies home oxygen, Denies wheezing Gastrointestinal: Denies abdominal pain, Denies diarrhea, Denies nausea, Denies vomiting Genitourinary: Denies dysuria, Denies hematuria Musculoskeletal: Reports gait dysfunction, Reports muscle weakness, Denies myalgias Integumentary: Denies pruritus, Denies rash Neurological: Reports balance difficulties, Reports change in mentation, Reports confusion, Reports gait dysfunction, Reports memory loss, Denies head injury, Denies numbness, Denies seizures, Denies weakness Psychiatric: Denies anxiety, Denies depression Endocrine: Denies fatigue, Denies weight change Past Medical History Past Medical History: Coronary Artery Disease (CAD), Cancer, Diabetes Mellitus, GERD/Reflux, Hypertension, Pneumonia, Renal Disease, Sleep Apnea/CPAP/BIPAP, Thyroid Disorder Additional Past Medical History / Comment(s): unable to tolerate CPAP, frequent urinary tract infections, diabetic neuropathy, diabetic retinopathy, "nervous bladder", chronic kidney disease stage III, hypothyroidism, osteoporosis, chronic pain, gout, BROKEN RT ARM-CURRENTLY CASTED. 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 History of Any Multi-Drug Resistant Organisms: VRE Date of last positivie culture/infection: 11/11/17 MDRO Source:: VRE URINE Past Surgical History: Adenoidectomy, Section, Heart Catheterization With Stent, Orthopedic Surgery, Tonsillectomy Additional Past Surgical History / Comment(s): panniculectomy, ORIF right ankle , right ankle arthroplasty, polyp removed from uterus, 2 cardiac stents, bilateral cataract extraction and intraocular lens implants, pilonidal cyst, D& C. STENT TO LAD 03/18/17, CANCEROUS BRAIN TUMOR REMOVED Past Anesthesia/Blood Transfusion Reactions: No Reported Reaction Date of Last Stent Placement:: 2016 Smoking Status: Former smoker Additional Past Alcohol Use History / Comment(s): Patient was over 2 packs per day for 20 years and quit 30 years ago. She currently resides at home with her with VNA in place. - Past Family History Daughter(s) Additional Family Medical History / Comment(s): Patient has 2 daughters with no major medical problems. Patient does not have any siblings. Father Additional Family Medical History / Comment(s): Father at age 65 with history of nasal cancer and throat masses that led to malnutrition and his . On autopsy throat masses were benign. Mother Family Medical History: Cancer Additional Family Medical History / Comment(s): Mother at age 67 from bladder cancer. Medications and Allergies Home Medications Medication Instructions Recorded Confirmed Type Allopurinol [Zyloprim] 100 mg PO DAILY 01/11/15 12/09/17 History Cyanocobalamin [Vitamin B-12] 500 mcg PO DAILY 01/11/15 12/09/17 History Gabapentin [Neurontin] 600 mg PO BID 03/18/17 12/09/17 History Magnesium Oxide 400 mg PO HS 10/12/17 12/09/17 History Albuterol Nebulized [Ventolin 2.5 mg INHALATION RT-Q6H PRN 11/10/17 12/09/17 History Nebulized] Bisacodyl 5 mg PO DAILY 11/10/17 12/09/17 History Cholecalciferol [Vitamin D3] 1,000 unit PO DAILY 11/10/17 12/09/17 History Clopidogrel [Plavix] 75 mg PO HS 11/10/17 12/09/17 History Famotidine [Pepcid] 20 mg PO BID 11/10/17 12/09/17 History Ferrous Gluconate 324 mg PO BID 11/10/17 12/09/17 History INSULIN LISPRO (humaLOG) [humaLOG] See Protocol SQ ACHS 11/10/17 12/09/17 History Liraglutide [Victoza 2-Parker] 1.2 mg SQ DAILY 11/10/17 12/09/17 History Lisinopril [Zestril] 10 mg PO DAILY 11/10/17 12/09/17 History Sennosides [Senna] 8.6 mg PO BID PRN 11/10/17 12/09/17 History Venlafaxine HCl 75 mg PO DAILY 11/10/17 12/09/17 History levETIRAcetam [Keppra] 500 mg PO BID 11/10/17 12/09/17 History Insulin Glargine [Lantus] 50 unit SQ HS #0 11/12/17 12/09/17 Rx Levothyroxine Sodium 100 mcg PO DAILY #30 tablet 11/12/17 12/09/17 Rx Dexamethasone [Hexadrol] 6 mg PO DAILY 12/09/17 12/10/17 History Allergies Allergy/AdvReac Type Severity Reaction Status Date / Time erythromycin base Allergy thrush Verified 12/09/17 12:32 meropenem [From Merrem] Allergy Rash/Hives Verified 12/09/17 12:32 Penicillins Allergy Unknown Verified 12/09/17 12:32 Physical Exam Vitals: Vital Signs Temp Pulse Pulse Resp BP BP BP 12/10/17 08:37 94 184/88 12/10/17 05:00 98.0 F 81 16 221/102 12/10/17 03:21 72 16 12/09/17 23:00 97.1 F L 72 16 160/72 12/09/17 18:59 195/92 12/09/17 17:55 74 16 196/105 12/09/17 17:32 98.4 F 73 16 214/90 12/09/17 14:50 62 16 166/74 12/09/17 13:58 54 L 16 108/58 Pulse Ox 12/10/17 08:37 12/10/17 05:00 97 12/10/17 03:21 12/09/17 23:00 99 12/09/17 18:59 12/09/17 17:55 96 12/09/17 17:32 100 12/09/17 14:50 96 12/09/17 13:58 96 Intake and Output 12/09/17 12/10/17 12/10/17 22:59 06:59 14:59 Intake Total 600 590 Balance 600 590 Intake: Amount of Fluid Infused ( 600 ml) Oral 590 Other: Voiding Method Bedside Commode Bedside Commode # Voids 1 Gen: This is a 77-year-old female. She is in bed and appears to be in no acute distress. HEENT: Head is atraumatic, normocephalic. Pupils equal, round. Sclerae is anicteric. NECK: Supple. No JVD. No lymphadenopathy. No thyromegaly. LUNGS: Clear to auscultation. No wheezes or rhonchi. No intercostal retractions. HEART: Regular rate and rhythm. No murmur. ABDOMEN: Soft. Bowel sounds are present. No masses. No tenderness. EXTREMITIES: No pedal edema. No calf tenderness. NEUROLOGICAL: Patient is awake, alert and oriented x3. Cranial nerves 2 through 12 are grossly intact. Generalized weakness and poor short-term memory. Results CBC & Chem 7: 12/09/17 12:50 12/09/17 12:50 Labs: Abnormal Lab Results - Last 24 Hours (Table) 12/09/17 12/09/17 12/09/17 Range/Units 12:50 12:50 12:50 WBC 14.6 H (3.8-10.6) k/uL RDW 17.5 H (11.5-15.5) % Neutrophils # 12.3 H (1.3-7.7) k/uL APTT 18.8 L (22.0-30.0) sec BUN 42 H (7-17) mg/dL Glucose 197 H (74-99) mg/dL POC Glucose (mg/dL) (75-99) mg/dL AST 109 H (14-36) U/L ALT 320 H (9-52) U/L Total Protein 5.4 L (6.3-8.2) g/dL Albumin 3.1 L (3.5-5.0) g/dL Urine Appearance (Clear) Urine Protein (Negative) Urine Glucose (UA) (Negative) Urine Blood (Negative) Ur Leukocyte Esterase (Negative) Urine WBC (0-5) /hpf Urine WBC Clumps (None) /hpf Urine Bacteria (None) /hpf Urine Mucus (None) /hpf 12/09/17 12/09/17 12/10/17 Range/Units 14:45 22:37 07:08 WBC (3.8-10.6) k/uL RDW (11.5-15.5) % Neutrophils # (1.3-7.7) k/uL APTT (22.0-30.0) sec BUN (7-17) mg/dL Glucose (74-99) mg/dL POC Glucose (mg/dL) 146 H 74 L (75-99) mg/dL AST (14-36) U/L ALT (9-52) U/L Total Protein (6.3-8.2) g/dL Albumin (3.5-5.0) g/dL Urine Appearance Cloudy H (Clear) Urine Protein 2+ H (Negative) Urine Glucose (UA) 3+ H (Negative) Urine Blood Trace H (Negative) Ur Leukocyte Esterase Large H (Negative) Urine WBC >182 H (0-5) /hpf Urine WBC Clumps Many H (None) /hpf Urine Bacteria Occasional H (None) /hpf Urine Mucus Rare H (None) /hpf 12/10/17 Range/Units 10:58 WBC (3.8-10.6) k/uL RDW (11.5-15.5) % Neutrophils # (1.3-7.7) k/uL APTT (22.0-30.0) sec BUN (7-17) mg/dL Glucose (74-99) mg/dL POC Glucose (mg/dL) 121 H (75-99) mg/dL AST (14-36) U/L ALT (9-52) U/L Total Protein (6.3-8.2) g/dL Albumin (3.5-5.0) g/dL Urine Appearance (Clear) Urine Protein (Negative) Urine Glucose (UA) (Negative) Urine Blood (Negative) Ur Leukocyte Esterase (Negative) Urine WBC (0-5) /hpf Urine WBC Clumps (None) /hpf Urine Bacteria (None) /hpf Urine Mucus (None) /hpf Thrombosis Risk Factor Assmnt - DVT/VTE Prophylaxis DVT/VTE Prophylaxis: Mechanical Prophylaxis ordered - Choose All That Apply Any of the Below Risk Factors Present?: Yes Each Factor Represents 1 point: Abnormal pulmonary function (COPD), Medical pt on bed rest, Obesity (BMI >25), Serious lung disease incl. pneumonia (< 1month) Other Risk Factors: Yes Each Risk Factor Represents 2 Points: Malignancy Each Risk Factor Represents 3 Points: Age 75 years or older Thrombosis Risk Factor Assessment Total Risk Factor Score: 9 Thrombosis Risk Factor Assessment Level: High Risk Assessment and Plan Plan: 1. Metabolic encephalopathy secondary to urinary tract infection. Urine culture is in process. Patient started on ceftriaxone IV piggyback daily. 2. Brain metastases with primary lung status post tumor resection. Patient completed radiation therapy on her brain. She is to start radiation on her lung sound. She has an appointment scheduled for Dr. Smith tomorrow. Consult with Dr. Pratt. Her primary oncologist is Dr. Sánchez. Continue dexamethasone at the reduced dose of 6 mg daily, continue Keppra. 4. Diabetes mellitus type 2. Patient will be continued on Levemir 35 units at bedtime, NovoLog scale, Victoza which is not available here. 5. History of CAD with prior PCI. Continue Lopressor 12.5 mg twice daily, Plavix 75 mg daily. 6. Hypertension. Continue lisinopril 10 mg daily, metoprolol tartrate 12.5 mg twice daily. 7. Hypothyroidism. Continue levothyroxine 100 g daily. 8. Chronic kidney disease stage III. Baseline creatinine is about 1.2. 10. Gastrointestinal prophylaxis. Pepcid. 11. DVT prophylaxis. Lovenox daily. 12. Recurrent depression. Continue Effexor 75 mg at bedtime. 13. Anemia of chronic disease. Continue ferrous sulfate 325 mg twice daily. Patient will be admitted to the hospital for a minimum of 2 night stay. Discharge plan: Return home Impression and plan of care have been directed as dictated by the signing physician. Myesha Wynne nurse practitioner acting as scribe for signing physician.
--- NOTE | 2017-12-10 16:28 | P.CONS ---
History of Present Illness - Chief Complaint Gait disturbance - History of Present Illness I had the opportunity to see patient for inpatient rehab consultation with regard to gait disturbance. She was admitted to [facility] earlier today acute onset confusion. Chest x-ray consistent with history of pulmonary cancer. Head CT demonstrates moderate atrophy, chronic small vessel change and right lateral temporal metastatic change. PT reports moderate assistance to person functional mobility. OT reports minimal assistance for upper dressing and maximal assistance to person for lower dressing. Maximal assistance for bathing. Total assistance for toileting and moderate assist to person for functional ability, transfers and toilet transfers. Previous functional history: Patient known to me from recent inpatient rehab stay. Discharge summary indicates minimal assistance with transfers and gait 100 feet with roller walker and right arm platform. Minimal assistance with toileting and toileting transfers. Required moderate prompting for problem solving and memory. Review of Systems Review of systems: ENT: Denies sneezes or discharge. Eyes: Denies discharge or photophobia. Cardiac: Denies chest pain or palpitation. Pulmonary: Denies cough or shortness of breath. Breast: Denies discharge or lumps. Gastrointestinal: Denies nausea, emesis, constipation, diarrhea. Genitourinary: Denies discharge or frequency. Musculoskeletal: Denies muscle or bone aches. Neurologic: Confusion. Endocrine: Denies shakes or sweats. Oncology: Denies cancers. Dermatologic: Denies rash, itching, pruritus. ALLERGY/immunology: Denies sneezes, rashes. Past Medical History Past Medical History: Coronary Artery Disease (CAD), Cancer, Diabetes Mellitus, GERD/Reflux, Hypertension, Pneumonia, Renal Disease, Sleep Apnea/CPAP/BIPAP, Thyroid Disorder Additional Past Medical History / Comment(s): unable to tolerate CPAP, frequent urinary tract infections, diabetic neuropathy, diabetic retinopathy, "nervous bladder", chronic kidney disease stage III, hypothyroidism, osteoporosis, chronic pain, gout, BROKEN RT ARM-CURRENTLY CASTED. RECENT hx lung cancer/mets to brain.CANCEROUS BRAIN TUMOR REMOVED AT [facility] started RADIATION TX on 11-09-17,completed(NO CHEMO),PT HAD PNE VACCINE FEW YEARS AGO /NOT SURE OF DATE.WOODS RIDER UNABLE TO VERIFY AT TIME OF THIS Admit. History of Any Multi-Drug Resistant Organisms: VRE Year Discovered:: 11/11/17 MDRO Source:: VRE URINE Past Surgical History: Adenoidectomy, Section, Heart Catheterization With Stent, Orthopedic Surgery, Tonsillectomy Additional Past Surgical History / Comment(s): panniculectomy, ORIF right ankle , right ankle arthroplasty, polyp removed from uterus, 2 cardiac stents, bilateral cataract extraction and intraocular lens implants, pilonidal cyst, D& C. STENT TO LAD 03/18/17, CANCEROUS BRAIN TUMOR REMOVED Past Anesthesia/Blood Transfusion Reactions: No Reported Reaction Date of Last Stent Placement:: 2016 Smoking Status: Former smoker Additional Past Alcohol Use History / Comment(s): Patient was over 2 packs per day for 20 years and quit 30 years ago. She currently resides at home with her with VNA in place. - Past Family History Daughter(s) Additional Family Medical History / Comment(s): Patient has 2 daughters with no major medical problems. Patient does not have any siblings. Father Additional Family Medical History / Comment(s): Father at age 65 with history of nasal cancer and throat masses that led to malnutrition and his . On autopsy throat masses were benign. Mother Family Medical History: Cancer Additional Family Medical History / Comment(s): Mother at age 67 from bladder cancer. Medications and Allergies Home Medications Medication Instructions Recorded Confirmed Type Allopurinol [Zyloprim] 100 mg PO DAILY 01/11/15 12/09/17 History Cyanocobalamin [Vitamin B-12] 500 mcg PO DAILY 01/11/15 12/09/17 History Gabapentin [Neurontin] 600 mg PO BID 03/18/17 12/09/17 History Magnesium Oxide 400 mg PO HS 10/12/17 12/09/17 History Albuterol Nebulized [Ventolin 2.5 mg INHALATION RT-Q6H PRN 11/10/17 12/09/17 History Nebulized] Bisacodyl 5 mg PO DAILY 11/10/17 12/09/17 History Cholecalciferol [Vitamin D3] 1,000 unit PO DAILY 11/10/17 12/09/17 History Clopidogrel [Plavix] 75 mg PO HS 11/10/17 12/09/17 History Famotidine [Pepcid] 20 mg PO BID 11/10/17 12/09/17 History Ferrous Gluconate 324 mg PO BID 11/10/17 12/09/17 History INSULIN LISPRO (humaLOG) [humaLOG] See Protocol SQ ACHS 11/10/17 12/09/17 History Liraglutide [Victoza 2-Parker] 1.2 mg SQ DAILY 11/10/17 12/09/17 History Lisinopril [Zestril] 10 mg PO DAILY 11/10/17 12/09/17 History Sennosides [Senna] 8.6 mg PO BID PRN 11/10/17 12/09/17 History Venlafaxine HCl 75 mg PO DAILY 11/10/17 12/09/17 History levETIRAcetam [Keppra] 500 mg PO BID 11/10/17 12/09/17 History Insulin Glargine [Lantus] 50 unit SQ HS #0 11/12/17 12/09/17 Rx Levothyroxine Sodium 100 mcg PO DAILY #30 tablet 11/12/17 12/09/17 Rx Dexamethasone [Hexadrol] 6 mg PO DAILY 12/09/17 12/10/17 History Allergies Allergy/AdvReac Type Severity Reaction Status Date / Time erythromycin base Allergy thrush Verified 12/09/17 12:32 meropenem [From Merrem] Allergy Rash/Hives Verified 12/09/17 12:32 Penicillins Allergy Unknown Verified 12/09/17 12:32 Physical Exam Vitals: Vital Signs Temp Pulse Pulse Resp BP BP BP 12/10/17 14:35 98.3 F 70 18 115/68 12/10/17 08:37 94 184/88 12/10/17 05:00 98.0 F 81 16 221/102 12/10/17 03:21 72 16 12/09/17 23:00 97.1 F L 72 16 160/72 12/09/17 18:59 195/92 12/09/17 17:55 74 16 196/105 12/09/17 17:32 98.4 F 73 16 214/90 Pulse Ox 12/10/17 14:35 97 12/10/17 08:37 12/10/17 05:00 97 12/10/17 03:21 12/09/17 23:00 99 12/09/17 18:59 12/09/17 17:55 96 12/09/17 17:32 100 Intake and Output 12/10/17 12/10/17 12/10/17 06:59 14:59 22:59 Intake Total 590 70 Balance 590 70 Intake: Intake, IV Titration 70 Amount Sodium Chloride 0.9% 1, 70 000 ml @ 75 mls/hr IV . [id number] [facility] Rx#:[id number] Oral 590 Other: Voiding Method Bedside Commode Bedside Commode Bedside Commode # Voids 1 3 Skin: Good color, texture, turgor. General: Obese build and comfortable appearance. Head: Normocephalic, atraumatic. Eyes: Symmetric. Pupils equal round. Ears: Symmetric. Hearing within normal limits. Mouth: Clear. Neck: Supple. Carotid without bruit. Cardiac: Regular rate and rhythm. Lungs: Clear anteriorly and posteriorly. Abdomen: Soft active nontender. Extremities: Normal tone. Neurological: Mental status: Confused, cooperative, pleasant. Cranial nerves: Symmetric facial tone and trapezius. Motor: Can actively elevate at hold limbs off of bed. Sensation: Intact throughout. DTRs: Symmetric and equal throughout. Mobility: Requires two-person assistance for bed mobility. Results CBC & Chem 7: 12/09/17 12:50 12/09/17 12:50 Labs: Abnormal Lab Results - Last 24 Hours (Table) 12/09/17 12/10/17 12/10/17 Range/Units 22:37 07:08 10:58 POC Glucose (mg/dL) 146 H 74 L 121 H (75-99) mg/dL Assessment and Plan (1) Altered mental status Current Visit: No Status: Acute Code(s): R41.82 - ALTERED MENTAL STATUS, UNSPECIFIED SNOMED Code(s): 815214607 (2) Brain mass Current Visit: No Status: Acute Code(s): G93.9 - DISORDER OF BRAIN, UNSPECIFIED SNOMED Code(s): 963944327 Plan: Impression: 1. Gait disturbance. 2. UTI with sepsis and possible encephalopathy. 3. Brain metastases, pulmonary cancer. Comments and plan: PT and OT prescribed of added speech therapy for communication cognition. At this time, rehab prognosis guarded if patient seems quite confused. We will follow closely with yourself for possible benefit for readmission to the rehab unit.
[2017-12-10 16:45] LABS: Glucose,Whole Blood 108 mg/dL (75-99)
[2017-12-10] MEDS: ACETAMINOPHEN TAB 325 MG TAB PO PRN (19:43)
[2017-12-10] MEDS: ONDANSETRON 4 MG/2 ML VIAL IVP PRN (20:00)
--- NOTE | 2017-12-10 20:07 | P.CONS ---
History of Present Illness - Reason for Consult Consult date: 12/10/17 Oncologic Care Requesting physician: Obey Trujillo - Chief Complaint Increased Mental Status Changes, UTI - History of Present Illness Mrs. Allen is a 77 year old female who originally presented to the hospital on October 12 after falling at home and hitting her head. DUring her work-up for a fall she was found to have a 2.3cm left parietal mass with surrounding edema. During further work-up she was also found to have left upper lobe 2cm spiculated lung mass. The picture was consistent with a metastatic lung cancer with mets to the brain. Therefore, she was transferred to [facility] and referred to Dr. Desai for neurosurgery options. On October 15, 2017 she underwent a left craniotomy for resection of the newly found intercerebral metastatic lesion. Pathology revealed consistent with adenocarcinoma, primary lesion lung. She has been recovering from surgery and steroids have been started to weaned down. She presented to Radiation Oncology to begin Stereotactic radiation to craniotomy site. On November 11 she was admitted to [facility] for increasing confusion and her blood sugars have been very labile, low and high. She was treated for a UTI at that time and supportively and her symptoms improved, she was discharged and follow-up with Dr. Sánchez and Dr. Smith as outpatient. Dr. Sánchez discussed treatment options with patient and family and deemed she was not a candidate for chemotherapy and he recommeded definitive Radiation therapy to chest mass after completion of radiation to brain. 12/10/17 - Ms Allen seen today. Supportive at bedside. She was set up to begin radiation this week with Dr. Smith although her has brought her back to [facility] on 12/09/17, with concerns of increasing confusion at home. On admission she was found to have another UTI, she has started abx treatment and appears more alert and less confused today, agreed. Review of Systems A 14 point review of systems assessed and completed and all negative except HPI Past Medical History Past Medical History: Coronary Artery Disease (CAD), Cancer, Diabetes Mellitus, GERD/Reflux, Hypertension, Pneumonia, Renal Disease, Sleep Apnea/CPAP/BIPAP, Thyroid Disorder Additional Past Medical History / Comment(s): unable to tolerate CPAP, frequent urinary tract infections, diabetic neuropathy, diabetic retinopathy, "nervous bladder", chronic kidney disease stage III, hypothyroidism, osteoporosis, chronic pain, gout, BROKEN RT ARM-CURRENTLY CASTED. 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 History of Any Multi-Drug Resistant Organisms: VRE Year Discovered:: 11/11/17 MDRO Source:: VRE URINE Past Surgical History: Adenoidectomy, Section, Heart Catheterization With Stent, Orthopedic Surgery, Tonsillectomy Additional Past Surgical History / Comment(s): panniculectomy, ORIF right ankle , right ankle arthroplasty, polyp removed from uterus, 2 cardiac stents, bilateral cataract extraction and intraocular lens implants, pilonidal cyst, D& C. STENT TO LAD 03/18/17, CANCEROUS BRAIN TUMOR REMOVED Past Anesthesia/Blood Transfusion Reactions: No Reported Reaction Date of Last Stent Placement:: 2016 Smoking Status: Former smoker Additional Past Alcohol Use History / Comment(s): Patient was over 2 packs per day for 20 years and quit 30 years ago. She currently resides at home with her with VNA in place. - Past Family History Daughter(s) Additional Family Medical History / Comment(s): Patient has 2 daughters with no major medical problems. Patient does not have any siblings. Father Additional Family Medical History / Comment(s): Father at age 65 with history of nasal cancer and throat masses that led to malnutrition and his . On autopsy throat masses were benign. Mother Family Medical History: Cancer Additional Family Medical History / Comment(s): Mother at age 67 from bladder cancer. Medications and Allergies Home Medications Medication Instructions Recorded Confirmed Type Allopurinol [Zyloprim] 100 mg PO DAILY 01/11/15 12/09/17 History Cyanocobalamin [Vitamin B-12] 500 mcg PO DAILY 01/11/15 12/09/17 History Gabapentin [Neurontin] 600 mg PO BID 03/18/17 12/09/17 History Magnesium Oxide 400 mg PO HS 10/12/17 12/09/17 History Albuterol Nebulized [Ventolin 2.5 mg INHALATION RT-Q6H PRN 11/10/17 12/09/17 History Nebulized] Bisacodyl 5 mg PO DAILY 11/10/17 12/09/17 History Cholecalciferol [Vitamin D3] 1,000 unit PO DAILY 11/10/17 12/09/17 History Clopidogrel [Plavix] 75 mg PO HS 11/10/17 12/09/17 History Famotidine [Pepcid] 20 mg PO BID 11/10/17 12/09/17 History Ferrous Gluconate 324 mg PO BID 11/10/17 12/09/17 History INSULIN LISPRO (humaLOG) [humaLOG] See Protocol SQ ACHS 11/10/17 12/09/17 History Liraglutide [Victoza 2-Parker] 1.2 mg SQ DAILY 11/10/17 12/09/17 History Lisinopril [Zestril] 10 mg PO DAILY 11/10/17 12/09/17 History Sennosides [Senna] 8.6 mg PO BID PRN 11/10/17 12/09/17 History Venlafaxine HCl 75 mg PO DAILY 11/10/17 12/09/17 History levETIRAcetam [Keppra] 500 mg PO BID 11/10/17 12/09/17 History Insulin Glargine [Lantus] 50 unit SQ HS #0 11/12/17 12/09/17 Rx Levothyroxine Sodium 100 mcg PO DAILY #30 tablet 11/12/17 12/09/17 Rx Dexamethasone [Hexadrol] 6 mg PO DAILY 12/09/17 12/10/17 History Allergies Allergy/AdvReac Type Severity Reaction Status Date / Time erythromycin base Allergy thrush Verified 12/09/17 12:32 meropenem [From Merrem] Allergy Rash/Hives Verified 12/09/17 12:32 Penicillins Allergy Unknown Verified 12/09/17 12:32 Physical Exam Vitals: Vital Signs Temp Pulse Resp BP BP Pulse Ox 12/10/17 14:35 98.3 F 70 18 115/68 97 12/10/17 08:37 94 184/88 12/10/17 05:00 98.0 F 81 16 221/102 97 12/10/17 03:21 72 16 12/09/17 23:00 97.1 F L 72 16 160/72 99 Intake and Output 12/10/17 12/10/17 12/10/17 06:59 14:59 22:59 Intake Total 590 70 Balance 590 70 Intake: Intake, IV Titration 70 Amount Sodium Chloride 0.9% 1, 70 000 ml @ 75 mls/hr IV . [id number] [facility] Rx#:[id number] Oral 590 Other: Voiding Method Bedside Commode Bedside Commode Bedside Commode # Voids 1 3 - Constitutional General appearance: cooperative, no acute distress - EENT Eyes: EOMI, dentition normal ENT: NA/AT, normal oropharynx - Neck Supple, Trachea Midline - Respiratory Respiratory: bilateral: CTA (No increased respiratory effort) - Cardiovascular Rhythm: regular Heart sounds: normal: S1, S2 - Gastrointestinal General gastrointestinal: normal bowel sounds, soft - Integumentary Integumentary: pale - Neurologic No focal defects - Musculoskeletal Musculoskeletal: generalized weakness - Psychiatric lethargic awakes and answering questions appropriately Psychiatric: A&O x's 3, appropriate affect Results CBC & Chem 7: 12/09/17 12:50 12/09/17 12:50 Labs: Abnormal Lab Results - Last 24 Hours (Table) 12/09/17 12/10/17 12/10/17 Range/Units 22:37 07:08 10:58 POC Glucose (mg/dL) 146 H 74 L 121 H (75-99) mg/dL 12/10/17 Range/Units 16:43 POC Glucose (mg/dL) 108 H (75-99) mg/dL CT Scan - head: report reviewed Assessment and Plan Plan: 1. 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 Desai at [facility] on October 15, 2017 - Status POst Stereotactic Radiation x1 to tumor bed - Appointment with Dr. Sánchez on 12/03/17, patient not candidate for chemotherapy at this time, recommended definitive radiation to lung mass - Radiation per Dr. Smith at [facility], tentavely to begin tomorrow 2. Acute Increase in LFTs - - Possibly secondary to medications (steroids) or other - Recheck LFTs in am and consider ultrasound of liver if not improved - Monitor and avoid hepatotoxic medications - No known liver mets on recent PET on 11/28/17 3. Urinary Tract Infection: Per Primary Team - IV Antibiotics 4. Metabolic Encephalopathy - Likely secondary to UTI for the acute increased mental status change 5. Leukocytosis - Steroids and UTI - Reactive 6. Dehydration: Improving IV Hydration 7. Chronic Illness Myopathy - Encourage increase activity - PT/OT - Per primary team Margarita Zee NP
[2017-12-10] MEDS: CLOPIDOGREL 75 MG TAB PO SCH (20:22)
[2017-12-10] MEDS: MAGNESIUM OXIDE 400 MG TAB PO SCH (20:22)
[2017-12-10 20:25] LABS: Glucose,Whole Blood 141 mg/dL (75-99)
[2017-12-10] MEDS: INSULIN DETEMIR 100 UNIT/ML 10 ML VIAL SQ SCH (22:02)
[2017-12-11] MEDS: SODIUM CHLORIDE 0.9% 1,000 ML IV SCH ×2 (05:33→17:04)
[2017-12-11] MEDS: cefTRIAXone IN SWFI 1,000 MG/10 ML SYRINGE IVP SCH ×2 (05:34→17:07)
[2017-12-11] MEDS: LEVOTHYROXINE 100 MCG TAB PO SCH (06:07)
[2017-12-11] MEDS ORDERED: INSULIN DETEMIR 100 UNIT/ML 10 ML VIAL SQ SCH (06:09)
[2017-12-11 07:08] LABS: Glucose,Whole Blood 92 mg/dL (75-99)
[2017-12-11 08:16] LABS: Albumin 3.1 g/dL (3.5-5.0); Calcium 8.6 mg/dL (8.4-10.2); Potassium 4.7 mmol/L (3.5-5.1); Total Bilirubin 0.5 mg/dL (0.2-1.3); Total Protein 5.3 g/dL (6.3-8.2)
[2017-12-11] MEDS: INSULIN ASPART 100 UNIT/ML 1 ML 10 ML VIAL SQ SCH ×4 (08:47→20:49)
[2017-12-11] MEDS: ALLOPURINOL 100 MG TAB PO SCH (08:50)
[2017-12-11] MEDS: CYANOCOBALAMIN 500 MCG TAB PO SCH (08:51)
[2017-12-11] MEDS: CHOLECALCIFEROL 1,000 UNIT TAB PO SCH (08:51)
[2017-12-11] MEDS: GABAPENTIN 300 MG CAP PO SCH ×2 (08:51→20:48)
[2017-12-11] MEDS: FAMOTIDINE 20 MG TAB PO SCH (08:51)
[2017-12-11] MEDS: METOPROLOL TARTRATE 12.5 MG TAB PO SCH ×2 (08:52→20:48)
[2017-12-11] MEDS: VENLAFAXINE HCL 75 MG TAB PO SCH (08:52)
[2017-12-11] MEDS: LISINOPRIL 10 MG TAB PO SCH (08:52)
[2017-12-11] MEDS: DEXAMETHASONE 2 MG TAB PO SCH (08:52)
[2017-12-11] MEDS: FERROUS SULFATE 325 MG TAB PO SCH ×2 (08:54→20:48)
[2017-12-11] MEDS: levETIRAcetam 500 MG TAB PO SCH ×2 (08:55→20:48)
[2017-12-11] MEDS: Liraglutide [Victoza 2-Pak] SQ SCH (09:01)
[2017-12-11] MEDS: BISACODYL 5 MG TABLET.DR PO SCH (09:01)
--- NOTE | 2017-12-11 09:05 | US ---
EXAMINATION TYPE: US liver DATE OF EXAM: 12/11/2017 COMPARISON: CT dated 07/24/2017 CLINICAL HISTORY: Increased LFTs, . EXAM MEASUREMENTS: Liver Length: 11.4 cm Gallbladder Wall: 0.2 cm CBD: 0.4 cm Right Kidney: 9.7 x 3.9 x 5.2 cm Patient of very large body habitus with severe overlying bowel gas. Pancreas: wnl Liver: very limited visualization, one acoustic window intercostal to see right lobe of liver Gallbladder: limited views, appears wnl Evidence for sonographic Pearce's sign: no CBD: wnl Right Kidney: Small volume ff in Morrisons pouch IMPRESSION: Although there is suboptimal visualization of the hepatic parenchyma secondary to patient body habitus overall the hepatic parenchyma appears homogeneous without sonographic evidence of hepa tocellular disease. However small volume free fluid is seen within the hepatorenal fossa and therefor e if there is further concern for hepatocellular disease and ascites CT could be performed. No hepati c steatosis noted on the recent exam of 07/24/2017.
[2017-12-11] MEDS: ONDANSETRON 4 MG/2 ML VIAL IVP PRN (09:23)
[2017-12-11 10:55] VITALS: BMI 29.0
[2017-12-11 11:35] LABS: Glucose,Whole Blood 67 mg/dL (75-99)
[2017-12-11 11:37] LABS: Glucose,Whole Blood 69 mg/dL (75-99)
[2017-12-11 12:03] LABS: Glucose,Whole Blood 86 mg/dL (75-99)
--- NOTE | 2017-12-11 13:13 | P.PN ---
Subjective Progress Note Date: 12/11/17 This is a 77-year-old female patient of Dr. Tenorio with past medical history of coronary artery disease status post stent placement, diabetes mellitus type 2 with diabetic retinopathy and diabetic neuropathy, gastroesophageal reflux disease, hypertension, chronic kidney disease stage III , obstructive sleep apnea unable to tolerate CPAP, osteoporosis, hypothyroidism , recent diagnosis of probable lung cancer with metastatic disease to the brain. Patient recently had a fall for which she sustained a fracture to the right wrist and she was treated at [facility]. The ER physician ordered a CAT scan of the brain that didn't find to tumors. Patient was transferred to the [facility] where she had the largest mass resected. Patient was also worked up and found to have a nodule in her lungs but she has no symptoms according to her . She denies any cough. There is also a liver mass as well. Once patient completed treatment at the [facility], she was transferred to [facility] for rehab. She was discharged from there last Thursday, November 04. Patient was then hospitalized November 10 through November 12 [facility] which time she was treated for metabolic encephalopathy thought to be due to steroids and hyperglycemia. She was also treated for urinary tract infection. Patient was discharged home with VNA. Per patient's , she completed her last radiation treatment on her brain on November 16 which was a total of 5. She has followed up with Dr. Sánchez and underwent a PET scan that he states was clean except for the lung mass which is 2 cm and no change. She is due to start radiation on her lung and this will last for 4-5 treatments. She was recently decreased from dexamethasone of 4 mg twice daily to 6 mg once daily. He states that her mental status has been gradually worsening. She has tired and sleeps all the time. He does state that she has had some hallucinations and symptoms have been more so last few days. She has only been drinking about 30 ounces per day but her appetite has been good and eating well. At home she is only able to transfer from bed to wheelchair and a chair. Prior to that she was ambulating with walker and home physical therapy. Patient has a follow-up appointment with Dr. Smith tomorrow. Patient presented to [facility] emergency center for evaluation. White count was 14.6, BUN 42 and creatinine 1.00, blood sugar 197. Urinalysis was positive for urinary tract infection. Chest x-ray is compatible for history of lung cancer. CAT scan of the brain with and without contrast showed postsurgical changes redemonstrated. Background moderate diffuse cerebral atrophy and chronic small vessel ischemic changes redemonstrated. Confirmation of right lateral temporal metastatic mass or neoplasm was noted. Patient was started on IV ceftriaxone, IV fluids and [facility] consult requested with Dr. Pratt. Patient's has been in contact with [facility] and updated them about her admission. relates that he will not be able to take care of her at home in her current condition. PT and OT are on consult. He is requesting inpatient rehab for which she has been there in the past. Consult placed with Dr. Mayen. Second choice would be [facility]. 12/11 patient is awake and alert and feels better than yesterday. Confusion is improved as per the . Dr. Mayen evaluate the patient will be following along for possible rehab. PT OT recommended subacute rehab. Patient had some nausea this morning but denies any chest pain or breathing difficulty as per patient's metastatic adenocarcinoma of the lung with brain metastases patient is due for radiation to the lung mass possibly next week with no plan of chemotherapy. Liver enzyme continues to be elevated. Ultrasound liver ordered. Abdominal ultrasound ordered Objective - Vital Signs Vital signs: Vital Signs Temp 98.3 F 12/11/17 08:40 Pulse 86 12/11/17 08:40 Resp 16 12/11/17 08:40 BP 128/76 12/11/17 08:40 Pulse Ox 97 12/11/17 08:40 Intake & Output 12/10/17 12/11/17 12/11/17 18:59 06:59 18:59 Intake Total 70 825 Balance 70 825 Weight 79.2 kg 79.2 kg Intake: Intake, IV Titration 70 825 Amount Sodium Chloride 0.9% 1, 70 825 000 ml @ 75 mls/hr IV . [id number] [facility] Rx#:[id number] Other: Voiding Method Bedside Commode Bedside Commode Bedside Commode # Voids 3 - Exam - Constitutional General appearance: cooperative, no acute distress - EENT Eyes: EOMI, dentition normal ENT: NA/AT, normal oropharynx - Neck Supple, Trachea Midline - Respiratory Respiratory: bilateral: CTA (No increased respiratory effort) - Cardiovascular Rhythm: regular Heart sounds: normal: S1, S2 - Gastrointestinal General gastrointestinal: normal bowel sounds, soft - Integumentary Integumentary: pale - Neurologic No focal defects - Musculoskeletal Musculoskeletal: generalized weakness - Psychiatric Psychiatric: A&O x's 3, appropriate affect - Labs CBC & Chem 7: 12/09/17 12:50 12/11/17 07:39 Labs: Abnormal Lab Results - Last 24 Hours (Table) 12/09/17 12/10/17 12/10/17 Range/Units 12:50 16:43 20:24 Chloride (98-107) mmol/L BUN (7-17) mg/dL Creatinine (0.52-1.04) mg/dL Glucose (74-99) mg/dL POC Glucose (mg/dL) 108 H 141 H (75-99) mg/dL Hemoglobin A1c 9.0 H (4.0-6.0) % AST (14-36) U/L ALT (9-52) U/L Total Protein (6.3-8.2) g/dL Albumin (3.5-5.0) g/dL 12/11/17 12/11/17 12/11/17 Range/Units 07:39 11:20 11:35 Chloride 109 H (98-107) mmol/L BUN 35 H (7-17) mg/dL Creatinine 1.16 H (0.52-1.04) mg/dL Glucose 63 L (74-99) mg/dL POC Glucose (mg/dL) 67 L 69 L (75-99) mg/dL Hemoglobin A1c (4.0-6.0) % AST 247 H (14-36) U/L ALT 547 H (9-52) U/L Total Protein 5.3 L (6.3-8.2) g/dL Albumin 3.1 L (3.5-5.0) g/dL Assessment and Plan Plan: 1. Metabolic encephalopathy secondary to urinary tract infection. Urine culture is in process. Patient started on ceftriaxone IV piggyback daily. Patient may need chronic antibiotics for recurrent UTIs 2. Brain metastases with primary adenocarcinoma of lung status post tumor resection. Patient completed radiation therapy on her brain with stereotactic radiation for tumor bed. . She is to start radiation on her lung mass. She has an appointment scheduled for Dr. Smith tomorrow. Consult with Dr. Pratt. Her primary oncologist is Dr. Sánchez. Continue dexamethasone at the reduced dose of 6 mg daily, continue Keppra. 4. Diabetes mellitus type 2. Patient will be continued on Levemir 35 units at bedtime, NovoLog scale, Victoza which is not available here. 5. History of CAD with prior PCI. Continue Lopressor 12.5 mg twice daily, Plavix 75 mg daily. 6. Hypertension. Continue lisinopril 10 mg daily, metoprolol tartrate 12.5 mg twice daily. 7. Hypothyroidism. Continue levothyroxine 100 g daily. 8. Chronic kidney disease stage III. Baseline creatinine is about 1.2. 10. Gastrointestinal prophylaxis. Pepcid. 11. DVT prophylaxis. Lovenox daily. 12. Recurrent depression. Continue Effexor 75 mg at bedtime. 13. Anemia of chronic disease. Continue ferrous sulfate 325 mg twice daily. 14. Increased LFT- hepatis panel ordered, abd US ordered. alecia sec to steroids Patient will be admitted to the hospital for a minimum of 2 night stay. Discharge plan: Return home
[2017-12-11 17:09] LABS: Glucose,Whole Blood 153 mg/dL (75-99)
[2017-12-11 20:02] LABS: Hepatitis A Antibody IgM Non-Reactive (Non-Reactive); Hepatitis B Core IgM Non-Reactive (Non-Reactive)
[2017-12-11] MEDS: MAGNESIUM OXIDE 400 MG TAB PO SCH (20:48)
[2017-12-11] MEDS: CLOPIDOGREL 75 MG TAB PO SCH (20:48)
[2017-12-11 21:16] LABS: Glucose,Whole Blood 247 mg/dL (75-99)
[2017-12-12] MEDS: cefTRIAXone IN SWFI 1,000 MG/10 ML SYRINGE IVP SCH ×2 (06:18→17:29)
[2017-12-12] MEDS: LEVOTHYROXINE 100 MCG TAB PO SCH (06:18)
[2017-12-12] MEDS: SODIUM CHLORIDE 0.9% 1,000 ML IV SCH ×2 (06:20→17:29)
[2017-12-12 07:30] LABS: Glucose,Whole Blood 55 mg/dL (75-99)
[2017-12-12 08:04] LABS: Glucose,Whole Blood 61 mg/dL (75-99)
[2017-12-12 08:25] LABS: Glucose,Whole Blood 79 mg/dL (75-99)
[2017-12-12] MEDS: Liraglutide [Victoza 2-Pak] SQ SCH (08:26)
[2017-12-12] MEDS: DEXAMETHASONE 2 MG TAB PO SCH (08:27)
[2017-12-12] MEDS: METOPROLOL TARTRATE 12.5 MG TAB PO SCH ×2 (08:27→20:50)
[2017-12-12] MEDS: ALLOPURINOL 100 MG TAB PO SCH (08:27)
[2017-12-12] MEDS: FAMOTIDINE 20 MG TAB PO SCH (08:27)
[2017-12-12] MEDS: CYANOCOBALAMIN 500 MCG TAB PO SCH (08:27)
[2017-12-12] MEDS: CHOLECALCIFEROL 1,000 UNIT TAB PO SCH (08:27)
[2017-12-12] MEDS: LISINOPRIL 10 MG TAB PO SCH (08:27)
[2017-12-12] MEDS: levETIRAcetam 500 MG TAB PO SCH ×2 (08:27→20:51)
[2017-12-12] MEDS: GABAPENTIN 300 MG CAP PO SCH ×2 (08:27→20:50)
[2017-12-12] MEDS: INSULIN ASPART 100 UNIT/ML 1 ML 10 ML VIAL SQ SCH ×4 (08:28→20:51)
[2017-12-12] MEDS: VENLAFAXINE HCL 75 MG TAB PO SCH (08:28)
[2017-12-12] MEDS: FERROUS SULFATE 325 MG TAB PO SCH ×2 (08:29→20:51)
[2017-12-12] MEDS: BISACODYL 5 MG TABLET.DR PO SCH (08:29)
--- NOTE | 2017-12-12 09:47 | P.PN ---
Subjective Progress Note Date: 12/12/17 Principal diagnosis: Urinary tract infection Patient continued to be hemodynamically stable overnight but her glucose was found to be 60 this morning and later 79 patient was slightly symptomatic and currently back at her baseline patient is denying chest pain, shortness breath nausea vomiting or abdominal pain. Nursing staff at the bedside Objective - Vital Signs Vital signs: Vital Signs Temp 99.2 F 12/11/17 23:00 Pulse 79 12/11/17 23:00 Resp 18 12/11/17 23:00 BP 148/73 12/11/17 23:00 Pulse Ox 96 12/11/17 23:00 Intake & Output 12/11/17 12/12/17 12/12/17 18:59 06:59 18:59 Intake Total 1050 900 Balance 1050 900 Weight 79.2 kg Intake: IV 900 Sodium Chloride 0.9% 1, 900 000 ml @ 75 mls/hr IV . [id number] [facility] Rx#:[id number] Intake, IV Titration 600 Amount Sodium Chloride 0.9% 1, 600 000 ml @ 75 mls/hr IV . [id number] [facility] Rx#:[id number] Oral 450 Other: Voiding Method Bedside Commode Bedside Commode Incontinent # Voids 2 1 - Exam Gen.: in stated age, no acute distress Heart: Normal S1-S2 Lungs: Clear to auscultation bilaterally Abdomen: Soft, no tenderness, positive bowel sounds in all 4 quadrant no guarding or rebound Skin: No new rash Psych: Alert and oriented 3 Neuro: No focal deficit - Labs CBC & Chem 7: 12/09/17 12:50 12/11/17 07:39 Labs: Abnormal Lab Results - Last 24 Hours (Table) 12/11/17 12/11/17 12/11/17 Range/Units 11:20 11:35 17:06 POC Glucose (mg/dL) 67 L 69 L 153 H (75-99) mg/dL 12/11/17 12/12/17 12/12/17 Range/Units 20:43 07:28 07:46 POC Glucose (mg/dL) 247 H 55 L 61 L (75-99) mg/dL Assessment and Plan Assessment: 1. Acute metabolic encephalopathy likely related to urinary tract infection. 2. Adenocarcinoma of the lung with brain metastasis status post radiation. 3. Severe debility and deconditioning. 4. Moderate protein calorie malnutrition. 5. Dehydration was seems to be improving. 6. Diabetes mellitus with hypoglycemia likely related to decreased oral intake. 7. Coronary artery disease seems to be compensated. 8. Anemia. Plan discussed with patient and nursing staff at the bedside where I would like to discontinue IV fluid, decrease Lantus dose to 25 units daily, encourage oral intake, repeat blood work in the morning, follow up with physical and acute patient will therapy recommendation and have patient's follow-up outpatient with her oncologist regarding treatment.
[2017-12-12 11:50] LABS: Glucose,Whole Blood 252 mg/dL (75-99)
[2017-12-12 17:20] LABS: Glucose,Whole Blood 430 mg/dL (75-99)
[2017-12-12 20:40] LABS: Glucose,Whole Blood 364 mg/dL (75-99)
[2017-12-12] MEDS: CLOPIDOGREL 75 MG TAB PO SCH (20:50)
[2017-12-12] MEDS: MAGNESIUM OXIDE 400 MG TAB PO SCH (20:50)
[2017-12-12] MEDS: INSULIN DETEMIR 100 UNIT/ML 10 ML VIAL SQ SCH (20:51)
[2017-12-12] MEDS ORDERED: INSULIN DETEMIR 100 UNIT/ML 10 ML VIAL SQ SCH (21:00)
[2017-12-13] MEDS: cefTRIAXone IN SWFI 1,000 MG/10 ML SYRINGE IVP SCH ×2 (05:21→16:40)
[2017-12-13] MEDS: LEVOTHYROXINE 100 MCG TAB PO SCH (06:18)
[2017-12-13 07:26] LABS: Glucose,Whole Blood 96 mg/dL (75-99)
[2017-12-13] MEDS: CYANOCOBALAMIN 500 MCG TAB PO SCH (08:01)
[2017-12-13] MEDS: Liraglutide [Victoza 2-Pak] SQ SCH (08:01)
[2017-12-13] MEDS: LISINOPRIL 10 MG TAB PO SCH (08:01)
[2017-12-13] MEDS: DEXAMETHASONE 2 MG TAB PO SCH (08:01)
[2017-12-13] MEDS: CHOLECALCIFEROL 1,000 UNIT TAB PO SCH (08:01)
[2017-12-13] MEDS: FERROUS SULFATE 325 MG TAB PO SCH ×2 (08:01→22:49)
[2017-12-13] MEDS: ALLOPURINOL 100 MG TAB PO SCH (08:01)
[2017-12-13] MEDS: FAMOTIDINE 20 MG TAB PO SCH (08:01)
[2017-12-13] MEDS: GABAPENTIN 300 MG CAP PO SCH ×2 (08:01→22:49)
[2017-12-13] MEDS: VENLAFAXINE HCL 75 MG TAB PO SCH (08:01)
[2017-12-13] MEDS: METOPROLOL TARTRATE 12.5 MG TAB PO SCH ×2 (08:01→22:50)
[2017-12-13] MEDS: levETIRAcetam 500 MG TAB PO SCH ×2 (08:01→22:50)
[2017-12-13] MEDS: SODIUM CHLORIDE 0.9% 1,000 ML IV SCH (08:02)
[2017-12-13] MEDS: INSULIN ASPART 100 UNIT/ML 1 ML 10 ML VIAL SQ SCH ×4 (08:02→22:49)
[2017-12-13] MEDS: hydrALAZINE HCL 20 MG/ML 1 ML VIAL IVP PRN (08:03)
[2017-12-13] MEDS: BISACODYL 5 MG TABLET.DR PO SCH (08:03)
--- NOTE | 2017-12-13 08:30 | P.PN ---
Subjective Progress Note Date: 12/13/17 Principal diagnosis: Urinary tract infection Patient was eating her normal food at home yesterday and glucose 1 up to 435 Lantus was adjusted again to 35 units. Patient had elevated blood pressure at 210 systolic and medication was given this morning including hydralazine IV push and have home medication regimen. Patient is denying chest pain, shortness breath, nausea, vomiting, abdominal pain, dizziness, lightheadedness, blurry vision or dysuria Objective - Vital Signs Vital signs: Vital Signs Temp 98.7 F 12/13/17 07:00 Pulse 68 12/13/17 07:00 Resp 16 12/13/17 07:00 BP 179/75 12/13/17 07:00 Pulse Ox 96 12/13/17 07:00 Intake & Output 12/12/17 12/13/17 12/13/17 18:59 06:59 18:59 Intake Total 1200 160 Balance 1200 160 Intake: IV 600 160 Sodium Chloride 0.9% 1, 600 160 000 ml @ 75 mls/hr IV . [id number] [facility] Rx#:[id number] Oral 600 Other: Voiding Method Bedside Commode Bedside Commode Bedside Commode Incontinent Incontinent Incontinent # Voids 2 1 - Exam Gen.: in stated age, no acute distress Heart: Normal S1-S2 Lungs: Clear to auscultation bilaterally Abdomen: Soft, no tenderness, positive bowel sounds in all 4 quadrant no guarding or rebound Skin: No new rash Psych: Alert and oriented 3 Neuro: No focal deficit - Labs CBC & Chem 7: 12/09/17 12:50 12/11/17 07:39 Labs: Abnormal Lab Results - Last 24 Hours (Table) 12/12/17 12/12/17 12/12/17 Range/Units 11:37 17:18 20:39 POC Glucose (mg/dL) 252 H 430 H 364 H (75-99) mg/dL Assessment and Plan Assessment: 1. Acute metabolic encephalopathy likely related to urinary tract infection. 2. Adenocarcinoma of the lung with brain metastasis status post radiation. 3. Severe debility and deconditioning. 4. Moderate protein calorie malnutrition. 5. Dehydration was seems to be improving. 6. Diabetes mellitus with hypoglycemia likely related to decreased oral intake. 7. Coronary artery disease seems to be compensated. 8. Anemia. We'll introduce her home medication for blood pressure and monitor her vital signs closely continue with hydralazine IV push for systolic greater than 170 plan discussed with the nursing staff at the bedside. Patient seems to be improving overall and her diabetes is fluctuating during this hospital stay would optimize her medical therapy consider discharging to the group home tomorrow based on physical and acute patient will therapy recommendation and we will discuss with family discharge planning
[2017-12-13] MEDS: ONDANSETRON 4 MG/2 ML VIAL IVP PRN (08:52)
[2017-12-13 10:47] LABS: Glucose,Whole Blood 104 mg/dL (75-99)
[2017-12-13 17:04] LABS: Glucose,Whole Blood 289 mg/dL (75-99)
[2017-12-13 20:57] LABS: Glucose,Whole Blood 228 mg/dL (75-99)
[2017-12-13] MEDS: CLOPIDOGREL 75 MG TAB PO SCH (22:49)
[2017-12-13] MEDS: INSULIN DETEMIR 100 UNIT/ML 10 ML VIAL SQ SCH (22:50)
[2017-12-13] MEDS: MAGNESIUM OXIDE 400 MG TAB PO SCH (22:50)
[2017-12-14] MEDS: hydrALAZINE HCL 20 MG/ML 1 ML VIAL IVP PRN (06:24)
[2017-12-14] MEDS: cefTRIAXone IN SWFI 1,000 MG/10 ML SYRINGE IVP SCH (06:24)
[2017-12-14] MEDS: ACETAMINOPHEN TAB 325 MG TAB PO PRN (06:24)
[2017-12-14] MEDS: LEVOTHYROXINE 100 MCG TAB PO SCH (06:24)
[2017-12-14 06:36] VITALS: RESP 16
[2017-12-14 07:17] LABS: Glucose,Whole Blood 144 mg/dL (75-99)
[2017-12-14 07:30] LABS: Glucose,Whole Blood 137 mg/dL (75-99)
[2017-12-14 07:43] VITALS: BP 126/74; PULSE 69
[2017-12-14] MEDS: Liraglutide [Victoza 2-Pak] SQ SCH (07:46)
[2017-12-14] MEDS: METOPROLOL TARTRATE 12.5 MG TAB PO SCH (07:48)
[2017-12-14] MEDS: LISINOPRIL 10 MG TAB PO SCH (07:48)
[2017-12-14] MEDS: INSULIN ASPART 100 UNIT/ML 1 ML 10 ML VIAL SQ SCH ×2 (07:48→12:57)
[2017-12-14] MEDS: VENLAFAXINE HCL 75 MG TAB PO SCH (07:48)
[2017-12-14] MEDS: DEXAMETHASONE 2 MG TAB PO SCH (07:49)
[2017-12-14] MEDS: CHOLECALCIFEROL 1,000 UNIT TAB PO SCH (07:49)
[2017-12-14] MEDS: FERROUS SULFATE 325 MG TAB PO SCH (07:49)
[2017-12-14] MEDS: GABAPENTIN 300 MG CAP PO SCH (07:49)
[2017-12-14] MEDS: CYANOCOBALAMIN 500 MCG TAB PO SCH (07:49)
[2017-12-14] MEDS: ALLOPURINOL 100 MG TAB PO SCH (07:49)
[2017-12-14] MEDS: FAMOTIDINE 20 MG TAB PO SCH (07:49)
[2017-12-14] MEDS: levETIRAcetam 500 MG TAB PO SCH (07:49)
[2017-12-14] MEDS: BISACODYL 5 MG TABLET.DR PO SCH (08:00)
[2017-12-14] MEDS ORDERED: DOXYCYCLINE MONOHYDRATE 100 MG CAPSULE PO SCH (10:30)
--- NOTE | 2017-12-14 10:33 | P.DS ---
Providers Date of admission: 12/09/17 17:02 Expected date of discharge: 12/14/17 Attending physician: Heather Pedersen MD Consults: 12/09/17 17:02 Consult Physician Urgent Consulting Provider: Herbie Pratt Consult Reason/Comments: Oncological care Do you want consulting provider notified?: Yes 12/10/17 12:30 Consult Physician Routine Consulting Provider: Jose D Mayen Consult Reason/Comments: INpt rehab Do you want consulting provider notified?: Yes Primary care physician: Kira Tenorio [facility] Course: This is a 77-year-old female patient of Dr. Tenorio with past medical history of coronary artery disease status post stent placement, diabetes mellitus type 2 with diabetic retinopathy and diabetic neuropathy, gastroesophageal reflux disease, hypertension, chronic kidney disease stage III , obstructive sleep apnea unable to tolerate CPAP, osteoporosis, hypothyroidism , recent diagnosis of probable lung cancer with metastatic disease to the brain. Patient recently had a fall for which she sustained a fracture to the right wrist and she was treated at [facility]. The ER physician ordered a CAT scan of the brain that didn't find to tumors. Patient was transferred to the [facility] where she had the largest mass resected. Patient was also worked up and found to have a nodule in her lungs but she has no symptoms according to her . She denies any cough. There is also a liver mass as well. Once patient completed treatment at the [facility], she was transferred to [facility] for rehab. She was discharged from there last Thursday, November 04. Patient was then hospitalized November 10 through November 12 [facility] which time she was treated for metabolic encephalopathy thought to be due to steroids and hyperglycemia. She was also treated for urinary tract infection. Patient was discharged home with VNA. Per patient's , she completed her last radiation treatment on her brain on November 16 which was a total of 5. She has followed up with Dr. Sánchez and underwent a PET scan that he states was clean except for the lung mass which is 2 cm and no change. She is due to start radiation on her lung and this will last for 4-5 treatments. She was recently decreased from dexamethasone of 4 mg twice daily to 6 mg once daily. He states that her mental status has been gradually worsening. She has tired and sleeps all the time. He does state that she has had some hallucinations and symptoms have been more so last few days. She has only been drinking about 30 ounces per day but her appetite has been good and eating well. At home she is only able to transfer from bed to wheelchair and a chair. Prior to that she was ambulating with walker and home physical therapy. Patient has a follow-up appointment with Dr. Smith tomorrow. Patient presented to [facility] emergency center for evaluation. White count was 14.6, BUN 42 and creatinine 1.00, blood sugar 197. Urinalysis was positive for urinary tract infection. Chest x-ray is compatible for history of lung cancer. CAT scan of the brain with and without contrast showed postsurgical changes redemonstrated. Background moderate diffuse cerebral atrophy and chronic small vessel ischemic changes redemonstrated. Confirmation of right lateral temporal metastatic mass or neoplasm was noted. Patient was started on IV ceftriaxone, IV fluids and admitted to the [facility] floor consult requested with Dr. Pratt. Patient's has been in contact with [facility] and updated them about her admission. relates that he will not be able to take care of her at home in her current condition. PT and OT are on consult. He is requesting inpatient rehab for which she has been there in the past. Consult placed with Dr. Mayen. Second choice would be [facility]. 12/11 patient is awake and alert and feels better than yesterday. Confusion is improved as per the . Dr. Mayen evaluate the patient will be following along for possible rehab. PT OT recommended subacute rehab. Patient had some nausea this morning but denies any chest pain or breathing difficulty as per patient's metastatic adenocarcinoma of the lung with brain metastases patient is due for radiation to the lung mass possibly next week with no plan of chemotherapy. Liver enzyme continues to be elevated. Ultrasound liver ordered. Abdominal ultrasound ordered 12/12: Patient continued to be hemodynamically stable overnight but her glucose was found to be 60 this morning and later 79 patient was slightly symptomatic and currently back at her baseline patient is denying chest pain, shortness breath nausea vomiting or abdominal pain. Nursing staff at the bedside 12/13: Patient was eating her normal food at home yesterday and glucose 1 up to 435 Lantus was adjusted again to 35 units. Patient had elevated blood pressure at 210 systolic and medication was given this morning including hydralazine IV push and have home medication regimen. Patient is denying chest pain, shortness breath, nausea, vomiting, abdominal pain, dizziness, lightheadedness, blurry vision or dysuria 12/14: Patient's mental status is back to her baseline. She denies any nausea or vomiting. No chest pain or shortness of breath. She is hoping to go to [facility] today. Liver ultrasound that was done on December 11 was suboptimal secondary to body habitus. Overall hepatic parenchyma appears much and is without evidence of hepatocellular disease. Small volume of free fluid within the hepatorenal fossa and there is concern for hepatocellular disease and ascites. Now hepatic steatosis noted on exam done July 2017. Urine culture came back VRE and we will switch her from Rocephin to doxycycline. Patient is waiting for Dr. Smith to see her today. Anticipate discharge to [facility] today once all arrangements are completed. Discharge diagnoses: 1. Acute metabolic encephalopathy ldue to urinary tract infection. 2. Adenocarcinoma of the lung with brain metastasis status post radiation. 3. Severe debility and deconditioning. 4. Moderate protein calorie malnutrition. 5. Dehydration 6. Diabetes mellitus type 2 with hypoglycemia likely related to decreased oral intake. 7. Coronary artery disease with prior pci. 8. Anemia of chronic disease. 9. Hypertension. 10. Hypothyroidism. 11. Chronic kidney disease stage III. 12. Recurrent depression. 13. Elevated liver function test unclear etiology. Discharge plan: [facility] Impression and plan of care have been directed as dictated by the signing physician. Myesha Wynne nurse practitioner acting as scribe for signing physician. Patient Condition at Discharge: Good Plan - Discharge Summary Discharge Rx Participant: Yes New Discharge Prescriptions: New Doxycycline Hyclate 100 mg PO BID #14 tab Insulin Detemir [Levemir] 35 unit SQ HS syr Metoprolol Tartrate [Lopressor] 12.5 mg PO BID tab Continue Cyanocobalamin [Vitamin B-12] 500 mcg PO DAILY Allopurinol [Zyloprim] 100 mg PO DAILY Gabapentin [Neurontin] 600 mg PO BID Magnesium Oxide 400 mg PO HS Albuterol Nebulized [Ventolin Nebulized] 2.5 mg INHALATION RT-Q6H PRN PRN Reason: Shortness Of Breath Bisacodyl 5 mg PO DAILY Clopidogrel [Plavix] 75 mg PO HS Famotidine [Pepcid] 20 mg PO BID INSULIN LISPRO (humaLOG) [humaLOG] See Protocol SQ ACHS levETIRAcetam [Keppra] 500 mg PO BID Sennosides [Senna] 8.6 mg PO BID PRN PRN Reason: Constipation Liraglutide [Victoza 2-Parker] 1.2 mg SQ DAILY Ferrous Gluconate 324 mg PO BID Venlafaxine HCl 75 mg PO DAILY Cholecalciferol [Vitamin D3] 1,000 unit PO DAILY Lisinopril [Zestril] 10 mg PO DAILY Levothyroxine Sodium 100 mcg PO DAILY #30 tablet Dexamethasone [Hexadrol] 6 mg PO DAILY Discontinued Insulin Glargine [Lantus] 50 unit SQ HS #0 Discharge Medication List Allopurinol [Zyloprim] 100 mg PO DAILY 01/11/15 [History] Cyanocobalamin [Vitamin B-12] 500 mcg PO DAILY 01/11/15 [History] Gabapentin [Neurontin] 600 mg PO BID 03/18/17 [History] Magnesium Oxide 400 mg PO HS 10/12/17 [History] Albuterol Nebulized [Ventolin Nebulized] 2.5 mg INHALATION RT-Q6H PRN 11/10/17 [ History] Bisacodyl 5 mg PO DAILY 11/10/17 [History] Cholecalciferol [Vitamin D3] 1,000 unit PO DAILY 11/10/17 [History] Clopidogrel [Plavix] 75 mg PO HS 11/10/17 [History] Famotidine [Pepcid] 20 mg PO BID 11/10/17 [History] Ferrous Gluconate 324 mg PO BID 11/10/17 [History] INSULIN LISPRO (humaLOG) [humaLOG] See Protocol SQ ACHS 11/10/17 [History] Liraglutide [Victoza 2-Parker] 1.2 mg SQ DAILY 11/10/17 [History] Lisinopril [Zestril] 10 mg PO DAILY 11/10/17 [History] Sennosides [Senna] 8.6 mg PO BID PRN 11/10/17 [History] Venlafaxine HCl 75 mg PO DAILY 11/10/17 [History] levETIRAcetam [Keppra] 500 mg PO BID 11/10/17 [History] Levothyroxine Sodium 100 mcg PO DAILY #30 tablet 11/12/17 [Rx] Dexamethasone [Hexadrol] 6 mg PO DAILY 12/09/17 [History] Doxycycline Hyclate 100 mg PO BID #14 tab 12/14/17 [Rx] Insulin Detemir [Levemir] 35 unit SQ HS syr 12/14/17 [Rx] Metoprolol Tartrate [Lopressor] 12.5 mg PO BID tab 12/14/17 [Rx] Follow up Appointment(s)/Referral(s): Kira Tenorio MD [Primary Care Provider] - 1-2 days Janes Smith MD [STAFF PHYSICIAN] - 12/22/17 11:00 am (to see for follow up visit is Friday December 22, 2017 at [facility] at [facility]) Discharge Disposition: TRANSFER TO SNF/ECF
[2017-12-14 10:59] LABS: Albumin 2.7 g/dL (3.5-5.0); Calcium 8.4 mg/dL (8.4-10.2); Potassium 4.8 mmol/L (3.5-5.1); Total Bilirubin 0.2 mg/dL (0.2-1.3); Total Protein 4.7 g/dL (6.3-8.2)
[2017-12-14 11:34] LABS: Glucose,Whole Blood 210 mg/dL (75-99)
--- NOTE | 2017-12-14 15:03 | P.PN ---
Subjective Progress Note Date: 12/14/17 Principal diagnosis: UTI, AMS Pt seen in f/u, states pt is "1000% better", pt states feeling much better, more alert and oriented, denies fever, nausea, appetite is better, no SOB, abd pain, diarrhea, dysuria or new pain. Objective - Vital Signs Vital signs: Vital Signs Temp 99.4 F 12/14/17 07:42 Pulse 69 12/14/17 07:42 Resp 16 12/14/17 06:35 BP 126/74 12/14/17 07:42 Pulse Ox 94 L 12/14/17 06:35 Intake & Output 12/13/17 12/14/17 12/14/17 18:59 06:59 18:59 Intake Total 280 1000 Balance 280 1000 Intake: IV 160 Sodium Chloride 0.9% 1, 160 000 ml @ 75 mls/hr IV . [id number] [facility] Rx#:[id number] Oral 120 1000 Other: Voiding Method Bedside Commode Bedside Commode Bedside Commode Incontinent Incontinent Incontinent # Voids 3 3 2 - Constitutional General appearance: Present: average body habitus, cooperative, no acute distress - Respiratory Respiratory: bilateral: CTA - Cardiovascular Heart sounds: normal: S1, S2 - Gastrointestinal General gastrointestinal: Present: normal bowel sounds, soft - Integumentary Integumentary: Present: pale - Musculoskeletal Musculoskeletal: Present: generalized weakness, strength equal bilaterally - Psychiatric Psychiatric: Present: A&O x's 3, appropriate affect, intact judgment & insight - Labs CBC & Chem 7: 12/09/17 12:50 12/14/17 10:09 Labs: Abnormal Lab Results - Last 24 Hours (Table) 12/13/17 12/13/17 12/14/17 Range/Units 17:02 20:55 07:16 Chloride (98-107) mmol/L Carbon Dioxide (22-30) mmol/L BUN (7-17) mg/dL Glucose (74-99) mg/dL POC Glucose (mg/dL) 289 H 228 H 144 H (75-99) mg/dL AST (14-36) U/L ALT (9-52) U/L Total Protein (6.3-8.2) g/dL Albumin (3.5-5.0) g/dL 12/14/17 12/14/17 12/14/17 Range/Units 07:23 10:09 11:32 Chloride 108 H (98-107) mmol/L Carbon Dioxide 20 L (22-30) mmol/L BUN 29 H (7-17) mg/dL Glucose 236 H (74-99) mg/dL POC Glucose (mg/dL) 137 H 210 H (75-99) mg/dL AST 129 H (14-36) U/L ALT 487 H (9-52) U/L Total Protein 4.7 L (6.3-8.2) g/dL Albumin 2.7 L (3.5-5.0) g/dL Assessment and Plan (1) Adenocarcinoma of lung, stage 4 Narrative/Plan: Pt has had resection of brain met with radiation, plan is to move forward with radiation to the lung mass as pt is not a candidate for chemotherapy due to poor PS. Pt and understand this, they have f/u with Rad Onc scheduled. They will f/u with Dr. Sánchez on completion of radiation for ongoing monitoring. Continue on low dose steroid and PPI No other questions or concerns Current Visit: Yes Status: Acute Priority: High Code(s): C34.90 - MALIGNANT NEOPLASM OF UNSP PART OF UNSP BRONCHUS OR LUNG SNOMED Code(s): 954693849 (2) Altered mental status Narrative/Plan: Multifactorial including malignancy, setroids, brain surgery and radiation. Symptoms are greatly improved with treatment of UTI. Current Visit: Yes Status: Acute Priority: High Code(s): R41.82 - ALTERED MENTAL STATUS, UNSPECIFIED SNOMED Code(s): 793670854
[2017-12-14 15:23] VITALS: TEMP 98.9
--- NOTE | 2017-12-16 06:10 | CDI ---
Last Revision, May 2017 Documentation Clarification Form Date: 12/16/2017 12:00:00 AM From: Myesha Chu Phone: If you have a question about this query, please contact Joyce Chaudhari Change Release Manager at [phone] between 8am and 5pm. Admit Date: 12/09/2017 5:02:00 PM Patient Name: Cindy Allen Visit Number: [id number] Discharge Date: 12/14/17 ATTENTION: The Clinical Documentation Specialists (CDI) and [facility] Coding Staff appreciate your assistance in clarifying documentation. Please respond to the clarification below the line at the bottom and electronically sign. The CDI & [facility] Coding staff will review the response and follow-up if needed. Please note: Queries are made part of the Legal Health Record. If you have any questions, please contact the author of this message via ITS. Dr. Heather Pedersen: Documentation from golf tournament consultant states UTI sepsis. Please clarify if patient had sepsis. History/Risk Factors: UTI, lung CA brain mets, moderate malnutrition WBC/Left Shift 14.6 Treatment: IV Cefttriaxone In your professional opinion, please clarify if these findings signify one of the following conditions, whether the condition is POA, and cause, if known: Sepsis ruled out Sepsis Unable to determine Present on Admission: Yes No MTDD
== END 2017-12-14 16:55 | DRG 689 ==
LOC: EC 11:49 → 5MS5E 17:02
PROVIDERS: ADMIT Internal Medicine; ATTEND Internal Medicine
DX: N39.0 Urinary tract infection, site not specified (principal); G93.41 Metabolic encephalopathy; C34.90 Malignant neoplasm of unspecified part of unspecified bronchus or lung; C79.31 Secondary malignant neoplasm of brain; E44.0 Moderate protein-calorie malnutrition; F33.9 Major depressive disorder, recurrent, unspecified; S62.101D Fracture of unspecified carpal bone, right wrist, subsequent encounter for fracture with routine healing; W20.1 Struck by object due to collapse of building; D63.8 Anemia in other chronic diseases classified elsewhere; E03.9 Hypothyroidism, unspecified; E11.22 Type 2 diabetes mellitus with diabetic chronic kidney disease; E11.319 Type 2 diabetes mellitus with unspecified diabetic retinopathy without macular edema; E11.40 Type 2 diabetes mellitus with diabetic neuropathy, unspecified; E11.649 Type 2 diabetes mellitus with hypoglycemia without coma; E86.0 Dehydration; G47.33 Obstructive sleep apnea (adult) (pediatric); I12.9 Hypertensive chronic kidney disease with stage 1 through stage 4 chronic kidney disease, or unspecified chronic kidney disease; I25.10 Atherosclerotic heart disease of native coronary artery without angina pectoris; K21.9 Gastro-esophageal reflux disease without esophagitis; K76.0 Fatty (change of) liver, not elsewhere classified; N18.3 Chronic kidney disease, stage 3 (moderate); Z79.02 Long term (current) use of antithrombotics/antiplatelets; Z79.4 Long term (current) use of insulin; Z79.899 Other long term (current) drug therapy; Z79.890 Hormone replacement therapy; Z80.52 Family history of malignant neoplasm of bladder; Z87.891 Personal history of nicotine dependence; Z92.3 Personal history of irradiation; Z95.5 Presence of coronary angioplasty implant and graft; Z96.1 Presence of intraocular lens; Z98.41 Cataract extraction status, right eye; Z98.42 Cataract extraction status, left eye; Z87.440 Personal history of urinary (tract) infections; Z80.8 Family history of malignant neoplasm of other organs or systems; G72.89 Other specified myopathies; R53.81 Other malaise; Z88.1 Allergy status to other antibiotic agents; Z88.0 Allergy status to penicillin; R26.9 Unspecified abnormalities of gait and mobility; Z87.01 Personal history of pneumonia (recurrent); D72.829 Elevated white blood cell count, unspecified; T38.0X5A Adverse effect of glucocorticoids and synthetic analogues, initial encounter; G89.29 Other chronic pain; R53.1 Weakness
CPT/HCPCS: 36415; 70470; 71046; 76705; 80053; 80074; 81001; 83036; 85025; 85610; 85730; 93005; 96361; 96374; 99285

== ENCOUNTER 2018-01-16 14:02 | Inpatient (IN) | payer MEDICARE, BC ==
--- NOTE | 2018-01-16 14:12 | ED ---
General Adult HPI - General Stated complaint: Altered Mental Status Time Seen by Provider: 01/16/18 14:12 Source: RN notes reviewed, old records reviewed - History of Present Illness Initial comments: This is a 77-year-old female the ER for evaluation. Patient was sent to the ER for evaluation regarding altered mental status. Patient is unable to give history no unable to provide history secondary to clinical condition and current medical issue. Patient's history is obtained from both EMS and patient' s chart that came in transfer - Related Data Home Medications Medication Instructions Recorded Confirmed Cyanocobalamin [Vitamin B-12] 500 mcg PO DAILY 01/11/15 01/16/18 Magnesium Oxide 400 mg PO BID 10/12/17 01/16/18 Bisacodyl 5 mg PO DAILY 11/10/17 01/16/18 Cholecalciferol [Vitamin D3] 1,000 unit PO DAILY 11/10/17 01/16/18 Clopidogrel [Plavix] 75 mg PO HS 11/10/17 01/16/18 Famotidine [Pepcid] 20 mg PO BID 11/10/17 01/16/18 Ferrous Gluconate 324 mg PO BID 11/10/17 01/16/18 INSULIN LISPRO (humaLOG) [humaLOG] 6 units SQ QAM 11/10/17 01/16/18 Liraglutide [Victoza 2-Parker] 1.2 mg SQ DAILY 11/10/17 01/16/18 Lisinopril [Zestril] 10 mg PO DAILY 11/10/17 01/16/18 Sennosides [Senna] 8.6 mg PO BID PRN 11/10/17 01/16/18 Venlafaxine HCl 75 mg PO DAILY 11/10/17 01/16/18 levETIRAcetam [Keppra] 500 mg PO BID 11/10/17 01/16/18 Acetaminophen Tab [Tylenol Tab] 650 mg PO Q4H PRN 01/16/18 01/16/18 Collagenase [Santyl] 1 applic TOPICAL HS 01/16/18 01/16/18 INSULIN LISPRO (HumaLOG) [HumaLOG] 10 unit SQ BID@1100,1700 01/16/18 01/16/18 INSULIN LISPRO (HumaLOG) [HumaLOG] See Protocol SQ ACHS 01/16/18 01/16/18 Megestrol Acetate 20 mg PO HS 01/16/18 01/16/18 Melatonin 10 mg PO HS 01/16/18 01/16/18 valACYclovir [Valtrex] 500 mg PO TID 01/16/18 01/16/18 Previous Rx's Medication Instructions Recorded Levothyroxine Sodium 100 mcg PO DAILY #30 tablet 11/12/17 Metoprolol Tartrate [Lopressor] 12.5 mg PO BID tab 12/14/17 Allergies Allergy/AdvReac Type Severity Reaction Status Date / Time erythromycin base Allergy thrush Verified 01/16/18 14:35 meropenem [From Merrem] Allergy Rash/Hives Verified 01/16/18 14:35 Penicillins Allergy Unknown Verified 01/16/18 14:35 Review of Systems ROS Statement: Those systems with pertinent positive or pertinent negative responses have been documented in the HPI. ROS Other: All systems not noted in ROS Statement are negative. Past Medical History Past Medical History: Coronary Artery Disease (CAD), Cancer, Diabetes Mellitus, GERD/Reflux, Hypertension, Pneumonia, Renal Disease, Sleep Apnea/CPAP/BIPAP, Thyroid Disorder Additional Past Medical History / Comment(s): unable to tolerate CPAP, frequent urinary tract infections, diabetic neuropathy, diabetic retinopathy, "nervous bladder", chronic kidney disease stage III, hypothyroidism, osteoporosis, chronic pain, gout, BROKEN RT ARM-CURRENTLY CASTED. 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 History of Any Multi-Drug Resistant Organisms: VRE Date of last positivie culture/infection: 11/11/17 MDRO Source:: VRE URINE Past Surgical History: Adenoidectomy, Section, Heart Catheterization With Stent, Orthopedic Surgery, Tonsillectomy Additional Past Surgical History / Comment(s): panniculectomy, ORIF right ankle , right ankle arthroplasty, polyp removed from uterus, 2 cardiac stents, bilateral cataract extraction and intraocular lens implants, pilonidal cyst, D& C. STENT TO LAD 03/18/17, CANCEROUS BRAIN TUMOR REMOVED Past Anesthesia/Blood Transfusion Reactions: No Reported Reaction Date of Last Stent Placement:: 2016 Smoking Status: Former smoker Additional Past Alcohol Use History / Comment(s): Patient was over 2 packs per day for 20 years and quit 30 years ago. She currently resides at home with her with VNA in place. - Past Family History Daughter(s) Additional Family Medical History / Comment(s): Patient has 2 daughters with no major medical problems. Patient does not have any siblings. Father Additional Family Medical History / Comment(s): Father at age 65 with history of nasal cancer and throat masses that led to malnutrition and his . On autopsy throat masses were benign. Mother Family Medical History: Cancer Additional Family Medical History / Comment(s): Mother at age 67 from bladder cancer. Course Vital Signs 01/16/18 01/16/18 14:07 15:24 Temperature 98.3 F Pulse Rate 87 85 Respiratory 22 18 Rate Blood Pressure 162/79 167/79 O2 Sat by Pulse 96 Oximetry - Reevaluation(s) Reevaluation #1: 01/16/18 16:04 Medical record transfer paperwork is thoroughly reviewed including prior hospitalization EKG Findings - EKG Comments: EKG Findings:: EKG shows sinus rhythm rate of 88, [place] 142, QRS 84, QTc 4:15 Medical Decision Making - Medical Decision Making 77 female the ER with increased altered mental status failure of outpatient treatment, UTI. Patient be admitted for IV antibiotics - Lab Data Result diagrams: 01/16/18 14:22 01/16/18 14:22 Lab Results 01/16/18 01/16/18 01/16/18 Range/Units 14:22 14:22 14:22 WBC 8.9 (3.8-10.6) k/uL RBC 3.72 L (3.80-5.40) m/uL Hgb 11.7 (11.4-16.0) gm/dL Hct 36.1 (34.0-46.0) % MCV 97.1 (80.0-100.0) fL MCH 31.5 (25.0-35.0) pg MCHC 32.5 (31.0-37.0) g/dL RDW 15.4 (11.5-15.5) % Plt Count 375 (150-450) k/uL Neutrophils % 77 % Lymphocytes % 14 % Monocytes % 5 % Eosinophils % 2 % Basophils % 0 % Neutrophils # 6.9 (1.3-7.7) k/uL Lymphocytes # 1.2 (1.0-4.8) k/uL Monocytes # 0.4 (0-1.0) k/uL Eosinophils # 0.2 (0-0.7) k/uL Basophils # 0.0 (0-0.2) k/uL PT (9.0-12.0) sec INR (<1.2) APTT (22.0-30.0) sec Sodium 135 L (137-145) mmol/L Potassium 4.4 (3.5-5.1) mmol/L Chloride 103 (98-107) mmol/L Carbon Dioxide 23 (22-30) mmol/L Anion Gap 9 mmol/L BUN 15 (7-17) mg/dL Creatinine 0.96 (0.52-1.04) mg/dL Est GFR (CKD-EPI)AfAm 67 (>60 ml/min/1.73 sqM) Est GFR (CKD-EPI)NonAf 58 (>60 ml/min/1.73 sqM) Glucose 145 H (74-99) mg/dL Plasma Lactic Acid Mao (0.7-2.0) mmol/L Calcium 8.8 (8.4-10.2) mg/dL Phosphorus 3.9 (2.5-4.5) mg/dL Magnesium 2.2 (1.6-2.3) mg/dL Total Bilirubin 0.4 (0.2-1.3) mg/dL AST 43 H (14-36) U/L ALT 50 (9-52) U/L Alkaline Phosphatase 93 (38-126) U/L Total Creatine Kinase <20 L (30-135) U/L CK-MB (CK-2) 0.7 (0.0-2.4) ng/mL CK-MB (CK-2) Rel Index Troponin I 0.023 (0.000-0.034) ng/mL NT-Pro-B Natriuret Pep pg/mL Total Protein 5.8 L (6.3-8.2) g/dL Albumin 2.7 L (3.5-5.0) g/dL TSH 8.500 H (0.465-4.680) mIU/L Urine Color Urine Appearance (Clear) Urine pH (5.0-8.0) Ur Specific [place] (1.001-1.035) Urine Protein (Negative) Urine Glucose (UA) (Negative) Urine Ketones (Negative) Urine Blood (Negative) Urine Nitrite (Negative) Urine Bilirubin (Negative) Urine Urobilinogen (<2.0) mg/dL Ur Leukocyte Esterase (Negative) Urine RBC (0-5) /hpf Urine WBC (0-5) /hpf Urine WBC Clumps (None) /hpf Urine Bacteria (None) /hpf 01/16/18 01/16/18 01/16/18 Range/Units 14:22 14:22 14:22 WBC (3.8-10.6) k/uL RBC (3.80-5.40) m/uL Hgb (11.4-16.0) gm/dL Hct (34.0-46.0) % MCV (80.0-100.0) fL MCH (25.0-35.0) pg MCHC (31.0-37.0) g/dL RDW (11.5-15.5) % Plt Count (150-450) k/uL Neutrophils % % Lymphocytes % % Monocytes % % Eosinophils % % Basophils % % Neutrophils # (1.3-7.7) k/uL Lymphocytes # (1.0-4.8) k/uL Monocytes # (0-1.0) k/uL Eosinophils # (0-0.7) k/uL Basophils # (0-0.2) k/uL PT 10.2 (9.0-12.0) sec INR 1.0 (<1.2) APTT 23.6 (22.0-30.0) sec Sodium (137-145) mmol/L Potassium (3.5-5.1) mmol/L Chloride (98-107) mmol/L Carbon Dioxide (22-30) mmol/L Anion Gap mmol/L BUN (7-17) mg/dL Creatinine (0.52-1.04) mg/dL Est GFR (CKD-EPI)AfAm (>60 ml/min/1.73 sqM) Est GFR (CKD-EPI)NonAf (>60 ml/min/1.73 sqM) Glucose (74-99) mg/dL Plasma Lactic Acid Mao 1.6 (0.7-2.0) mmol/L Calcium (8.4-10.2) mg/dL Phosphorus (2.5-4.5) mg/dL Magnesium (1.6-2.3) mg/dL Total Bilirubin (0.2-1.3) mg/dL AST (14-36) U/L ALT (9-52) U/L Alkaline Phosphatase (38-126) U/L Total Creatine Kinase (30-135) U/L CK-MB (CK-2) (0.0-2.4) ng/mL CK-MB (CK-2) Rel Index Troponin I (0.000-0.034) ng/mL NT-Pro-B Natriuret Pep 536 pg/mL Total Protein (6.3-8.2) g/dL Albumin (3.5-5.0) g/dL TSH (0.465-4.680) mIU/L Urine Color Urine Appearance (Clear) Urine pH (5.0-8.0) Ur Specific [place] (1.001-1.035) Urine Protein (Negative) Urine Glucose (UA) (Negative) Urine Ketones (Negative) Urine Blood (Negative) Urine Nitrite (Negative) Urine Bilirubin (Negative) Urine Urobilinogen (<2.0) mg/dL Ur Leukocyte Esterase (Negative) Urine RBC (0-5) /hpf Urine WBC (0-5) /hpf Urine WBC Clumps (None) /hpf Urine Bacteria (None) /hpf 01/16/18 Range/Units 14:38 WBC (3.8-10.6) k/uL RBC (3.80-5.40) m/uL Hgb (11.4-16.0) gm/dL Hct (34.0-46.0) % MCV (80.0-100.0) fL MCH (25.0-35.0) pg MCHC (31.0-37.0) g/dL RDW (11.5-15.5) % Plt Count (150-450) k/uL Neutrophils % % Lymphocytes % % Monocytes % % Eosinophils % % Basophils % % Neutrophils # (1.3-7.7) k/uL Lymphocytes # (1.0-4.8) k/uL Monocytes # (0-1.0) k/uL Eosinophils # (0-0.7) k/uL Basophils # (0-0.2) k/uL PT (9.0-12.0) sec INR (<1.2) APTT (22.0-30.0) sec Sodium (137-145) mmol/L Potassium (3.5-5.1) mmol/L Chloride (98-107) mmol/L Carbon Dioxide (22-30) mmol/L Anion Gap mmol/L BUN (7-17) mg/dL Creatinine (0.52-1.04) mg/dL Est GFR (CKD-EPI)AfAm (>60 ml/min/1.73 sqM) Est GFR (CKD-EPI)NonAf (>60 ml/min/1.73 sqM) Glucose (74-99) mg/dL Plasma Lactic Acid Moa (0.7-2.0) mmol/L Calcium (8.4-10.2) mg/dL Phosphorus (2.5-4.5) mg/dL Magnesium (1.6-2.3) mg/dL Total Bilirubin (0.2-1.3) mg/dL AST (14-36) U/L ALT (9-52) U/L Alkaline Phosphatase (38-126) U/L Total Creatine Kinase (30-135) U/L CK-MB (CK-2) (0.0-2.4) ng/mL CK-MB (CK-2) Rel Index Troponin I (0.000-0.034) ng/mL NT-Pro-B Natriuret Pep pg/mL Total Protein (6.3-8.2) g/dL Albumin (3.5-5.0) g/dL TSH (0.465-4.680) mIU/L Urine Color Yellow Urine Appearance Turbid H (Clear) Urine pH 6.0 (5.0-8.0) Ur Specific [place] 1.016 (1.001-1.035) Urine Protein 2+ H (Negative) Urine Glucose (UA) Negative (Negative) Urine Ketones Negative (Negative) Urine Blood Moderate H (Negative) Urine Nitrite Negative (Negative) Urine Bilirubin Negative (Negative) Urine Urobilinogen <2.0 (<2.0) mg/dL Ur Leukocyte Esterase Large H (Negative) Urine RBC 81 H (0-5) /hpf Urine WBC >182 H (0-5) /hpf Urine WBC Clumps Many H (None) /hpf Urine Bacteria Many H (None) /hpf - Radiology Data Radiology results: report reviewed (Chest x-rays negative for acute disease), image reviewed Disposition Clinical Impression: Altered mental status, Dehydration, Urinary tract infection, Failure of outpatient treatment Disposition: ADMITTED IP TO THIS HOSP Condition: Fair Is patient prescribed a controlled substance at d/c from ED?: No Referrals: Kira Tenorio MD [Primary Care Provider] - 1-2 days
[2018-01-16] MEDS ORDERED: SODIUM CHLORIDE 0.9% 1,000 ML IV STA (14:20)
[2018-01-16 14:50] LABS: Basophils % (A) 0 %; Eosinophils # (A) 0.2 k/uL (0-0.7); Eosinophils % (A) 2 %; HCT 36.1 % (34.0-46.0); HGB 11.7 gm/dL (11.4-16.0); Lymphocytes # (A) 1.2 k/uL (1.0-4.8); Lymphocytes % (A) 14 %; MCH 31.5 pg (25.0-35.0); MCHC 32.5 g/dL (31.0-37.0); MCV 97.1 fL (80.0-100.0); Mean Platelet Volume 6.7; Monocytes # (A) 0.4 k/uL (0-1.0); Monocytes % (A) 5 %; Neutrophils # (A) 6.9 k/uL (1.3-7.7); Neutrophils % (A) 77 %; Platelet Count 375 k/uL (150-450); RBC 3.72 m/uL (3.80-5.40); RDW 15.4 % (11.5-15.5); WBC 8.9 k/uL (3.8-10.6)
[2018-01-16 15:03] LABS: Albumin 2.7 g/dL (3.5-5.0); Calcium 8.8 mg/dL (8.4-10.2); Magnesium 2.2 mg/dL (1.6-2.3); Phosphorus 3.9 mg/dL (2.5-4.5); Potassium 4.4 mmol/L (3.5-5.1); Total Bilirubin 0.4 mg/dL (0.2-1.3); Total Protein 5.8 g/dL (6.3-8.2)
[2018-01-16 15:09] LABS: Partial Thromboplastin Time 23.6 sec (22.0-30.0); Prothrombin Time 10.2 sec (9.0-12.0)
[2018-01-16 15:09] LABS: Appearance,Urine Turbid (Clear); Bacteria,Urine Many /hpf; Bilirubin,Urine Negative (Negative); Blood,Urine Moderate (Negative); Color,Urine Yellow; Glucose,Urine (UA) Negative (Negative); Ketones,Urine Negative (Negative); Leukocyte Esterase,Urine Large (Negative); Nitrite,Urine Negative (Negative); Protein,Urine 2+ (Negative); RBC,Urine 81 /hpf (0-5); Specific Gravity,Urine 1.016 (1.001-1.035); Urobilinogen,Urine <2.0 mg/dL (<2.0); WBC,Urine >182 /hpf (0-5)
[2018-01-16 15:14] LABS: Creatine Kinase <20 U/L (30-135)
--- NOTE | 2018-01-16 15:15 | XR ---
EXAMINATION TYPE: XR chest 2V DATE OF EXAM: 01/16/2018 COMPARISON: PET/CT November 28, 2017. Two-view chest x-ray December 09, 2017 HISTORY: History of lung cancer with weakness. TECHNIQUE: Frontal and lateral views of the chest are obtained. FINDINGS: Overlying EKG leads are present. Low lung volumes are redemonstrated. There is patchy left basilar opacity could reflect atelectasis and/or infiltrate. Lateral left upper lobe mass on PET/CT i s less well-seen on plain film. No pleural effusion or pneumothorax is present bilaterally. The cardi ac silhouette size is stable and upper limits of normal with atherosclerotic aorta. The osseous str uctures are intact. IMPRESSION: Low lung volumes with patchy left basilar atelectasis and/or infiltrate and left upper l obe lateral mass or neoplasm all redemonstrated. No significant change from most recent chest x-ray.
[2018-01-16 15:28] LABS: Creatine Kinase MB 0.7 ng/mL (0.0-2.4); Troponin I 0.023 ng/mL (0.000-0.034)
[2018-01-16] MEDS ORDERED: SODIUM CHLORIDE 0.9% 1,000 ML IV ONE (16:02)
[2018-01-16] MEDS ORDERED: cefTRIAXone 2,000 MG in SODIUM CHLORIDE 0.9% 100 ML IVPB STA (16:03)
[2018-01-16] MEDS ORDERED: cefTRIAXone IN SWFI 2,000 MG/20 ML SYRINGE IVP STA (16:09)
[2018-01-16] MEDS ORDERED: SENNOSIDES 8.6 MG TAB PO PRN (16:53)
--- NOTE | 2018-01-16 17:22 | P.HPIM ---
History of Present Illness H&P Date: 01/16/18 Chief Complaint: UTI with sepsis This is a 77-year-old female patient of Dr. 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 Patient recently had a fall for which she sustained a fracture to the right wrist and she was treated at [facility]. Patient was transferred to the [facility] where she had the largest mass resected. Patient was also worked up and found to have a nodule in her lungs but she has no symptoms according to her . She denies any cough. There is also a liver mass as well. Once patient completed treatment at the [facility], she was transferred to [facility] for rehab. She was discharged from there last Thursday, November 04. Patient was then hospitalized November 10 through November 12 [facility] which time she was treated for metabolic encephalopathy thought to be due to steroids and hyperglycemia. She was also treated for urinary tract infection. Patient was discharged home with VNA. Per patient's , she completed her last radiation treatment on her brain on November 16 which was a total of 5. She has followed up with Dr. Sánchez and underwent a PET scan that he states was clean except for the lung mass which is 2 cm and no change. She is due to start radiation on her lung and this will last for 4-5 treatments. She was recently decreased from dexamethasone of 4 mg twice daily to 6 mg once daily. He states that her mental status has been gradually worsening. She has tired and sleeps all the time. He does state that she has had some hallucinations and symptoms have been more so last few days. She has only been drinking about 30 ounces per day but her appetite has been good and eating well. At home she is only able to transfer from bed to wheelchair and a chair. Prior to that she was ambulating with walker and home physical therapy. Patient has a follow-up appointment with Dr. Smith tomorrow. Patient was hospitalized at [facility] about a month ago for what appears to be UTI with severe encephalopathy and she was sent to [facility] for physical therapy rehabilitation, and the patient has been suffering from recurrent urinary tract infection on and off and she was sent today from [facility] by Dr. Tenorio because of urinary tract infection that is not able to be controlled as an outpatient. Subsequently patient was admitted to the hospital she was found to have a significant UTI she was given IV antibiotic in the form of Rocephin 1 g IV piggyback every 24 hours, infectious disease consultation was obtained from Dr. Schumacher. Review of Systems Constitutional: Reports fatigue, Reports lethargy, Reports malaise, Reports weight loss Eyes: denies blurred vision, denies bulging eye, denies decreased vision Ears: deny: decreased hearing Ears, nose, mouth and throat: Denies dysphagia, Denies neck lump, Denies sore throat Cardiovascular: Denies chest pain, Denies decreased exercise tolerance, Denies dyspnea on exertion, Denies phlebitis, Denies shortness of breath, Denies syncope Respiratory: Reports cough with sputum, Denies congestion, Denies home oxygen, Denies sleep apnea, Denies snoring, Denies wheezing Gastrointestinal: Denies abdominal pain, Denies bloating, Denies BRBPR, Denies heartburn, Denies melena, Denies nausea, Denies vomiting Genitourinary: Reports dysuria, Reports nocturia, Reports urgency Menstruation: Reports postmenopausal Musculoskeletal: Reports atrophy, Reports gait dysfunction, Denies myalgias Musculoskeletal: absent: ankle pain, ankle stiffness, ankle swelling, elbow pain , elbow stiffness, elbow swelling, foot pain, foot stiffness, foot swelling, hand pain, hand stiffness, hand swelling, hip pain, hip stiffness, hip swelling , knee pain, knee stiffness, knee swelling, shoulder pain, shoulder stiffness, shoulder swelling, wrist pain, wrist stiffness, wrist swelling Integumentary: Denies pruritus, Denies rash Neurological: Reports confusion, Reports weakness Psychiatric: Reports anxiety, Reports depression, Denies sleep disturbances, Denies suicidal ideation Endocrine: Denies fatigue, Denies weight change Past Medical History Past Medical History: Coronary Artery Disease (CAD), Cancer, Diabetes Mellitus, GERD/Reflux, Hypertension, Pneumonia, Renal Disease, Sleep Apnea/CPAP/BIPAP, Thyroid Disorder Additional Past Medical History / Comment(s): unable to tolerate CPAP, frequent urinary tract infections, diabetic neuropathy, diabetic retinopathy, "nervous bladder", chronic kidney disease stage III, hypothyroidism, osteoporosis, chronic pain, gout, BROKEN RT ARM-CURRENTLY CASTED. 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 History of Any Multi-Drug Resistant Organisms: VRE Date of last positivie culture/infection: 11/11/17 MDRO Source:: VRE URINE Past Surgical History: Adenoidectomy, Section, Heart Catheterization With Stent, Orthopedic Surgery, Tonsillectomy Additional Past Surgical History / Comment(s): panniculectomy, ORIF right ankle , right ankle arthroplasty, polyp removed from uterus, 2 cardiac stents, bilateral cataract extraction and intraocular lens implants, pilonidal cyst, D& C. STENT TO LAD 03/18/17, CANCEROUS BRAIN TUMOR REMOVED Past Anesthesia/Blood Transfusion Reactions: No Reported Reaction Date of Last Stent Placement:: 2016 Smoking Status: Former smoker Additional Past Alcohol Use History / Comment(s): Patient was over 2 packs per day for 20 years and quit 30 years ago. She currently resides at home with her with VNA in place. - Past Family History Daughter(s) Additional Family Medical History / Comment(s): Patient has 2 daughters with no major medical problems. Patient does not have any siblings. Father Additional Family Medical History / Comment(s): Father at age 65 with history of nasal cancer and throat masses that led to malnutrition and his . On autopsy throat masses were benign. Mother Family Medical History: Cancer Additional Family Medical History / Comment(s): Mother at age 67 from bladder cancer. Medications and Allergies Home Medications Medication Instructions Recorded Confirmed Type Cyanocobalamin [Vitamin B-12] 500 mcg PO DAILY 01/11/15 01/16/18 History Magnesium Oxide 400 mg PO BID 10/12/17 01/16/18 History Bisacodyl 5 mg PO DAILY 11/10/17 01/16/18 History Cholecalciferol [Vitamin D3] 1,000 unit PO DAILY 11/10/17 01/16/18 History Clopidogrel [Plavix] 75 mg PO HS 11/10/17 01/16/18 History Famotidine [Pepcid] 20 mg PO BID 11/10/17 01/16/18 History Ferrous Gluconate 324 mg PO BID 11/10/17 01/16/18 History INSULIN LISPRO (humaLOG) [humaLOG] 6 units SQ QAM 11/10/17 01/16/18 History Liraglutide [Victoza 2-Parker] 1.2 mg SQ DAILY 11/10/17 01/16/18 History Lisinopril [Zestril] 10 mg PO DAILY 11/10/17 01/16/18 History Sennosides [Senna] 8.6 mg PO BID PRN 11/10/17 01/16/18 History Venlafaxine HCl 75 mg PO DAILY 11/10/17 01/16/18 History levETIRAcetam [Keppra] 500 mg PO BID 11/10/17 01/16/18 History Levothyroxine Sodium 100 mcg PO DAILY #30 tablet 11/12/17 01/16/18 Rx Metoprolol Tartrate [Lopressor] 12.5 mg PO BID tab 12/14/17 01/16/18 Rx Acetaminophen Tab [Tylenol Tab] 650 mg PO Q4H PRN 01/16/18 01/16/18 History Collagenase [Santyl] 1 applic TOPICAL HS 01/16/18 01/16/18 History INSULIN LISPRO (HumaLOG) [HumaLOG] 10 unit SQ BID@1100,1700 01/16/18 01/16/18 History INSULIN LISPRO (HumaLOG) [HumaLOG] See Protocol SQ ACHS 01/16/18 01/16/18 History Megestrol Acetate 20 mg PO HS 01/16/18 01/16/18 History Melatonin 10 mg PO HS 01/16/18 01/16/18 History valACYclovir [Valtrex] 500 mg PO TID 01/16/18 01/16/18 History Allergies Allergy/AdvReac Type Severity Reaction Status Date / Time erythromycin base Allergy thrush Verified 01/16/18 14:35 meropenem [From Merrem] Allergy Rash/Hives Verified 01/16/18 14:35 Penicillins Allergy Unknown Verified 01/16/18 14:35 Physical Exam Vitals: Vital Signs Temp Pulse Resp BP Pulse Ox 01/16/18 15:24 85 18 167/79 96 01/16/18 14:07 98.3 F 87 22 162/79 Intake and Output 01/16/18 01/16/18 01/16/18 06:59 14:59 22:59 Other: Weight 84.55 kg - Constitutional General appearance: average body habitus, no acute distress - EENT Eyes: anicteric sclerae, EOMI, PERRLA, no ptosis, no scleral icterus, normal appearance ENT: hearing grossly normal, NA/AT, normal oropharynx, no thrush Ears: bilateral: normal - Neck Neck: no lymphadenopathy, normal ROM, no rigidity, no stridor, no thyromegaly Carotids: bilateral: upstroke delayed Thyroid: bilateral: normal size - Respiratory Respiratory: bilateral: diminished, negative: dullness, rales, rhonchi, wheezing , prolonged expiration - Cardiovascular Rhythm: regular Heart sounds: normal: S1, S2 Abnormal Heart Sounds: systolic murmur - Gastrointestinal General gastrointestinal: normal bowel sounds, soft, no splenomegaly, no tenderness - Integumentary Integumentary: ulcer (right heel stage 3 ulcer with an eschar in the middle.) - Neurologic Neurologic: CNII-XII intact - Musculoskeletal Musculoskeletal: generalized weakness - Psychiatric Psychiatric: A&O x's 3, appropriate affect, intact judgment & insight Results CBC & Chem 7: 01/16/18 14:22 01/16/18 14:22 Labs: Abnormal Lab Results - Last 24 Hours (Table) 01/16/18 01/16/18 01/16/18 Range/Units 14:22 14:22 14:22 RBC 3.72 L (3.80-5.40) m/uL Sodium 135 L (137-145) mmol/L Glucose 145 H (74-99) mg/dL AST 43 H (14-36) U/L Total Creatine Kinase <20 L (30-135) U/L Total Protein 5.8 L (6.3-8.2) g/dL Albumin 2.7 L (3.5-5.0) g/dL TSH 8.500 H (0.465-4.680) mIU/L Urine Appearance (Clear) Urine Protein (Negative) Urine Blood (Negative) Ur Leukocyte Esterase (Negative) Urine RBC (0-5) /hpf Urine WBC (0-5) /hpf Urine WBC Clumps (None) /hpf Urine Bacteria (None) /hpf 08/18/18 Range/Units 14:38 RBC (3.80-5.40) m/uL Sodium (137-145) mmol/L Glucose (74-99) mg/dL AST (14-36) U/L Total Creatine Kinase (30-135) U/L Total Protein (6.3-8.2) g/dL Albumin (3.5-5.0) g/dL TSH (0.465-4.680) mIU/L Urine Appearance Turbid H (Clear) Urine Protein 2+ H (Negative) Urine Blood Moderate H (Negative) Ur Leukocyte Esterase Large H (Negative) Urine RBC 81 H (0-5) /hpf Urine WBC >182 H (0-5) /hpf Urine WBC Clumps Many H (None) /hpf Urine Bacteria Many H (None) /hpf Thrombosis Risk Factor Assmnt - DVT/VTE Prophylaxis DVT/VTE Prophylaxis: Pharmacologic Prophylaxis ordered, Mechanical Prophylaxis ordered Assessment and Plan Assessment: Assessment and plan: 1. Metabolic encephalopathy secondary to urinary tract infection and possible sepsis. IV fluid resuscitation, start the patient on Rocephin 1 g IV piggyback every 24 hours, blood culture, urine culture, infectious disease consultation from . 2. Brain metastases with primary lung status post tumor resection. Patient completed radiation therapy on her brain. She is to start radiation on her lung sound. She has an appointment scheduled for Dr. Smith tomorrow. Consult with Dr. Pratt. Her primary oncologist is Dr. Sánchez. Continue dexamethasone at the reduced dose of 6 mg daily, continue Keppra. 4. Diabetes mellitus type 2. Patient will be continued on Levemir 35 units at bedtime, NovoLog scale, Victoza which is not available here. 5. History of CAD with prior PCI. Continue Lopressor 12.5 mg twice daily, Plavix 75 mg daily. 6. Hypertension. Continue lisinopril 10 mg daily, metoprolol tartrate 12.5 mg twice daily. 7. Hypothyroidism. Continue levothyroxine 100 g daily. 8. Chronic kidney disease stage III. Baseline creatinine is about 1.2. 10. Gastrointestinal prophylaxis. Pepcid. 11. DVT prophylaxis. Lovenox daily. 12. Recurrent depression. Continue Effexor 75 mg at bedtime. 13. Anemia of chronic disease. Continue ferrous sulfate 325 mg twice daily. 14. Right heel ulcer. see wound care . 15. Admit to inpatient. Estimate a length of stay 2 midnights. 16. patient is full code.
[2018-01-16 18:06] LABS: Glucose,Whole Blood 159 mg/dL (75-99)
[2018-01-16] MEDS: INSULIN ASPART 100 UNIT/ML 1 ML 10 ML VIAL SQ SCH (18:09)
[2018-01-16 20:52] LABS: Glucose,Whole Blood 151 mg/dL (75-99)
[2018-01-16] MEDS ORDERED: COLLAGENASE 250 UNIT/GM OINTMENT 30 GM TUBE TOPICAL SCH (21:00)
[2018-01-16] MEDS: levETIRAcetam 500 MG TAB PO SCH ×2 (22:58→23:36)
[2018-01-16] MEDS: CLOPIDOGREL 75 MG TAB PO SCH ×2 (22:58→23:36)
[2018-01-16] MEDS: FAMOTIDINE 20 MG TAB PO SCH ×2 (22:58→23:36)
[2018-01-16] MEDS: FERROUS SULFATE 325 MG TAB PO SCH ×2 (22:59→23:36)
[2018-01-16] MEDS: METOPROLOL TARTRATE 12.5 MG TAB PO SCH ×2 (22:59→23:36)
[2018-01-16] MEDS: MEGESTROL 400 MG/10 ML CUP PO SCH ×2 (22:59→23:36)
[2018-01-16] MEDS: MAGNESIUM OXIDE 400 MG TAB PO SCH ×2 (22:59→23:36)
[2018-01-16] MEDS: valACYclovir 500 MG TAB PO SCH ×2 (22:59→23:37)
[2018-01-16] MEDS: MELATONIN 5 MG TABLET PO SCH ×2 (23:00→23:36)
[2018-01-17] MEDS: HEPARIN SODIUM,PORCINE 5,000 UNIT/ML 1 ML VIAL SQ SCH ×4 (01:02→22:06)
[2018-01-17] MEDS ORDERED: LEVOTHYROXINE 100 MCG TAB PO SCH (06:30)
[2018-01-17 07:09] LABS: Glucose,Whole Blood 132 mg/dL (75-99)
[2018-01-17] MEDS: cefTRIAXone IN SWFI 1,000 MG/10 ML SYRINGE IVP SCH (08:10)
[2018-01-17] MEDS: ACETAMINOPHEN TAB 325 MG TAB PO PRN ×2 (08:10→22:03)
[2018-01-17] MEDS: LISINOPRIL 10 MG TAB PO SCH (08:11)
[2018-01-17] MEDS: METOPROLOL TARTRATE 12.5 MG TAB PO SCH ×2 (08:11→22:05)
[2018-01-17] MEDS: CHOLECALCIFEROL 1,000 UNIT TAB PO SCH (08:12)
[2018-01-17] MEDS: CYANOCOBALAMIN 500 MCG TAB PO SCH (08:12)
[2018-01-17] MEDS: INSULIN ASPART 100 UNIT/ML 1 ML 10 ML VIAL SQ SCH ×3 (08:16→18:09)
[2018-01-17] MEDS: FERROUS SULFATE 325 MG TAB PO SCH ×2 (08:16→22:04)
[2018-01-17] MEDS: FAMOTIDINE 20 MG TAB PO SCH ×2 (08:16→22:04)
[2018-01-17] MEDS: levETIRAcetam 500 MG TAB PO SCH ×2 (08:16→22:04)
[2018-01-17] MEDS: valACYclovir 500 MG TAB PO SCH (08:17)
[2018-01-17] MEDS: MAGNESIUM OXIDE 400 MG TAB PO SCH ×2 (08:17→22:05)
[2018-01-17] MEDS: VENLAFAXINE HCL 75 MG TAB PO SCH (08:18)
[2018-01-17 08:24] LABS: Basophils % (A) 1 %; Eosinophils # (A) 0.1 k/uL (0-0.7); Eosinophils % (A) 2 %; HCT 34.4 % (34.0-46.0); HGB 10.9 gm/dL (11.4-16.0); Lymphocytes # (A) 0.8 k/uL (1.0-4.8); Lymphocytes % (A) 11 %; MCH 30.9 pg (25.0-35.0); MCHC 31.7 g/dL (31.0-37.0); MCV 97.2 fL (80.0-100.0); Mean Platelet Volume 6.6; Monocytes # (A) 0.4 k/uL (0-1.0); Monocytes % (A) 5 %; Neutrophils # (A) 6.2 k/uL (1.3-7.7); Neutrophils % (A) 80 %; Platelet Count 366 k/uL (150-450); RBC 3.54 m/uL (3.80-5.40); RDW 15.4 % (11.5-15.5); WBC 7.8 k/uL (3.8-10.6)
[2018-01-17 08:37] LABS: Albumin 2.5 g/dL (3.5-5.0); Calcium 8.3 mg/dL (8.4-10.2); Potassium 4.1 mmol/L (3.5-5.1); Total Bilirubin 0.3 mg/dL (0.2-1.3); Total Protein 5.3 g/dL (6.3-8.2)
[2018-01-17] MEDS ORDERED: ENOXAPARIN 40 MG/0.4 ML SYRINGE SQ SCH (09:00)
[2018-01-17] MEDS ORDERED: NON-FORMULARY DRUG (Liraglutide [Victoza 2-Pak] 1.2 MG) SQ SCH (09:00)
[2018-01-17] MEDS: BISACODYL 5 MG TABLET.DR PO SCH (09:58)
[2018-01-17 12:03] LABS: Glucose,Whole Blood 106 mg/dL (75-99)
--- NOTE | 2018-01-17 13:55 | P.PN ---
Subjective Progress Note Date: 01/17/18 This is a 77-year-old female patient of Dr. 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 Patient recently had a fall for which she sustained a fracture to the right wrist and she was treated at [facility]. Patient was transferred to the [facility] where she had the largest mass resected. Patient was also worked up and found to have a nodule in her lungs but she has no symptoms according to her . She denies any cough. There is also a liver mass as well. Once patient completed treatment at the [facility], she was transferred to [facility] for rehab. She was discharged from there last Thursday, November 04. Patient was then hospitalized November 10 through November 12 [facility] which time she was treated for metabolic encephalopathy thought to be due to steroids and hyperglycemia. She was also treated for urinary tract infection. Patient was discharged home with VNA. Per patient's , she completed her last radiation treatment on her brain on November 16 which was a total of 5. She has followed up with Dr. Sánchez and underwent a PET scan that he states was clean except for the lung mass which is 2 cm and no change. She is due to start radiation on her lung and this will last for 4-5 treatments. She was recently decreased from dexamethasone of 4 mg twice daily to 6 mg once daily. He states that her mental status has been gradually worsening. She has tired and sleeps all the time. He does state that she has had some hallucinations and symptoms have been more so last few days. She has only been drinking about 30 ounces per day but her appetite has been good and eating well. At home she is only able to transfer from bed to wheelchair and a chair. Prior to that she was ambulating with walker and home physical therapy. Patient has a follow-up appointment with Dr. Smith tomorrow. Patient was hospitalized at [facility] about a month ago for what appears to be UTI with severe encephalopathy and she was sent to [facility] for physical therapy rehabilitation, and the patient has been suffering from recurrent urinary tract infection on and off and she was sent today from [facility] [place]. Tenorio because of urinary tract infection that is not able to be controlled as an outpatient. Subsequently patient was admitted to the hospital she was found to have a significant UTI she was given IV antibiotic in the form of Rocephin 1 g IV piggyback every 24 hours, infectious disease consultation was obtained from Dr. Schumacher. 01/17: Patient is laying down in bed she appears to be quite slow her was at the bedside, she appears to be staring at os rule out any petit mal seizure, patient was found to be somewhat hypothyroid, we will increase her Synthroid to 125 g orally once every day, we will obtain infectious disease consultation from Dr. Celestin per the family wishes, continue IV fluid at 100 mL an hour, continue Rocephin 1 g IV piggyback every 24 hours, await the final result of the blood culture as well as the urine culture. Objective - Vital Signs Vital signs: Vital Signs Temp 98.6 F 01/17/18 08:57 Pulse 95 01/17/18 08:57 Resp 18 01/17/18 08:57 BP 164/80 01/17/18 08:57 Pulse Ox 96 01/17/18 08:57 Intake & Output 01/16/18 01/17/18 01/17/18 18:59 06:59 18:59 Intake Total 500 Balance 500 Weight 84.55 kg Intake: Amount of Fluid Infused ( 500 ml) Other: Voiding Method Diaper Diaper Incontinent Incontinent # Voids 3 - Exam - Constitutional General appearance: average body habitus, no acute distress - EENT Eyes: anicteric sclerae, EOMI, PERRLA, no ptosis, no scleral icterus, normal appearance ENT: hearing grossly normal, NA/AT, normal oropharynx, no thrush Ears: bilateral: normal - Neck Neck: no lymphadenopathy, normal ROM, no rigidity, no stridor, no thyromegaly Carotids: bilateral: upstroke delayed Thyroid: bilateral: normal size - Respiratory Respiratory: bilateral: diminished, negative: dullness, rales, rhonchi, wheezing , prolonged expiration - Cardiovascular Rhythm: regular Heart sounds: normal: S1, S2 Abnormal Heart Sounds: systolic murmur - Gastrointestinal General gastrointestinal: normal bowel sounds, soft, no splenomegaly, no tenderness - Integumentary Integumentary: ulcer (right heel stage 3 ulcer with an eschar in the middle.) - Neurologic Neurologic: CNII-XII intact - Musculoskeletal Musculoskeletal: generalized weakness - Psychiatric Psychiatric: A&O x's 3, appropriate affect, intact judgment & insigh - Labs CBC & Chem 7: 01/17/18 07:48 01/17/18 07:48 Labs: Abnormal Lab Results - Last 24 Hours (Table) 01/16/18 01/16/18 01/16/18 Range/Units 14:22 14:22 14:22 RBC 3.72 L (3.80-5.40) m/uL Hgb (11.4-16.0) gm/dL Lymphocytes # (1.0-4.8) k/uL Sodium 135 L (137-145) mmol/L Glucose 145 H (74-99) mg/dL POC Glucose (mg/dL) (75-99) mg/dL Calcium (8.4-10.2) mg/dL AST 43 H (14-36) U/L Total Creatine Kinase <20 L (30-135) U/L Total Protein 5.8 L (6.3-8.2) g/dL Albumin 2.7 L (3.5-5.0) g/dL TSH 8.500 H (0.465-4.680) mIU/L Urine Appearance (Clear) Urine Protein (Negative) Urine Blood (Negative) Ur Leukocyte Esterase (Negative) Urine RBC (0-5) /hpf Urine WBC (0-5) /hpf Urine WBC Clumps (None) /hpf Urine Bacteria (None) /hpf 01/16/18 01/16/18 01/16/18 Range/Units 14:38 18:03 20:50 RBC (3.80-5.40) m/uL Hgb (11.4-16.0) gm/dL Lymphocytes # (1.0-4.8) k/uL Sodium (137-145) mmol/L Glucose (74-99) mg/dL POC Glucose (mg/dL) 159 H 151 H (75-99) mg/dL Calcium (8.4-10.2) mg/dL AST (14-36) U/L Total Creatine Kinase (30-135) U/L Total Protein (6.3-8.2) g/dL Albumin (3.5-5.0) g/dL TSH (0.465-4.680) mIU/L Urine Appearance Turbid H (Clear) Urine Protein 2+ H (Negative) Urine Blood Moderate H (Negative) Ur Leukocyte Esterase Large H (Negative) Urine RBC 81 H (0-5) /hpf Urine WBC >182 H (0-5) /hpf Urine WBC Clumps Many H (None) /hpf Urine Bacteria Many H (None) /hpf 01/17/18 01/17/18 01/17/18 Range/Units 07:05 07:48 07:48 RBC 3.54 L (3.80-5.40) m/uL Hgb 10.9 L (11.4-16.0) gm/dL Lymphocytes # 0.8 L (1.0-4.8) k/uL Sodium (137-145) mmol/L Glucose 118 H (74-99) mg/dL POC Glucose (mg/dL) 132 H (75-99) mg/dL Calcium 8.3 L (8.4-10.2) mg/dL AST (14-36) U/L Total Creatine Kinase (30-135) U/L Total Protein 5.3 L (6.3-8.2) g/dL Albumin 2.5 L (3.5-5.0) g/dL TSH (0.465-4.680) mIU/L Urine Appearance (Clear) Urine Protein (Negative) Urine Blood (Negative) Ur Leukocyte Esterase (Negative) Urine RBC (0-5) /hpf Urine WBC (0-5) /hpf Urine WBC Clumps (None) /hpf Urine Bacteria (None) /hpf Microbiology - Last 24 Hours (Table) 01/16/18 14:22 Urine Culture - Preliminary Urine,Clean Catch Assessment and Plan Assessment: Assessment and plan: 1. Metabolic encephalopathy secondary to urinary tract infection and possible sepsis. IV fluid resuscitation, start the patient on Rocephin 1 g IV piggyback every 24 hours, blood culture, urine culture, infectious disease consultation from Dr. Celestin. 2. Brain metastases with primary lung status post tumor resection. Patient completed radiation therapy on her brain. She is to start radiation on her lung sound. She has an appointment scheduled for Dr. Smith tomorrow. Consult with Dr. Pratt. Her primary oncologist is Dr. Sánchez. Continue dexamethasone at the reduced dose of 6 mg daily, continue Keppra. 4. Diabetes mellitus type 2. Patient will be continued on Levemir 35 units at bedtime, NovoLog scale, Victoza which is not available here. 5. History of CAD with prior PCI. Continue Lopressor 12.5 mg twice daily, Plavix 75 mg daily. 6. Hypertension. Continue lisinopril 10 mg daily, metoprolol tartrate 12.5 mg twice daily. 7. Hypothyroidism. Continue and increase levothyroxine to 125 g orally once every day. 8. Chronic kidney disease stage III. Baseline creatinine is about 1.2. 10. Gastrointestinal prophylaxis. Pepcid. 11. DVT prophylaxis. Lovenox daily. 12. Recurrent depression. Continue Effexor 75 mg at bedtime. 13. Anemia of chronic disease. Continue ferrous sulfate 325 mg twice daily. 14. Right heel ulcer. see wound care . 15. Staring episodes and possible petit mal seizure. This is could be related to hypothyroidism, adjust her Synthroid, monitor the patient very closely, patient may need to have an EEG done to rule out any seizure. We will need to check her Keppra level.
[2018-01-17] MEDS: SODIUM CHLORIDE 0.9% 1,000 ML IV SCH ×2 (14:46→22:05)
[2018-01-17 17:04] LABS: Glucose,Whole Blood 168 mg/dL (75-99)
[2018-01-17 20:47] LABS: Glucose,Whole Blood 142 mg/dL (75-99)
[2018-01-17] MEDS: CLOPIDOGREL 75 MG TAB PO SCH (22:04)
[2018-01-17] MEDS: MEGESTROL 400 MG/10 ML CUP PO SCH (22:05)
--- NOTE | 2018-01-17 22:48 | CONS ---
CONSULTATION DATE OF SERVICE: 01/17/2018. REASON FOR CONSULTATION: Uriinary tract infection with sepsis. HISTORY OF PRESENT ILLNESS: The patient is a 77 -year-old female well known to my service, previously taking care of abdominal wound. The patient who has been recently diagnosed with metastatic adenocarcinoma of the lung with mets to the brain. The patient recently has been in of the hospital for multiple comorbidities. She was recently admitted [facility] about a month ago, treated for UTI with encephalopathy and subsequently sent to [facility] the [place] for physical therapy and rehabilitation. The patient apparently seemed to have a problem with recurrent UTI at that facility. She seemed to have 2 urine cultures in December, which is growing Proteus mirabilis. Apparently, the patient had been treated with an oral antibiotic there. It was not very clear which antibiotic she was getting. However, apparently the patient did not have any improvement. Subsequently the patient has been sent to the [facility] ER for evaluation of encephalopathy. Mental status changes failing oral antibiotic therapy. Patient on examination of my evaluation, she is more awake, alert. She knows she is in a hospital. Denies having headache to me. No chest pain. No cough. No abdominal pain or any diarrhea. No Kearns catheter. The patient also has wound to the right heel area currently being treated with Aquacel silver dressing. Denies any pain to that area. On arrival to the ER, the patient was evaluated by the ER physician. The patient did have a low-grade fever of 100.5-100.3. She did have a positive UA with large leukocyte esterase with more than 1-2 WBC. Her white count was normal. The patient started on Rocephin and admitted to the hospital and Infectious disease was consulted for further recommendation regarding antibiotic therapy. REVIEW OF SYSTEMS: CONSTITUTIONAL: Positive for weakness and low-grade fever. Eyes no complaint. ENT no complaint. Respiratory mild cough. Cardiovascular no complaint. Genitourinary as per HPI. Gastrointestinal: No complaint. Musculoskeletal as per HPI. INTEGUMENTARY: no complaint. Psychological: No complaint. Endocrine: No complaint. Neurological as per HPI. PAST MEDICAL HISTORY: Significant for metastatic adenocarcinoma of the lung with mets to the brain, finished radiation therapy, coronary artery disease, diabetes mellitus, reflux disease, hypertension, pneumonia, renal insufficiency, sleep apnea, hypothyroidism, history of infection. PAST SURGICAL HISTORY: Significant for adenoidectomy, , PTCA with stent, tonsillectomy, panniculectomy, ORIF right ankle, right ankle arthroplast, stent to the LAD, brain cancer removal. SOCIAL HISTORY: Former smoker for about 20 years, quit 30 years ago. Denies drinking or any drug use. FAMILY HISTORY: Father at age of 55 with a history of nasal cancer and throat masses. Mother from bladder cancer. ALLERGIES: TO ERYTHROMYCIN MEROPENEM AND PENICILLIN. MEDICATIONS: Include the patient is currently on Tylenol, Dulcolax, Rocephin vitamin D3, Plavix, Santyl, vitamin B12, Pepcid, iron sulfate, heparin, NovoLog, Keppra, Synthroid, Zestril, Mag oxide, Senokot and Effexor. EXAMINATION: Blood pressure is 117/85 with a pulse of 94, temperature 98.1. She is 98% on room air. General description is an elderly female lying in bed in no distress. No tachypnea or accessory muscle of respiration use. HEENT: Shows pallor, no scleral icterus. Oral mucosa membranes dry. No pharyngeal erythema or thrush. Neck trachea central. No thyromegaly. LUNGS: Unlabored breathing, clear to auscultation anteriorly. No wheeze or crackles. Heart S1, S2. Regular rate and rhythm. ABDOMEN: Soft, no tenderness. No guarding or rigidity. Extremities are no edema of the feet: Examination of the right heel, did have where it is currently covered with scab, there is no surrounding swelling, redness or any drainage. Neurologically: Patient is awake, alert, oriented x2. Mood and affect is normal. LABS: Hemoglobin is 12.1, white count 7.8. BUN of 12, creatinine 0.87. Electrolytes has been normal. Liver enzymes are normal. Urine has been positive with moderate large leukocyte esterase, more than 1 to 2 WBCs. Cultures are currently pending. The patient did have a urine culture done both on December 30 and January 07, positive for Proteus mirabilis Rocephin. She did have a chest x-ray shows low lung volumes especially left basilar atelectasis or infiltrate left upper lobe, bladder mass. DIAGNOSTIC IMPRESSION/PLAN: 1. Patient admitted to the hospital with mental status changes, weakness and low-grade fever which is likely multifactorial in this patient likely component of urinary tract infection failing outpatient old antibiotic therapy. The patient did do Proteus mirabilis on urine culture on 12/30 as well as 01/07 could be the same pathogen. Not very clear exactly which medication the patient took for underlying urinary tract infection. 2. Patient with right heel pressure ulcer. Currently, heel covered with dry scab, no evidence of any cellulitis. 3. The patient did have MULTIPLE ANTIBIOTIC ALLERGIES that do limit number of antibiotic will be safely used. PLAN: 1. Rocephin 1 g IV piggyback daily while waiting for the new culture to finalize. 2. Discontinue the Santyl as currently patient did not have any wound requiring deep debridement agent. 3. Bilateral heel protectors and keep the area off the pressure. No need for specific dressing to the right heel. Wound is currently covered with a dry scab. 4. Will follow clinical condition as well as cultures to further adjust medication if needed. Thank you for this consultation. We will follow the patient along with you. was present at bedside. All his questions and concerns were answered. MMODL / IJN: [id number] /
[2018-01-18] MEDS: LEVOTHYROXINE 125 MCG TAB PO SCH (06:28)
[2018-01-18 07:21] LABS: Glucose,Whole Blood 156 mg/dL (75-99)
[2018-01-18 08:18] LABS: Basophils % (A) 1 %; Eosinophils # (A) 0.1 k/uL (0-0.7); Eosinophils % (A) 1 %; HCT 36.4 % (34.0-46.0); HGB 11.8 gm/dL (11.4-16.0); Lymphocytes # (A) 0.8 k/uL (1.0-4.8); Lymphocytes % (A) 11 %; MCH 31.5 pg (25.0-35.0); MCHC 32.4 g/dL (31.0-37.0); MCV 97.2 fL (80.0-100.0); Mean Platelet Volume 6.6; Monocytes # (A) 0.4 k/uL (0-1.0); Monocytes % (A) 5 %; Neutrophils # (A) 5.9 k/uL (1.3-7.7); Neutrophils % (A) 80 %; Platelet Count 402 k/uL (150-450); RBC 3.74 m/uL (3.80-5.40); RDW 15.4 % (11.5-15.5); WBC 7.4 k/uL (3.8-10.6)
[2018-01-18] MEDS: cefTRIAXone IN SWFI 1,000 MG/10 ML SYRINGE IVP SCH (08:28)
[2018-01-18] MEDS: INSULIN ASPART 100 UNIT/ML 1 ML 10 ML VIAL SQ SCH ×3 (08:29→19:53)
[2018-01-18] MEDS: HEPARIN SODIUM,PORCINE 5,000 UNIT/ML 1 ML VIAL SQ SCH ×3 (08:29→21:21)
[2018-01-18] MEDS: VENLAFAXINE HCL 75 MG TAB PO SCH (08:30)
[2018-01-18] MEDS: FAMOTIDINE 20 MG TAB PO SCH ×2 (08:30→21:20)
[2018-01-18] MEDS: LISINOPRIL 10 MG TAB PO SCH (08:30)
[2018-01-18] MEDS: SODIUM CHLORIDE 0.9% 1,000 ML IV SCH ×2 (08:30→16:29)
[2018-01-18] MEDS: levETIRAcetam 500 MG TAB PO SCH ×2 (08:30→21:20)
[2018-01-18] MEDS: MAGNESIUM OXIDE 400 MG TAB PO SCH ×2 (08:31→21:21)
[2018-01-18] MEDS: FERROUS SULFATE 325 MG TAB PO SCH ×2 (08:31→21:20)
[2018-01-18] MEDS: CHOLECALCIFEROL 1,000 UNIT TAB PO SCH (08:31)
[2018-01-18] MEDS: METOPROLOL TARTRATE 12.5 MG TAB PO SCH ×2 (08:31→21:21)
[2018-01-18] MEDS: CYANOCOBALAMIN 500 MCG TAB PO SCH (08:34)
[2018-01-18 08:39] LABS: ALT 40 U/L (9-52); AST 30 U/L (14-36); Albumin 2.6 g/dL (3.5-5.0); Alkaline Phosphatase 96 U/L (38-126); Anion Gap 9 mmol/L; Blood Urea Nitrogen 9 mg/dL (7-17); Carbon Dioxide 21 mmol/L (22-30); Chloride 106 mmol/L (98-107); Glucose 158 mg/dL (74-99); Sodium 136 mmol/L (137-145); Total Bilirubin 0.4 mg/dL (0.2-1.3); Total Protein 5.6 g/dL (6.3-8.2)
[2018-01-18] MEDS: BISACODYL 5 MG TABLET.DR PO SCH (08:44)
[2018-01-18 11:57] LABS: Glucose,Whole Blood 173 mg/dL (75-99)
[2018-01-18 12:32] LABS: Hemoglobin A1C 8.3 % (4.0-6.0)
--- NOTE | 2018-01-18 14:51 | P.PN ---
Subjective Progress Note Date: 01/18/18 This is a 77-year-old female patient of Dr. 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 Patient recently had a fall for which she sustained a fracture to the right wrist and she was treated at [facility]. Patient was transferred to the [facility] where she had the largest mass resected. Patient was also worked up and found to have a nodule in her lungs but she has no symptoms according to her . She denies any cough. There is also a liver mass as well. Once patient completed treatment at the [facility], she was transferred to [facility] for rehab. She was discharged from there last Thursday, November 04. Patient was then hospitalized November 10 through November 12 [facility] which time she was treated for metabolic encephalopathy thought to be due to steroids and hyperglycemia. She was also treated for urinary tract infection. Patient was discharged home with VNA. Per patient's , she completed her last radiation treatment on her brain on November 16 which was a total of 5. She has followed up with Dr. Sánchez and underwent a PET scan that he states was clean except for the lung mass which is 2 cm and no change. She is due to start radiation on her lung and this will last for 4-5 treatments. She was recently decreased from dexamethasone of 4 mg twice daily to 6 mg once daily. He states that her mental status has been gradually worsening. She has tired and sleeps all the time. He does state that she has had some hallucinations and symptoms have been more so last few days. She has only been drinking about 30 ounces per day but her appetite has been good and eating well. At home she is only able to transfer from bed to wheelchair and a chair. Prior to that she was ambulating with walker and home physical therapy. Patient has a follow-up appointment with Dr. Smith tomorrow. Patient was hospitalized at [facility] about a month ago for what appears to be UTI with severe encephalopathy and she was sent to [facility] for physical therapy rehabilitation, and the patient has been suffering from recurrent urinary tract infection on and off and she was sent today from [facility] the [place] by Dr. Tenorio because of urinary tract infection that is not able to be controlled as an outpatient. Subsequently patient was admitted to the hospital she was found to have a significant UTI she was given IV antibiotic in the form of Rocephin 1 g IV piggyback every 24 hours, infectious disease consultation was obtained from Dr. Schumacher. 01/17: Patient is laying down in bed she appears to be quite slow her was at the bedside, she appears to be staring at os rule out any petit mal seizure, patient was found to be somewhat hypothyroid, we will increase her Synthroid to 125 g orally once every day, we will obtain infectious disease consultation from Dr. Celestin per the family wishes, continue IV fluid at 100 mL an hour, continue Rocephin 1 g IV piggyback every 24 hours, await the final result of the blood culture as well as the urine culture. 01/18: Patient's mental status is slowly improving but she is not back to baseline. She is more awake but she is moaning. Healed wound that is being addressed. PT and OT added. Keppra level is currently pending. EEG is pending. Urine culture is group D enterococcus and patient has history of VRE. Antibiotics changed to daptomycin. Blood culture is showing no growth. [facility] will need [facility]. Objective - Vital Signs Vital signs: Vital Signs Temp 98.1 F 01/18/18 05:45 Pulse 95 01/18/18 05:45 Resp 16 01/18/18 05:45 BP 186/95 01/18/18 05:45 Pulse Ox 97 01/18/18 05:45 Intake & Output 01/17/18 01/18/18 01/18/18 18:59 06:59 18:59 Weight 84.55 kg Other: Voiding Method Diaper Diaper Incontinent Incontinent # Voids 1 5 # Bowel Movements 0 - Exam General appearance: average body habitus, no acute distress - EENT Eyes: anicteric sclerae, EOMI, PERRLA, no ptosis, no scleral icterus, normal appearance ENT: hearing grossly normal, NA/AT, normal oropharynx, no thrush Ears: bilateral: normal - Neck Neck: no lymphadenopathy, normal ROM, no rigidity, no stridor, no thyromegaly Carotids: bilateral: upstroke delayed Thyroid: bilateral: normal size - Respiratory Respiratory: bilateral: diminished, negative: dullness, rales, rhonchi, wheezing , prolonged expiration - Cardiovascular Rhythm: regular Heart sounds: normal: S1, S2 Abnormal Heart Sounds: systolic murmur - Gastrointestinal General gastrointestinal: normal bowel sounds, soft, no splenomegaly, no tenderness - Integumentary Integumentary: ulcer (right heel stage 3 ulcer with an eschar in the middle.) - Neurologic Neurologic: CNII-XII intact - Musculoskeletal Musculoskeletal: generalized weakness - Psychiatric Psychiatric: A&O x's 3, appropriate affect, intact judgment & insigh - Labs CBC & Chem 7: 01/18/18 07:26 01/18/18 07:26 Labs: Abnormal Lab Results - Last 24 Hours (Table) 01/17/18 01/17/18 01/18/18 Range/Units 17:02 20:42 07:18 RBC (3.80-5.40) m/uL Lymphocytes # (1.0-4.8) k/uL Sodium (137-145) mmol/L Carbon Dioxide (22-30) mmol/L Glucose (74-99) mg/dL POC Glucose (mg/dL) 168 H 142 H 156 H (75-99) mg/dL Calcium (8.4-10.2) mg/dL Total Protein (6.3-8.2) g/dL Albumin (3.5-5.0) g/dL 01/18/18 01/18/18 01/18/18 Range/Units 07:26 07:26 11:51 RBC 3.74 L (3.80-5.40) m/uL Lymphocytes # 0.8 L (1.0-4.8) k/uL Sodium 136 L (137-145) mmol/L Carbon Dioxide 21 L (22-30) mmol/L Glucose 158 H (74-99) mg/dL POC Glucose (mg/dL) 173 H (75-99) mg/dL Calcium 8.0 L (8.4-10.2) mg/dL Total Protein 5.6 L (6.3-8.2) g/dL Albumin 2.6 L (3.5-5.0) g/dL Microbiology - Last 24 Hours (Table) 01/16/18 14:22 Blood Culture - Preliminary Blood No Growth after 24 hours 01/16/18 14:22 Urine Culture - Preliminary Urine,Clean Catch Group D Enterococcus Assessment and Plan Plan: 1. Metabolic encephalopathy secondary to enterococcus urinary tract infection and possible sepsis. IV fluid resuscitation, start the patient on Rocephin 1 g IV piggyback every 24 hours, blood culture, urine culture, infectious disease consultation from Dr. Celestin. 2. Brain metastases with primary lung status post tumor resection. Patient follows with Dr. Smith and Dr. Sánchez. Continue Keppra. EEG and Keppra level pending. 4. Diabetes mellitus type 2. Patient will be continued on NovoLog scale, Victoza which is not available here. 5. History of CAD with prior PCI. Continue Lopressor 12.5 mg twice daily, Plavix 75 mg daily. 6. Hypertension. Continue lisinopril 10 mg daily, metoprolol tartrate 12.5 mg twice daily. 7. Hypothyroidism. Continue levothyroxine 125 g orally once every day. 8. Chronic kidney disease stage III. Baseline creatinine is about 1.2. 10. Gastrointestinal prophylaxis. Pepcid. 11. DVT prophylaxis. Lovenox daily. 12. Recurrent depression. Continue Effexor 75 mg at bedtime. 13. Anemia of chronic disease. Continue ferrous sulfate 325 mg twice daily. 14. Right heel ulcer. see wound care . 15. Staring episodes and possible petit mal seizure. This is could be related to hypothyroidism, adjust her Synthroid, monitor the patient very closely, patient may need to have an EEG done to rule out any seizure. We will need to check her Keppra level. Discharge plan: Return to [facility] Impression and plan of care have been directed as dictated by the signing physician. Myesha Wynne nurse practitioner acting as scribe for signing physician.
--- NOTE | 2018-01-18 15:46 | PN ---
PROGRESS NOTE DATE OF SERVICE: 01/18/2018. REASON FOR FOLLOWUP VISIT: Urinary tract infection. INTERVAL HISTORY: The patient did have a low-grade fever of 100.1 last night. The patient is afebrile this morning. She seemed to be more awake and alert per the who seems to be confused. The patient denies having any pain. No nausea, vomiting, or any diarrhea. EXAMINATION: Her blood pressure is 180/70 with a pulse of 80, temperature of 98, T-max 100.1. General description is an elderly female lying in bed in no distress. RESPIRATORY SYSTEM: Unlabored breathing. Clear to auscultation anteriorly. HEART: S1, S2. Regular rate and rhythm. ABDOMEN: Soft, no tenderness. Right heel is currently dressed. No obvious drainage on the dressing. LABS: Hemoglobin 11.2, white count 7.4 with a BUN of 9, creatinine 0.71. Urine is currently showing possibly Enterococcus. DIAGNOSTIC IMPRESSION/PLAN: 1. Patient admitted to the hospital with mental status changes. Urinary tract infection on antibiotic therapy showing . Urine showing Enterococcus with recent VRE could be the likely pathogen. The patient is ALLERGIC TO PENICILLIN. She will be given daptomycin 4 mg/kg. 2. Right heel wound. Local wound care with Aquacel Silver dressing. Keep the area off the pressure. Plan of care discussed with the admitting team as well as the . All her questions were answered. MMPAOLAL / COBYN: [id number] /
[2018-01-18 17:11] LABS: Glucose,Whole Blood 112 mg/dL (75-99)
[2018-01-18 20:30] LABS: Glucose,Whole Blood 109 mg/dL (75-99)
--- NOTE | 2018-01-18 21:10 | EEG ---
ELECTROENCEPHALOGRAM REPORT DATE OF EE01/18/2018. REFERRING PHYSICIAN: Dr. Duffy. CONSULTING/REFERRING PHYSICIAN: Reji Chase MD. ELECTROENCEPHALOGRAPHIC EXAMINATION REPORT: INDICATION FOR EXAMINATION: This patient is a 77-year-old female being evaluated for urinary tract infection and altered mental status. Patient with symptoms of a metabolic encephalopathy. A[age]: [age]. EEG FINDINGS: A routine 21 channel awake digital EEG recording was accomplished utilizing the 10-20 international system with bipolar and referential montages. The background activity in the most alert resting state consists of a low to medium amplitude, poorly developed and poorly sustained 5-6 Hz activity over the posterior head regions. This posterior rhythm attenuates minimally to eye opening. There is a small amount of low amplitude 18-20 Hz beta activity seen maximally over the anterior head regions. Muscle and movement artifact was observed on a few occasions during the tracing. No activation procedures were performed. No epileptiform discharges were seen. IMPRESSION: This EEG is moderately abnormal in a diffuse fashion due to slowing of the EEG background. The EEG failed to reveal any focal, lateralized, or epileptiform abnormalities. If clinically indicated a followup EEG is recommended. Clinical correlation is recommended. MMODL / IJN: [id number] /
[2018-01-18] MEDS: CLOPIDOGREL 75 MG TAB PO SCH (21:20)
[2018-01-18] MEDS: MEGESTROL 400 MG/10 ML CUP PO SCH (21:21)
[2018-01-19] MEDS: hydrALAZINE HCL 20 MG/ML 1 ML VIAL IVP PRN ×2 (02:52→16:28)
[2018-01-19] MEDS: SODIUM CHLORIDE 0.9% 1,000 ML IV SCH (04:40)
[2018-01-19] MEDS: LEVOTHYROXINE 125 MCG TAB PO SCH (06:20)
[2018-01-19] MEDS: ACETAMINOPHEN TAB 325 MG TAB PO PRN ×2 (06:20→17:48)
[2018-01-19 07:23] LABS: Glucose,Whole Blood 297 mg/dL (75-99)
[2018-01-19] MEDS: INSULIN ASPART 100 UNIT/ML 1 ML 10 ML VIAL SQ SCH ×3 (07:42→17:59)
[2018-01-19] MEDS: HEPARIN SODIUM,PORCINE 5,000 UNIT/ML 1 ML VIAL SQ SCH ×2 (07:42→15:20)
[2018-01-19] MEDS: CYANOCOBALAMIN 500 MCG TAB PO SCH (07:43)
[2018-01-19] MEDS: CHOLECALCIFEROL 1,000 UNIT TAB PO SCH (07:43)
[2018-01-19] MEDS: FAMOTIDINE 20 MG TAB PO SCH ×2 (07:43→21:01)
[2018-01-19] MEDS: MAGNESIUM OXIDE 400 MG TAB PO SCH ×2 (07:44→21:02)
[2018-01-19] MEDS: FERROUS SULFATE 325 MG TAB PO SCH ×2 (07:44→21:02)
[2018-01-19] MEDS: levETIRAcetam 500 MG TAB PO SCH ×2 (07:44→21:02)
[2018-01-19] MEDS: LISINOPRIL 20 MG TAB PO SCH (07:44)
[2018-01-19] MEDS: METOPROLOL TARTRATE 12.5 MG TAB PO SCH ×2 (07:45→21:03)
[2018-01-19] MEDS: VENLAFAXINE HCL 75 MG TAB PO SCH (07:45)
[2018-01-19] MEDS: BISACODYL 5 MG TABLET.DR PO SCH (08:29)
[2018-01-19] MEDS: AMMONIUM LACTATE 12% LOTION 225 GM BTL TOPICAL SCH ×2 (11:29→21:02)
[2018-01-19 12:51] LABS: Glucose,Whole Blood 195 mg/dL (75-99)
--- NOTE | 2018-01-19 16:17 | PN ---
PROGRESS NOTE DATE OF SERVICE: 01/19/2018 REASON FOR FOLLOWUP: 1. Urinary tract infection. 2. Right heel wound. INTERVAL HISTORY: The patient is currently afebrile. She is more awake and alert. She is breathing comfortably. Per her , no nausea or vomiting abdominal pain or any diarrhea. PHYSICAL EXAMINATION: Blood pressure 144/89 with a pulse of 109, temperature 98.9. She is 97% on room air. General description is an elderly female lying in bed in no distress. RESPIRATORY SYSTEM: Unlabored breathing. Clear to auscultation anteriorly. HEART: S1, S2. Regular rate and rhythm. ABDOMEN: Soft. No tenderness. Right heel with minimal redness. No drainage was notices, though. LABS: White count 7.4, BUN of 9, creatinine 0.71. Urine showing Enterococcus faecalis that is vancomycin-sensitive, but the GREGG is 2. DIAGNOSTIC IMPRESSION AND PLAN: 1. Patient with recurrent urinary tract infection admitted to hospital with mental status changes and known resolving urinary tract infection. Urine did show Enterococcus faecalis that is penicillin- and vancomycin-sensitive, though high GREGG of 2 vancomycin and the patient is ALLERGIC TO PENICILLIN; hence, recommend keeping the patient on daptomycin 4 mg/kg, currently at 400 mg daily, for another 7 to 10 days to finish course of therapy. 2. Right heel wound. Local wound care with Aquacel Silver dressing. Keep the area off the pressure. MMODL / IJN: [id number] /
--- NOTE | 2018-01-19 16:35 | P.PN ---
Subjective Progress Note Date: 01/19/18 This is a 77-year-old female patient of Dr. 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 Patient recently had a fall for which she sustained a fracture to the right wrist and she was treated at [facility]. Patient was transferred to the [facility] where she had the largest mass resected. Patient was also worked up and found to have a nodule in her lungs but she has no symptoms according to her . She denies any cough. There is also a liver mass as well. Once patient completed treatment at the [facility], she was transferred to [facility] for rehab. She was discharged from there last Thursday, November 04. Patient was then hospitalized November 10 through November 12 [facility] which time she was treated for metabolic encephalopathy thought to be due to steroids and hyperglycemia. She was also treated for urinary tract infection. Patient was discharged home with VNA. Per patient's , she completed her last radiation treatment on her brain on November 16 which was a total of 5. She has followed up with Dr. Sánchez and underwent a PET scan that he states was clean except for the lung mass which is 2 cm and no change. She is due to start radiation on her lung and this will last for 4-5 treatments. She was recently decreased from dexamethasone of 4 mg twice daily to 6 mg once daily. He states that her mental status has been gradually worsening. She has tired and sleeps all the time. He does state that she has had some hallucinations and symptoms have been more so last few days. She has only been drinking about 30 ounces per day but her appetite has been good and eating well. At home she is only able to transfer from bed to wheelchair and a chair. Prior to that she was ambulating with walker and home physical therapy. Patient has a follow-up appointment with Dr. Smith tomorrow. Patient was hospitalized at [facility] about a month ago for what appears to be UTI with severe encephalopathy and she was sent to [facility] for physical therapy rehabilitation, and the patient has been suffering from recurrent urinary tract infection on and off and she was sent today from [facility] on the [place] by Dr. Tenorio because of urinary tract infection that is not able to be controlled as an outpatient. Subsequently patient was admitted to the hospital she was found to have a significant UTI she was given IV antibiotic in the form of Rocephin 1 g IV piggyback every 24 hours, infectious disease consultation was obtained from Dr. Schumacher. 01/17: Patient is laying down in bed she appears to be quite slow her was at the bedside, she appears to be staring at os rule out any petit mal seizure, patient was found to be somewhat hypothyroid, we will increase her Synthroid to 125 g orally once every day, we will obtain infectious disease consultation from Dr. Celestin per the family wishes, continue IV fluid at 100 mL an hour, continue Rocephin 1 g IV piggyback every 24 hours, await the final result of the blood culture as well as the urine culture. 01/18: Patient's mental status is slowly improving but she is not back to baseline. She is more awake but she is moaning. Healed wound that is being addressed. PT and OT added. Keppra level is currently pending. EEG is pending. Urine culture is group D enterococcus and patient has history of VRE. Antibiotics changed to daptomycin. Blood culture is showing no growth. Patient will need IV access for IV antibiotics at the long-term. 01/19:Patient is much quieter and not moaning today. Lac-hydrin added for legs and wound care orders placed for Aquacel Ag to right heel and waffle boots. Anticipate discharge back to [facility] by the end of the week. Awaiting midline placement. EEG showed slowing of the background activity and no seizure activity. Objective - Vital Signs Vital signs: Vital Signs Temp 98.9 F 01/19/18 06:36 Pulse 109 H 01/19/18 06:36 Resp 20 01/19/18 08:00 BP 144/89 01/19/18 06:36 Pulse Ox 97 01/19/18 06:36 Intake & Output 01/18/18 01/19/18 01/19/18 18:59 06:59 18:59 Intake Total 100 Balance 100 Weight 84.55 kg Intake: Oral 100 Other: Voiding Method Diaper Diaper Diaper Incontinent Incontinent Incontinent # Voids 2 2 # Bowel Movements 1 2 - Exam General appearance: average body habitus, no acute distress - EENT Eyes: anicteric sclerae, EOMI, PERRLA, no ptosis, no scleral icterus, normal appearance ENT: hearing grossly normal, NA/AT, normal oropharynx, no thrush Ears: bilateral: normal - Neck Neck: no lymphadenopathy, normal ROM, no rigidity, no stridor, no thyromegaly Carotids: bilateral: upstroke delayed Thyroid: bilateral: normal size - Respiratory Respiratory: bilateral: diminished, negative: dullness, rales, rhonchi, wheezing , prolonged expiration - Cardiovascular Rhythm: regular Heart sounds: normal: S1, S2 Abnormal Heart Sounds: systolic murmur - Gastrointestinal General gastrointestinal: normal bowel sounds, soft, no splenomegaly, no tenderness - Integumentary Integumentary: ulcer (right heel stage 3 ulcer with an eschar in the middle.) - Neurologic Neurologic: CNII-XII intact - Musculoskeletal Musculoskeletal: generalized weakness - Psychiatric Psychiatric: A&O x's 1, appropriate affect, intact judgment & insigh - Labs CBC & Chem 7: 01/18/18 07:26 01/18/18 07:26 Labs: Abnormal Lab Results - Last 24 Hours (Table) 01/16/18 01/18/18 01/18/18 Range/Units 14:22 11:51 16:53 POC Glucose (mg/dL) 173 H 112 H (75-99) mg/dL Hemoglobin A1c 8.3 H (4.0-6.0) % 01/18/18 01/19/18 Range/Units 20:23 07:21 POC Glucose (mg/dL) 109 H 297 H (75-99) mg/dL Hemoglobin A1c (4.0-6.0) % Microbiology - Last 24 Hours (Table) 01/16/18 14:22 Urine Culture - Final Urine,Clean Catch Enterococcus faecalis 01/16/18 14:22 Blood Culture - Preliminary Blood No Growth after 48 hours Assessment and Plan Plan: 1. Metabolic encephalopathy secondary to enterococcus urinary tract infection and possible sepsis. IV fluid resuscitation, start the patient on Rocephin 1 g IV piggyback every 24 hours, blood culture, urine culture, infectious disease consultation from Dr. Celestin. 2. Brain metastases with primary lung status post tumor resection. Patient follows with Dr. Smith and Dr. Sánchez. Continue Keppra. EEG and Keppra level pending. 4. Diabetes mellitus type 2. Patient will be continued on NovoLog scale, Victoza which is not available here. 5. History of CAD with prior PCI. Continue Lopressor 12.5 mg twice daily, Plavix 75 mg daily. 6. Hypertension. Continue lisinopril 10 mg daily, metoprolol tartrate 12.5 mg twice daily. 7. Hypothyroidism. Continue levothyroxine 125 g orally once every day. 8. Chronic kidney disease stage III. Baseline creatinine is about 1.2. 10. Gastrointestinal prophylaxis. Pepcid. 11. DVT prophylaxis. Lovenox daily. 12. Recurrent depression. Continue Effexor 75 mg at bedtime. 13. Anemia of chronic disease. Continue ferrous sulfate 325 mg twice daily. 14. Right heel ulcer. see wound care . 15. Staring episodes and possible petit mal seizure. This is could be related to hypothyroidism, adjust her Synthroid, monitor the patient very closely, patient may need to have an EEG done to rule out any seizure. We will need to check her Keppra level. Discharge plan: Return to [facility] Impression and plan of care have been directed as dictated by the signing physician. Myesha Wynne nurse practitioner acting as scribe for signing physician.
[2018-01-19 17:10] LABS: Glucose,Whole Blood 132 mg/dL (75-99)
[2018-01-19 20:54] LABS: Glucose,Whole Blood 68 mg/dL (75-99)
[2018-01-19] MEDS: MEGESTROL 400 MG/10 ML CUP PO SCH (21:01)
[2018-01-19] MEDS: CLOPIDOGREL 75 MG TAB PO SCH (21:02)
[2018-01-19 22:04] LABS: Glucose,Whole Blood 98 mg/dL (75-99)
[2018-01-20] MEDS: HEPARIN SODIUM,PORCINE 5,000 UNIT/ML 1 ML VIAL SQ SCH ×3 (00:13→17:21)
[2018-01-20] MEDS: hydrALAZINE HCL 20 MG/ML 1 ML VIAL IVP PRN ×2 (06:27→17:21)
[2018-01-20] MEDS: LEVOTHYROXINE 125 MCG TAB PO SCH (06:28)
[2018-01-20 07:12] LABS: Glucose,Whole Blood 148 mg/dL (75-99)
[2018-01-20] MEDS: INSULIN ASPART 100 UNIT/ML 1 ML 10 ML VIAL SQ SCH ×3 (09:12→17:55)
[2018-01-20] MEDS: AMMONIUM LACTATE 12% LOTION 225 GM BTL TOPICAL SCH ×2 (09:14→21:32)
[2018-01-20] MEDS: FAMOTIDINE 20 MG TAB PO SCH ×2 (09:15→21:30)
[2018-01-20] MEDS: CHOLECALCIFEROL 1,000 UNIT TAB PO SCH (09:15)
[2018-01-20] MEDS: LISINOPRIL 20 MG TAB PO SCH (09:16)
[2018-01-20] MEDS: VENLAFAXINE HCL 75 MG TAB PO SCH (09:16)
[2018-01-20] MEDS: FERROUS SULFATE 325 MG TAB PO SCH ×2 (09:16→21:31)
[2018-01-20] MEDS: METOPROLOL TARTRATE 12.5 MG TAB PO SCH ×2 (09:16→21:30)
[2018-01-20] MEDS: levETIRAcetam 500 MG TAB PO SCH ×2 (09:16→21:30)
[2018-01-20] MEDS: MAGNESIUM OXIDE 400 MG TAB PO SCH ×2 (09:16→21:31)
[2018-01-20] MEDS: CYANOCOBALAMIN 500 MCG TAB PO SCH (09:17)
[2018-01-20] MEDS: BISACODYL 5 MG TABLET.DR PO SCH (10:01)
--- NOTE | 2018-01-20 11:03 | PN ---
PROGRESS NOTE DATE OF SERVICE: 01/20/2018. REASON FOR FOLLOWUP: 1. Enterococcus faecalis urinary tract infection. 2. Right heel wound. INTERVAL HISTORY: The patient is afebrile. She is more awake and alert today. She is breathing comfortably. Denies any chest pain or any cough. No abdominal pain and no diarrhea. No pain to the right heel area. PHYSICAL EXAMINATION: On examination, blood pressure is 169/89 with a pulse of 102, temperature 98.6. She is 98% on room air. General description is an elderly female, lying in bed in no distress. RESPIRATORY SYSTEM: Unlabored breathing, clear to auscultation anteriorly. HEART: S1, S2. Regular rate and rhythm. ABDOMEN: Soft, no tenderness. Right heel is currently dressed up. No obvious drainage on the dressing. LABS: No new lab has been obtained today. Blood culture has been negative. DIAGNOSTIC IMPRESSION AND PLAN: 1. Patient with Enterococcus faecalis urinary tract infection. The patient did have history of recurrent urinary tract infection. The patient is allergic to PENICILLIN, hence, it could not be used and high risk of nephrotoxicity from the vancomycin, was a 2. Hence to continue with daptomycin at 400 mg daily for another 10 days to finish her course of therapy. 2. Right heel wound. Local wound care with Aquacel Silver dressing to keep the area off pressure. MMODL / IJN: [id number] /
--- NOTE | 2018-01-20 12:37 | CT ---
EXAMINATION TYPE: CT brain wo con DATE OF EXAM: 01/20/2018 COMPARISON: 12/09/2017 HISTORY: Mental status changes CT DLP: 1015.[address] of the brain was performed. Left parietal craniotomy changes redemonstrated. Areas of encephalomalacia from previous surgical griselda nge. The ventricles, basal cisterns and sulci overlying the cerebral convexities demonstrate moderate enlargement. There is no evidence for intracranial hemorrhage or sulcal effacement. There is decreased attenuation about the periventricular white matter and deep white matter of both c erebral hemispheres, compatible with chronic small vessel ischemia. Differential diagnosis does inclu de demyelination. No mass effects are seen.No midline shift. Osseous calvarium is intact. If symptoms persist consider MRI. IMPRESSION: 1. Age related atrophic and chronic small vessel ischemic change without acute intracranial process s een at this time. 2. Postoperative changes redemonstrated.
--- NOTE | 2018-01-20 13:59 | P.PN ---
Subjective Progress Note Date: 01/20/18 This is a 77-year-old female patient of Dr. 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 Patient recently had a fall for which she sustained a fracture to the right wrist and she was treated at [facility]. Patient was transferred to the [facility] where she had the largest mass resected. Patient was also worked up and found to have a nodule in her lungs but she has no symptoms according to her . She denies any cough. There is also a liver mass as well. Once patient completed treatment at the [facility], she was transferred to [facility] for rehab. She was discharged from there last Thursday, November 04. Patient was then hospitalized November 10 through November 12 [facility] which time she was treated for metabolic encephalopathy thought to be due to steroids and hyperglycemia. She was also treated for urinary tract infection. Patient was discharged home with VNA. Per patient's , she completed her last radiation treatment on her brain on November 16 which was a total of 5. She has followed up with Dr. Sánchez and underwent a PET scan that he states was clean except for the lung mass which is 2 cm and no change. She is due to start radiation on her lung and this will last for 4-5 treatments. She was recently decreased from dexamethasone of 4 mg twice daily to 6 mg once daily. He states that her mental status has been gradually worsening. She has tired and sleeps all the time. He does state that she has had some hallucinations and symptoms have been more so last few days. She has only been drinking about 30 ounces per day but her appetite has been good and eating well. At home she is only able to transfer from bed to wheelchair and a chair. Prior to that she was ambulating with walker and home physical therapy. Patient has a follow-up appointment with Dr. Smith tomorrow. Patient was hospitalized at [facility] about a month ago for what appears to be UTI with severe encephalopathy and she was sent to [facility] for physical therapy rehabilitation, and the patient has been suffering from recurrent urinary tract infection on and off and she was sent today from [facility] [place] the [place] by Dr. Tenorio because of urinary tract infection that is not able to be controlled as an outpatient. Subsequently patient was admitted to the hospital she was found to have a significant UTI she was given IV antibiotic in the form of Rocephin 1 g IV piggyback every 24 hours, infectious disease consultation was obtained from Dr. Schumacher. 01/17: Patient is laying down in bed she appears to be quite slow her was at the bedside, she appears to be staring at os rule out any petit mal seizure, patient was found to be somewhat hypothyroid, we will increase her Synthroid to 125 g orally once every day, we will obtain infectious disease consultation from Dr. Celestin per the family wishes, continue IV fluid at 100 mL an hour, continue Rocephin 1 g IV piggyback every 24 hours, await the final result of the blood culture as well as the urine culture. 01/18: Patient's mental status is slowly improving but she is not back to baseline. She is more awake but she is moaning. Healed wound that is being addressed. PT and OT added. Keppra level is currently pending. EEG is pending. Urine culture is group D enterococcus and patient has history of VRE. Antibiotics changed to daptomycin. Blood culture is showing no growth. Patient will need IV access for IV antibiotics at the [facility]. 01/19:Patient is much quieter and not moaning today. Lac-hydrin added for legs and wound care orders placed for Aquacel Ag to right heel and waffle boots. Anticipate discharge back to [facility] by the end of the week. Awaiting midline placement. EEG showed slowing of the background activity and no seizure activity. 01/20: Patient remains quite lethargic. According to nursing, patient was up screaming through the night. Nursing was able to get medications in her this morning. Midline was unsuccessful and PICC line is ordered. CAT scan of brain ordered that revealed age-related atrophy and chronic small vessel ischemic change without acute intracranial process. Postop changes redemonstrated. Keppra level is 14 within normal limits. Objective - Vital Signs Vital signs: Vital Signs Temp 98.6 F 01/20/18 07:03 Pulse 102 H 01/20/18 07:03 Resp 20 01/20/18 07:03 BP 169/89 01/20/18 07:03 Pulse Ox 98 01/20/18 07:03 Intake & Output 01/19/18 01/20/18 01/20/18 18:59 06:59 18:59 Intake Total 650 Balance 650 Intake: Intake, IV Titration 650 Amount DAPTOmycin 400 mg In 50 Sodium Chloride 0.9% 50 ml @ 100 mls/hr IVPB Q24HR [facility] Rx#:[id number] Sodium Chloride 0.9% 1, 600 000 ml @ 75 mls/hr IV . [id number] [facility] Rx#:[id number] Oral 0 Other: Voiding Method Diaper Diaper Incontinent Incontinent # Voids 1 2 # Bowel Movements 1 1 - Exam General appearance: average body habitus, no acute distress - EENT Eyes: anicteric sclerae, EOMI, PERRLA, no ptosis, no scleral icterus, normal appearance ENT: hearing grossly normal, NA/AT, normal oropharynx, no thrush Ears: bilateral: normal - Neck Neck: no lymphadenopathy, normal ROM, no rigidity, no stridor, no thyromegaly Carotids: bilateral: upstroke delayed Thyroid: bilateral: normal size - Respiratory Respiratory: bilateral: diminished, negative: dullness, rales, rhonchi, wheezing , prolonged expiration - Cardiovascular Rhythm: regular Heart sounds: normal: S1, S2 Abnormal Heart Sounds: systolic murmur - Gastrointestinal General gastrointestinal: normal bowel sounds, soft, no splenomegaly, no tenderness - Integumentary Integumentary: ulcer (right heel stage 3 ulcer with an eschar in the middle.) - Neurologic Neurologic: CNII-XII intact - Musculoskeletal Musculoskeletal: generalized weakness - Psychiatric Psychiatric: A&O x's 1, no intact judgment & insight - Labs CBC & Chem 7: 01/18/18 07:26 01/18/18 07:26 Labs: Abnormal Lab Results - Last 24 Hours (Table) 01/19/18 01/19/18 01/19/18 Range/Units 12:29 17:08 20:41 POC Glucose (mg/dL) 195 H 132 H 68 L (75-99) mg/dL 01/20/18 Range/Units 07:10 POC Glucose (mg/dL) 148 H (75-99) mg/dL Microbiology - Last 24 Hours (Table) 01/16/18 14:22 Blood Culture - Preliminary Blood No Growth after 72 hours Assessment and Plan Plan: 1. Metabolic encephalopathy secondary to enterococcus urinary tract infection and possible sepsis. Continue daptomycin. Patient followed by Dr. Schumacher. 2. Brain metastases with primary lung status post tumor resection. Patient follows with Dr. Smith and Dr. Sánchez. Continue Keppra. EEG and Keppra level above. 4. Diabetes mellitus type 2. Patient will be continued on NovoLog scale, Victoza which is not available here. 5. History of CAD with prior PCI. Continue Lopressor 12.5 mg twice daily, Plavix 75 mg daily. 6. Hypertension. Continue lisinopril 10 mg daily, metoprolol tartrate 12.5 mg twice daily. 7. Hypothyroidism. Continue levothyroxine 125 g orally once every day. 8. Chronic kidney disease stage III. Baseline creatinine is about 1.2. 10. Gastrointestinal prophylaxis. Pepcid. 11. DVT prophylaxis. Lovenox daily. 12. Recurrent depression. Continue Effexor 75 mg at bedtime. 13. Anemia of chronic disease. Continue ferrous sulfate 325 mg twice daily. 14. Right heel ulcer. see wound care . 15. Staring episodes and possible petit mal seizure. This is could be related to hypothyroidism, adjust her Synthroid, monitor the patient very closely. EEG as above. Keppra level 14 within normal limits. Discharge plan: Return to [facility] Impression and plan of care have been directed as dictated by the signing physician. Myesha Wynne nurse practitioner acting as scribe for signing physician.
[2018-01-20 16:46] LABS: Glucose,Whole Blood 285 mg/dL (75-99)
[2018-01-20 17:37] LABS: Glucose,Whole Blood 211 mg/dL (75-99)
[2018-01-20 20:56] LABS: Glucose,Whole Blood 187 mg/dL (75-99)
[2018-01-20] MEDS: MEGESTROL 400 MG/10 ML CUP PO SCH (21:30)
[2018-01-20] MEDS: CLOPIDOGREL 75 MG TAB PO SCH (21:31)
[2018-01-21] MEDS: HEPARIN SODIUM,PORCINE 5,000 UNIT/ML 1 ML VIAL SQ SCH ×3 (00:06→16:13)
[2018-01-21] MEDS: hydrALAZINE HCL 20 MG/ML 1 ML VIAL IVP PRN ×3 (06:09→17:37)
[2018-01-21] MEDS: LEVOTHYROXINE 125 MCG TAB PO SCH (06:15)
[2018-01-21 07:26] LABS: Glucose,Whole Blood 200 mg/dL (75-99)
[2018-01-21] MEDS: INSULIN ASPART 100 UNIT/ML 1 ML 10 ML VIAL SQ SCH ×3 (08:29→17:34)
[2018-01-21] MEDS: FAMOTIDINE 20 MG TAB PO SCH ×2 (08:32→21:47)
[2018-01-21] MEDS: CHOLECALCIFEROL 1,000 UNIT TAB PO SCH (08:32)
[2018-01-21] MEDS: FERROUS SULFATE 325 MG TAB PO SCH ×2 (08:32→21:47)
[2018-01-21] MEDS: LISINOPRIL 20 MG TAB PO SCH (08:32)
[2018-01-21] MEDS: METOPROLOL TARTRATE 12.5 MG TAB PO SCH ×2 (08:32→21:46)
[2018-01-21] MEDS: levETIRAcetam 500 MG TAB PO SCH ×2 (08:33→21:46)
[2018-01-21] MEDS: VENLAFAXINE HCL 75 MG TAB PO SCH (08:34)
[2018-01-21] MEDS: MAGNESIUM OXIDE 400 MG TAB PO SCH ×2 (08:34→21:46)
[2018-01-21] MEDS: CYANOCOBALAMIN 500 MCG TAB PO SCH (08:34)
[2018-01-21] MEDS: AMMONIUM LACTATE 12% LOTION 225 GM BTL TOPICAL SCH ×2 (08:37→22:07)
[2018-01-21] MEDS: BISACODYL 5 MG TABLET.DR PO SCH (08:41)
[2018-01-21 11:36] LABS: Glucose,Whole Blood 216 mg/dL (75-99)
[2018-01-21] MEDS ORDERED: LIDOCAINE 1% INJ 10MG/ML (20 ML MDV) SQ ONE (11:48)
--- NOTE | 2018-01-21 12:10 | IR ---
PICC LINE PLACEMENT: HISTORY: Infection requiring long-term antibiotic therapy PROCEDURE: Ultrasound and fluoroscopic guidance of PICC line placement. COMPLICATIONS: None ANESTHESIA: 1. 1% Lidocaine locally. FINDINGS/TECHNIQUE: The procedure was explained to the patient. The risks, complications, benefits and alternatives were discussed and any questions were answered. Informed consent was obtained. The patient was placed supine on the fluoroscopic table and prepped and draped in the usual sterile formerly [facility] ion. Utilizing a 21 gauge needle and sonographic and fluoroscopic guidance, access in the vein was achieved and there is placement of a 0.018 guidewire. The vein is patent. A 4-F sheath was placed o juan carlos the guidewire. The guidewire and dilator were removed and a 4-F. PICC line was placed through th e sheath with the tip at the level of the SVC. The sheath was removed, the catheter was flushed and sutured into position. The patient was stable throughout the procedure and remained stable upon disc harge from the Department of Radiology. The vein puncture was patent under ultrasound. A vanessa scale image was obtained to document patency of the vein punctured. All elements of the maximal barrier technique were utilized. FLUOROSCOPY TIME: 0.7 minutes of fluoroscopy, and one image submitted. IMPRESSION: Successful PICC line placement under ultrasound and fluoroscopic guidance.
--- NOTE | 2018-01-21 14:25 | P.PN ---
Subjective Progress Note Date: 01/21/18 This is a 77-year-old female patient of Dr. 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 Patient recently had a fall for which she sustained a fracture to the right wrist and she was treated at [facility]. Patient was transferred to the [facility] where she had the largest mass resected. Patient was also worked up and found to have a nodule in her lungs but she has no symptoms according to her . She denies any cough. There is also a liver mass as well. Once patient completed treatment at the [facility], she was transferred to [facility] for rehab. She was discharged from there last Thursday, November 04. Patient was then hospitalized November 10 through November 12 [facility] which time she was treated for metabolic encephalopathy thought to be due to steroids and hyperglycemia. She was also treated for urinary tract infection. Patient was discharged home with VNA. Per patient's , she completed her last radiation treatment on her brain on November 16 which was a total of 5. She has followed up with Dr. Sánchez and underwent a PET scan that he states was clean except for the lung mass which is 2 cm and no change. She is due to start radiation on her lung and this will last for 4-5 treatments. She was recently decreased from dexamethasone of 4 mg twice daily to 6 mg once daily. He states that her mental status has been gradually worsening. She has tired and sleeps all the time. He does state that she has had some hallucinations and symptoms have been more so last few days. She has only been drinking about 30 ounces per day but her appetite has been good and eating well. At home she is only able to transfer from bed to wheelchair and a chair. Prior to that she was ambulating with walker and home physical therapy. Patient has a follow-up appointment with Dr. Smith tomorrow. Patient was hospitalized at [facility] about a month ago for what appears to be UTI with severe encephalopathy and she was sent to [facility] for physical therapy rehabilitation, and the patient has been suffering from recurrent urinary tract infection on and off and she was sent today from [facility] [place] by Dr. Tenorio because of urinary tract infection that is not able to be controlled as an outpatient. Subsequently patient was admitted to the hospital she was found to have a significant UTI she was given IV antibiotic in the form of Rocephin 1 g IV piggyback every 24 hours, infectious disease consultation was obtained from Dr. Schumacher. 01/17: Patient is laying down in bed she appears to be quite slow her was at the bedside, she appears to be staring at os rule out any petit mal seizure, patient was found to be somewhat hypothyroid, we will increase her Synthroid to 125 g orally once every day, we will obtain infectious disease consultation from Dr. Celestin per the family wishes, continue IV fluid at 100 mL an hour, continue Rocephin 1 g IV piggyback every 24 hours, await the final result of the blood culture as well as the urine culture. 01/18: Patient's mental status is slowly improving but she is not back to baseline. She is more awake but she is moaning. Healed wound that is being addressed. PT and OT added. Keppra level is currently pending. EEG is pending. Urine culture is group D enterococcus and patient has history of VRE. Antibiotics changed to daptomycin. Blood culture is showing no growth. Patient will need IV access for IV antibiotics at the [facility]. 01/19:Patient is much quieter and not moaning today. Lac-hydrin added for legs and wound care orders placed for Aquacel Ag to right heel and waffle boots. Anticipate discharge back to [facility] by the end of the week. Awaiting midline placement. EEG showed slowing of the background activity and no seizure activity. 01/20: Patient remains quite lethargic. According to nursing, patient was up screaming through the night. Nursing was able to get medications in her this morning. Midline was unsuccessful and PICC line is ordered. CAT scan of brain ordered that revealed age-related atrophy and chronic small vessel ischemic change without acute intracranial process. Postop changes redemonstrated. Keppra level is 14 within normal limits. 01/21: Patient is sitting up in bed. She is more alert and answers questions. She opens her eyes easily to verbal stimuli. PICC line placement is to occur today. From Dr. Sylvester note from yesterday, patient is to complete 10 more days of daptomycin. [facility] has been updated with anticipated discharge tomorrow. Objective - Vital Signs Vital signs: Vital Signs Temp 98.0 F 01/21/18 06:30 Pulse 101 H 01/21/18 06:30 Resp 17 01/21/18 06:30 BP 147/79 01/21/18 07:20 Pulse Ox 94 L 01/21/18 06:30 Intake & Output 01/20/18 01/21/18 01/21/18 18:59 06:59 18:59 Intake Total 400 Balance 400 Intake: Intake, IV Titration 400 Amount DAPTOmycin 400 mg In 400 Sodium Chloride 0.9% 50 ml @ 100 mls/hr IVPB Q24HR [facility] Rx#:[id number] Other: Voiding Method Incontinent # Voids 1 1 # Bowel Movements 1 1 - Exam General appearance: average body habitus, no acute distress - EENT Eyes: anicteric sclerae, EOMI, PERRLA, no ptosis, no scleral icterus, normal appearance ENT: hearing grossly normal, NA/AT, normal oropharynx, no thrush Ears: bilateral: normal - Neck Neck: no lymphadenopathy, normal ROM, no rigidity, no stridor, no thyromegaly Carotids: bilateral: upstroke delayed Thyroid: bilateral: normal size - Respiratory Respiratory: bilateral: diminished, negative: dullness, rales, rhonchi, wheezing , prolonged expiration - Cardiovascular Rhythm: regular Heart sounds: normal: S1, S2 Abnormal Heart Sounds: systolic murmur - Gastrointestinal General gastrointestinal: normal bowel sounds, soft, no splenomegaly, no tenderness - Integumentary Integumentary: ulcer (right heel stage 3 ulcer with an eschar in the middle.) - Neurologic Neurologic: CNII-XII intact - Musculoskeletal Musculoskeletal: generalized weakness - Psychiatric Psychiatric: A&O x's 1, no intact judgment & insight - Labs CBC & Chem 7: 01/18/18 07:26 01/18/18 07:26 Labs: Abnormal Lab Results - Last 24 Hours (Table) 01/20/18 01/20/18 01/20/18 Range/Units 12:24 17:16 20:54 POC Glucose (mg/dL) 285 H 211 H 187 H (75-99) mg/dL 01/21/18 Range/Units 07:21 POC Glucose (mg/dL) 200 H (75-99) mg/dL Microbiology - Last 24 Hours (Table) 01/16/18 14:22 Blood Culture - Preliminary Blood No Growth after 96 hours Assessment and Plan Plan: 1. Metabolic encephalopathy secondary to enterococcus urinary tract infection and possible sepsis. Continue daptomycin completed on January 30. Patient followed by Dr. Schumacher. 2. Brain metastases with primary lung status post tumor resection. Patient follows with Dr. Smith and Dr. Sánchez. Continue Keppra. EEG and Keppra level above. 4. Diabetes mellitus type 2. Patient will be continued on NovoLog scale, Victoza which is not available here. 5. History of CAD with prior PCI. Continue Lopressor 12.5 mg twice daily, Plavix 75 mg daily. 6. Hypertension. Continue lisinopril 10 mg daily, metoprolol tartrate 12.5 mg twice daily. 7. Hypothyroidism. Continue levothyroxine 125 g orally once every day. 8. Chronic kidney disease stage III. Baseline creatinine is about 1.2. 10. Gastrointestinal prophylaxis. Pepcid. 11. DVT prophylaxis. Lovenox daily. 12. Recurrent depression. Continue Effexor 75 mg at bedtime. 13. Anemia of chronic disease. Continue ferrous sulfate 325 mg twice daily. 14. Right heel ulcer. see wound care . 15. Staring episodes and possible petit mal seizure. This is could be related to hypothyroidism, adjust her Synthroid, monitor the patient very closely. EEG as above. Keppra level 14 within normal limits. Discharge plan: Return to [facility] on Thursday Impression and plan of care have been directed as dictated by the signing physician. Myesha Wynne nurse practitioner acting as scribe for signing physician.
--- NOTE | 2018-01-21 16:55 | PN ---
PROGRESS NOTE DATE OF SERVICE: 01/21/2018. REASON FOR FOLLOWUP VISIT: 1. UTI infection. 2. Right heel wound. INTERVAL HISTORY: The patient is currently afebrile. She is breathing comfortably. Denies having any chest pain. No cough. No nausea, vomiting or pain to the right heel area. EXAMINATION: Blood pressure is 151/100 with a pulse of 101, temperature 97. She is 96% on room air. General description is an elderly female lying in bed in no distress. RESPIRATORY SYSTEM: Unlabored breathing. Clear to auscultation anteriorly. HEART: S1, S2. Regular rate and rhythm. ABDOMEN: Soft, no tenderness. Right heel wound is currently dressed up with no obvious drainage on the dressing. LABS: No new labs been obtained today. DIAGNOSTIC IMPRESSION AND PLAN: 1. Patient admitted to the hospital with mental status changes which is likely multifactorial with concern for possible urinary tract infection. Urine shows Enterococcus faecalis that is sensitive to penicillin, however, the patient ALLERGIC TO PENICILLIN. The GREGG to Vanco was high. Currently on daptomycin, which will be continued to finish a course of therapy. 2. Right heel wound. Local wound care with Aquacel Silver dressing. Continue supportive care. MMODL / IJN: [id number] /
[2018-01-21] MEDS: ACETAMINOPHEN TAB 325 MG TAB PO PRN (17:29)
[2018-01-21 17:53] LABS: Glucose,Whole Blood 105 mg/dL (75-99)
[2018-01-21 21:13] LABS: Glucose,Whole Blood 167 mg/dL (75-99)
[2018-01-21] MEDS: CLOPIDOGREL 75 MG TAB PO SCH (21:46)
[2018-01-21] MEDS: MEGESTROL 400 MG/10 ML CUP PO SCH (21:46)
[2018-01-22] MEDS: HEPARIN SODIUM,PORCINE 5,000 UNIT/ML 1 ML VIAL SQ SCH ×3 (00:03→16:16)
[2018-01-22] MEDS: LEVOTHYROXINE 125 MCG TAB PO SCH (06:51)
[2018-01-22 07:32] LABS: Glucose,Whole Blood 259 mg/dL (75-99)
[2018-01-22] MEDS: levETIRAcetam 500 MG TAB PO SCH ×2 (08:33→20:40)
[2018-01-22] MEDS: METOPROLOL TARTRATE 12.5 MG TAB PO SCH ×2 (08:33→20:41)
[2018-01-22] MEDS: LISINOPRIL 20 MG TAB PO SCH (08:33)
[2018-01-22] MEDS: MAGNESIUM OXIDE 400 MG TAB PO SCH ×3 (08:33→20:40)
[2018-01-22] MEDS: CHOLECALCIFEROL 1,000 UNIT TAB PO SCH ×2 (08:33→08:41)
[2018-01-22] MEDS: CYANOCOBALAMIN 500 MCG TAB PO SCH ×2 (08:34→08:41)
[2018-01-22] MEDS: FAMOTIDINE 20 MG TAB PO SCH ×3 (08:34→20:40)
[2018-01-22] MEDS: FERROUS SULFATE 325 MG TAB PO SCH ×3 (08:34→20:41)
[2018-01-22] MEDS: INSULIN ASPART 100 UNIT/ML 1 ML 10 ML VIAL SQ SCH ×3 (08:34→17:26)
[2018-01-22] MEDS: VENLAFAXINE HCL 75 MG TAB PO SCH (08:34)
[2018-01-22] MEDS: AMMONIUM LACTATE 12% LOTION 225 GM BTL TOPICAL SCH ×2 (08:35→20:42)
[2018-01-22] MEDS: BISACODYL 5 MG TABLET.DR PO SCH (08:40)
[2018-01-22 11:38] LABS: Glucose,Whole Blood 244 mg/dL (75-99)
--- NOTE | 2018-01-22 12:30 | P.PN ---
Subjective Progress Note Date: 01/22/18 This is a 77-year-old female patient of Dr. 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 Patient recently had a fall for which she sustained a fracture to the right wrist and she was treated at [facility]. Patient was transferred to the [facility] where she had the largest mass resected. Patient was also worked up and found to have a nodule in her lungs but she has no symptoms according to her . She denies any cough. There is also a liver mass as well. Once patient completed treatment at the [facility], she was transferred to [facility] for rehab. She was discharged from there last Thursday, November 04. Patient was then hospitalized November 10 through November 12 [facility] which time she was treated for metabolic encephalopathy thought to be due to steroids and hyperglycemia. She was also treated for urinary tract infection. Patient was discharged home with VNA. Per patient's , she completed her last radiation treatment on her brain on November 16 which was a total of 5. She has followed up with Dr. Sánchez and underwent a PET scan that he states was clean except for the lung mass which is 2 cm and no change. She is due to start radiation on her lung and this will last for 4-5 treatments. She was recently decreased from dexamethasone of 4 mg twice daily to 6 mg once daily. He states that her mental status has been gradually worsening. She has tired and sleeps all the time. He does state that she has had some hallucinations and symptoms have been more so last few days. She has only been drinking about 30 ounces per day but her appetite has been good and eating well. At home she is only able to transfer from bed to wheelchair and a chair. Prior to that she was ambulating with walker and home physical therapy. Patient has a follow-up appointment with Dr. Smith tomorrow. Patient was hospitalized at [facility] about a month ago for what appears to be UTI with severe encephalopathy and she was sent to [facility] for physical therapy rehabilitation, and the patient has been suffering from recurrent urinary tract infection on and off and she was sent today from [facility] [place] the [place] by Dr. Tenorio because of urinary tract infection that is not able to be controlled as an outpatient. Subsequently patient was admitted to the hospital she was found to have a significant UTI she was given IV antibiotic in the form of Rocephin 1 g IV piggyback every 24 hours, infectious disease consultation was obtained from Dr. Schumacher. 01/17: Patient is laying down in bed she appears to be quite slow her was at the bedside, she appears to be staring at os rule out any petit mal seizure, patient was found to be somewhat hypothyroid, we will increase her Synthroid to 125 g orally once every day, we will obtain infectious disease consultation from Dr. Celestin per the family wishes, continue IV fluid at 100 mL an hour, continue Rocephin 1 g IV piggyback every 24 hours, await the final result of the blood culture as well as the urine culture. 01/18: Patient's mental status is slowly improving but she is not back to baseline. She is more awake but she is moaning. Healed wound that is being addressed. PT and OT added. Keppra level is currently pending. EEG is pending. Urine culture is group D enterococcus and patient has history of VRE. Antibiotics changed to daptomycin. Blood culture is showing no growth. Patient will need IV access for IV antibiotics at the [facility]. 01/19:Patient is much quieter and not moaning today. Lac-hydrin added for legs and wound care orders placed for Aquacel Ag to right heel and waffle boots. Anticipate discharge back to [facility] by the end of the week. Awaiting midline placement. EEG showed slowing of the background activity and no seizure activity. 01/20: Patient remains quite lethargic. According to nursing, patient was up screaming through the night. Nursing was able to get medications in her this morning. Midline was unsuccessful and PICC line is ordered. CAT scan of brain ordered that revealed age-related atrophy and chronic small vessel ischemic change without acute intracranial process. Postop changes redemonstrated. Keppra level is 14 within normal limits. 01/21: Patient is sitting up in bed. She is more alert and answers questions. She opens her eyes easily to verbal stimuli. PICC line placement is to occur today. From Dr. Schumacher note from yesterday, patient is to complete 10 more days of daptomycin. [facility] has been updated with anticipated discharge tomorrow. 01/22: Scott patient no CODE STATUS yesterday. Patient is yelling out whenever family/ is not at the bedside. Patient is eating very little. She states she wants to go back to the halfway. was like us to keep her longer to make sure that she is eating better. Seroquel added at 12.5 mg at bedtime. Objective - Vital Signs Vital signs: Vital Signs Temp 97.9 F 01/21/18 23:00 Pulse 109 H 01/21/18 23:00 Resp 16 01/21/18 23:00 BP 147/75 01/21/18 23:00 Pulse Ox 98 01/21/18 23:00 Intake & Output 01/21/18 01/22/18 01/22/18 18:59 06:59 18:59 Weight 84.55 kg Other: Voiding Method Incontinent Incontinent # Voids 2 2 # Bowel Movements 1 1 - Exam General appearance: average body habitus, no acute distress - EENT Eyes: anicteric sclerae, EOMI, PERRLA, no ptosis, no scleral icterus, normal appearance ENT: hearing grossly normal, NA/AT, normal oropharynx, no thrush Ears: bilateral: normal - Neck Neck: no lymphadenopathy, normal ROM, no rigidity, no stridor, no thyromegaly Carotids: bilateral: upstroke delayed Thyroid: bilateral: normal size - Respiratory Respiratory: bilateral: diminished, negative: dullness, rales, rhonchi, wheezing , prolonged expiration - Cardiovascular Rhythm: regular Heart sounds: normal: S1, S2 Abnormal Heart Sounds: systolic murmur - Gastrointestinal General gastrointestinal: normal bowel sounds, soft, no splenomegaly, no tenderness - Integumentary Integumentary: ulcer (right heel stage 3 ulcer with an eschar in the middle.) - Neurologic Neurologic: CNII-XII intact - Musculoskeletal Musculoskeletal: generalized weakness - Psychiatric Psychiatric: A&O x's 1, no intact judgment & insight - Labs CBC & Chem 7: 01/18/18 07:26 01/18/18 07:26 Labs: Abnormal Lab Results - Last 24 Hours (Table) 01/21/18 01/21/18 01/21/18 Range/Units 11:25 17:33 21:11 POC Glucose (mg/dL) 216 H 105 H 167 H (75-99) mg/dL 01/22/18 Range/Units 07:27 POC Glucose (mg/dL) 259 H (75-99) mg/dL Microbiology - Last 24 Hours (Table) 01/16/18 14:22 Blood Culture - Preliminary Blood No Growth after 120 hours Assessment and Plan Plan: 1. Metabolic encephalopathy secondary to enterococcus urinary tract infection and possible sepsis. Continue daptomycin completed on January 30. Patient followed by Dr. Schumacher. 2. Brain metastases with primary lung status post tumor resection. Patient follows with Dr. Smith and Dr. Sánchez. Continue Keppra. EEG and Keppra level above. Seroquel added. 4. Diabetes mellitus type 2. Patient will be continued on NovoLog scale, Victoza which is not available here. 5. History of CAD with prior PCI. Continue Lopressor 12.5 mg twice daily, Plavix 75 mg daily. 6. Hypertension. Continue lisinopril 10 mg daily, metoprolol tartrate 12.5 mg twice daily. 7. Hypothyroidism. Continue levothyroxine 125 g orally once every day. 8. Chronic kidney disease stage III. Baseline creatinine is about 1.2. 10. Gastrointestinal prophylaxis. Pepcid. 11. DVT prophylaxis. Lovenox daily. 12. Recurrent depression. Continue Effexor 75 mg at bedtime. 13. Anemia of chronic disease. Continue ferrous sulfate 325 mg twice daily. 14. Right heel ulcer. see wound care . 15. Staring episodes and possible petit mal seizure. This is could be related to hypothyroidism, adjust her Synthroid, monitor the patient very closely. EEG as above. Keppra level 14 within normal limits. Discharge plan: Return to [facility] on Thursday Impression and plan of care have been directed as dictated by the signing physician. Myesha Wynne nurse practitioner acting as scribe for signing physician.
--- NOTE | 2018-01-22 17:05 | PN ---
PROGRESS NOTE DATE OF SERVICE: 01/22/2018 REASON FOR FOLLOWUP: 1. Enterococcus faecalis urinary tract infection. 2. Right heel wound. INTERVAL HISTORY: The patient has been afebrile. Last temperature recorded was 100.1 on 01/17. The patient is more awake, alert, but remains pleasantly confused. No agitation has been noticed. She denies any chest pain, abdominal pain or pain to the right heel wound area. A family member present at the bedside did mention she would not eat her lunch. PHYSICAL EXAMINATION: Blood pressure 167/79 with a pulse of 104, temperature of 97.9. She is 97% on room air. General description is an elderly female lying in bed in no distress. RESPIRATORY SYSTEM: Unlabored breathing. Clear to auscultation anteriorly. HEART: S1, S2. Regular rate and rhythm. ABDOMEN: Soft. No tenderness. Right heel wound is currently dressed up. No obvious drainage on the dressing. LABS: No new labs have been obtained today. DIAGNOSTIC IMPRESSION AND PLAN: 1. Patient with Enterococcus faecalis urinary tract infection in a patient admitted to hospital with confusion which is likely multifactorial. The patient is on adequate antibiotic therapy for her underlying UTI and that should be continued through IV to finish a course of therapy in view of her PENICILLIN ALLERGY and high risk of nephrotoxicity from vancomycin; high GREGG for the vancomycin. 2. Right heel wound. Local wound care with Aquacel Silver dressing. Keep the area off the pressure. MMODL / IJN: [id number] /
[2018-01-22 17:14] LABS: Glucose,Whole Blood 116 mg/dL (75-99)
[2018-01-22 20:25] LABS: Glucose,Whole Blood 169 mg/dL (75-99)
[2018-01-22] MEDS: CLOPIDOGREL 75 MG TAB PO SCH (20:40)
[2018-01-22] MEDS: MEGESTROL 400 MG/10 ML CUP PO SCH (20:41)
[2018-01-22] MEDS ORDERED: QUEtiapine 25 MG TAB PO SCH (21:00)
[2018-01-23] MEDS: HEPARIN SODIUM,PORCINE 5,000 UNIT/ML 1 ML VIAL SQ SCH ×3 (01:06→16:51)
[2018-01-23] MEDS: hydrALAZINE HCL 20 MG/ML 1 ML VIAL IVP PRN ×2 (01:09→06:02)
[2018-01-23] MEDS: LEVOTHYROXINE 125 MCG TAB PO SCH (06:33)
[2018-01-23 07:34] LABS: Glucose,Whole Blood 241 mg/dL (75-99)
[2018-01-23 08:41] LABS: HCT 32.4 % (34.0-46.0); HGB 10.1 gm/dL (11.4-16.0); Hypochromasia Slight; MCH 31.5 pg (25.0-35.0); MCHC 31.3 g/dL (31.0-37.0); MCV 100.6 fL (80.0-100.0); Macrocytosis Slight; Mean Platelet Volume 6.5; Platelet Count 423 k/uL (150-450); RBC 3.22 m/uL (3.80-5.40); RDW 15.4 % (11.5-15.5); WBC 9.9 k/uL (3.8-10.6)
[2018-01-23] MEDS: FERROUS SULFATE 325 MG TAB PO SCH ×3 (08:48→20:27)
[2018-01-23] MEDS: CHOLECALCIFEROL 1,000 UNIT TAB PO SCH ×2 (08:48→09:23)
[2018-01-23] MEDS: CYANOCOBALAMIN 500 MCG TAB PO SCH ×2 (08:48→09:23)
[2018-01-23] MEDS: levETIRAcetam 500 MG TAB PO SCH ×3 (08:48→20:17)
[2018-01-23] MEDS: FAMOTIDINE 20 MG TAB PO SCH ×3 (08:48→20:19)
[2018-01-23] MEDS: LISINOPRIL 20 MG TAB PO SCH ×2 (08:49→09:22)
[2018-01-23] MEDS: MAGNESIUM OXIDE 400 MG TAB PO SCH ×3 (08:49→20:19)
[2018-01-23] MEDS: VENLAFAXINE HCL 75 MG TAB PO SCH ×2 (08:49→09:23)
[2018-01-23] MEDS: METOPROLOL TARTRATE 12.5 MG TAB PO SCH ×3 (08:49→20:18)
[2018-01-23] MEDS: INSULIN ASPART 100 UNIT/ML 1 ML 10 ML VIAL SQ SCH ×3 (08:52→17:46)
[2018-01-23] MEDS: BISACODYL 5 MG TABLET.DR PO SCH ×2 (08:52→09:23)
[2018-01-23] MEDS: AMMONIUM LACTATE 12% LOTION 225 GM BTL TOPICAL SCH ×2 (08:54→20:20)
[2018-01-23 09:02] LABS: ALT 25 U/L (9-52); AST 17 U/L (14-36); Albumin 2.3 g/dL (3.5-5.0); Alkaline Phosphatase 85 U/L (38-126); Anion Gap 12 mmol/L; Blood Urea Nitrogen 11 mg/dL (7-17); Carbon Dioxide 17 mmol/L (22-30); Chloride 109 mmol/L (98-107); Glucose 238 mg/dL (74-99); Potassium 3.5 mmol/L (3.5-5.1); Sodium 138 mmol/L (137-145); Total Bilirubin 0.5 mg/dL (0.2-1.3); Total Protein 5.1 g/dL (6.3-8.2)
[2018-01-23 12:13] LABS: Glucose,Whole Blood 224 mg/dL (75-99)
--- NOTE | 2018-01-23 16:04 | MR ---
EXAMINATION TYPE: MR brain wo/w con DATE OF EXAM: 01/23/2018 COMPARISON: CT brain 01/20/2018 HISTORY: Lung ca with brain mets, mental status changes TECHNIQUE: Multiplanar, multisequence images of the brain and brainstem is performed without and with IV contras t, utilizing 8 mL intravenous Gadavist . Fast brain protocol was utilized due to patient condition FINDINGS: Diffusion weighted images demonstrate no evidence of a recent infarct. There are masses pre sent 1 at the level of the temporal lobe laterally measuring approximately 1.5 x 1.6 x 1.4 cm which s hows ring enhancement, the second is posteriorly in the left parietal lobe, axial image 22 and measur ing approximately 6 to 7 mm again with ring enhancement towards convexity. Encephalomalacia is noted corresponding to CT finding at the posterior left parietal lobe. Periventricular white matter shows p atchy confluent and scattered hyperintensities compatible with chronic small vessel ischemia as well as vasogenic edema in the white matter of the right temporal lobe which is asymmetric. Postop changes are noted. Corpus callosum, pituitary, cervical medullary junction, cerebellopontine angles are with in normal limits. No evident hemorrhage. There is dural enhancement. The orbits show symmetric appearance. There is cortical atrophy. No evide nt hydrocephalus. IMPRESSION: Metastatic disease is suspected.
[2018-01-23] MEDS: SODIUM BICARBONATE TAB 650 MG TAB PO SCH ×2 (16:19→20:27)
[2018-01-23 17:21] LABS: Glucose,Whole Blood 159 mg/dL (75-99)
--- NOTE | 2018-01-23 18:30 | P.PN ---
Subjective Progress Note Date: 01/23/18 This is a 77-year-old female patient of Dr. 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 Patient recently had a fall for which she sustained a fracture to the right wrist and she was treated at [facility]. Patient was transferred to the [facility] where she had the largest mass resected. Patient was also worked up and found to have a nodule in her lungs but she has no symptoms according to her . She denies any cough. There is also a liver mass as well. Once patient completed treatment at the [facility], she was transferred to [facility] for rehab. She was discharged from there last Thursday, November 04. Patient was then hospitalized November 10 through November 12 [facility] which time she was treated for metabolic encephalopathy thought to be due to steroids and hyperglycemia. She was also treated for urinary tract infection. Patient was discharged home with VNA. Per patient's , she completed her last radiation treatment on her brain on November 16 which was a total of 5. She has followed up with Dr. Sánchez and underwent a PET scan that he states was clean except for the lung mass which is 2 cm and no change. She is due to start radiation on her lung and this will last for 4-5 treatments. She was recently decreased from dexamethasone of 4 mg twice daily to 6 mg once daily. He states that her mental status has been gradually worsening. She has tired and sleeps all the time. He does state that she has had some hallucinations and symptoms have been more so last few days. She has only been drinking about 30 ounces per day but her appetite has been good and eating well. At home she is only able to transfer from bed to wheelchair and a chair. Prior to that she was ambulating with walker and home physical therapy. Patient has a follow-up appointment with Dr. Smith tomorrow. Patient was hospitalized at [facility] about a month ago for what appears to be UTI with severe encephalopathy and she was sent to [facility] for physical therapy rehabilitation, and the patient has been suffering from recurrent urinary tract infection on and off and she was sent today from [facility] [place] by Dr. Tenorio because of urinary tract infection that is not able to be controlled as an outpatient. Subsequently patient was admitted to the hospital she was found to have a significant UTI she was given IV antibiotic in the form of Rocephin 1 g IV piggyback every 24 hours, infectious disease consultation was obtained from Dr. Schumacher. 01/17: Patient is laying down in bed she appears to be quite slow her was at the bedside, she appears to be staring at os rule out any petit mal seizure, patient was found to be somewhat hypothyroid, we will increase her Synthroid to 125 g orally once every day, we will obtain infectious disease consultation from Dr. Celestin per the family wishes, continue IV fluid at 100 mL an hour, continue Rocephin 1 g IV piggyback every 24 hours, await the final result of the blood culture as well as the urine culture. 01/18: Patient's mental status is slowly improving but she is not back to baseline. She is more awake but she is moaning. Healed wound that is being addressed. PT and OT added. Keppra level is currently pending. EEG is pending. Urine culture is group D enterococcus and patient has history of VRE. Antibiotics changed to daptomycin. Blood culture is showing no growth. Patient will need IV access for IV antibiotics at the half-way. 01/19:Patient is much quieter and not moaning today. Lac-hydrin added for legs and wound care orders placed for Aquacel Ag to right heel and waffle boots. Anticipate discharge back to [facility] by the end of the week. Awaiting midline placement. EEG showed slowing of the background activity and no seizure activity. 01/20: Patient remains quite lethargic. According to nursing, patient was up screaming through the night. Nursing was able to get medications in her this morning. Midline was unsuccessful and PICC line is ordered. CAT scan of brain ordered that revealed age-related atrophy and chronic small vessel ischemic change without acute intracranial process. Postop changes redemonstrated. Keppra level is 14 within normal limits. 01/21: Patient is sitting up in bed. She is more alert and answers questions. She opens her eyes easily to verbal stimuli. PICC line placement is to occur today. From Dr. Schumacher note from yesterday, patient is to complete 10 more days of daptomycin. [facility] has been updated with anticipated discharge tomorrow. 01/22: Scott patient no CODE STATUS yesterday. Patient is yelling out whenever family/ is not at the bedside. Patient is eating very little. She states she wants to go back to the half-way. was like us to keep her longer to make sure that she is eating better. Seroquel added at 12.5 mg at bedtime. 01/23: Patient is hypersomnolent when seen today, patient did not recognize me at all as his PCP, patient cannot recognize friends is visiting, patient has known history of sleep apnea however noncompliant to the machine, there is no hypercarbia noted, patient has metabolic acidosis, serum ammonia will be obtained, requesting an MRI of the brain along with neurology consultation, Dr. Drake she is followed closely by the radiation oncology with recent completion of brain radiation. Underlying seizures cannot be ruled out, patient currently is on Keppra for suspected partial seizures Objective - Vital Signs Vital signs: Vital Signs Temp 99.4 F 01/23/18 06:32 Pulse 103 H 01/23/18 09:09 Resp 16 01/23/18 08:00 BP 150/69 01/23/18 09:09 Pulse Ox 94 L 01/23/18 06:32 Intake & Output 01/22/18 01/23/18 01/23/18 18:59 06:59 18:59 Intake Total 0 0 Balance 0 0 Intake: Oral 0 0 Other: Voiding Method Incontinent Incontinent # Voids 0 3 # Bowel Movements 0 0 - Constitutional General appearance: Present: cooperative (hypersomnia) - EENT Eyes: Present: anicteric sclerae, EOMI, PERRLA, normal appearance - Neck Thyroid: bilateral: normal size - Respiratory Respiratory: bilateral: CTA, negative: diminished, dullness, rales - Cardiovascular Rhythm: regular Heart sounds: normal: S1, S2 Abnormal Heart Sounds: Absent: systolic murmur, diastolic murmur, rub, S3 Gallop , S4 Gallop, click, other - Gastrointestinal General gastrointestinal: Present: normal bowel sounds, soft - Integumentary Integumentary: Present: normal, normal turgor - Neurologic Neurologic: Present: CNII-XII intact - Musculoskeletal Musculoskeletal: Present: generalized weakness, strength equal bilaterally - Labs CBC & Chem 7: 01/23/18 07:37 01/23/18 07:37 Labs: Abnormal Lab Results - Last 24 Hours (Table) 01/22/18 01/22/18 01/23/18 Range/Units 17:08 20:23 07:31 RBC (3.80-5.40) m/uL Hgb (11.4-16.0) gm/dL Hct (34.0-46.0) % MCV (80.0-100.0) fL Chloride (98-107) mmol/L Carbon Dioxide (22-30) mmol/L Glucose (74-99) mg/dL POC Glucose (mg/dL) 116 H 169 H 241 H (75-99) mg/dL Calcium (8.4-10.2) mg/dL Total Protein (6.3-8.2) g/dL Albumin (3.5-5.0) g/dL 01/23/18 01/23/18 01/23/18 Range/Units 07:37 07:37 11:56 RBC 3.22 L (3.80-5.40) m/uL Hgb 10.1 L (11.4-16.0) gm/dL Hct 32.4 L (34.0-46.0) % MCV 100.6 H (80.0-100.0) fL Chloride 109 H (98-107) mmol/L Carbon Dioxide 17 L (22-30) mmol/L Glucose 238 H (74-99) mg/dL POC Glucose (mg/dL) 224 H (75-99) mg/dL Calcium 8.0 L (8.4-10.2) mg/dL Total Protein 5.1 L (6.3-8.2) g/dL Albumin 2.3 L (3.5-5.0) g/dL Microbiology - Last 24 Hours (Table) 01/16/18 14:22 Blood Culture - Final Blood No Growth after 144 hours Assessment and Plan Plan: 1. Metabolic encephalopathy secondary to enterococcus urinary tract infection and possible sepsis this was sensitive to Levaquin which was given prior to her admission however patient continues to have mental status changes. Continue daptomycin completed on January 30. Patient followed by Dr. Schumacher. Consult with Dr. Shorey to neurology, ammonia levels to be done, MRI of the brain to be done to evaluate brain metastases, recent completion of aviation treatment to light 20 09/18/2017 2. Brain metastases with primary lung status post tumor resection. Patient follows with Dr. Smith and Dr. Sánchez. Continue Keppra. EEG and Keppra level above. Seroquel added. 4. Diabetes mellitus type 2. Patient will be continued on NovoLog scale, Victoza which is not available here. 5. History of CAD with prior PCI. Continue Lopressor 12.5 mg twice daily, Plavix 75 mg daily. 6. Hypertension. Continue lisinopril 10 mg daily, metoprolol tartrate 12.5 mg twice daily. 7. Hypothyroidism. Continue levothyroxine 125 g orally once every day. 8. Chronic kidney disease stage III. Baseline creatinine is about 1.2. 10. Gastrointestinal prophylaxis. Pepcid. 11. DVT prophylaxis. Lovenox daily. 12. Recurrent depression. Continue Effexor 75 mg at bedtime. 13. Anemia of chronic disease. Continue ferrous sulfate 325 mg twice daily. 14. Right heel ulcer. see wound care . 15. Staring episodes and possible petit mal seizure. This is could be related to hypothyroidism, adjust her Synthroid, monitor the patient very closely. EEG as above. Keppra level 14 within normal limits. 16. Hypersomnia, persistent, known history of sleep apnea, noncompliance to its use over 10 years for diagnosis, right need low-dose stimulants like methylphenidate 10 mg twice a day should hypersomnia persist. Ammonia levels to be done, doubt hypercarbic respiratory failure as the patient has metabolic acidosis rather than alkalosis 17. New Metabolic acidosis, sodium bicarb orally to be provided, 2 doses continue to monitor 18. Vasogenic edema right temporal lobe based on MRI findings on 01/23/2018, no hydrocephalus dexamethasone to be started IV 6 mg every 6 hours[address]'ll consult Dr. Smith radiation oncology
[2018-01-23] MEDS: DEXAMETHASONE SOD PHOSPHATE 10 MG/ML 1 ML VIAL IV SCH (19:53)
[2018-01-23] MEDS: QUEtiapine 25 MG TAB PO SCH (20:00)
[2018-01-23] MEDS: MEGESTROL 400 MG/10 ML CUP PO SCH (20:03)
[2018-01-23] MEDS: CLOPIDOGREL 75 MG TAB PO SCH (20:19)
[2018-01-23 20:29] LABS: Glucose,Whole Blood 89 mg/dL (75-99)
[2018-01-24] MEDS: DEXAMETHASONE SOD PHOSPHATE 10 MG/ML 1 ML VIAL IV SCH ×4 (01:04→17:13)
[2018-01-24] MEDS: HEPARIN SODIUM,PORCINE 5,000 UNIT/ML 1 ML VIAL SQ SCH ×3 (01:08→16:54)
[2018-01-24] MEDS: LEVOTHYROXINE 125 MCG TAB PO SCH (06:49)
[2018-01-24 07:22] LABS: Glucose,Whole Blood 315 mg/dL (75-99)
[2018-01-24] MEDS: ACETAMINOPHEN TAB 325 MG TAB PO PRN ×2 (08:07→21:32)
[2018-01-24] MEDS: FAMOTIDINE 20 MG TAB PO SCH ×3 (08:08→20:54)
[2018-01-24] MEDS: MAGNESIUM OXIDE 400 MG TAB PO SCH ×4 (08:08→23:45)
[2018-01-24] MEDS: METOPROLOL TARTRATE 12.5 MG TAB PO SCH ×2 (08:08→20:54)
[2018-01-24] MEDS: CYANOCOBALAMIN 500 MCG TAB PO SCH ×2 (08:08→12:59)
[2018-01-24] MEDS: CHOLECALCIFEROL 1,000 UNIT TAB PO SCH ×2 (08:08→12:59)
[2018-01-24] MEDS: levETIRAcetam 500 MG TAB PO SCH ×2 (08:08→20:54)
[2018-01-24] MEDS: FERROUS SULFATE 325 MG TAB PO SCH ×4 (08:08→23:44)
[2018-01-24] MEDS: VENLAFAXINE HCL 75 MG TAB PO SCH (08:09)
[2018-01-24] MEDS: AMMONIUM LACTATE 12% LOTION 225 GM BTL TOPICAL SCH ×2 (08:09→20:55)
[2018-01-24] MEDS: LISINOPRIL 20 MG TAB PO SCH (08:09)
[2018-01-24] MEDS: BISACODYL 5 MG TABLET.DR PO SCH ×2 (08:09→12:59)
[2018-01-24] MEDS: INSULIN ASPART 100 UNIT/ML 1 ML 10 ML VIAL SQ SCH ×5 (08:13→22:04)
[2018-01-24 09:41] LABS: Basophils % (A) 0 %; Eosinophils % (A) 0 %; HCT 34.7 % (34.0-46.0); HGB 10.7 gm/dL (11.4-16.0); Hypochromasia Slight; Lymphocytes # (A) 0.7 k/uL (1.0-4.8); Lymphocytes % (A) 9 %; MCH 31.1 pg (25.0-35.0); MCHC 30.9 g/dL (31.0-37.0); MCV 100.6 fL (80.0-100.0); Macrocytosis Slight; Mean Platelet Volume 6.9; Monocytes # (A) 0.2 k/uL (0-1.0); Monocytes % (A) 2 %; Neutrophils # (A) 6.8 k/uL (1.3-7.7); Neutrophils % (A) 88 %; Platelet Count 461 k/uL (150-450); RBC 3.45 m/uL (3.80-5.40); RDW 15.2 % (11.5-15.5); WBC 7.7 k/uL (3.8-10.6)
[2018-01-24 10:03] LABS: Calcium 8.2 mg/dL (8.4-10.2)
[2018-01-24 11:56] LABS: Glucose,Whole Blood 301 mg/dL (75-99)
[2018-01-24] MEDS: hydrALAZINE HCL 20 MG/ML 1 ML VIAL IVP PRN (12:53)
[2018-01-24] MEDS ORDERED: HALOPERIDOL LACTATE 5 MG/ML 1 ML VIAL IM STA (13:29)
[2018-01-24] MEDS: SODIUM CHLORIDE 0.9% 1,000 ML IV SCH (13:44)
--- NOTE | 2018-01-24 15:32 | P.PN ---
Subjective This is a 77-year-old female patient of Dr. 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 Patient recently had a fall for which she sustained a fracture to the right wrist and she was treated at [facility]. Patient was transferred to the [facility] where she had the largest mass resected. Patient was also worked up and found to have a nodule in her lungs but she has no symptoms according to her . She denies any cough. There is also a liver mass as well. Once patient completed treatment at the [facility], she was transferred to [facility] for rehab. She was discharged from there last Thursday, November 04. Patient was then hospitalized November 10 through November 12 [facility] which time she was treated for metabolic encephalopathy thought to be due to steroids and hyperglycemia. She was also treated for urinary tract infection. Patient was discharged home with VNA. Per patient's , she completed her last radiation treatment on her brain on November 16 which was a total of 5. She has followed up with Dr. Sánchez and underwent a PET scan that he states was clean except for the lung mass which is 2 cm and no change. She is due to start radiation on her lung and this will last for 4-5 treatments. She was recently decreased from dexamethasone of 4 mg twice daily to 6 mg once daily. He states that her mental status has been gradually worsening. She has tired and sleeps all the time. He does state that she has had some hallucinations and symptoms have been more so last few days. She has only been drinking about 30 ounces per day but her appetite has been good and eating well. At home she is only able to transfer from bed to wheelchair and a chair. Prior to that she was ambulating with walker and home physical therapy. Patient has a follow-up appointment with Dr. Smith tomorrow. Patient was hospitalized at [facility] about a month ago for what appears to be UTI with severe encephalopathy and she was sent to [facility] for physical therapy rehabilitation, and the patient has been suffering from recurrent urinary tract infection on and off and she was sent today from [facility] on [facility] by Dr. Tenorio because of urinary tract infection that is not able to be controlled as an outpatient. Subsequently patient was admitted to the hospital she was found to have a significant UTI she was given IV antibiotic in the form of Rocephin 1 g IV piggyback every 24 hours, infectious disease consultation was obtained from Dr. Schumacher. 01/17: Patient is laying down in bed she appears to be quite slow her was at the bedside, she appears to be staring at os rule out any petit mal seizure, patient was found to be somewhat hypothyroid, we will increase her Synthroid to 125 g orally once every day, we will obtain infectious disease consultation from Dr. Celestin per the family wishes, continue IV fluid at 100 mL an hour, continue Rocephin 1 g IV piggyback every 24 hours, await the final result of the blood culture as well as the urine culture. 01/18: Patient's mental status is slowly improving but she is not back to baseline. She is more awake but she is moaning. Healed wound that is being addressed. PT and OT added. Keppra level is currently pending. EEG is pending. Urine culture is group D enterococcus and patient has history of VRE. Antibiotics changed to daptomycin. Blood culture is showing no growth. Patient will need IV access for IV antibiotics at the alf. 01/19:Patient is much quieter and not moaning today. Lac-hydrin added for legs and wound care orders placed for Aquacel Ag to right heel and waffle boots. Anticipate discharge back to [facility] by the end of the week. Awaiting midline placement. EEG showed slowing of the background activity and no seizure activity. 01/20: Patient remains quite lethargic. According to nursing, patient was up screaming through the night. Nursing was able to get medications in her this morning. Midline was unsuccessful and PICC line is ordered. CAT scan of brain ordered that revealed age-related atrophy and chronic small vessel ischemic change without acute intracranial process. Postop changes redemonstrated. Keppra level is 14 within normal limits. 01/21: Patient is sitting up in bed. She is more alert and answers questions. She opens her eyes easily to verbal stimuli. PICC line placement is to occur today. From Dr. Schumacher note from yesterday, patient is to complete 10 more days of daptomycin. [facility] has been updated with anticipated discharge tomorrow. 01/22: Scott patient no CODE STATUS yesterday. Patient is yelling out whenever family/ is not at the bedside. Patient is eating very little. She states she wants to go back to the alf. was like us to keep her longer to make sure that she is eating better. Seroquel added at 12.5 mg at bedtime. 01/23: Patient is hypersomnolent when seen today, patient did not recognize me at all as his PCP, patient cannot recognize friends is visiting, patient has known history of sleep apnea however noncompliant to the machine, there is no hypercarbia noted, patient has metabolic acidosis, serum ammonia will be obtained, requesting an MRI of the brain along with neurology consultation, Dr. Ruano she is followed closely by the radiation oncology with recent completion of brain radiation. Underlying seizures cannot be ruled out, patient currently is on Keppra for suspected partial seizures 01/25: MRI of the brain showing no evidence of recent infarct, lesions at the left temporal lobe 1.5 x 1.6 x 1.4 cm, left parietal lobe the 6-7 mm, with ring enhancement of both, encephalomalacia, right temporal lobe lesion genic edema which is asymmetric. Patient is really aggressive today screaming for help, different behavior compared to yesterday, patient cannot quantify or clarify what can help she needs she denies any pain, no lightheadedness and dizziness, patient is very irritable today, she was started on IV dexamethasone yesterday for vasogenic edema, awaiting neurology consultation which white cell, and Dr. Smith consultation radiation oncology. Patient was started on BuSpar 5Milligrams 3 times a day, one time dose of Haldol given today, keep Seroquel 12.5 dinner time . Patient is not eating, IV fluid has been restarted, patient is not drinking. Objective - Vital Signs Vital signs: Vital Signs Temp 99.9 F H 01/24/18 07:00 Pulse 101 H 01/24/18 07:00 Resp 20 01/24/18 15:01 BP 188/88 01/24/18 12:54 Pulse Ox 95 01/24/18 07:00 Intake & Output 01/23/18 01/24/18 01/24/18 18:59 06:59 18:59 Intake Total 0 0 Balance 0 0 Intake: Oral 0 0 Other: Voiding Method Incontinent Incontinent Incontinent # Voids 1 1 # Bowel Movements 1 0 - Constitutional General appearance: Present: cooperative, no acute distress - EENT Eyes: Present: anicteric sclerae, EOMI, PERRLA, dentition normal, normal appearance ENT: Present: NA/AT, normal oropharynx - Respiratory Respiratory: bilateral: CTA - Cardiovascular Rhythm: regular Heart sounds: normal: S1, S2 Abnormal Heart Sounds: Absent: systolic murmur, diastolic murmur, rub, S3 Gallop , S4 Gallop, click, other - Gastrointestinal General gastrointestinal: Present: normal bowel sounds, soft - Integumentary Integumentary: Present: decreased turgor, normal - Neurologic Neurologic: Present: CNII-XII intact - Musculoskeletal Musculoskeletal: Present: gait normal, strength equal bilaterally - Psychiatric Psychiatric Comment(s): Patient is aggressive, screaming at people, - Labs CBC & Chem 7: 01/24/18 08:52 01/24/18 08:52 Labs: Abnormal Lab Results - Last 24 Hours (Table) 01/23/18 01/24/18 01/24/18 Range/Units 17:13 07:08 08:52 RBC 3.45 L (3.80-5.40) m/uL Hgb 10.7 L (11.4-16.0) gm/dL MCV 100.6 H (80.0-100.0) fL MCHC 30.9 L (31.0-37.0) g/dL Plt Count 461 H (150-450) k/uL Lymphocytes # 0.7 L (1.0-4.8) k/uL Chloride (98-107) mmol/L Carbon Dioxide (22-30) mmol/L Glucose (74-99) mg/dL POC Glucose (mg/dL) 159 H 315 H (75-99) mg/dL Calcium (8.4-10.2) mg/dL 01/24/18 01/24/18 Range/Units 08:52 11:53 RBC (3.80-5.40) m/uL Hgb (11.4-16.0) gm/dL MCV (80.0-100.0) fL MCHC (31.0-37.0) g/dL Plt Count (150-450) k/uL Lymphocytes # (1.0-4.8) k/uL Chloride 108 H (98-107) mmol/L Carbon Dioxide 16 L (22-30) mmol/L Glucose 338 H (74-99) mg/dL POC Glucose (mg/dL) 301 H (75-99) mg/dL Calcium 8.2 L (8.4-10.2) mg/dL Assessment and Plan Plan: 1. Metabolic encephalopathy secondary to enterococcus urinary tract infection and possible sepsis this was sensitive to Levaquin which was given prior to her admission however patient continues to have mental status changes. Continue daptomycin completed on January 30. Patient followed by Dr. Schumacher. Consult with Dr. Ruano to neurology, ammonia levels , MRI of the brain showing 2 lesions left temporal and left parietal brain metastases, vasogenic edema right temporal, recent completion of radiation treatment to light 20 09/18/2017, iv dexamethasone 2. Left temporal lobe and left parietal lobe patient's consistent with Brain metastases with primary lung status post tumor resection. Vasogenic right temporal lobe edema. Patient follows with Dr. Smith and Dr. Sánchez. Continue Keppra. EEG and Keppra level above. Seroquel added. 4. Diabetes mellitus type 2. Patient will be continued on NovoLog scale, Victoza which is not available here. 5. History of CAD with prior PCI. Continue Lopressor 12.5 mg twice daily, Plavix 75 mg daily. 6. Hypertension. Continue lisinopril 10 mg daily, metoprolol tartrate 12.5 mg twice daily. 7. Hypothyroidism. Continue levothyroxine 125 g orally once every day. 8. Chronic kidney disease stage III. Baseline creatinine is about 1.2. 10. Gastrointestinal prophylaxis. Pepcid. 11. DVT prophylaxis. Lovenox daily. 12. Recurrent depression. Continue Effexor 75 mg at bedtime. 13. Anemia of chronic disease. Continue ferrous sulfate 325 mg twice daily. 14. Right heel ulcer. see wound care . 15. Staring episodes and possible petit mal seizure. This is could be related to hypothyroidism, adjust her Synthroid, monitor the patient very closely. EEG as above. Keppra level 14 within normal limits. 16. Hypersomnia, persistent, known history of sleep apnea, noncompliance to its use over 10 years for diagnosis, right need low-dose stimulants like methylphenidate 10 mg twice a day should hypersomnia persist. Ammonia levels to be done, doubt hypercarbic respiratory failure as the patient has metabolic acidosis rather than alkalosis 17. New Metabolic acidosis, sodium bicarb orally to be provided, 2 doses continue to monitor 18. Vasogenic edema right temporal lobe based on MRI findings on 01/23/2018, no hydrocephalus, dexamethasone IV 6 mg every 6 hours[address] We'll consult [address] Smith radiation oncology dr ruano neurology prognosis guarded
--- NOTE | 2018-01-24 16:44 | P.CNNES ---
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 Patient began having increased confusion after patient's dexamethasone was decreased. Patient had lethargy as well as new onset hallucinations. Primary team noted possible seizure which may or may not have been related to patient's Synthroid level. Patient was placed on Keppra by primary team and neurology consulted. patient does have significant complex medical history involving her cancer. Eye contact, patient was alert and oriented 3, unwilling to cooperate with provider. Review of Systems systems not noted in HPI are negative Past Medical History Past Medical History: Coronary Artery Disease (CAD), Cancer, Diabetes Mellitus, GERD/Reflux, Hypertension, Pneumonia, Renal Disease, Sleep Apnea/CPAP/BIPAP, Thyroid Disorder Additional Past Medical History / Comment(s): unable to tolerate CPAP, frequent urinary tract infections, diabetic neuropathy, diabetic retinopathy, "nervous bladder", chronic kidney disease stage III, hypothyroidism, osteoporosis, chronic pain, gout, BROKEN RT ARM-CURRENTLY CASTED. RECENT hx lung cancer/mets to brain.CANCEROUS BRAIN TUMOR REMOVED AT [facility] started RADIATION [place] on 11-09-17,completed(NO CHEMO) History of Any Multi-Drug Resistant Organisms: VRE Date of last positivie culture/infection: 11/11/17 MDRO Source:: VRE URINE Past Surgical History: Adenoidectomy, Section, Heart Catheterization With Stent, Orthopedic Surgery, Tonsillectomy Additional Past Surgical History / Comment(s): panniculectomy, ORIF right ankle , right ankle arthroplasty, polyp removed from uterus, 2 cardiac stents, bilateral cataract extraction and intraocular lens implants, pilonidal cyst, D& C. STENT TO LAD 03/18/17, CANCEROUS BRAIN TUMOR REMOVED Past Anesthesia/Blood Transfusion Reactions: No Reported Reaction Date of Last Stent Placement:: 2016 Past Psychological History: Depression Smoking Status: Former smoker Past Alcohol Use History: Rare Past Drug Use History: None Reported - Past Family History Daughter(s) Additional Family Medical History / Comment(s): Patient has 2 daughters with no major medical problems. Patient does not have any siblings. Father Additional Family Medical History / Comment(s): Father at age 65 with history of nasal cancer and throat masses that led to malnutrition and his . On autopsy throat masses were benign. Mother Family Medical History: Cancer Additional Family Medical History / Comment(s): Mother at age 67 from bladder cancer. Medications and Allergies Home Medications Medication Instructions Recorded Confirmed Type Cyanocobalamin [Vitamin B-12] 500 mcg PO DAILY 01/11/15 01/16/18 History Magnesium Oxide 400 mg PO BID 10/12/17 01/16/18 History Bisacodyl 5 mg PO DAILY 11/10/17 01/16/18 History Cholecalciferol [Vitamin D3] 1,000 unit PO DAILY 11/10/17 01/16/18 History Clopidogrel [Plavix] 75 mg PO HS 11/10/17 01/16/18 History Famotidine [Pepcid] 20 mg PO BID 11/10/17 01/16/18 History Ferrous Gluconate 324 mg PO BID 11/10/17 01/16/18 History INSULIN LISPRO (humaLOG) [humaLOG] 6 units SQ QAM 11/10/17 01/16/18 History Liraglutide [Victoza 2-Parker] 1.2 mg SQ DAILY 11/10/17 01/16/18 History Lisinopril [Zestril] 10 mg PO DAILY 11/10/17 01/16/18 History Sennosides [Senna] 8.6 mg PO BID PRN 11/10/17 01/16/18 History Venlafaxine HCl 75 mg PO DAILY 11/10/17 01/16/18 History levETIRAcetam [Keppra] 500 mg PO BID 11/10/17 01/16/18 History Levothyroxine Sodium 100 mcg PO DAILY #30 tablet 11/12/17 01/16/18 Rx Metoprolol Tartrate [Lopressor] 12.5 mg PO BID tab 12/14/17 01/16/18 Rx Acetaminophen Tab [Tylenol Tab] 650 mg PO Q4H PRN 01/16/18 01/16/18 History Collagenase [Santyl] 1 applic TOPICAL HS 01/16/18 01/16/18 History INSULIN LISPRO (HumaLOG) [HumaLOG] 10 unit SQ BID@1100,1700 01/16/18 01/16/18 History INSULIN LISPRO (HumaLOG) [HumaLOG] See Protocol SQ ACHS 01/16/18 01/16/18 History Megestrol Acetate 20 mg PO HS 01/16/18 01/16/18 History Melatonin 10 mg PO HS 01/16/18 01/16/18 History valACYclovir [Valtrex] 500 mg PO TID 01/16/18 01/16/18 History DAPTOmycin [Cubicin] 400 mg IVPB Q24HR #9 vial 01/21/18 Rx Allergies Allergy/AdvReac Type Severity Reaction Status Date / Time erythromycin base Allergy thrush Verified 01/16/18 14:35 meropenem [From Merrem] Allergy Rash/Hives Verified 01/16/18 14:35 Penicillins Allergy Unknown Verified 01/16/18 14:35 Physical Examination - Vital Signs Vital Signs: Vital Signs Temp Pulse Resp BP Pulse Ox 01/24/18 15:01 20 01/24/18 15:00 98.3 F 101 H 18 151/74 95 01/24/18 12:54 188/88 01/24/18 08:00 20 01/24/18 07:00 99.9 F H 101 H 20 164/80 95 01/23/18 23:00 98.7 F 110 H 20 178/97 91 L Intake and Output 01/24/18 01/24/18 01/24/18 06:59 14:59 22:59 Intake Total 0 Balance 0 Intake: Oral 0 Other: Voiding Method Incontinent Incontinent Incontinent # Voids 1 1 # Bowel Movements 0 0 Concrete Floor Installer attempted to conduct physical exam. Patient would not cooperate, became verbally defiant and yelled at the provider to leave the room. Results MRI brainlikely metastases to the brain - Laboratory Findings CBC and BMP: 01/24/18 08:52 01/24/18 08:52 Abnormal Lab Findings: Abnormal Labs 01/16/18 01/16/18 01/16/18 14:22 14:22 14:22 RBC 3.72 L Hgb Hct MCV MCHC Plt Count Lymphocytes # Sodium 135 L Chloride Carbon Dioxide Glucose 145 H POC Glucose (mg/dL) Hemoglobin A1c Calcium AST 43 H Total Creatine Kinase <20 L Total Protein 5.8 L Albumin 2.7 L TSH 8.500 H Urine Appearance Urine Protein Urine Blood Ur Leukocyte Esterase Urine RBC Urine WBC Urine WBC Clumps Urine Bacteria 01/16/18 01/16/18 01/16/18 14:22 14:38 18:03 RBC Hgb Hct MCV MCHC Plt Count Lymphocytes # Sodium Chloride Carbon Dioxide Glucose POC Glucose (mg/dL) 159 H Hemoglobin A1c 8.3 H Calcium AST Total Creatine Kinase Total Protein Albumin TSH Urine Appearance Turbid H Urine Protein 2+ H Urine Blood Moderate H Ur Leukocyte Esterase Large H Urine RBC 81 H Urine WBC >182 H Urine WBC Clumps Many H Urine Bacteria Many H 01/16/18 01/17/18 01/17/18 20:50 07:05 07:48 RBC 3.54 L Hgb 10.9 L Hct MCV MCHC Plt Count Lymphocytes # 0.8 L Sodium Chloride Carbon Dioxide Glucose POC Glucose (mg/dL) 151 H 132 H Hemoglobin A1c Calcium AST Total Creatine Kinase Total Protein Albumin TSH Urine Appearance Urine Protein Urine Blood Ur Leukocyte Esterase Urine RBC Urine WBC Urine WBC Clumps Urine Bacteria 01/17/18 01/17/18 01/17/18 07:48 11:58 17:02 RBC Hgb Hct MCV MCHC Plt Count Lymphocytes # Sodium Chloride Carbon Dioxide Glucose 118 H POC Glucose (mg/dL) 106 H 168 H Hemoglobin A1c Calcium 8.3 L AST Total Creatine Kinase Total Protein 5.3 L Albumin 2.5 L TSH Urine Appearance Urine Protein Urine Blood Ur Leukocyte Esterase Urine RBC Urine WBC Urine WBC Clumps Urine Bacteria 01/17/18 01/18/18 01/18/18 20:42 07:18 07:26 RBC 3.74 L Hgb Hct MCV MCHC Plt Count Lymphocytes # 0.8 L Sodium Chloride Carbon Dioxide Glucose POC Glucose (mg/dL) 142 H 156 H Hemoglobin A1c Calcium AST Total Creatine Kinase Total Protein Albumin TSH Urine Appearance Urine Protein Urine Blood Ur Leukocyte Esterase Urine RBC Urine WBC Urine WBC Clumps Urine Bacteria 01/18/18 01/18/18 01/18/18 07:26 11:51 16:53 RBC Hgb Hct MCV MCHC Plt Count Lymphocytes # Sodium 136 L Chloride Carbon Dioxide 21 L Glucose 158 H POC Glucose (mg/dL) 173 H 112 H Hemoglobin A1c Calcium 8.0 L AST Total Creatine Kinase Total Protein 5.6 L Albumin 2.6 L TSH Urine Appearance Urine Protein Urine Blood Ur Leukocyte Esterase Urine RBC Urine WBC Urine WBC Clumps Urine Bacteria 01/18/18 01/19/18 01/19/18 20:23 07:21 12:29 RBC Hgb Hct MCV MCHC Plt Count Lymphocytes # Sodium Chloride Carbon Dioxide Glucose POC Glucose (mg/dL) 109 H 297 H 195 H Hemoglobin A1c Calcium AST Total Creatine Kinase Total Protein Albumin TSH Urine Appearance Urine Protein Urine Blood Ur Leukocyte Esterase Urine RBC Urine WBC Urine WBC Clumps Urine Bacteria 01/19/18 01/19/18 01/20/18 17:08 20:41 07:10 RBC Hgb Hct MCV MCHC Plt Count Lymphocytes # Sodium Chloride Carbon Dioxide Glucose POC Glucose (mg/dL) 132 H 68 L 148 H Hemoglobin A1c Calcium AST Total Creatine Kinase Total Protein Albumin TSH Urine Appearance Urine Protein Urine Blood Ur Leukocyte Esterase Urine RBC Urine WBC Urine WBC Clumps Urine Bacteria 01/20/18 01/20/18 01/20/18 12:24 17:16 20:54 RBC Hgb Hct MCV MCHC Plt Count Lymphocytes # Sodium Chloride Carbon Dioxide Glucose POC Glucose (mg/dL) 285 H 211 H 187 H Hemoglobin A1c Calcium AST Total Creatine Kinase Total Protein Albumin TSH Urine Appearance Urine Protein Urine Blood Ur Leukocyte Esterase Urine RBC Urine WBC Urine WBC Clumps Urine Bacteria 01/21/18 01/21/18 01/21/18 07:21 11:25 17:33 RBC Hgb Hct MCV MCHC Plt Count Lymphocytes # Sodium Chloride Carbon Dioxide Glucose POC Glucose (mg/dL) 200 H 216 H 105 H Hemoglobin A1c Calcium AST Total Creatine Kinase Total Protein Albumin TSH Urine Appearance Urine Protein Urine Blood Ur Leukocyte Esterase Urine RBC Urine WBC Urine WBC Clumps Urine Bacteria 01/21/18 01/22/18 01/22/18 21:11 07:27 11:34 RBC Hgb Hct MCV MCHC Plt Count Lymphocytes # Sodium Chloride Carbon Dioxide Glucose POC Glucose (mg/dL) 167 H 259 H 244 H Hemoglobin A1c Calcium AST Total Creatine Kinase Total Protein Albumin TSH Urine Appearance Urine Protein Urine Blood Ur Leukocyte Esterase Urine RBC Urine WBC Urine WBC Clumps Urine Bacteria 01/22/18 01/22/18 01/23/18 17:08 20:23 07:31 RBC Hgb Hct MCV MCHC Plt Count Lymphocytes # Sodium Chloride Carbon Dioxide Glucose POC Glucose (mg/dL) 116 H 169 H 241 H Hemoglobin A1c Calcium AST Total Creatine Kinase Total Protein Albumin TSH Urine Appearance Urine Protein Urine Blood Ur Leukocyte Esterase Urine RBC Urine WBC Urine WBC Clumps Urine Bacteria 01/23/18 01/23/18 01/23/18 07:37 07:37 11:56 RBC 3.22 L Hgb 10.1 L Hct 32.4 L MCV 100.6 H MCHC Plt Count Lymphocytes # Sodium Chloride 109 H Carbon Dioxide 17 L Glucose 238 H POC Glucose (mg/dL) 224 H Hemoglobin A1c Calcium 8.0 L AST Total Creatine Kinase Total Protein 5.1 L Albumin 2.3 L TSH Urine Appearance Urine Protein Urine Blood Ur Leukocyte Esterase Urine RBC Urine WBC Urine WBC Clumps Urine Bacteria 01/23/18 01/24/18 01/24/18 17:13 07:08 08:52 RBC 3.45 L Hgb 10.7 L Hct MCV 100.6 H MCHC 30.9 L Plt Count 461 H Lymphocytes # 0.7 L Sodium Chloride Carbon Dioxide Glucose POC Glucose (mg/dL) 159 H 315 H Hemoglobin A1c Calcium AST Total Creatine Kinase Total Protein Albumin TSH Urine Appearance Urine Protein Urine Blood Ur Leukocyte Esterase Urine RBC Urine WBC Urine WBC Clumps Urine Bacteria 01/24/18 01/24/18 08:52 11:53 RBC Hgb Hct MCV MCHC Plt Count Lymphocytes # Sodium Chloride 108 H Carbon Dioxide 16 L Glucose 338 H POC Glucose (mg/dL) 301 H Hemoglobin A1c Calcium 8.2 L AST Total Creatine Kinase Total Protein Albumin TSH Urine Appearance Urine Protein Urine Blood Ur Leukocyte Esterase Urine RBC Urine WBC Urine WBC Clumps Urine Bacteria Assessment and Plan (1) Seizure Current Visit: Yes Status: Acute Code(s): R56.9 - UNSPECIFIED CONVULSIONS SNOMED Code(s): 34485994 (2) Altered mental status Current Visit: Yes Status: Acute Priority: High Code(s): R41.82 - ALTERED MENTAL STATUS, UNSPECIFIED SNOMED Code(s): 250335439 (3) Failure of outpatient treatment Current Visit: Yes Status: Acute Code(s): Z78.9 - OTHER SPECIFIED HEALTH STATUS SNOMED Code(s): 987732206 (4) Adenocarcinoma of lung, stage 4 Current Visit: No Status: Acute Priority: High Code(s): C34.90 - MALIGNANT NEOPLASM OF UNSP PART OF UNSP BRONCHUS OR LUNG SNOMED Code(s): 506189359 (5) Brain mass Current Visit: No Status: Acute Code(s): G93.9 - DISORDER OF BRAIN, UNSPECIFIED SNOMED Code(s): 783539925 Plan: Patient's current status is likely related to the metastasis to the brain with regard to confusion. Patient seizure activity could also potentially be related to metastasis. Given the patient's significant psychological distress, Keppra is not the medication of choice for this patient. I am going to prescribe Vimpat 100 mg IV twice a day concurrently with Keppra for the next 24 hours. We will DC Keppra on 01/25/18 in the evening. If Vimpat is unable to manage the patient's seizure-like activity, we may need to consider Zarontin as a dedicated medication for petit mal seizure. diagnostic workup: EEG MRI brain: Previously noted metastases to the brain Treatment: Continue Keppra for the next 24 hours, and DISCONTINUE Keppra on 01/25/18 at 2100 hrs. Start Vimpat 100 mg IV twice a day today then continue 100 mg twice a day orally if patient will tolerate and/or cooperate with oral administration. Otherwise maintain IV medication administration. Reassess Vimpat 24 hours post initiation and if ineffective, consider change to Zarontin or additionally add Zarontin Seizure precautions as currently implemented were ordered Notify neurology with any neurological status changes. Further recommendations once the results of the EEG is obtained. adeno-carcinoma/brain mass/cancer: Defer to primary team for management Defer to hematology/oncology for management Status: Neurology will continue to follow and provide updates as needed or warranted. Contact our office with any questions I have discussed the plan of care with the physician prior to implementation and he agrees with the plan as implemented.
[2018-01-24] MEDS: busPIRone HCl 5 MG TAB PO SCH ×2 (17:04→20:55)
[2018-01-24] MEDS: LORazepam 2 MG/ML INJ IV PRN ×2 (17:15→23:14)
[2018-01-24 17:24] LABS: Glucose,Whole Blood 308 mg/dL (75-99)
[2018-01-24] MEDS: LACOSAMIDE IV 100 MG in SODIUM CHLORIDE 0.9% 50 ML IVPB SCH (17:28)
[2018-01-24 20:41] LABS: Glucose,Whole Blood 233 mg/dL (75-99)
[2018-01-24] MEDS: QUEtiapine 25 MG TAB PO SCH (20:53)
[2018-01-24] MEDS: MEGESTROL 400 MG/10 ML CUP PO SCH ×2 (20:54→23:45)
[2018-01-24] MEDS: CLOPIDOGREL 75 MG TAB PO SCH (20:54)
[2018-01-25] MEDS: LACOSAMIDE IV 100 MG in SODIUM CHLORIDE 0.9% 50 ML IVPB SCH ×3 (00:32→22:31)
[2018-01-25] MEDS: DEXAMETHASONE SOD PHOSPHATE 10 MG/ML 1 ML VIAL IV SCH ×3 (00:33→13:17)
[2018-01-25] MEDS: HEPARIN SODIUM,PORCINE 5,000 UNIT/ML 1 ML VIAL SQ SCH ×3 (00:33→17:10)
[2018-01-25] MEDS: SODIUM CHLORIDE 0.9% 1,000 ML IV SCH ×2 (06:28→17:10)
[2018-01-25] MEDS: LEVOTHYROXINE 125 MCG TAB PO SCH (06:28)
[2018-01-25 07:12] LABS: Glucose,Whole Blood 269 mg/dL (75-99)
[2018-01-25 07:48] LABS: Basophils % (A) 0 %; Eosinophils % (A) 0 %; HCT 35.2 % (34.0-46.0); HGB 10.7 gm/dL (11.4-16.0); Hypochromasia Slight; Lymphocytes # (A) 0.8 k/uL (1.0-4.8); Lymphocytes % (A) 8 %; MCH 30.8 pg (25.0-35.0); MCHC 30.5 g/dL (31.0-37.0); Macrocytosis Slight; Mean Platelet Volume 6.8; Monocytes # (A) 0.4 k/uL (0-1.0); Monocytes % (A) 4 %; Neutrophils # (A) 8.4 k/uL (1.3-7.7); Neutrophils % (A) 87 %; Platelet Count 459 k/uL (150-450); RBC 3.49 m/uL (3.80-5.40); RDW 15.2 % (11.5-15.5); WBC 9.7 k/uL (3.8-10.6)
[2018-01-25 08:14] LABS: Calcium 8.3 mg/dL (8.4-10.2); Potassium 3.9 mmol/L (3.5-5.1)
[2018-01-25] MEDS: AMMONIUM LACTATE 12% LOTION 225 GM BTL TOPICAL SCH ×2 (09:27→21:48)
[2018-01-25] MEDS: INSULIN ASPART 100 UNIT/ML 1 ML 10 ML VIAL SQ SCH ×8 (09:27→21:59)
[2018-01-25] MEDS: CHOLECALCIFEROL 1,000 UNIT TAB PO SCH (11:00)
[2018-01-25] MEDS: busPIRone HCl 5 MG TAB PO SCH (11:01)
[2018-01-25] MEDS: LISINOPRIL 20 MG TAB PO SCH (11:02)
[2018-01-25] MEDS: levETIRAcetam 500 MG TAB PO SCH ×2 (11:02→21:48)
[2018-01-25] MEDS: METOPROLOL TARTRATE 12.5 MG TAB PO SCH ×2 (11:02→21:49)
[2018-01-25] MEDS: VENLAFAXINE HCL 75 MG TAB PO SCH (11:07)
[2018-01-25] MEDS: CYANOCOBALAMIN 500 MCG TAB PO SCH (11:07)
[2018-01-25] MEDS: MAGNESIUM OXIDE 400 MG TAB PO SCH ×2 (11:07→21:48)
[2018-01-25] MEDS: FAMOTIDINE 20 MG TAB PO SCH ×2 (11:07→21:47)
[2018-01-25] MEDS: FERROUS SULFATE 325 MG TAB PO SCH ×2 (11:08→21:47)
[2018-01-25] MEDS: BISACODYL 5 MG TABLET.DR PO SCH (11:11)
--- NOTE | 2018-01-25 11:21 | PN ---
PROGRESS NOTE DATE OF SERVICE: 01/24/2018 REASON FOR FOLLOW\UP: 1. Enterococcus faecalis urinary tract infection. 2. Right heel wound. INTERVAL HISTORY: 1. The patient is afebrile, she is breathing comfortably. Hemodynamically stable. Remains to be slightly lethargic. 2. Current history with no nausea, vomiting, diarrhea. No chest pain by the nursing staff. PHYSICAL EXAMINATION: Blood pressure 152/93 with a pulse of 95, temperature 98.2, she is 94% on room air. General description is an elderly female, lying in bed in no distress. RESPIRATORY SYSTEM: Unlabored breathing, clear to auscultation anteriorly. HEART: S1, S2. Regular rate and rhythm. ABDOMEN: Soft, no tenderness. Right heel wound is consistent with no obvious drainage on the dressing. LABS: Hemoglobin is 10.1, white count of 7.7, BUN of 13, creatinine 0.81. DIAGNOSTIC IMPRESSION AND PLAN: 1. Patient admitted to the hospital with mental status changes likely multifactorial. The patient did have Enterococcus faecalis urinary tract infection with the patient currently on appropriate IV antibiotic therapy. The patient did have evidence of metastatic disease to his brain from an MRI and Neurology is following for other etiologies. Overall prognosis remains to be guarded. 2. Patient had right heel wound. Continue with Aquacel Silver dressing, keep the area off the pressure. MMODL / IJN: [id number] /
[2018-01-25 12:01] LABS: Glucose,Whole Blood 317 mg/dL (75-99)
[2018-01-25] MEDS ORDERED: DEXAMETHASONE SOD PHOSPHATE 4 MG/ML 1 ML VIAL IV SCH (13:30)
[2018-01-25] MEDS ORDERED: LORazepam 2 MG/ML INJ IV PRN (13:37)
[2018-01-25] MEDS: DEXAMETHASONE SOD PHOSPHATE 4 MG/ML 1 ML VIAL IV SCH ×2 (14:39→21:49)
[2018-01-25] MEDS: INSULIN DETEMIR 100 UNIT/ML 10 ML VIAL SQ SCH (14:41)
[2018-01-25] MEDS: lamoTRIgine 25 MG TAB PO SCH (14:43)
--- NOTE | 2018-01-25 15:16 | P.PN ---
Subjective Progress Note Date: 01/25/18 This is a 77-year-old female patient of Dr. 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 Patient recently had a fall for which she sustained a fracture to the right wrist and she was treated at [facility]. Patient was transferred to the [facility] where she had the largest mass resected. Patient was also worked up and found to have a nodule in her lungs but she has no symptoms according to her . She denies any cough. There is also a liver mass as well. Once patient completed treatment at the [facility], she was transferred to [facility] for rehab. She was discharged from there last Thursday, November 04. Patient was then hospitalized November 10 through November 12 [facility] which time she was treated for metabolic encephalopathy thought to be due to steroids and hyperglycemia. She was also treated for urinary tract infection. Patient was discharged home with VNA. Per patient's , she completed her last radiation treatment on her brain on November 16 which was a total of 5. She has followed up with Dr. Sánchez and underwent a PET scan that he states was clean except for the lung mass which is 2 cm and no change. She is due to start radiation on her lung and this will last for 4-5 treatments. She was recently decreased from dexamethasone of 4 mg twice daily to 6 mg once daily. He states that her mental status has been gradually worsening. She has tired and sleeps all the time. He does state that she has had some hallucinations and symptoms have been more so last few days. She has only been drinking about 30 ounces per day but her appetite has been good and eating well. At home she is only able to transfer from bed to wheelchair and a chair. Prior to that she was ambulating with walker and home physical therapy. Patient has a follow-up appointment with Dr. Smith tomorrow. Patient was hospitalized at [facility] about a month ago for what appears to be UTI with severe encephalopathy and she was sent to [facility] for physical therapy rehabilitation, and the patient has been suffering from recurrent urinary tract infection on and off and she was sent today from [facility] on the [place] by Dr. Tenorio because of urinary tract infection that is not able to be controlled as an outpatient. Subsequently patient was admitted to the hospital she was found to have a significant UTI she was given IV antibiotic in the form of Rocephin 1 g IV piggyback every 24 hours, infectious disease consultation was obtained from Dr. Schumacher. 01/17: Patient is laying down in bed she appears to be quite slow her was at the bedside, she appears to be staring at os rule out any petit mal seizure, patient was found to be somewhat hypothyroid, we will increase her Synthroid to 125 g orally once every day, we will obtain infectious disease consultation from Dr. Celestin per the family wishes, continue IV fluid at 100 mL an hour, continue Rocephin 1 g IV piggyback every 24 hours, await the final result of the blood culture as well as the urine culture. 01/18: Patient's mental status is slowly improving but she is not back to baseline. She is more awake but she is moaning. Healed wound that is being addressed. PT and OT added. Keppra level is currently pending. EEG is pending. Urine culture is group D enterococcus and patient has history of VRE. Antibiotics changed to daptomycin. Blood culture is showing no growth. Patient will need IV access for IV antibiotics at the [facility]. 01/19:Patient is much quieter and not moaning today. Lac-hydrin added for legs and wound care orders placed for Aquacel Ag to right heel and waffle boots. Anticipate discharge back to [facility] by the end of the week. Awaiting midline placement. EEG showed slowing of the background activity and no seizure activity. 01/20: Patient remains quite lethargic. According to nursing, patient was up screaming through the night. Nursing was able to get medications in her this morning. Midline was unsuccessful and PICC line is ordered. CAT scan of brain ordered that revealed age-related atrophy and chronic small vessel ischemic change without acute intracranial process. Postop changes redemonstrated. Keppra level is 14 within normal limits. 01/21: Patient is sitting up in bed. She is more alert and answers questions. She opens her eyes easily to verbal stimuli. PICC line placement is to occur today. From Dr. Schumacher note from yesterday, patient is to complete 10 more days of daptomycin. [facility] has been updated with anticipated discharge tomorrow. 01/22: Scott patient no CODE STATUS yesterday. Patient is yelling out whenever family/ is not at the bedside. Patient is eating very little. She states she wants to go back to the [facility]. was like us to keep her longer to make sure that she is eating better. Seroquel added at 12.5 mg at bedtime. 01/23: Patient is hypersomnolent when seen today, patient did not recognize me at all as his PCP, patient cannot recognize friends is visiting, patient has known history of sleep apnea however noncompliant to the machine, there is no hypercarbia noted, patient has metabolic acidosis, serum ammonia will be obtained, requesting an MRI of the brain along with neurology consultation, Dr. Drake she is followed closely by the radiation oncology with recent completion of brain radiation. Underlying seizures cannot be ruled out, patient currently is on Keppra for suspected partial seizures 01/24: MRI of the brain showing no evidence of recent infarct, lesions at the left temporal lobe 1.5 x 1.6 x 1.4 cm, left parietal lobe the 6-7 mm, with ring enhancement of both, encephalomalacia, right temporal lobe lesion genic edema which is asymmetric. Patient is really aggressive today screaming for help, different behavior compared to yesterday, patient cannot quantify or clarify what can help she needs she denies any pain, no lightheadedness and dizziness, patient is very irritable today, she was started on IV dexamethasone yesterday for vasogenic edema, awaiting neurology consultation which white cell, and Dr. Smith consultation radiation oncology. Patient was started on BuSpar 5Milligrams 3 times a day, one time dose of Haldol given today, keep Seroquel 12.5 dinner time . Patient is not eating, IV fluid has been restarted, patient is not drinking. 01/25: Patient has been seen by neurology with plans to change from Keppra to Vimpat. Discussed case with neurology and Dr. Smith. Multiple medication changes have been made today. BuSpar and Seroquel discontinued, Effexor decreased to half dose, Decadron change from 6 mg IV every 6 hours to 4 mg every 8 hours, Remeron 7.5 mg at 1800 added, Ativan changed to once daily only, Lamictal 25 mg daily added. Patient is very lethargic and sleepy today. She is not sleeping at night and usually screaming out throughout the night. Yesterday, patient was very combative. Nursing was able to get her to eat a Magic cup today and take her medications this morning but otherwise patient is refusing to eat or drink anything. She is continued on IV fluids. Repeat EEG ordered. Objective - Vital Signs Vital signs: Vital Signs Temp 97.9 F 01/25/18 06:38 Pulse 96 01/25/18 06:38 Resp 18 01/25/18 06:38 BP 181/82 01/25/18 06:38 Pulse Ox 97 01/25/18 06:38 Intake & Output 01/24/18 01/25/18 01/25/18 18:59 06:59 18:59 Other: Voiding Method Incontinent Incontinent # Voids 0 2 # Bowel Movements 0 - Exam General appearance: average body habitus, no acute distress - EENT Eyes: anicteric sclerae, EOMI, PERRLA, no ptosis, no scleral icterus, normal appearance ENT: hearing grossly normal, NA/AT, normal oropharynx, no thrush Ears: bilateral: normal - Neck Neck: no lymphadenopathy, normal ROM, no rigidity, no stridor, no thyromegaly Carotids: bilateral: upstroke delayed Thyroid: bilateral: normal size - Respiratory Respiratory: bilateral: diminished, negative: dullness, rales, rhonchi, wheezing , prolonged expiration - Cardiovascular Rhythm: regular Heart sounds: normal: S1, S2 Abnormal Heart Sounds: systolic murmur - Gastrointestinal General gastrointestinal: normal bowel sounds, soft, no splenomegaly, no tenderness - Integumentary Integumentary: ulcer (right heel stage 3 ulcer with an eschar in the middle.) - Neurologic Neurologic: CNII-XII intact - Musculoskeletal Musculoskeletal: generalized weakness - Psychiatric Psychiatric: A&O x's 1, no intact judgment & insight - Labs CBC & Chem 7: 01/25/18 07:26 01/25/18 07:26 Labs: Abnormal Lab Results - Last 24 Hours (Table) 01/24/18 01/24/18 01/24/18 Range/Units 11:53 17:12 20:40 RBC (3.80-5.40) m/uL Hgb (11.4-16.0) gm/dL MCV (80.0-100.0) fL MCHC (31.0-37.0) g/dL Plt Count (150-450) k/uL Neutrophils # (1.3-7.7) k/uL Lymphocytes # (1.0-4.8) k/uL Chloride (98-107) mmol/L Carbon Dioxide (22-30) mmol/L BUN (7-17) mg/dL Glucose (74-99) mg/dL POC Glucose (mg/dL) 301 H 308 H 233 H (75-99) mg/dL Calcium (8.4-10.2) mg/dL 01/25/18 01/25/18 01/25/18 Range/Units 07:09 07:26 07:26 RBC 3.49 L (3.80-5.40) m/uL Hgb 10.7 L (11.4-16.0) gm/dL MCV 101.0 H (80.0-100.0) fL MCHC 30.5 L (31.0-37.0) g/dL Plt Count 459 H (150-450) k/uL Neutrophils # 8.4 H (1.3-7.7) k/uL Lymphocytes # 0.8 L (1.0-4.8) k/uL Chloride 111 H (98-107) mmol/L Carbon Dioxide 17 L (22-30) mmol/L BUN 21 H (7-17) mg/dL Glucose 301 H (74-99) mg/dL POC Glucose (mg/dL) 269 H (75-99) mg/dL Calcium 8.3 L (8.4-10.2) mg/dL Assessment and Plan Plan: 1. Metabolic encephalopathy secondary to enterococcus urinary tract infection and possible sepsis with behavioral disturbance. Continue daptomycin completed on January 30. Patient followed by Dr. Schumacher. BuSpar and Seroquel discontinued , Effexor decreased to half dose, Decadron change from 6 mg IV every 6 hours to 4 mg every 8 hours, Remeron 7.5 mg at 1800 added, Ativan changed to once daily only, Lamictal 25 mg daily added. 2. Brain metastases with primary lung status post tumor resection. Patient follows with Dr. Smith and Dr. Sánchez. Keppra changed to rifampin at repeat EEG ordered. Seroquel discontinued. Dexamethasone changed to 4 mg IV every 8 hours. 4. Diabetes mellitus type 2, uncontrolled due to steroids. Patient will be continued on NovoLog scale, Victoza which is not available here. Levemir 10 units daily added due to hyperglycemia from steroids. 5. History of CAD with prior PCI. Continue Lopressor 12.5 mg twice daily, Plavix 75 mg daily. 6. Hypertension. Continue lisinopril 10 mg daily, metoprolol tartrate 12.5 mg twice daily. 7. Hypothyroidism. Continue levothyroxine 125 g orally once every day. 8. Chronic kidney disease stage III. Baseline creatinine is about 1.2. 10. Gastrointestinal prophylaxis. Pepcid. 11. DVT prophylaxis. Lovenox daily. 12. Recurrent depression. Continue Effexor 75 mg at bedtime. 13. Anemia of chronic disease. Continue ferrous sulfate 325 mg twice daily. 14. Right heel ulcer. see wound care . 15. Staring episodes and possible petit mal seizure. This is could be related to hypothyroidism, adjust her Synthroid, monitor the patient very closely. EEG as above. Keppra level 14 within normal limits. 16. Hypersomnia, persistent, known history of sleep apnea, noncompliance to its use over 10 years for diagnosis, right need low-dose stimulants like methylphenidate 10 mg twice a day should hypersomnia persist. 17. New Metabolic acidosis, sodium bicarb orally to be provided, 2 doses continue to monitor 18. Vasogenic edema right temporal lobe based on MRI findings on 01/23/2018, no hydrocephalus, dexamethasone decreased to 4 mg every [address] Smith appreciated. Consult with neurology appreciated. Discharge plan: Return to [facility] Impression and plan of care have been directed as dictated by the signing physician. Myesha Wynne nurse practitioner acting as scribe for signing physician.
[2018-01-25] MEDS: MIRTAZAPINE 15 MG TAB PO SCH (17:10)
[2018-01-25] MEDS: hydrALAZINE HCL 20 MG/ML 1 ML VIAL IVP PRN (17:10)
[2018-01-25 17:28] LABS: Glucose,Whole Blood 325 mg/dL (75-99)
--- NOTE | 2018-01-25 18:21 | EEG ---
ELECTROENCEPHALOGRAM REPORT DATE OF SERVICE: 01/25/2018 REASON FOR TESTING: Altered mental status. DESCRIPTION OF THE PROCEDURE: This EEG was performed using a 21-channel digital electroencephalograph, following international 10-20 system. DESCRIPTION OF THE RECORDING: From the beginning of the tracing, and with the patient's eyes closed, the background rhythm was mostly consisting of 5 Hz theta frequency in the posterior occipital leads. No obvious asymmetry is seen. Occasional movement and muscle artifacts are seen. Photic stimulation was performed with no driving response seen. No pathological waves were elicited. Hyperventilation was not performed. Occasional phase reversals are seen, mainly on the left side. The patient remains awake throughout the tracing. No generalized epileptiform discharges were seen. Her EKG lead showed a regular rate and rhythm. INTERPRETATION: This awake EEG is abnormal due to the presence of occasional phase reversals, mainly seen on the left side. This is consistent with a reduced seizure threshold. The background rhythm was mostly consisting of theta frequency, consistent with moderate encephalopathy. Clinical correlation is recommended. MMJORDY / COBYN: [id number] /
--- NOTE | 2018-01-25 20:37 | P.PN ---
Subjective Progress Note Date: 01/25/18 Principal diagnosis: encephalopathy Neurology is following on a 77-year-old female with adenocarcinoma of the lung with metastasis to the brain. She is being followed by Dr. Smith from [facility] as well as Dr. Tenorio as her associate veterinarian. Treatment team at the bedside to discuss patient's current lab work, radiology reports, medication regimen, long-term prognosis and treatment options. It was determined that the patient will be taken off of BuSpar and Effexor and will continue Vimpat and additionally Lamictal 25 twice a day titration. updated EEG noted moderate encephalopathy. physical exam was conducted by the treatment team at the bedside. See Dr. Tenorio 's note for physical exam findings. Patient was nonverbal, did not respond to verbal prompting and does appear to be declined today over day. Dr. Smith noted that the patient's MRI at [facility] was compared to her previous known MRIs. MR-Brain was observed to be stable. Patient does have known edema which also appeared to be stable. At this point, from a neurological standpoint we will follow on an as-needed basis. Attempt to correct correctable underlying etiologies, reassess long- term goals of care with family and possible placement at long-term care facility and/or hospice. Prognosis is poor. Objective - Vital Signs Vital signs: Vital Signs Temp 97.1 F L 01/25/18 17:08 Pulse 103 H 01/25/18 17:08 Resp 18 01/25/18 17:08 BP 169/99 01/25/18 17:08 Pulse Ox 96 01/25/18 17:08 Intake & Output 01/25/18 01/25/18 01/26/18 06:59 18:59 06:59 Weight 84.55 kg Other: Voiding Method Incontinent Incontinent # Voids 2 2 - Exam see Dr. Tenorio's note for physical exam, exam conducted in presence of treatment team the bedside. neurology concurs with Dr. Tenorio's physical assessment. - Labs CBC & Chem 7: 01/25/18 07:26 01/25/18 07:26 Labs: Abnormal Lab Results - Last 24 Hours (Table) 01/24/18 01/25/18 01/25/18 Range/Units 20:40 07:09 07:26 RBC 3.49 L (3.80-5.40) m/uL Hgb 10.7 L (11.4-16.0) gm/dL MCV 101.0 H (80.0-100.0) fL MCHC 30.5 L (31.0-37.0) g/dL Plt Count 459 H (150-450) k/uL Neutrophils # 8.4 H (1.3-7.7) k/uL Lymphocytes # 0.8 L (1.0-4.8) k/uL Chloride (98-107) mmol/L Carbon Dioxide (22-30) mmol/L BUN (7-17) mg/dL Glucose (74-99) mg/dL POC Glucose (mg/dL) 233 H 269 H (75-99) mg/dL Calcium (8.4-10.2) mg/dL 01/25/18 01/25/18 01/25/18 Range/Units 07:26 11:59 17:25 RBC (3.80-5.40) m/uL Hgb (11.4-16.0) gm/dL MCV (80.0-100.0) fL MCHC (31.0-37.0) g/dL Plt Count (150-450) k/uL Neutrophils # (1.3-7.7) k/uL Lymphocytes # (1.0-4.8) k/uL Chloride 111 H (98-107) mmol/L Carbon Dioxide 17 L (22-30) mmol/L BUN 21 H (7-17) mg/dL Glucose 301 H (74-99) mg/dL POC Glucose (mg/dL) 317 H 325 H (75-99) mg/dL Calcium 8.3 L (8.4-10.2) mg/dL Assessment and Plan (1) Seizure Current Visit: Yes Status: Acute Code(s): R56.9 - UNSPECIFIED CONVULSIONS SNOMED Code(s): 36642503 (2) Altered mental status Current Visit: Yes Status: Acute Priority: High Code(s): R41.82 - ALTERED MENTAL STATUS, UNSPECIFIED SNOMED Code(s): 291192677 (3) Failure of outpatient treatment Current Visit: Yes Status: Acute Code(s): Z78.9 - OTHER SPECIFIED HEALTH STATUS SNOMED Code(s): 783575559 (4) Adenocarcinoma of lung, stage 4 Current Visit: No Status: Acute Priority: High Code(s): C34.90 - MALIGNANT NEOPLASM OF UNSP PART OF UNSP BRONCHUS OR LUNG SNOMED Code(s): 209589858 (5) Brain mass Current Visit: No Status: Acute Code(s): G93.9 - DISORDER OF BRAIN, UNSPECIFIED SNOMED Code(s): 528456676 Plan: Patient's current status is likely related to the metastasis to the brain, encephalopathy as noted on EEG. Patient seizure activity could also potentially be related to encephalopathy or metastasis. patient will continue Vimpat 100 mg twice a day, Lamictal 25 twice a day with increasing titration as needed. Commence psych consult as well on the patient given the patient's current status. Continue seizure precautions. Neuro checks as ordered or implemented. adeno-carcinoma/brain mass/cancer: Defer to primary team for management Defer to hematology/oncology for management Status: Neurology will follow on an as-needed basis At discharge, notify patient or caregiver to contact our office for follow-up in the office within 10-14 days. Contact our office with any questions I have discussed the plan of care with the physician prior to implementation and he agrees with the plan as implemented.
[2018-01-25 20:45] LABS: Glucose,Whole Blood 291 mg/dL (75-99)
[2018-01-25] MEDS: CLOPIDOGREL 75 MG TAB PO SCH (21:47)
[2018-01-25] MEDS: MEGESTROL 400 MG/10 ML CUP PO SCH (21:48)
--- NOTE | 2018-01-25 22:24 | PN ---
PROGRESS NOTE DATE OF SERVICE: 01/25/2018. REASON FOR FOLLOWUP: Enterococcus faecalis urinary tract infection. INTERVAL HISTORY: The patient is afebrile. She remains to be pleasantly confused. No agitation has been noticed. No nausea, vomiting, abdominal pain or diarrhea. PHYSICAL EXAMINATION: Her blood pressure is 159/99, pulse of 103, temperature 97.1, she is 96% on room air. GENERAL DESCRIPTION: An an elderly female lying in bed in no distress. RESPIRATORY SYSTEM: Unlabored breathing. Clear to auscultation anteriorly. HEART: S1, S2. Regular rate and rhythm. ABDOMEN: Soft, no tenderness. EXTREMITIES: Right heel wound covered, no drainage on the dressing. LABS: Hemoglobin is 10.7, white count 9.7, BUN of 21, creatinine 0.77. DIAGNOSTIC IMPRESSION AND PLAN: Patient admitted with enterococcus faecalis urinary tract infection. The patient is currently on daptomycin to finish a course of therapy. The patient with abnormal findings on the MRI with concern for possible mets. The patient is to be evaluated by radiation oncologist. was present at bedside. His questions and concerns were answered. MMODL / IJN: [id number] /
[2018-01-26] MEDS: HEPARIN SODIUM,PORCINE 5,000 UNIT/ML 1 ML VIAL SQ SCH ×2 (00:06→07:49)
[2018-01-26] MEDS: hydrALAZINE HCL 20 MG/ML 1 ML VIAL IVP PRN (04:55)
[2018-01-26] MEDS: SODIUM CHLORIDE 0.9% 1,000 ML IV SCH (06:45)
[2018-01-26] MEDS: DEXAMETHASONE SOD PHOSPHATE 4 MG/ML 1 ML VIAL IV SCH ×3 (06:46→22:36)
[2018-01-26 07:32] LABS: Glucose,Whole Blood 287 mg/dL (75-99)
[2018-01-26] MEDS: INSULIN DETEMIR 100 UNIT/ML 10 ML VIAL SQ SCH (07:47)
[2018-01-26] MEDS: lamoTRIgine 25 MG TAB PO SCH (07:48)
[2018-01-26 07:49] LABS: Basophils % (A) 0 %; Eosinophils % (A) 0 %; HCT 36.7 % (34.0-46.0); HGB 11.1 gm/dL (11.4-16.0); Hypochromasia Slight; Lymphocytes % (A) 9 %; MCH 30.4 pg (25.0-35.0); MCHC 30.1 g/dL (31.0-37.0); MCV 100.9 fL (80.0-100.0); Macrocytosis Slight; Mean Platelet Volume 6.6; Monocytes # (A) 0.8 k/uL (0-1.0); Monocytes % (A) 6 %; Neutrophils % (A) 84 %; Platelet Count 529 k/uL (150-450); RBC 3.64 m/uL (3.80-5.40); RDW 15.3 % (11.5-15.5)
[2018-01-26] MEDS: LEVOTHYROXINE 125 MCG TAB PO SCH (07:49)
[2018-01-26] MEDS: CYANOCOBALAMIN 500 MCG TAB PO SCH (07:50)
[2018-01-26] MEDS: CHOLECALCIFEROL 1,000 UNIT TAB PO SCH (07:50)
[2018-01-26] MEDS: FAMOTIDINE 20 MG TAB PO SCH ×3 (07:50→22:44)
[2018-01-26] MEDS: FERROUS SULFATE 325 MG TAB PO SCH (07:50)
[2018-01-26] MEDS: METOPROLOL TARTRATE 12.5 MG TAB PO SCH ×3 (07:51→22:49)
[2018-01-26] MEDS: LISINOPRIL 20 MG TAB PO SCH (07:51)
[2018-01-26] MEDS: MAGNESIUM OXIDE 400 MG TAB PO SCH (07:51)
[2018-01-26] MEDS: VENLAFAXINE HCL 37.5 MG TAB PO SCH (07:51)
[2018-01-26] MEDS: AMMONIUM LACTATE 12% LOTION 225 GM BTL TOPICAL SCH ×2 (07:52→22:36)
[2018-01-26 07:58] LABS: Anion Gap 15 mmol/L; Blood Urea Nitrogen 17 mg/dL (7-17); Calcium 7.6 mg/dL (8.4-10.2); Carbon Dioxide 15 mmol/L (22-30); Chloride 104 mmol/L (98-107); Glucose 264 mg/dL (74-99); Potassium 3.6 mmol/L (3.5-5.1); Sodium 134 mmol/L (137-145)
[2018-01-26] MEDS: INSULIN ASPART 100 UNIT/ML 1 ML 10 ML VIAL SQ SCH ×4 (07:58→13:18)
--- NOTE | 2018-01-26 09:25 | P.PN ---
Subjective Progress Note Date: 01/26/18 Principal diagnosis: brain metastases The patient continues to have altered mental status. She is arousable, but requires some stimulation. She responds appropriately to questions at times, but is far off of her baseline mentally. She has not rebounded from her mental status change the way she has previously. Her MRI of the brain from 01/23 was compared to her MRI of the brain at [facility] on 10/27. There are no new lesions; vasogenic edema is essentially stable. She was however restarted on steroids over the weekend, but she did not seem to respond to this. Objective - Vital Signs Vital signs: Vital Signs Temp 99.0 F 01/26/18 06:28 Pulse 106 H 01/26/18 06:28 Resp 20 01/26/18 06:28 BP 153/80 01/26/18 06:28 Pulse Ox 97 01/26/18 06:28 Intake & Output 01/25/18 01/26/18 01/26/18 18:59 06:59 18:59 Weight 84.55 kg Other: Voiding Method Incontinent Incontinent # Voids 2 2 - Constitutional General appearance: Present: disheveled - EENT Eyes: Present: normal appearance ENT: Present: hearing grossly normal - Neck Neck: Absent: lymphadenopathy - Respiratory Respiratory: bilateral: CTA - Cardiovascular Rhythm: regular - Gastrointestinal General gastrointestinal: Present: soft. Absent: tenderness - Psychiatric Psychiatric: Absent: intact judgment & insight - Labs CBC & Chem 7: 01/26/18 06:58 01/26/18 06:58 Labs: Abnormal Lab Results - Last 24 Hours (Table) 01/25/18 01/25/18 01/25/18 Range/Units 11:59 17:25 20:44 WBC (3.8-10.6) k/uL RBC (3.80-5.40) m/uL Hgb (11.4-16.0) gm/dL MCV (80.0-100.0) fL MCHC (31.0-37.0) g/dL Plt Count (150-450) k/uL Neutrophils # (1.3-7.7) k/uL Sodium (137-145) mmol/L Carbon Dioxide (22-30) mmol/L Glucose (74-99) mg/dL POC Glucose (mg/dL) 317 H 325 H 291 H (75-99) mg/dL Calcium (8.4-10.2) mg/dL 01/26/18 01/26/18 01/26/18 Range/Units 06:58 06:58 07:03 WBC 12.0 H (3.8-10.6) k/uL RBC 3.64 L (3.80-5.40) m/uL Hgb 11.1 L (11.4-16.0) gm/dL MCV 100.9 H (80.0-100.0) fL MCHC 30.1 L (31.0-37.0) g/dL Plt Count 529 H (150-450) k/uL Neutrophils # 10.0 H (1.3-7.7) k/uL Sodium 134 L (137-145) mmol/L Carbon Dioxide 15 L (22-30) mmol/L Glucose 264 H (74-99) mg/dL POC Glucose (mg/dL) 287 H (75-99) mg/dL Calcium 7.6 L (8.4-10.2) mg/dL - Imaging and Cardiology MRI - head: report reviewed, image reviewed Assessment and Plan Plan: Cindy Allen is a 77 year old Female with a history a stage IVB (cT1c, cN1, M1c) adenocarcinoma of the lung presenting with four brain metastases. She is status post resection of a dominant mass, and subsequently underwent radiosurgery to the resection cavity and other lesions finishing on 11/16/2017. She has had repeated bouts with UTI and altered mental status. During her most recent hospital stay, she remains altered in her mentation and is difficult to arouse. 1. Brain Metastases: Stable disease based on imaging comparison. I would resume steroids at a lower dose however (4 mg TID for 3 days, then BID). 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 2. Altered mental status: Could be infectious/metabolic/medication related. The patient does have multiple medical co-morbidities that put her at higher risk of becoming altered in a hospital setting. 3. Metastatic adenocarcinoma of the lung: I discussed with the patient's daughter and father at length that I am very concerned about her recent severe decline in performance status. I explained that since this current mental status change does not appear to be lifting, I felt that it was best to consider a hospice/palliative care approach for the patient. Her and daughter expressed their understanding. I will reassess the patient shortly. Time with Patient: Greater than 30
[2018-01-26] MEDS: LACOSAMIDE IV 100 MG in SODIUM CHLORIDE 0.9% 50 ML IVPB SCH ×3 (10:20→22:51)
[2018-01-26] MEDS: BISACODYL 5 MG TABLET.DR PO SCH (10:22)
[2018-01-26 12:16] LABS: Glucose,Whole Blood 229 mg/dL (75-99)
[2018-01-26] MEDS ORDERED: LORazepam ORAL CONC 60 MG/30 ML BOTTLE PO PRN (14:54)
--- NOTE | 2018-01-26 14:54 | P.PN ---
Subjective Progress Note Date: 01/26/18 This is a 77-year-old female patient of Dr. 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 Patient recently had a fall for which she sustained a fracture to the right wrist and she was treated at [facility]. Patient was transferred to the [facility] where she had the largest mass resected. Patient was also worked up and found to have a nodule in her lungs but she has no symptoms according to her . She denies any cough. There is also a liver mass as well. Once patient completed treatment at the [facility], she was transferred to [facility] for rehab. She was discharged from there last Thursday, November 04. Patient was then hospitalized November 10 through November 12 [facility] which time she was treated for metabolic encephalopathy thought to be due to steroids and hyperglycemia. She was also treated for urinary tract infection. Patient was discharged home with [facility]NA. Per patient's , she completed her last radiation treatment on her brain on November 16 which was a total of 5. She has followed up with Dr. Sánchez and underwent a PET scan that he states was clean except for the lung mass which is 2 cm and no change. She is due to start radiation on her lung and this will last for 4-5 treatments. She was recently decreased from dexamethasone of 4 mg twice daily to 6 mg once daily. He states that her mental status has been gradually worsening. She has tired and sleeps all the time. He does state that she has had some hallucinations and symptoms have been more so last few days. She has only been drinking about 30 ounces per day but her appetite has been good and eating well. At home she is only able to transfer from bed to wheelchair and a chair. Prior to that she was ambulating with walker and home physical therapy. Patient has a follow-up appointment with Dr. Smith tomorrow. Patient was hospitalized at [facility] about a month ago for what appears to be UTI with severe encephalopathy and she was sent to [facility] for physical therapy rehabilitation, and the patient has been suffering from recurrent urinary tract infection on and off and she was sent today from [facility] [place] the [place] by Dr. Tenorio because of urinary tract infection that is not able to be controlled as an outpatient. Subsequently patient was admitted to the hospital she was found to have a significant UTI she was given IV antibiotic in the form of Rocephin 1 g IV piggyback every 24 hours, infectious disease consultation was obtained from Dr. Schumacher. 01/17: Patient is laying down in bed she appears to be quite slow her was at the bedside, she appears to be staring at os rule out any petit mal seizure, patient was found to be somewhat hypothyroid, we will increase her Synthroid to 125 g orally once every day, we will obtain infectious disease consultation from Dr. Celestin per the family wishes, continue IV fluid at 100 mL an hour, continue Rocephin 1 g IV piggyback every 24 hours, await the final result of the blood culture as well as the urine culture. 01/18: Patient's mental status is slowly improving but she is not back to baseline. She is more awake but she is moaning. Healed wound that is being addressed. PT and OT added. Keppra level is currently pending. EEG is pending. Urine culture is group D enterococcus and patient has history of VRE. Antibiotics changed to daptomycin. Blood culture is showing no growth. Patient will need IV access for IV antibiotics at the skilled nursing. 01/19:Patient is much quieter and not moaning today. Lac-hydrin added for legs and wound care orders placed for Aquacel Ag to right heel and waffle boots. Anticipate discharge back to [facility] by the end of the week. Awaiting midline placement. EEG showed slowing of the background activity and no seizure activity. 01/20: Patient remains quite lethargic. According to nursing, patient was up screaming through the night. Nursing was able to get medications in her this morning. Midline was unsuccessful and PICC line is ordered. CAT scan of brain ordered that revealed age-related atrophy and chronic small vessel ischemic change without acute intracranial process. Postop changes redemonstrated. Keppra level is 14 within normal limits. 01/21: Patient is sitting up in bed. She is more alert and answers questions. She opens her eyes easily to verbal stimuli. PICC line placement is to occur today. From Dr. Schumacher note from yesterday, patient is to complete 10 more days of daptomycin. [facility] has been updated with anticipated discharge tomorrow. 01/22: Scott patient no CODE STATUS yesterday. Patient is yelling out whenever family/ is not at the bedside. Patient is eating very little. She states she wants to go back to the skilled nursing. was like us to keep her longer to make sure that she is eating better. Seroquel added at 12.5 mg at bedtime. 01/23: Patient is hypersomnolent when seen today, patient did not recognize me at all as his PCP, patient cannot recognize friends is visiting, patient has known history of sleep apnea however noncompliant to the machine, there is no hypercarbia noted, patient has metabolic acidosis, serum ammonia will be obtained, requesting an MRI of the brain along with neurology consultation, Dr. Drake she is followed closely by the radiation oncology with recent completion of brain radiation. Underlying seizures cannot be ruled out, patient currently is on Keppra for suspected partial seizures 01/24: MRI of the brain showing no evidence of recent infarct, lesions at the left temporal lobe 1.5 x 1.6 x 1.4 cm, left parietal lobe the 6-7 mm, with ring enhancement of both, encephalomalacia, right temporal lobe lesion genic edema which is asymmetric. Patient is really aggressive today screaming for help, different behavior compared to yesterday, patient cannot quantify or clarify what can help she needs she denies any pain, no lightheadedness and dizziness, patient is very irritable today, she was started on IV dexamethasone yesterday for vasogenic edema, awaiting neurology consultation which white cell, and Dr. Smith consultation radiation oncology. Patient was started on BuSpar 5Milligrams 3 times a day, one time dose of Haldol given today, keep Seroquel 12.5 dinner time . Patient is not eating, IV fluid has been restarted, patient is not drinking. 01/25: Patient has been seen by neurology with plans to change from Keppra to Vimpat. Discussed case with neurology and Dr. Smith. Multiple medication changes have been made today. BuSpar and Seroquel discontinued, Effexor decreased to half dose, Decadron change from 6 mg IV every 6 hours to 4 mg every 8 hours, Remeron 7.5 mg at 1800 added, Ativan changed to once daily only, Lamictal 25 mg daily added. Patient is very lethargic and sleepy today. She is not sleeping at night and usually screaming out throughout the night. Yesterday, patient was very combative. Nursing was able to get her to eat a Magic cup today and take her medications this morning but otherwise patient is refusing to eat or drink anything. She is continued on IV fluids. Repeat EEG ordered. 01/26: Patient's has decided on hospice care and will arrange for 24- hour care at home. We'll order hospice has been consult and arrangements are being made for tomorrow. Objective - Vital Signs Vital signs: Vital Signs Temp 99.0 F 01/26/18 06:28 Pulse 106 H 01/26/18 06:28 Resp 20 01/26/18 06:28 BP 153/80 01/26/18 06:28 Pulse Ox 97 01/26/18 06:28 Intake & Output 01/25/18 01/26/18 01/26/18 18:59 06:59 18:59 Weight 84.55 kg Other: Voiding Method Incontinent Incontinent Incontinent # Voids 2 2 - Exam General appearance: average body habitus, no acute distress - EENT Eyes: anicteric sclerae, EOMI, PERRLA, no ptosis, no scleral icterus, normal appearance ENT: hearing grossly normal, NA/AT, normal oropharynx, no thrush Ears: bilateral: normal - Neck Neck: no lymphadenopathy, normal ROM, no rigidity, no stridor, no thyromegaly Carotids: bilateral: upstroke delayed Thyroid: bilateral: normal size - Respiratory Respiratory: bilateral: diminished, negative: dullness, rales, rhonchi, wheezing , prolonged expiration - Cardiovascular Rhythm: regular Heart sounds: normal: S1, S2 Abnormal Heart Sounds: systolic murmur - Gastrointestinal General gastrointestinal: normal bowel sounds, soft, no splenomegaly, no tenderness - Integumentary Integumentary: ulcer (right heel stage 3 ulcer with an eschar in the middle.) - Neurologic Neurologic: CNII-XII intact - Musculoskeletal Musculoskeletal: generalized weakness - Psychiatric Psychiatric: A&O x's 1, no intact judgment & insight - Labs CBC & Chem 7: 01/26/18 06:58 08/28/18 06:58 Labs: Abnormal Lab Results - Last 24 Hours (Table) 01/25/18 01/25/18 01/25/18 Range/Units 11:59 17:25 20:44 WBC (3.8-10.6) k/uL RBC (3.80-5.40) m/uL Hgb (11.4-16.0) gm/dL MCV (80.0-100.0) fL MCHC (31.0-37.0) g/dL Plt Count (150-450) k/uL Neutrophils # (1.3-7.7) k/uL Sodium (137-145) mmol/L Carbon Dioxide (22-30) mmol/L Glucose (74-99) mg/dL POC Glucose (mg/dL) 317 H 325 H 291 H (75-99) mg/dL Calcium (8.4-10.2) mg/dL 01/26/18 01/26/18 01/26/18 Range/Units 06:58 06:58 07:03 WBC 12.0 H (3.8-10.6) k/uL RBC 3.64 L (3.80-5.40) m/uL Hgb 11.1 L (11.4-16.0) gm/dL MCV 100.9 H (80.0-100.0) fL MCHC 30.1 L (31.0-37.0) g/dL Plt Count 529 H (150-450) k/uL Neutrophils # 10.0 H (1.3-7.7) k/uL Sodium 134 L (137-145) mmol/L Carbon Dioxide 15 L (22-30) mmol/L Glucose 264 H (74-99) mg/dL POC Glucose (mg/dL) 287 H (75-99) mg/dL Calcium 7.6 L (8.4-10.2) mg/dL Assessment and Plan Plan: 1. Metabolic encephalopathy secondary to enterococcus urinary tract infection and possible sepsis with behavioral disturbance. Continue daptomycin completed on January 30. Patient followed by Dr. Schumacher. BuSpar and Seroquel discontinued , Effexor decreased to half dose, Decadron change from 6 mg IV every 6 hours to 4 mg every 8 hours, Remeron 7.5 mg at 1800 added, Ativan changed to once daily only, Lamictal 25 mg daily added. 2. Brain metastases with primary lung status post tumor resection. Patient follows with Dr. Smith and Dr. Sánchez. Keppra changed to rifampin at repeat EEG ordered. Seroquel discontinued. Dexamethasone changed to 4 mg IV every 8 hours. 4. Diabetes mellitus type 2, uncontrolled due to steroids. Patient will be continued on NovoLog scale, Victoza which is not available here. Levemir 10 units daily added due to hyperglycemia from steroids. 5. History of CAD with prior PCI. Continue Lopressor 12.5 mg twice daily, Plavix 75 mg daily. 6. Hypertension. Continue lisinopril 10 mg daily, metoprolol tartrate 12.5 mg twice daily. 7. Hypothyroidism. Continue levothyroxine 125 g orally once every day. 8. Chronic kidney disease stage III. Baseline creatinine is about 1.2. 10. Gastrointestinal prophylaxis. Pepcid. 11. DVT prophylaxis. Lovenox daily. 12. Recurrent depression. Continue Effexor 75 mg at bedtime. 13. Anemia of chronic disease. Continue ferrous sulfate 325 mg twice daily. 14. Right heel ulcer. see wound care . 15. Staring episodes and possible petit mal seizure. This is could be related to hypothyroidism, adjust her Synthroid, monitor the patient very closely. EEG as above. Keppra level 14 within normal limits. 16. Hypersomnia, persistent, known history of sleep apnea, noncompliance to its use over 10 years for diagnosis, right need low-dose stimulants like methylphenidate 10 mg twice a day should hypersomnia persist. 17. New Metabolic acidosis, sodium bicarb orally to be provided, 2 doses continue to monitor 18. Vasogenic edema right temporal lobe based on MRI findings on 01/23/2018, no hydrocephalus, dexamethasone decreased to 4 mg every [address] Smith appreciated. Consult with neurology appreciated. Discharge plan: Home with [facility] tomorrow. Impression and plan of care have been directed as dictated by the signing physician. Myesha Wynne nurse practitioner acting as scribe for signing physician.
[2018-01-26] MEDS ORDERED: MORPHINE CONC SOLN 10mg/0.5mL ORAL SYRG PO PRN (14:56)
--- NOTE | 2018-01-26 17:53 | PN ---
PROGRESS NOTE DATE OF SERVICE: 01/26/2018. REASON FOR FOLLOWUP: 1. Enterococcus faecalis UTI. 2. Right heel wound. INTERVAL HISTORY: The patient is currently afebrile. She seemed to be sleepy, in no distress. No nausea, vomiting has been noticed or any diarrhea. EXAMINATION: Blood pressure 134/79 with a pulse of 60, temperature of 98.4. She is 99% on room air. General description is an elderly female lying in bed in no distress. Right heel was covered with dressing with no obvious drainage on the dressing. LABS: Hemoglobin is 11.9, white count of 5 with a BUN of 17, creatinine 0.57. DIAGNOSTIC IMPRESSION AND PLAN: Patient admitted to hospital with mental status changes and weakness which is likely multifactorial with a component of possible urinary tract infection with Enterococcus faecalis. The patient has been on adequate therapy. No evidence of metastatic disease to the brain and the family is considering hospice, which may be preferred at this point. Antibiotic can be safely discontinued. present at bedside. Questions were answered. MMODL / IJN: [id number] /
[2018-01-26] MEDS: MIRTAZAPINE 15 MG TAB PO SCH (18:00)
[2018-01-27] MEDS: hydrALAZINE HCL 20 MG/ML 1 ML VIAL IVP PRN (00:43)
[2018-01-27] MEDS ORDERED: ACETAMINOPHEN IV (For NPO) 1,000 MG in EMPTY BAG 1 BAG IVPB ONE (02:52)
[2018-01-27 06:33] VITALS: BP 165/95; PULSE 100; RESP 18
[2018-01-27] MEDS: DEXAMETHASONE SOD PHOSPHATE 4 MG/ML 1 ML VIAL IV SCH ×2 (06:48→13:27)
[2018-01-27 06:49] VITALS: TEMP 99.5
[2018-01-27 07:33] LABS: Glucose,Whole Blood 243 mg/dL (75-99)
[2018-01-27] MEDS: VENLAFAXINE HCL 37.5 MG TAB PO SCH (08:24)
[2018-01-27] MEDS: FAMOTIDINE 20 MG TAB PO SCH (08:24)
[2018-01-27] MEDS: lamoTRIgine 25 MG TAB PO SCH (08:25)
[2018-01-27] MEDS: LEVOTHYROXINE 125 MCG TAB PO SCH (08:25)
[2018-01-27] MEDS: METOPROLOL TARTRATE 12.5 MG TAB PO SCH (08:25)
[2018-01-27] MEDS: LISINOPRIL 20 MG TAB PO SCH (08:25)
[2018-01-27] MEDS: CYANOCOBALAMIN 500 MCG TAB PO SCH (08:26)
[2018-01-27] MEDS: AMMONIUM LACTATE 12% LOTION 225 GM BTL TOPICAL SCH (08:26)
[2018-01-27] MEDS: BISACODYL 5 MG TABLET.DR PO SCH (08:41)
[2018-01-27] MEDS: LACOSAMIDE IV 100 MG in SODIUM CHLORIDE 0.9% 50 ML IVPB SCH (08:42)
--- NOTE | 2018-01-27 11:06 | P.DS ---
Providers Date of admission: 01/16/18 16:02 Expected date of discharge: 01/27/18 Attending physician: Keny Duffy Consults: 01/17/18 12:38 Consult Physician Routine Consulting Provider: Milady Schumacher Consult Reason/Comments: UTI, right heel pressure ulcer; known to patient Do you want consulting provider notified?: Yes Primary care physician: Kira Tenorio [facility] Course: This is a 77-year-old female patient of Dr. 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 Patient recently had a fall for which she sustained a fracture to the right wrist and she was treated at [facility]. Patient was transferred to the [facility] where she had the largest mass resected. Patient was also worked up and found to have a nodule in her lungs but she has no symptoms according to her . She denies any cough. There is also a liver mass as well. Once patient completed treatment at the [facility], she was transferred to [facility] for rehab. She was discharged from there last Thursday, November 04. Patient was then hospitalized November 10 through November 12 [facility] which time she was treated for metabolic encephalopathy thought to be due to steroids and hyperglycemia. She was also treated for urinary tract infection. Patient was discharged home with VNA. Per patient's , she completed her last radiation treatment on her brain on November 16 which was a total of 5. She has followed up with Dr. Sánchez and underwent a PET scan that he states was clean except for the lung mass which is 2 cm and no change. She is due to start radiation on her lung and this will last for 4-5 treatments. She was recently decreased from dexamethasone of 4 mg twice daily to 6 mg once daily. He states that her mental status has been gradually worsening. She has tired and sleeps all the time. He does state that she has had some hallucinations and symptoms have been more so last few days. She has only been drinking about 30 ounces per day but her appetite has been good and eating well. At home she is only able to transfer from bed to wheelchair and a chair. Prior to that she was ambulating with walker and home physical therapy. Patient has a follow-up appointment with Dr. Smith tomorrow. Patient was hospitalized at [facility] about a month ago for what appears to be UTI with severe encephalopathy and she was sent to [facility] for physical therapy rehabilitation, and the patient has been suffering from recurrent urinary tract infection on and off and she was sent today from [facility] by Dr. Tenorio because of urinary tract infection that is not able to be controlled as an outpatient. Subsequently patient was admitted to the hospital she was found to have a significant UTI she was given IV antibiotic in the form of Rocephin 1 g IV piggyback every 24 hours, infectious disease consultation was obtained from Dr. Schumacher. 01/17: Patient is laying down in bed she appears to be quite slow her was at the bedside, she appears to be staring at os rule out any petit mal seizure, patient was found to be somewhat hypothyroid, we will increase her Synthroid to 125 g orally once every day, we will obtain infectious disease consultation from Dr. Celestin per the family wishes, continue IV fluid at 100 mL an hour, continue Rocephin 1 g IV piggyback every 24 hours, await the final result of the blood culture as well as the urine culture. 01/18: Patient's mental status is slowly improving but she is not back to baseline. She is more awake but she is moaning. Healed wound that is being addressed. PT and OT added. Keppra level is currently pending. EEG is pending. Urine culture is group D enterococcus and patient has history of VRE. Antibiotics changed to daptomycin. Blood culture is showing no growth. Patient will need IV access for IV antibiotics at the skilled nursing. 01/19:Patient is much quieter and not moaning today. Lac-hydrin added for legs and wound care orders placed for Aquacel Ag to right heel and waffle boots. Anticipate discharge back to [facility] by the end of the week. Awaiting midline placement. EEG showed slowing of the background activity and no seizure activity. 01/20: Patient remains quite lethargic. According to nursing, patient was up screaming through the night. Nursing was able to get medications in her this morning. Midline was unsuccessful and PICC line is ordered. CAT scan of brain ordered that revealed age-related atrophy and chronic small vessel ischemic change without acute intracranial process. Postop changes redemonstrated. Keppra level is 14 within normal limits. 01/21: Patient is sitting up in bed. She is more alert and answers questions. She opens her eyes easily to verbal stimuli. PICC line placement is to occur today. From Dr. Schumacher note from yesterday, patient is to complete 10 more days of daptomycin. [facility] has been updated with anticipated discharge tomorrow. 01/22: Scott patient no CODE STATUS yesterday. Patient is yelling out whenever family/ is not at the bedside. Patient is eating very little. She states she wants to go back to the skilled nursing. was like us to keep her longer to make sure that she is eating better. Seroquel added at 12.5 mg at bedtime. 01/23: Patient is hypersomnolent when seen today, patient did not recognize me at all as his PCP, patient cannot recognize friends is visiting, patient has known history of sleep apnea however noncompliant to the machine, there is no hypercarbia noted, patient has metabolic acidosis, serum ammonia will be obtained, requesting an MRI of the brain along with neurology consultation, Dr. Drake she is followed closely by the radiation oncology with recent completion of brain radiation. Underlying seizures cannot be ruled out, patient currently is on Keppra for suspected partial seizures 01/24: MRI of the brain showing no evidence of recent infarct, lesions at the left temporal lobe 1.5 x 1.6 x 1.4 cm, left parietal lobe the 6-7 mm, with ring enhancement of both, encephalomalacia, right temporal lobe lesion genic edema which is asymmetric. Patient is really aggressive today screaming for help, different behavior compared to yesterday, patient cannot quantify or clarify what can help she needs she denies any pain, no lightheadedness and dizziness, patient is very irritable today, she was started on IV dexamethasone yesterday for vasogenic edema, awaiting neurology consultation which white cell, and Dr. Smith consultation radiation oncology. Patient was started on BuSpar 5Milligrams 3 times a day, one time dose of Haldol given today, keep Seroquel 12.5 dinner time . Patient is not eating, IV fluid has been restarted, patient is not drinking. 01/25: Patient has been seen by neurology with plans to change from Keppra to Vimpat. Discussed case with neurology and Dr. Smith. Multiple medication changes have been made today. BuSpar and Seroquel discontinued, Effexor decreased to half dose, Decadron change from 6 mg IV every 6 hours to 4 mg every 8 hours, Remeron 7.5 mg at 1800 added, Ativan changed to once daily only, Lamictal 25 mg daily added. Patient is very lethargic and sleepy today. She is not sleeping at night and usually screaming out throughout the night. Yesterday, patient was very combative. Nursing was able to get her to eat a Magic cup today and take her medications this morning but otherwise patient is refusing to eat or drink anything. She is continued on IV fluids. Repeat EEG ordered. 01/26: Patient's has decided on hospice care and will arrange for 24- hour care at home. We'll order hospice has been consult and arrangements are being made for tomorrow. 01/27: Patient's has decided that patient will go to the hospice home instead of home while he sits up 24-hour care. Dictations reviewed. Patient will be discharged today in stable condition. Discharge diagnoses: 1. Metabolic encephalopathy secondary to enterococcus urinary tract infection and possible sepsis with behavioral disturbance. 2. Brain metastases with primary lung status post tumor resection. 4. Diabetes mellitus type 2, uncontrolled with hyperglycemia due to steroids. 5. History of CAD with prior PCI. 6. Hypertension. 7. Hypothyroidism. 8. Chronic kidney disease stage III. 10. Recurrent depression. 13. Anemia of chronic disease. 14. Right heel ulcer. 15. Staring episodes and possible petit mal seizure. 16. Hypersomnia, persistent, known history of sleep apnea, noncompliance to its use over 10 years for diagnosis 17. New Metabolic acidosis 18. Vasogenic edema right temporal lobe unchanged from previous MRI per Dr. Smith Discharge plan: [facility]. Impression and plan of care have been directed as dictated by the signing physician. Myesha Wynne nurse practitioner acting as scribe for signing physician. Patient Condition at Discharge: Stable Plan - Discharge Summary New Discharge Prescriptions: New LORazepam ORAL CONC [Ativan Intensol] 2 mg PO Q4H PRN #10 ml PRN Reason: Anxiety Mirtazapine [Remeron] 7.5 mg PO 1800 #30 tab Lacosamide [Vimpat] 100 mg PO BID #60 tablet lamoTRIgine [LaMICtal] 25 mg PO DAILY #30 tab MORPHINE ORAL HERMINIO CONC 20mg/mL [Roxanol Oral Soln Conc 20MG/ML] 5 mg PO Q4H PRN #5 ml PRN Reason: Pain Continue Bisacodyl 5 mg PO DAILY Sennosides [Senna] 8.6 mg PO BID PRN PRN Reason: Constipation Discontinued Cyanocobalamin [Vitamin B-12] 500 mcg PO DAILY Magnesium Oxide 400 mg PO BID Clopidogrel [Plavix] 75 mg PO HS Famotidine [Pepcid] 20 mg PO BID INSULIN LISPRO (humaLOG) [humaLOG] 6 units SQ QAM levETIRAcetam [Keppra] 500 mg PO BID Liraglutide [Victoza 2-Parker] 1.2 mg SQ DAILY Ferrous Gluconate 324 mg PO BID Venlafaxine HCl 75 mg PO DAILY Cholecalciferol [Vitamin D3] 1,000 unit PO DAILY Lisinopril [Zestril] 10 mg PO DAILY Levothyroxine Sodium 100 mcg PO DAILY #30 tablet Metoprolol Tartrate [Lopressor] 12.5 mg PO BID tab Acetaminophen Tab [Tylenol Tab] 650 mg PO Q4H PRN PRN Reason: Pain INSULIN LISPRO (HumaLOG) [HumaLOG] See Protocol SQ ACHS valACYclovir [Valtrex] 500 mg PO TID INSULIN LISPRO (HumaLOG) [HumaLOG] 10 unit SQ BID@1100,1700 Melatonin 10 mg PO HS Megestrol Acetate 20 mg PO HS Collagenase [Santyl] 1 applic TOPICAL HS Discharge Medication List Bisacodyl 5 mg PO DAILY 11/10/17 [History] Sennosides [Senna] 8.6 mg PO BID PRN 11/10/17 [History] LORazepam ORAL CONC [Ativan Intensol] 2 mg PO Q4H PRN #10 ml 01/27/18 [Rx] Lacosamide [Vimpat] 100 mg PO BID #60 tablet 01/27/18 [Rx] MORPHINE ORAL HERMINIO CONC 20mg/mL [Roxanol Oral Soln Conc 20MG/ML] 5 mg PO Q4H PRN #5 ml 01/27/18 [Rx] Mirtazapine [Remeron] 7.5 mg PO 1800 #30 tab 01/27/18 [Rx] lamoTRIgine [LaMICtal] 25 mg PO DAILY #30 tab 01/27/18 [Rx] Follow up Appointment(s)/Referral(s): Kira Tenorio MD [Primary Care Provider] - As Needed () Patient Instructions/Handouts: Urinary Tract Infection in Women (GEN), Type 2 Diabetes in Adults: New Diagnosis (DC) Discharge Disposition: DISCH TO HOSPICE MED FACILTY
[2018-01-27 12:03] LABS: Glucose,Whole Blood 336 mg/dL (75-99)
== END 2018-01-27 15:06 | disposition hospice, inpatient (51) | DRG 871 ==
LOC: EC 14:02 → 5MS5E 16:02 → 4MS4W 16:18
PROVIDERS: ADMIT Internal Medicine Geriatric Medicine; ATTEND Internal Medicine Geriatric Medicine
PROC: 02HV33Z Insertion of Infusion Device into Superior Vena Cava, Percutaneous Approach (ICD-10-PCS; principal; 2018-01-21 09:30)
DX: A41.81 Sepsis due to Enterococcus (principal); G93.6 Cerebral edema; G93.41 Metabolic encephalopathy; N39.0 Urinary tract infection, site not specified; E87.2 Acidosis; C79.31 Secondary malignant neoplasm of brain; F33.9 Major depressive disorder, recurrent, unspecified; C78.7 Secondary malignant neoplasm of liver and intrahepatic bile duct; C34.12 Malignant neoplasm of upper lobe, left bronchus or lung; Z66 Do not resuscitate; Z51.5 Encounter for palliative care; E86.0 Dehydration; E11.40 Type 2 diabetes mellitus with diabetic neuropathy, unspecified; E11.22 Type 2 diabetes mellitus with diabetic chronic kidney disease; L89.611 Pressure ulcer of right heel, stage 1; G40.409 Other generalized epilepsy and epileptic syndromes, not intractable, without status epilepticus; E11.65 Type 2 diabetes mellitus with hyperglycemia; E11.319 Type 2 diabetes mellitus with unspecified diabetic retinopathy without macular edema; N18.3 Chronic kidney disease, stage 3 (moderate); D63.8 Anemia in other chronic diseases classified elsewhere; I12.9 Hypertensive chronic kidney disease with stage 1 through stage 4 chronic kidney disease, or unspecified chronic kidney disease; E03.9 Hypothyroidism, unspecified; G47.33 Obstructive sleep apnea (adult) (pediatric); M81.0 Age-related osteoporosis without current pathological fracture; G47.10 Hypersomnia, unspecified; T38.0X5A Adverse effect of glucocorticoids and synthetic analogues, initial encounter; K21.9 Gastro-esophageal reflux disease without esophagitis; I25.10 Atherosclerotic heart disease of native coronary artery without angina pectoris; Z79.02 Long term (current) use of antithrombotics/antiplatelets; Z79.4 Long term (current) use of insulin; Z79.890 Hormone replacement therapy; Z79.899 Other long term (current) drug therapy; Z87.01 Personal history of pneumonia (recurrent); Z92.3 Personal history of irradiation; Z86.19 Personal history of other infectious and parasitic diseases; Z95.5 Presence of coronary angioplasty implant and graft; Z87.891 Personal history of nicotine dependence; Z87.81 Personal history of (healed) traumatic fracture; Z98.41 Cataract extraction status, right eye; Z98.42 Cataract extraction status, left eye; Z87.39 Personal history of other diseases of the musculoskeletal system and connective tissue; Z87.440 Personal history of urinary (tract) infections; Z96.1 Presence of intraocular lens; Z91.19 Patient's noncompliance with other medical treatment and regimen; Z88.1 Allergy status to other antibiotic agents; Z88.0 Allergy status to penicillin; Z80.8 Family history of malignant neoplasm of other organs or systems; Z80.52 Family history of malignant neoplasm of bladder
CPT/HCPCS: 36415; 36569; 70450; 70553; 71046; 76937; 77001; 80048; 80053; 80177; 81001; 82140; 82550; 82553; 83036; 83605; 83735; 83880; 84100; 84443; 84484; 85025; 85027; 85610; 85730; 87040; 87077; 87086; 87186; 93005; 95816; 96360; 96361; 99285